=== PATIENT | female | born 1950 | race Caucasian/White ===

== ENCOUNTER 2016-04-02 16:35 | Inpatient (IN) | payer MEDICARE, BC ==
[2016-04-02] VITALS (18 sets, daily range): BP systolic 70–118; BP diastolic 44–81
[~2016-04-02] VITALS: Ht 160 cm; Wt 56.7 kg
[2016-04-02] MEDS ORDERED: ALPRAZOLAM0.5 MG PO (16:36)
[2016-04-02] MEDS ORDERED: FLOVENT2 PUFF1 INH (16:37)
[2016-04-02] MEDS ORDERED: Azithromycin 500 MG in NS 250 ML IV ONE (16:45)
[2016-04-02] MEDS ORDERED: Midazolam for drip 50 MG in D5W 90 ML IV SCH (16:45)
[2016-04-02] MEDS ORDERED: Solu-MEDROL 125mg Inj IVP ONE (16:45)
[2016-04-02] MEDS ORDERED: Ipratropium 0.02% Inh Soln 2.5ml UD HHN ONE (16:45)
[2016-04-02] MEDS ORDERED: Midazolam for drip 50 MG in NS 90 ML IV SCH (16:52)
--- NOTE | 2016-04-02 16:52 | Emergency Room Report ---
History of Present Illness General Chief Complaint: Dyspnea/Respdistress Source: Family Member, EMS Present Illness HPI The patient does have respiratory difficulty for 3 days. Has a history of COPD. She refused to come in with her mom. She does live with her mom. Has been using breathing treatments. Paramedics gave the patient albuterol and in transfer she had decreased responsiveness. Her initial O2 saturation was 79% and this came up to 84%. Treatments in the field with albuterol. The patient is unresponsive at this time and unable to give history. Allergies: Coded Allergies: No Known Allergies (Unverified , 04/02/16) Patient History Limited by: medical condition Past Medical History: see triage record, COPD Social History: Reports: smoking - prior, Denies: alcohol use, drug use Social History Narrative with mother Reviewed Nursing Documentation: PMH: Agreed, PSxH: Agreed Nursing Documentation-PMH Past Medical History Deferred: Patient Unconscious Past Medical History: No History, Except For Hx Hypertension: Yes Hx COPD: Yes History Of Psychiatric Problem: Yes - anxiety Review of Systems All Other Systems: limited Physical Exam Vital Signs Date Time Temp Pulse Resp B/P Pulse Ox O2 Delivery O2 Flow Rate FiO2 04/02/16 16:31 110 14 134/90 77 6.0 Sp02 EP Interpretation: reviewed, abnormal - interpreted as low by me General Appearance: Stupor Eyes: bilateral eye PERRL, bilateral eye normal inspection ENT: moist mucus membranes - plates Neck: supple Respiratory: other - inadequate TV and wheezes, decreased BS bilat Cardiovascular #1: no edema, no murmur, JVD - supine, tachycardia, edema - trace Cardiovascular #2: 2+ radial (R), 2+ femoral (R) Gastrointestinal: abnormal bowel sounds - decreased, scaphoid Genitourinary: normal inspection Musculoskeletal: digits/nails normal, no calf tenderness Neurologic: other - unresponsive to pain Psychiatric: other - stupor Skin: other - sallow Procedures Critical Care Time Critical Care Time Total time: 45 min bedside evaluation and treatment excludes procedures (EKG, intubation and CVP). Reason for critical care: respiratory failure, hypotension, vomiting Possible complications: hypotension, hypertension, AR, shock, arrhythmias, metabolic acidosis, end organ damage, respiratory failure. Interventions: intubation, CVP, eval of ABGs, eval sedation, discussion with family Course: Patient presented comatose after breathing treatments in field. Immediately intubated after discussion with family. Discussion of vent with RT. Transiently hypotensive, better with fluids, then again hypotensive. No JVD when sitting. Breath sounds (tight) bilat and equal (no evidence of pneumothorax). Patient now fully responsive and alert (on versed) while sitting. CVP inserted and levophed begun. Discussion with family and PMD. Patient improved, but critical. Admitted ICU. Consultations: nursing staff, EMS, family, RT, admitting MD Performed by: Dr. Eisenberg Tolerated well condition = critical Central Line Central Line : Consent: Verbal Central Line Lumen: triple Maximal Sterile Barrier Tech: yes cap, yes mask, yes sterile gown, yes sterile gloves, yes large sterile sheet, yes hand hygiene, yes chlorhexidine prep Central Line Postion: femoral (R) Anesthesia: Lidocaine cc's of anesthesia: 3 Complications: none Central Line Post Position: sutured Attempts: One Patient Tolerated: Well Complications: None Progress EBL = 3 ml Intubation Intubation : Consent: Emergent Intubation Method: orotracheal Tube Size (cm): 7.5 Medications: Etomidate Breath Sounds after Intubation: equal Intubation Complications: no complications Post Intubation Xray: Yes Attempts: One Patient Tolerated: Well Complications: None Medical Decision Making Diagnostic Impression: Primary Impression: Respiratory failure Additional Impressions: Hypotension Qualified Codes: I95.9 - Hypotension, unspecified COPD exacerbation ER Course Patient with respiratory failure, unresponsive. Intubated immediately. DDX PNA , COPD, bronchitis amongst others. BC, lactate, EKG and CXR obtained. Discussed with mother and hx obtained. ET OK, COPD = severe. After intubation, more awake and seems to understand. 17:25. Discussed with PMD. Hypotensive despite fluids. CVP and levophed begun. Improved on levophed. Admit ICU Dr. Gomez. Laboratory Tests Test 04/02/16 16:36 04/02/16 16:40 04/02/16 17:30 04/02/16 17:50 Prothrombin Time 11.4 SEC (9.30-11.50) Prothrombin Time INR 1.1 (0.9-1.1) PTT 27 SEC (23-33) White Blood Count 11.5 K/UL (4.8-10.8) H Red Blood Count 4.23 M/UL (4.20-5.40) Hemoglobin 12.5 G/DL (12.0-16.0) Hematocrit 40.0 % (37.0-47.0) Mean Corpuscular Volume 94 FL (80-99) Mean Corpuscular Hemoglobin 29.6 PG (27.0-31.0) Mean Corpuscular Hemoglobin Concent 31.4 G/DL (32.0-36.0) L Red Cell Distribution Width 12.8 % (11.6-14.8) Platelet Count 261 K/UL (150-450) Mean Platelet Volume 8.3 FL (6.5-10.1) Neutrophils (%) (Auto) 72.7 % (45.0-75.0) Lymphocytes (%) (Auto) 14.5 % (20.0-45.0) L Monocytes (%) (Auto) 11.5 % (1.0-10.0) H Eosinophils (%) (Auto) 0.1 % (0.0-3.0) Basophils (%) (Auto) 1.3 % (0.0-2.0) Sodium Level 133 mEQ/L (135-145) L Potassium Level 4.5 mEQ/L (3.4-4.9) Chloride Level 87 mEQ/L (98-107) L Carbon Dioxide Level 29 mEQ/L (20-30) Anion Gap 17 (5-15) H Blood Urea Nitrogen 32 mg/dL (7-23) H Creatinine 1.2 mg/dL (0.5-0.9) H Estimate Glomerular Filtration Rate 44.7 mL/min (>60) Glucose Level 172 mg/dL (74-106) H Lactic Acid Level 2.20 mmol/L (0.66-2.22) Calcium Level 9.1 mg/dL (8.6-10.2) Total Bilirubin 0.6 mg/dL (0.0-1.2) Aspartate Amino Transferase (AST) 68 U/L (5-40) H Alanine Aminotransferase (ALT) 68 U/L (3-33) H Alkaline Phosphatase 58 U/L (35-104) Total Creatine Kinase 411 U/L (26-140) H Troponin I < 0.30 ng/mL (<=0.30) Pro-B-Type Natriuretic Peptide 1824 pg/mL (0-125) H Total Protein 7.5 g/dL (6.6-8.7) Albumin 3.8 g/dL (3.5-5.2) Globulin 3.7 g/dL Albumin/Globulin Ratio 1.0 (1.0-2.7) Urine Color Yellow Urine Appearance Clear Urine pH 5 (4.5-8.0) Urine Specific [place] 1.025 (1.005-1.035) Urine Protein 3+ (NEGATIVE) H Urine Glucose (UA) Negative (NEGATIVE) Urine Ketones Negative (NEGATIVE) Urine Occult Blood 3+ (NEGATIVE) H Urine Nitrite Negative (NEGATIVE) Urine Bilirubin Negative (NEGATIVE) Urine Urobilinogen 4 MG/DL (0.0-1.0) H Urine Leukocyte Esterase Negative (NEGATIVE) Urine RBC 2-4 /HPF (0 - 2) H Urine WBC 0-2 /HPF (0 - 2) Urine Squamous Epithelial Cells Few /LPF (NONE/OCC) Urine Amorphous Sediment Few /LPF (NONE) H Urine Bacteria Few /HPF (NONE) Urine Opiates Screen Negative (NEGATIVE) Urine Barbiturates Screen Negative (NEGATIVE) Phencyclidine (PCP) Screen Negative (NEGATIVE) Urine Amphetamines Screen Negative (NEGATIVE) Urine Benzodiazepines Screen Positive (NEGATIVE) H Urine Cocaine Screen Negative (NEGATIVE) Urine Marijuana (THC) Screen Negative (NEGATIVE) Arterial Blood pH 7.329 (7.350-7.450) Arterial Blood Partial Pressure CO2 43.1 mmHg (35.0-45.0) Arterial Blood Partial Pressure O2 377.4 mmHg (75.0-100.0) H Arterial Blood HCO3 22.2 mmol/L (22.0-26.0) Arterial Blood Oxygen Saturation 99.3 % (92.0-98.0) H Arterial Blood Base Excess -3.7 Damián Test Positive Test 04/02/16 23:10 04/03/16 04:00 Lactic Acid Level 2.90 mmol/L (0.66-2.22) H Pending Troponin I 0.40 ng/mL (<=0.30) *H Pending White Blood Count Pending Red Blood Count Pending Hemoglobin Pending Hematocrit Pending Mean Corpuscular Volume Pending Mean Corpuscular Hemoglobin Pending Mean Corpuscular Hemoglobin Concent Pending Red Cell Distribution Width Pending Platelet Count Pending Mean Platelet Volume Pending Neutrophils (%) (Auto) Pending Lymphocytes (%) (Auto) Pending Monocytes (%) (Auto) Pending Eosinophils (%) (Auto) Pending Basophils (%) (Auto) Pending Sodium Level Pending Potassium Level Pending Chloride Level Pending Carbon Dioxide Level Pending Blood Urea Nitrogen Pending Creatinine Pending Estimate Glomerular Filtration Rate Pending Glucose Level Pending Calcium Level Pending Total Bilirubin Pending Aspartate Amino Transferase (AST) Pending Alanine Aminotransferase (ALT) Pending Alkaline Phosphatase Pending Total Protein Pending Albumin Pending Globulin Pending Microbiology Date/Time Source Procedure Growth Status 04/02/16 17:50 Nasal Nares Influenza Types A,B Antigen (SCOTTY) - Final Complete EKG Diagnostic Results Rate: tachycardiac ST Segments: no acute changes Rhythm Strip Diag. Results EP Interpretation: yes Rhythm: no PVC's, no ectopy, other - Sinus tachycardia Chest X-Ray Diagnostic Results EP Interpretation: Yes Findings: no effusion, no pneumothorax, other - COPD, ET OK, no infiltrate Number of Views: 1 Last 24 Hour Vital Signs Date Time Temp Pulse Resp B/P Pulse Ox O2 Delivery O2 Flow Rate FiO2 04/03/16 05:20 99/52 04/03/16 04:23 98 16 40 04/03/16 02:02 101 16 100 Mechanical Ventilator 40 04/03/16 01:46 89 16 100 Mechanical Ventilator 40 04/03/16 01:45 90 20 94/52 100 Mechanical Ventilator 40 04/03/16 01:44 91 16 40 04/03/16 01:30 90 20 94/52 100 Mechanical Ventilator 40 04/03/16 01:15 88 20 90/55 100 Mechanical Ventilator 40 04/03/16 01:00 89 20 91/55 100 Mechanical Ventilator 40 04/03/16 01:00 89/56 04/03/16 00:45 96 20 89/56 100 Mechanical Ventilator 40 04/03/16 00:30 94 20 92/56 100 Mechanical Ventilator 40 04/03/16 00:15 96 20 92/53 100 Mechanical Ventilator 40 04/03/16 00:00 40 04/03/16 00:00 96 04/03/16 00:00 96 20 93/54 100 Mechanical Ventilator 40 04/03/16 00:00 93/54 04/02/16 23:45 99 20 108/77 100 Mechanical Ventilator 40 04/02/16 23:30 98.4 93 20 108/57 100 Mechanical Ventilator 40 04/02/16 23:15 99 20 98/56 100 Mechanical Ventilator 40 04/02/16 23:00 87/44 04/02/16 23:00 96 20 101/81 100 Mechanical Ventilator 60 04/02/16 22:45 93 18 87/49 100 Mechanical Ventilator 60 04/02/16 22:30 95 18 105/59 100 Mechanical Ventilator 60 04/02/16 22:25 95 16 40 04/02/16 22:15 95 18 94/49 100 Mechanical Ventilator 60 04/02/16 22:01 105/61 04/02/16 22:00 94 17 105/61 100 Mechanical Ventilator 60 04/02/16 21:45 96 16 87/45 100 Mechanical Ventilator 60 04/02/16 21:30 97 16 95/62 100 Mechanical Ventilator 60 04/02/16 21:29 86/49 04/02/16 21:15 98 16 85/44 100 Mechanical Ventilator 60 04/02/16 21:04 98 16 40 04/02/16 21:00 98 16 85/49 100 Mechanical Ventilator 60 04/02/16 20:45 100 16 85/49 100 Mechanical Ventilator 60 04/02/16 20:38 102 04/02/16 20:30 102 16 102/60 100 Mechanical Ventilator 60 04/02/16 20:15 98.0 105 16 105/55 100 Mechanical Ventilator 60 04/02/16 20:09 40 04/02/16 20:04 97.0 108 16 83/58 100 Endotracheal Tube 6.0 60 04/02/16 20:00 60 04/02/16 19:45 97.1 106 16 85/52 95 Endotracheal Tube 6.0 60 04/02/16 19:33 108 16 60 04/02/16 19:16 97.1 103 18 70/50 94 Endotracheal Tube 6.0 04/02/16 19:09 67/48 04/02/16 16:38 60 04/02/16 16:38 110 16 60 04/02/16 16:38 110 14 Mechanical Ventilator 60 04/02/16 16:38 110 14 100 Mechanical Ventilator 60 04/02/16 16:35 118 12 Non-Rebreather 6.0 04/02/16 16:35 97.0 118 12 118/62 92 Non-Rebreather 6.0 04/02/16 16:31 110 14 134/90 77 6.0 Status: improved Disposition: ADMITTED INPATIENT Condition: Critical Adolfo Eisenberg M.D. Apr 02, 2016 16:52
[2016-04-02 16:55] LABS: BASOPHILS % (AUTO) 1.3 % (0.0-2.0); EOSINOPHILS % (AUTO) 0.1 % (0.0-3.0); LYMPHOCYTES % (AUTO) 14.5 % (20.0-45.0); MEAN CORPUSCULAR HEMOGLOBIN 29.6 PG (27.0-31.0); MEAN CORPUSCULAR HGB CONC 31.4 G/DL (32.0-36.0); MEAN CORPUSCULAR VOLUME 94 FL (80-99); MEAN PLATELET VOLUME 8.3 FL (6.5-10.1); MONOCYTES % (AUTO) 11.5 % (1.0-10.0); NEUTROPHILS % (AUTO) 72.7 % (45.0-75.0); PLATELET COUNT 261 K/UL (150-450); RED BLOOD COUNT 4.23 M/UL (4.20-5.40); RED CELL DISTRIBUTION WIDTH 12.8 % (11.6-14.8); WHITE BLOOD COUNT 11.5 K/UL (4.8-10.8)
[2016-04-02] MEDS ORDERED: Etomidate 40mg/20ml Inj IV ONE (17:00)
[2016-04-02] MEDS ORDERED: Midazolam 2mg/2ml Inj IVP ONE (17:00)
[2016-04-02] MEDS ORDERED: Azithromycin Inj IV ONE (17:13)
[2016-04-02] MEDS: Albuterol ud Inhalation HHN SCH ×14 (17:16→20:15)
[2016-04-02 17:19] LABS: INR 1.1 (0.9-1.1); PROTHROMBIN TIME 11.4 SEC (9.30-11.50)
[2016-04-02 17:45] LABS: TROPONIN I < 0.30 ng/mL (<=0.30)
[2016-04-02 17:48] LABS: ALANINE AMINOTRANSFERASE 68 U/L (3-33); CHLORIDE 87 mEQ/L (98-107); POTASSIUM 4.5 mEQ/L (3.4-4.9); SODIUM 133 mEQ/L (135-145)
[2016-04-02 17:55] LABS: REFLEX LACTIC ACID YES OR NO YES
[2016-04-02 18:00] LABS: APPEARANCE,URINE CLEAR; KETONES,URINE NEGATIVE (NEGATIVE); LEUKOCYTE ESTERASE ,URINE NEGATIVE (NEGATIVE); NITRITE,URINE NEGATIVE (NEGATIVE); PH,URINE 5 (4.5-8.0); PROTEIN,URINE 3+ (NEGATIVE); UROBILINOGEN,URINE 4 MG/DL (0.0-1.0)
[2016-04-02] MEDS ORDERED: Vancomycin 1gm inj IVPB ONE (18:01)
[2016-04-02 18:03] LABS: ABG PCO2 43.1 mmHg (35.0-45.0)
[2016-04-02 18:04] LABS: ABG ALLEN TEST POSITIVE; ABG BASE EXCESS -3.7
[2016-04-02 18:14] LABS: AMORPHOUS SEDIMENT,UR FEW /LPF; BACTERIA,URINE FEW /HPF; SQUAMOUS EPITHELIAL CELL,UR FEW /LPF (NONE/OCC); WBC,URINE 0-2 /HPF (0 - 2)
[2016-04-02 18:18] LABS: ANION GAP 17 (5-15); CALCIUM 9.1 mg/dL (8.6-10.2); CARBON DIOXIDE 29 mEQ/L (20-30); CREATININE 1.2 mg/dL (0.5-0.9); GLOMERULAR FILTRATION RATE 44.7 mL/min (>60)
[2016-04-02 18:19] LABS: ASPARTATE AMINO TRANSFERASE 68 U/L (5-40)
[2016-04-02 18:20] LABS: TOTAL PROTEIN 7.5 g/dL (6.6-8.7)
[2016-04-02] MEDS ORDERED: Lidocaine 1% 10mg/ml/Epi 0.005mg/ml 30ml vial INJ ONE (18:30)
[2016-04-02] MEDS ORDERED: Lidocaine 1% MPF 10mg/ml 5ml INJ ONE (18:45)
[2016-04-02] MEDS ORDERED: LORazepam 1mg tab ORAL PRN (19:45)
[2016-04-02] MEDS ORDERED: Miralax 17gm pkt ORAL PRN (19:45)
[2016-04-02] MEDS ORDERED: cefTRIAXone 1 GM in D5W 50 ML IVPB ONE (19:45)
[2016-04-02] MEDS ORDERED: Hydromorphone 0.5mg/0.5ml inj IVP PRN (19:45)
[2016-04-02] MEDS: Heparin 5000 units/ml inj SUBQ SCH (21:33)
[2016-04-02] MEDS: Solu-MEDROL 125mg Inj IVP SCH (23:49)
[2016-04-03] VITALS (93 sets, daily range): BP systolic 67–119; BP diastolic 39–86
[2016-04-03 00:35] LABS: TROPONIN I 0.4 ng/mL (<=0.30)
[2016-04-03 00:36] LABS: REFLEX LACTIC ACID YES OR NO YES
--- NOTE | 2016-04-03 00:47 | History and Physical Report ---
DATE OF ADMISSION: 04/02/2016 CHIEF COMPLAINT: Respiratory failure. HISTORY OF PRESENT ILLNESS: Briefly, this is a 66-year-old white female, who is very well known to me. She has end-stage COPD. She has been evaluated for lung transplant, but thus far has opted not to pursue this avenue. The patient was in her usual state of health and in fact was doing quite well when I saw her in the office a few weeks ago. However, for the past three days, she has had increasing shortness of breath and cough producing green sputum, fevers, chills, and vomiting. The patient finally presented to the emergency room today here at [facility] and while she was being evaluated by the emergency room doctor, she went into respiratory arrest and had to be emergently intubated. The patient became hypotensive and had to be started on a Levophed drip. She has now been transferred to the ICU. She is awake, alert, and nodding to questions. Of note, her initial O2 saturation in the ER was 79%, which improved only to 84%. She did get treatment in the field by the paramedics. PAST MEDICAL HISTORY: 1. Severe emphysema. 2. History of smoking. 3. Hypertension. 4. Anxiety. 5. Osteoporosis. 6. History of appendectomy in 2013. MEDICATIONS: At home include tiotropium/olodaterol two inhalations a day, valsartan hydrochlorothiazide 160/12.5 daily, atorvastatin 20 at bedtime, Pulmicort and Ativan 0.5 mg p.o. q.8 p.r.n. ALLERGIES: Codeine, erythromycin, and tetracycline. SOCIAL HISTORY: The patient is single. She lives with her mother. 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 She did smoke from the age of 11 until 56 up to a pack per day. Alcohol none. Drugs none. FAMILY HISTORY: Notable for her mother who is in reasonably good health in her 90s. REVIEW OF SYSTEMS: Otherwise not able. PHYSICAL EXAMINATION: GENERAL: The patient is a well-developed and well-nourished white female, in no acute distress. She is alert and seems oriented to place. VITAL SIGNS: Vitals are not completed here yet, but last blood pressure in the ER was 67/48 with a heart rate of 110. She is on mechanical ventilation with 50% FiO2. Her O2 sats are 100%. HEENT: Normocephalic and atraumatic. Pupils are equal and round. Sclerae anicteric. Oropharynx revealed some dry blood at the mouth. NECK: Supple without adenopathy. CHEST: Reveals clear breath sounds bilaterally. CARDIOVASCULAR: Regular rate and rhythm. Normal S1 and S2. No murmurs, gallops, or rubs appreciated. ABDOMEN: Positive bowel sounds. Soft and nontender. No hepatosplenomegaly. EXTREMITIES: No clubbing, cyanosis, or edema. LABORATORY DATA: Urine tox screen is positive for benzodiazepines and negative for other. Urinalysis shows 2 to 4 red cells, 0 to 2 white cells, few squamous epithelial cells. ProTime is 11.4. PTT is 27. Sodium is 133, potassium 4.5, chloride 87, and bicarbonate 29. BUN 32 and creatinine 1.2. Glucose 172. AST 68, ALT 68, and alkaline phosphatase 58. CK is 411. Troponin is less than 0.30. ProBNP is 1824. Total protein is 7.5. Albumin 3.8. Blood gas, unknown FiO2, pH 7.33, pCO2 43, pO2 377, O2 sat 99%, and bicarbonate 22. CBC reveals a white count of 11.5, hemoglobin 12.5, hematocrit 40, and platelets 251,000, MCV is 94, and RDW is normal at 12.8. Chest x-ray shows markedly hyperexpanded lung green without infiltrate. IMPRESSION: 1. Acute respiratory failure. 2. Chronic obstructive pulmonary disease exacerbation. 3. Probable bronchitis, rule out pneumonia. 4. History of hypotension and history of hypertension. Hypotension may be due to breaths tacking on the ventilator after intubation. 5. Rule out myocardial infarction. PLAN: 1. Ventilator support. 2. Attempt to weaning in the morning if possible. 3. Azithromycin and cefotaxime. 4. Inline nebulizers. 5. Solu-Medrol 60 mg IV q.6. 6. Sedation with Ativan overnight. 7. Sputum studies. 8. Gentle IV fluid. 9. Check troponins and EKG, which has not yet been located. Estela Gomez M.D. DR: HEENA JOB#: [id number] CC:
[2016-04-03] MEDS: Aspirin Baby 81mg NG SCH ×2 (01:00→08:58)
[2016-04-03] MEDS: DuoNeb 0.5-3(2.5)mg/3ml neb HHN SCH ×6 (01:50→23:01)
[2016-04-03] MEDS: Solu-MEDROL 125mg Inj IVP SCH ×3 (05:20→17:43)
[2016-04-03] MEDS: LORazepam Inj 2mg/ml 1ml IV PRN ×2 (05:28→15:44)
[2016-04-03 05:58] LABS: CALCIUM 6.9 mg/dL (8.6-10.2); CREATININE 1.2 mg/dL (0.5-0.9); GLOMERULAR FILTRATION RATE 44.7 mL/min (>60); POTASSIUM 4.1 mEQ/L (3.4-4.9); TOTAL PROTEIN 5.7 g/dL (6.6-8.7)
[2016-04-03 06:01] LABS: TROPONIN I 0.66 ng/mL (<=0.30)
[2016-04-03 06:03] LABS: MEAN CORPUSCULAR HEMOGLOBIN 30.8 PG (27.0-31.0); MEAN CORPUSCULAR HGB CONC 32.6 G/DL (32.0-36.0); MEAN CORPUSCULAR VOLUME 95 FL (80-99); MEAN PLATELET VOLUME 7.8 FL (6.5-10.1); PLATELET COUNT 248 K/UL (150-450); RED BLOOD COUNT 3.47 M/UL (4.20-5.40); RED CELL DISTRIBUTION WIDTH 12.8 % (11.6-14.8); WHITE BLOOD COUNT 10.4 K/UL (4.8-10.8)
[2016-04-03 08:32] LABS: BAND NEUTROPHILS % (MANUAL) 11 % (0-8); BASOPHILS % (MANUAL) 0 % (0-2); EOSINOPHILS % (MANUAL) 0 % (0-3); LYMPHOCYTES % (MANUAL) 6 % (20-45); NEUTROPHILS % (MANUAL) 75 % (45-75); PLATELET ESTIMATE ADEQUATE; PLATELET MORPHOLOGY NORMAL; TOTAL CELLS COUNTED 100
[2016-04-03 08:35] LABS: POLYCHROMASIA OCCASIONAL
[2016-04-03] MEDS: Azithromycin 250mg tab ORAL SCH (08:58)
[2016-04-03] MEDS: Heparin 5000 units/ml inj SUBQ SCH ×2 (08:59→21:10)
--- NOTE | 2016-04-03 09:57 | Cardiology Report ---
APPROVED REPORT EKG Measurement Heart [id number] Sinus tachycardia with premature supraventricular complexes Possible Left atrial enlargement Rightward axis Low voltage QRS Cannot rule out Anteroseptal infarct, age undetermined Abnormal ECG
[2016-04-03] MEDS ORDERED: Etomidate 40mg/20ml Inj IV ONE (10:14)
--- NOTE | 2016-04-03 11:07 | Diagnostic Imaging Report ---
Indication: Status post intubation Technique: One view of the chest Comparison: none Findings: There is an endotracheal tube in place. Tip projects in good position, approximately 6 cm above the curtis. Lungs are hyperinflated. The left costophrenic angle is cut off exam. The heart size is normal. No definite acute infiltrates, effusions, or congestion Impression: Satisfactory endotracheal intubation COPD No definite acute process otherwise This agrees with the preliminary interpretation provided by the emergency room physician
--- NOTE | 2016-04-03 13:36 | Pulmonolgy Critical Care Note ---
Critical Care - Asmt/Plan Assessment/Plan: acute hypoxemic resp failure bronchitis-viral vs bact sev copd sev hyperinflation-better hypotension sl elev troponin abnl LFTs h/o HTN hyperglycemia-prob due to steroids immune status--flu shot-yes prevnar 13 yes 03/01/15 PLAN rest on vent for now start tube feeds Vital AF retry weaning in am accuchecks await 2 d echo cards eval cont ivf abd brooks f/u sput studies FULL CODE dw RN and pts mother at bedside Critical Care - Objective Last 24 Hour Vital Signs Date Time Temp Pulse Resp B/P Pulse Ox O2 Delivery O2 Flow Rate FiO2 04/03/16 13:15 95 20 94/42 99 Mechanical Ventilator 40 04/03/16 13:00 95 20 90/40 99 Mechanical Ventilator 40 04/03/16 12:47 105 16 40 04/03/16 12:45 98 20 83/39 99 Mechanical Ventilator 40 04/03/16 12:30 40 04/03/16 12:30 98 16 94/68 99 Mechanical Ventilator 40 04/03/16 12:15 105 16 103/86 99 Mechanical Ventilator 40 04/03/16 12:10 40 04/03/16 12:07 40 04/03/16 12:00 97.8 93 19 90/54 99 Mechanical Ventilator 40 04/03/16 12:00 98 04/03/16 11:45 91 16 71/47 99 Mechanical Ventilator 40 04/03/16 11:30 88 16 90/52 99 Mechanical Ventilator 40 04/03/16 11:27 91 16 100 Mechanical Ventilator 40 04/03/16 11:25 96 16 40 04/03/16 11:15 89 16 97/56 99 Mechanical Ventilator 40 04/03/16 11:15 87 16 100 Mechanical Ventilator 40 04/03/16 11:00 88/54 04/03/16 11:00 90 19 88/52 99 Mechanical Ventilator 40 04/03/16 10:45 93 19 90/54 99 Mechanical Ventilator 40 04/03/16 10:30 95 19 81/48 99 Mechanical Ventilator 40 04/03/16 10:30 40 04/03/16 10:15 100 19 77/39 99 Mechanical Ventilator 40 04/03/16 10:10 40 04/03/16 10:06 107 16 40 04/03/16 10:00 104 16 95/72 100 Mechanical Ventilator 40 04/03/16 10:00 95/72 04/03/16 10:00 111 27 04/03/16 09:45 113 23 104/60 100 Mechanical Ventilator 40 04/03/16 09:40 40 04/03/16 09:30 112 23 89/59 100 Mechanical Ventilator 40 04/03/16 09:21 102 21 40 04/03/16 09:17 100 04/03/16 09:15 105 21 111/59 100 Mechanical Ventilator 40 04/03/16 09:15 111/59 04/03/16 09:00 95/55 04/03/16 09:00 90 17 98/54 100 Mechanical Ventilator 40 04/03/16 08:45 88 16 95/55 100 Mechanical Ventilator 40 04/03/16 08:30 87 16 97/57 100 Mechanical Ventilator 40 04/03/16 08:15 89 16 100/58 100 Mechanical Ventilator 40 04/03/16 08:00 40 04/03/16 08:00 97.8 91 16 100/58 100 Mechanical Ventilator 40 04/03/16 08:00 100/58 04/03/16 08:00 90 04/03/16 07:45 87 16 101/58 100 Mechanical Ventilator 40 04/03/16 07:30 88 16 96/57 100 Mechanical Ventilator 40 04/03/16 07:15 89 16 106/59 100 Mechanical Ventilator 40 04/03/16 07:00 105/71 04/03/16 07:00 90 20 106/59 100 Mechanical Ventilator 40 04/03/16 06:58 88 16 100 Mechanical Ventilator 40 04/03/16 06:53 82 16 40 04/03/16 06:45 80 20 94/52 100 Mechanical Ventilator 40 04/03/16 06:45 82 16 100 Mechanical Ventilator 40 04/03/16 06:30 81 20 94/55 100 Mechanical Ventilator 40 04/03/16 06:15 86 20 99/55 100 Mechanical Ventilator 40 04/03/16 06:00 92/53 04/03/16 06:00 88 20 92/53 100 Mechanical Ventilator 40 04/03/16 05:45 92 20 86/56 100 Mechanical Ventilator 40 04/03/16 05:30 98 20 96/48 100 Mechanical Ventilator 40 04/03/16 05:20 99/52 04/03/16 05:15 101 20 93/51 100 Mechanical Ventilator 40 04/03/16 05:00 101 20 99/66 100 Mechanical Ventilator 40 04/03/16 04:45 97 20 83/64 100 Mechanical Ventilator 40 04/03/16 04:30 99 20 111/59 100 Mechanical Ventilator 40 04/03/16 04:23 98 16 40 04/03/16 04:15 98 20 104/56 100 Mechanical Ventilator 40 04/03/16 04:00 98.0 101 20 99/66 100 Mechanical Ventilator 40 04/03/16 04:00 40 04/03/16 04:00 99/62 04/03/16 04:00 99 04/03/16 03:45 92 20 94/52 100 Mechanical Ventilator 40 04/03/16 03:30 88 20 84/50 100 Mechanical Ventilator 40 04/03/16 03:15 87 20 101/54 100 Mechanical Ventilator 40 04/03/16 03:00 88 20 93/55 100 Mechanical Ventilator 40 04/03/16 03:00 93/55 04/03/16 02:45 87 20 93/55 100 Mechanical Ventilator 40 04/03/16 02:30 88 20 94/54 100 Mechanical Ventilator 40 04/03/16 02:15 91 20 94/52 100 Mechanical Ventilator 40 04/03/16 02:02 101 16 100 Mechanical Ventilator 40 04/03/16 02:00 93 20 94/53 100 Mechanical Ventilator 40 04/03/16 02:00 94/53 04/03/16 01:46 89 16 100 Mechanical Ventilator 40 04/03/16 01:45 90 20 94/52 100 Mechanical Ventilator 40 04/03/16 01:44 91 16 40 04/03/16 01:30 90 20 94/52 100 Mechanical Ventilator 40 04/03/16 01:15 88 20 90/55 100 Mechanical Ventilator 40 04/03/16 01:00 89 20 91/55 100 Mechanical Ventilator 40 04/03/16 01:00 89/56 04/03/16 00:45 96 20 89/56 100 Mechanical Ventilator 40 04/03/16 00:30 94 20 92/56 100 Mechanical Ventilator 40 04/03/16 00:15 96 20 92/53 100 Mechanical Ventilator 40 04/03/16 00:00 40 04/03/16 00:00 96 04/03/16 00:00 96 20 93/54 100 Mechanical Ventilator 40 04/03/16 00:00 93/54 04/02/16 23:45 99 20 108/77 100 Mechanical Ventilator 40 04/02/16 23:30 98.4 93 20 108/57 100 Mechanical Ventilator 40 04/02/16 23:15 99 20 98/56 100 Mechanical Ventilator 40 04/02/16 23:00 87/44 04/02/16 23:00 96 20 101/81 100 Mechanical Ventilator 60 04/02/16 22:45 93 18 87/49 100 Mechanical Ventilator 60 04/02/16 22:30 95 18 105/59 100 Mechanical Ventilator 60 04/02/16 22:25 95 16 40 04/02/16 22:15 95 18 94/49 100 Mechanical Ventilator 60 04/02/16 22:01 105/61 04/02/16 22:00 94 17 105/61 100 Mechanical Ventilator 60 04/02/16 21:45 96 16 87/45 100 Mechanical Ventilator 60 04/02/16 21:30 97 16 95/62 100 Mechanical Ventilator 60 04/02/16 21:29 86/49 04/02/16 21:15 98 16 85/44 100 Mechanical Ventilator 60 04/02/16 21:04 98 16 40 04/02/16 21:00 98 16 85/49 100 Mechanical Ventilator 60 04/02/16 20:45 100 16 85/49 100 Mechanical Ventilator 60 04/02/16 20:38 102 04/02/16 20:30 102 16 102/60 100 Mechanical Ventilator 60 04/02/16 20:15 98.0 105 16 105/55 100 Mechanical Ventilator 60 04/02/16 20:09 40 04/02/16 20:04 97.0 108 16 83/58 100 Endotracheal Tube 6.0 60 04/02/16 20:00 60 04/02/16 19:45 97.1 106 16 85/52 95 Endotracheal Tube 6.0 60 04/02/16 19:33 108 16 60 04/02/16 19:16 97.1 103 18 70/50 94 Endotracheal Tube 6.0 04/02/16 19:09 67/48 04/02/16 16:38 60 04/02/16 16:38 110 16 60 04/02/16 16:38 110 14 Mechanical Ventilator 60 04/02/16 16:38 110 14 100 Mechanical Ventilator 60 04/02/16 16:35 118 12 Non-Rebreather 6.0 04/02/16 16:35 97.0 118 12 118/62 92 Non-Rebreather 6.0 04/02/16 16:31 110 14 134/90 77 6.0 Status: awake, somnolent HEENT: atraumatic Lungs: clear Heart: regular Abdomen: soft, non-tender Extremities: no C/C/E Micro: Microbiology Date/Time Source Procedure Growth Status 04/02/16 21:15 Sputum Gram Stain - Final Resulted 04/02/16 21:15 Sputum Sputum Culture Pending Resulted 04/02/16 17:50 Nasal Nares Influenza Types A,B Antigen (SCOTTY) - Final Complete Accucheck: 154 Critical Care - Subjective ROS Limited/Unobtainable: Yes ICU Day: 1 Condition: stable IV Access: peripheral EKG Rhythm: Sinus Rhythm FI02: 40 Vent Support Breath Rate: 16 Vent Support Mode: AC Vent Tidal Volume: 450 Sputum Amount: Moderate PEEP: 0 PIP: 37 I&O: Intake and Output 04/02/16 04/03/16 19:00 07:00 Intake Total 150 ml 3177.5 ml Output Total 420 ml Balance 150 ml 2757.5 ml Intake Oral 0 ml IV Total 150 ml 1177.5 ml Other 2000 ml Output Urine Total 420 ml Subjective: pt comfortable, easily awakened, alert. uneventful night remains on levophed weaning attmepted-did not tolerate SIMV/PS or PS 22 by me no breath stacking mother (96yo) at bedside cxr no if-lungs somewhat decompressed c/w yest cxr ET-Tube: 7.5 ET Position: 22 RIZWAN DUDLEY Apr 03, 2016 13:36
[2016-04-03] MEDS: Montelukast 10mg tablet ORAL SCH (16:51)
[2016-04-03] MEDS: cefTRIAXone 1 GM in D5W 50 ML IVPB SCH (16:52)
[2016-04-03] MEDS: NovoLOG Insulin Flexpen SUBQ SCH ×2 (16:53→20:55)
[2016-04-03 19:27] LABS: HEMOLYSIS 0; IRON 18 ug/dL (37-145); TOTAL IRON BINDING CAPACITY 199 ug/dL (250-400); TROPONIN I < 0.30 ng/mL (<=0.30)
--- NOTE | 2016-04-03 20:37 | Consultation ---
Consult Note Consult Note Cardiology Full note dictated #[id number] Assessment : mild trop elevation in setting of resp failure/ hypoxia - c/w demand ischemia. ECHO w/o focal wall motion abnl but is a technically difficult study. She is hypotensive, poss vol depleted rec: IV NS fluid challenge. Attempt to wean levophed. Continue asa. Statin if lfts improve. No b giuliano due to end stage copd and low BP. Further w/u for possible myocardial ischemia when pt extubated/ stable. CARITO POTTS Apr 03, 2016 20:37
--- NOTE | 2016-04-03 21:57 | Consultation ---
DATE OF CONSULTATION: 04/03/2016 CARDIOLOGY CONSULTATION REASON FOR CONSULT: Elevated troponin and hypotension. HISTORY OF PRESENT ILLNESS: History is obtained primarily from the chart and treating providers as the patient is intubated and unable to give much history. The patient is a 66-year-old, white female with a history of end-stage COPD, who was brought to the emergency room with increasing shortness of breath over about 3 days prior to admission. She had a respiratory arrest in the emergency room and required intubation and is currently on mechanical ventilation. She is being treated for COPD exacerbation and possible pneumonia. She has been on pressors currently on Levophed at 6 mcg/kg/m. Troponin level on admission was less than 0.3, but the repeat levels have been 0.4, 0.66, 0.6, and now less than 0.3. Cardiology evaluation was requested. The patient is awake on the ventilator and denies any chest pain, or previous history of coronary disease, or myocardial infarction. PAST MEDICAL HISTORY: As noted above. MEDICATIONS: Currently ceftriaxone 1 g IV q.24 hours, Singular 10 mg q.p.m., insulin sliding scale, azithromycin 250 mg per NG-tube daily, aspirin 81 mg per NG-tube daily, Solu-Medrol 60 mg IV q.6 hours, subcutaneous heparin 5000 units q.12 hours, Zantac 150 mg IV daily, norepinephrine currently at 6 mcg/kg/m, Dilaudid 0.5 mg q.2 hours IV p.r.n., and lorazepam 1 mg IV q.4 hours p.r.n. ALLERGIES: No known drug allergies. SOCIAL HISTORY: The patient has a history of tobacco use, but quit recently. No history of alcohol or drug use. Social history and review of systems are not obtainable but states that she quit. No history of alcohol or drug use. REVIEW OF SYSTEMS: Not obtainable from the patient or chart. PHYSICAL EXAMINATION: VITAL SIGNS: Blood pressure is 86/56, pulse 92 regular, respirations 20, and oxygen saturation 100% on 40% FiO2. HEENT: Endotracheal tube in place. Pupils are equal, round, and reactive to light. Sclerae anicteric. NECK: Supple. There is no jugular venous distention. Carotid pulses are 2+ with normal upstrokes bilaterally. LUNGS: Decreased breath sounds bilaterally. No rales or wheezes. HEART: Tachycardic. Regular S1 and S2. No murmurs, rubs, S3, or S4. ABDOMEN: Soft, nontender, and nondistended. No palpable masses. No bruits. EXTREMITIES: No cyanosis, clubbing, or edema. A 2+ dorsalis pedis and posterior tibial pulses bilaterally. LABORATORY AND DIAGNOSTIC DATA: Troponin currently is less than 0.3, peak 0.66 on 04/02/2016. Sodium 136, potassium 4.1, BUN 33, and creatinine 1.2. Liver function tests; AST 150, ALT 119, total bilirubin 0.3, hemoglobin 10.7, hematocrit 32, white blood count 10,400, and platelets 248,000. EKG shows sinus rhythm at 99 beats per minute, short NM interval, low voltage QRS, axis 90 degrees, poor progression anteriorly. Echo by report is a technically difficult study but showed normal left ventricular systolic function with ejection fraction in the 60s and pulmonary pressure of 40 mmHg. Chest x-ray shows hyperinflated lungs, no cardiomegaly, no infiltrates, effusions, or edema. ASSESSMENT AND RECOMMENDATIONS: The patient is a 66-year-old woman with end-stage chronic obstructive pulmonary disease admitted with respiratory failure. She was noted to be severely hypoxic and reported to have a respiratory arrest in the emergency room. In this setting, her troponin level was noted to be mildly elevated, but currently decreasing. Her EKG suggests old anterior wall infarct, however, echo does not appear to show any focal wall motion abnormalities though it was a technically difficult study. At this point, she does not appear with any evidence for acute ischemia and does not appear in congestive heart failure. She is hypotensive, which may be partly due to volume depletion. I would favor a fluid challenge with normal saline and attempting to wean off Levophed. We would continue antibiotics and pulmonary treatment as per Dr. Gomez with regard to her cardiac condition once she is more stable then noninvasive evaluation for possible myocardial ischemia can be done. For now, we would give aspirin and statin. She cannot take beta-blockers due to severe chronic obstructive pulmonary disease and low blood pressure. Further treatment recommendations will be made based on her clinical course. Thank you for allowing me to see her in cardiology consultation. Margaret Stephen M.D. DR: NOEL JOB#: [id number] CC: Estela Gomez M.D.; Fax#: [phone]
[2016-04-04] VITALS (96 sets, daily range): BP systolic 79–112; BP diastolic 21–71
[2016-04-04] MEDS: Solu-MEDROL 125mg Inj IVP SCH ×4 (00:27→17:07)
[2016-04-04] MEDS: Aspirin Baby 81mg NG SCH ×2 (00:28→09:00)
[2016-04-04] MEDS: LORazepam Inj 2mg/ml 1ml IV PRN ×2 (01:09→06:07)
[2016-04-04] MEDS: DuoNeb 0.5-3(2.5)mg/3ml neb HHN SCH ×6 (02:52→23:21)
[2016-04-04 04:57] LABS: MEAN CORPUSCULAR HEMOGLOBIN 30.7 PG (27.0-31.0); MEAN CORPUSCULAR HGB CONC 32.4 G/DL (32.0-36.0); MEAN CORPUSCULAR VOLUME 95 FL (80-99); MEAN PLATELET VOLUME 7.5 FL (6.5-10.1); PLATELET COUNT 279 K/UL (150-450); RED BLOOD COUNT 3.41 M/UL (4.20-5.40); RED CELL DISTRIBUTION WIDTH 12.9 % (11.6-14.8); WHITE BLOOD COUNT 18.5 K/UL (4.8-10.8)
[2016-04-04 05:19] LABS: TROPONIN I < 0.30 ng/mL (<=0.30)
[2016-04-04 05:27] LABS: ALBUMIN/GLOBULIN RATIO 1.1 (1.0-2.7); CALCIUM 6.8 mg/dL (8.6-10.2); GLOMERULAR FILTRATION RATE 55.1 mL/min (>60); POTASSIUM 3.6 mEQ/L (3.4-4.9); TOTAL PROTEIN 5.7 g/dL (6.6-8.7)
[2016-04-04] MEDS: NovoLOG Insulin Flexpen SUBQ SCH ×3 (06:08→17:20)
[2016-04-04 07:43] LABS: BAND NEUTROPHILS % (MANUAL) 3 % (0-8); LYMPHOCYTES % (MANUAL) 2 % (20-45); NEUTROPHILS % (MANUAL) 87 % (45-75); TOTAL CELLS COUNTED 100
[2016-04-04 07:46] LABS: BASOPHILS % (MANUAL) 0 % (0-2); EOSINOPHILS % (MANUAL) 0 % (0-3); PLATELET ESTIMATE ADEQUATE; PLATELET MORPHOLOGY NORMAL
[2016-04-04] MEDS: Azithromycin 250mg tab ORAL SCH (09:00)
[2016-04-04] MEDS: Heparin 5000 units/ml inj SUBQ SCH ×2 (09:04→21:07)
--- NOTE | 2016-04-04 09:35 | Diagnostic Imaging Report ---
Indications: Elevated hepatic and renal function tests Technique: Transabdominal real-time grayscale and duplex Doppler imaging of the upper abdomen and retroperitoneum was performed. Findings: Comparison: None. Liver nonenlarged. Demonstrates diffusely coarsened, mildly increased parenchymal echogenicity and suggestion of mild surface contour nodularity. Contains innumerable circumscribed anechoic foci up to 3.3 cm, some septated. No solid focal lesion identified.. Gallbladder contains small nodular echogenic non-shadowing mural based foci.. No intraluminal stones or sludge. No mural thickening or adjacent fluid collections. Sonographic Renee sign reported as negative.. Bile ducts normal caliber. Common bile duct 4.5 mm. Pancreas visualized portions unremarkable. Spleen 6.7 cm, no focal lesion identified.. Right kidney contains a 14 mm circumscribed hypoechoic focus with apparent internal septation in upper pole, 11 mm circumscribed anechoic focus emanating exophytically from lower pole; otherwise unremarkable. Left kidney unremarkable. Proximal and mid abdominal aorta, intrahepatic portion of inferior vena cava patent, normal caliber. Distal bowel aorta obscured. Duplex Doppler imaging demonstrates antegrade flow in splenic, portal, hepatic veins. Trace ascites. IMPRESSION: Hepatic parenchymal findings compatible with chronic hepatocellular disease, possible cirrhosis Multiple hepatic parenchymal cysts, some septated Gallbladder polyps Right renal cortical masses as described, lower pole region compatible simple cyst. Upper pole lesion most likely represents a septated, proteinaceous cyst. Solid mass not entirely excludable. CT scan or MRI of the kidneys with contrast, renal mass protocol, suggestive for further evaluation. Otherwise sonographically unremarkable kidneys Trace ascites, nonspecific Distal bowel aorta obscured.
--- NOTE | 2016-04-04 11:36 | Cardiology Progress Note ---
Assessment/Plan Status: not improved, unchanged Status Narrative Mrs. Gallardo remains intubated and on pressors (Levophed) following adm w/ resp failure, copd exacerbation. BNP elevated, though pt does not appear in overt chf remains on iv steroids, abx Troponin levels have decreased, and ekgs show no ischemic changes. Assessment/Plan Attempt to wean pressors as tolerated. Maintain iv hydration. Followup cxr - ? chf continue asa. hold statin due to elevated lfts, and hold b blockers due to copd and hypotension. Consider ischemia eval when more stable, extubated. Subjective ROS Limited/Unobtainable: Yes Subjective Intubated /sedated Objective Last 24 Hour Vital Signs Date Time Temp Pulse Resp B/P Pulse Ox O2 Delivery O2 Flow Rate FiO2 04/04/16 11:06 94 12 100 Mechanical Ventilator 40 04/04/16 11:04 96 16 40 04/04/16 10:55 97 12 100 Mechanical Ventilator 40 04/04/16 10:00 99 19 104/56 99 Mechanical Ventilator 40 04/04/16 10:00 100/51 04/04/16 09:50 98 04/04/16 09:45 104 18 97/51 99 Mechanical Ventilator 40 04/04/16 09:30 101 21 86/68 99 Mechanical Ventilator 40 04/04/16 09:28 104 17 40 04/04/16 09:15 101 18 107/60 99 Mechanical Ventilator 40 04/04/16 09:00 99 19 104/56 99 Mechanical Ventilator 40 04/04/16 09:00 104/56 04/04/16 08:45 98 19 110/57 99 Mechanical Ventilator 40 04/04/16 08:30 96 19 109/60 99 Mechanical Ventilator 40 04/04/16 08:15 95 20 98/54 99 Mechanical Ventilator 40 04/04/16 08:07 97/54 04/04/16 08:00 87 04/04/16 08:00 40 04/04/16 08:00 98.3 90 18 101/55 100 Mechanical Ventilator 40 04/04/16 07:58 79 12 100 Mechanical Ventilator 40 04/04/16 07:56 80 12 40 04/04/16 07:45 81 12 100 Mechanical Ventilator 40 04/04/16 07:45 85 12 97/54 99 Mechanical Ventilator 40 04/04/16 07:30 92 23 102/56 99 Mechanical Ventilator 40 04/04/16 07:15 87 23 88/51 100 Mechanical Ventilator 40 04/04/16 07:00 88 13 91/46 100 Mechanical Ventilator 40 04/04/16 07:00 91/46 04/04/16 06:45 89 13 92/49 100 Mechanical Ventilator 40 04/04/16 06:30 93 13 92/61 100 Mechanical Ventilator 40 04/04/16 06:15 96 13 98/53 100 Mechanical Ventilator 40 04/04/16 06:00 96 13 98/58 100 Mechanical Ventilator 40 04/04/16 06:00 98/53 04/04/16 05:45 100 13 100/56 100 Mechanical Ventilator 40 04/04/16 05:30 100 13 104/58 100 Mechanical Ventilator 40 04/04/16 05:19 95 12 40 04/04/16 05:15 95 13 100/54 100 Mechanical Ventilator 40 04/04/16 05:00 98/52 04/04/16 05:00 95 13 98/52 100 Mechanical Ventilator 40 04/04/16 04:45 100 13 105/50 100 Mechanical Ventilator 40 04/04/16 04:30 95 13 104/58 100 Mechanical Ventilator 40 04/04/16 04:15 97 13 105/60 100 Mechanical Ventilator 40 04/04/16 04:00 96 04/04/16 04:00 105/56 04/04/16 04:00 97.6 95 13 105/56 100 Mechanical Ventilator 40 04/04/16 04:00 40 04/04/16 03:45 96 13 112/56 100 Mechanical Ventilator 40 04/04/16 03:30 96 13 103/53 100 Mechanical Ventilator 40 04/04/16 03:15 95 13 104/58 100 Mechanical Ventilator 40 04/04/16 03:02 90 12 100 Mechanical Ventilator 40 04/04/16 03:00 106/58 04/04/16 03:00 91 13 106/58 100 Mechanical Ventilator 40 04/04/16 02:53 88 12 99 Mechanical Ventilator 40 04/04/16 02:50 87 12 40 04/04/16 02:45 87 13 103/60 100 Mechanical Ventilator 40 04/04/16 02:30 87 13 96/52 100 Mechanical Ventilator 40 04/04/16 02:15 88 13 97/52 100 Mechanical Ventilator 40 04/04/16 02:00 91 13 102/58 100 Mechanical Ventilator 40 04/04/16 02:00 102/58 04/04/16 01:45 92 13 106/56 100 Mechanical Ventilator 40 04/04/16 01:30 93 13 102/55 100 Mechanical Ventilator 40 04/04/16 01:15 93 13 106/55 100 Mechanical Ventilator 40 04/04/16 01:06 94 12 40 04/04/16 01:00 92 13 104/52 100 Mechanical Ventilator 40 04/04/16 01:00 104/52 04/04/16 00:45 88 13 96/54 100 Mechanical Ventilator 40 04/04/16 00:30 91 13 93/51 100 Mechanical Ventilator 40 04/04/16 00:29 85/47 04/04/16 00:15 88 13 99/58 100 Mechanical Ventilator 40 04/04/16 00:00 89 04/04/16 00:00 40 04/04/16 00:00 86/45 04/04/16 00:00 98.3 88 13 86/45 100 Mechanical Ventilator 40 04/03/16 23:45 89 13 86/46 100 Mechanical Ventilator 40 04/03/16 23:30 90 13 87/46 100 Mechanical Ventilator 40 04/03/16 23:18 92 12 100 Mechanical Ventilator 40 04/03/16 23:15 87 13 88/48 100 Mechanical Ventilator 40 04/03/16 23:00 96/58 04/03/16 23:00 91 13 95/54 100 Mechanical Ventilator 40 04/03/16 23:00 104 13 40 04/03/16 23:00 104 13 99 Mechanical Ventilator 40 04/03/16 22:45 100 19 105/57 99 Mechanical Ventilator 40 04/03/16 22:30 105 20 105/57 99 Mechanical Ventilator 40 04/03/16 22:15 107 18 99/54 98 Mechanical Ventilator 40 04/03/16 22:00 105 20 82/52 99 Mechanical Ventilator 40 04/03/16 22:00 99/54 04/03/16 21:45 104 20 75/53 99 Mechanical Ventilator 40 04/03/16 21:30 104 21 67/53 99 Mechanical Ventilator 40 04/03/16 21:27 104 14 40 04/03/16 21:15 105 22 96/54 98 Mechanical Ventilator 40 04/03/16 21:01 103/55 04/03/16 21:00 103 22 96/54 99 Mechanical Ventilator 40 04/03/16 20:45 104 23 88/56 98 Mechanical Ventilator 40 04/03/16 20:30 101 22 111/60 99 Mechanical Ventilator 40 04/03/16 20:15 104 21 92/46 98 Mechanical Ventilator 40 04/03/16 20:00 102 04/03/16 20:00 97.8 96 23 75/46 99 Mechanical Ventilator 40 04/03/16 20:00 75/46 04/03/16 20:00 40 04/03/16 19:15 97 13 100 Mechanical Ventilator 40 04/03/16 19:00 94/50 04/03/16 19:00 97 25 93/42 99 Mechanical Ventilator 40 04/03/16 18:59 98 13 99 Mechanical Ventilator 40 04/03/16 18:56 98 13 40 04/03/16 18:45 96 21 89/76 99 Mechanical Ventilator 40 04/03/16 18:30 95 21 89/45 99 Mechanical Ventilator 40 04/03/16 18:15 83 23 89/46 99 Mechanical Ventilator 40 04/03/16 18:00 91/48 04/03/16 18:00 82 24 91/48 99 Mechanical Ventilator 40 04/03/16 17:45 82 24 87/49 99 Mechanical Ventilator 40 04/03/16 17:39 82/42 04/03/16 17:30 81 14 75/39 99 Mechanical Ventilator 40 04/03/16 17:20 81 12 40 04/03/16 17:15 83 18 84/43 99 Mechanical Ventilator 40 04/03/16 17:00 87 22 78/43 99 Mechanical Ventilator 40 04/03/16 17:00 81/54 04/03/16 16:45 89 20 78/45 99 Mechanical Ventilator 40 04/03/16 16:30 92 20 79/41 99 Mechanical Ventilator 40 04/03/16 16:15 94 13 75/43 98 Mechanical Ventilator 40 04/03/16 16:00 101 04/03/16 16:00 83/40 04/03/16 16:00 97.4 100 22 83/40 98 Mechanical Ventilator 40 04/03/16 15:45 103 17 74/51 98 Mechanical Ventilator 40 04/03/16 15:30 111 22 119/45 97 Mechanical Ventilator 40 04/03/16 15:15 104 20 97/50 98 Mechanical Ventilator 40 04/03/16 15:00 98 16 92/50 99 Mechanical Ventilator 40 04/03/16 15:00 92/52 04/03/16 14:51 86 12 100 Mechanical Ventilator 40 04/03/16 14:48 87 12 40 04/03/16 14:45 85 16 87/47 99 Mechanical Ventilator 40 04/03/16 14:40 87 12 100 Mechanical Ventilator 40 04/03/16 14:30 84 15 97/48 99 Mechanical Ventilator 40 04/03/16 14:15 87 23 98/49 99 Mechanical Ventilator 40 04/03/16 14:00 79/44 04/03/16 14:00 88 23 80/46 99 Mechanical Ventilator 40 04/03/16 13:45 90 23 79/44 98 Mechanical Ventilator 40 04/03/16 13:30 92 23 83/43 99 Mechanical Ventilator 40 04/03/16 13:15 95 20 94/42 99 Mechanical Ventilator 40 04/03/16 13:00 95 20 90/40 99 Mechanical Ventilator 40 04/03/16 13:00 94/42 04/03/16 12:47 105 16 40 04/03/16 12:45 98 20 83/39 99 Mechanical Ventilator 40 04/03/16 12:30 40 04/03/16 12:30 98 16 94/68 99 Mechanical Ventilator 40 04/03/16 12:15 105 16 103/86 99 Mechanical Ventilator 40 04/03/16 12:10 40 04/03/16 12:07 40 04/03/16 12:00 94/68 04/03/16 12:00 97.8 93 19 90/54 99 Mechanical Ventilator 40 04/03/16 12:00 98 04/03/16 11:45 91 16 71/47 99 Mechanical Ventilator 40 General Appearance: WD/WN, on vent EENT: other - et and og tubes in place Rhythm: NSR Cardiovascular: regular rhythm, no gallop/murmur, tachycardia Respiratory/Chest: other - few expir wheezes Abdomen: non tender, soft Extremities: no swelling Intake and Output 04/03/16 04/04/16 19:00 07:00 Intake Total 1246.25 ml 1365.0 ml Output Total 1345 ml 740 ml Balance -98.75 ml 625.0 ml IV Total 1246.25 ml 1125.0 ml Tube Feeding 240 ml Output Urine Total 1345 ml 740 ml Laboratory Tests Test 04/03/16 18:30 04/04/16 04:00 Iron Level 18 ug/dL (37-145) L Total Iron Binding Capacity 199 ug/dL (250-400) L Percent Iron Saturation 9 % (15-50) L Unsaturated Iron Binding 181 ug/dL (112-346) Troponin I < 0.30 ng/mL (<=0.30) < 0.30 ng/mL (<=0.30) White Blood Count 18.5 K/UL (4.8-10.8) #H Red Blood Count 3.41 M/UL (4.20-5.40) L Hemoglobin 10.5 G/DL (12.0-16.0) L Hematocrit 32.3 % (37.0-47.0) L Mean Corpuscular Volume 95 FL (80-99) Mean Corpuscular Hemoglobin 30.7 PG (27.0-31.0) Mean Corpuscular Hemoglobin Concent 32.4 G/DL (32.0-36.0) Red Cell Distribution Width 12.9 % (11.6-14.8) Platelet Count 279 K/UL (150-450) Mean Platelet Volume 7.5 FL (6.5-10.1) Neutrophils (%) (Auto) % (45.0-75.0) Lymphocytes (%) (Auto) % (20.0-45.0) Monocytes (%) (Auto) % (1.0-10.0) Eosinophils (%) (Auto) % (0.0-3.0) Basophils (%) (Auto) % (0.0-2.0) Differential Total Cells Counted 100 Neutrophils % (Manual) 87 % (45-75) H Lymphocytes % (Manual) 2 % (20-45) L Monocytes % (Manual) 8 % (1-10) Eosinophils % (Manual) 0 % (0-3) Basophils % (Manual) 0 % (0-2) Band Neutrophils 3 % (0-8) Platelet Estimate Adequate Platelet Morphology Normal Red Blood Cell Morphology Normal Sodium Level 138 mEQ/L (135-145) Potassium Level 3.6 mEQ/L (3.4-4.9) Chloride Level 98 mEQ/L (98-107) Carbon Dioxide Level 26 mEQ/L (20-30) Anion Gap 14 (5-15) Blood Urea Nitrogen 25 mg/dL (7-23) H Creatinine 1.0 mg/dL (0.5-0.9) H Estimat Glomerular Filtration Rate 55.1 mL/min (>60) Glucose Level 236 mg/dL (74-106) H Lactic Acid Level 0.90 mmol/L (0.66-2.22) Calcium Level 6.8 mg/dL (8.6-10.2) L Total Bilirubin 0.3 mg/dL (0.0-1.2) Aspartate Amino Transf (AST/SGOT) 107 U/L (5-40) H Alanine Aminotransferase (ALT/SGPT) 118 U/L (3-33) H Alkaline Phosphatase 67 U/L (35-104) Pro-B-Type Natriuretic Peptide 6237 pg/mL (0-125) H Total Protein 5.7 g/dL (6.6-8.7) L Albumin 3.0 g/dL (3.5-5.2) L Globulin 2.7 g/dL Albumin/Globulin Ratio 1.1 (1.0-2.7) Hepatitis A IgM Antibody Pending Hepatitis B Surface Antigen Pending Hepatitis B Core Total Antibody Pending Hepatitis B Core IgM Antibody Pending Hepatitis C Antibody Pending Microbiology Date/Time Source Procedure Growth Status 04/02/16 17:30 Blood Blood Culture - Preliminary NO GROWTH AFTER 24 HOURS Resulted 04/02/16 17:21 Blood Blood Culture - Preliminary NO GROWTH AFTER 24 HOURS Resulted 04/02/16 21:15 Sputum Gram Stain - Final Resulted 04/02/16 21:15 Sputum Sputum Culture Pending Resulted 04/02/16 18:50 Nasal Nares MRSA Culture - Final NO METHICILLIN RESISTANT STAPH AUREUS... Complete 04/02/16 17:50 Nasal Nares Influenza Types A,B Antigen (SCOTTY) - Final Complete 04/02/16 18:50 Rectum VRE Culture - Final NO VANCOMYCIN RESISTANT ENTEROCOCCUS ... Complete CARITO POTTS Apr 04, 2016 11:36
[2016-04-04] MEDS: Montelukast 10mg tablet ORAL SCH (17:07)
[2016-04-04] MEDS: cefTRIAXone 1 GM in D5W 50 ML IVPB SCH (17:07)
[2016-04-04] MEDS ORDERED: NS 550ML IV ONE (17:41)
[2016-04-04] MEDS ORDERED: Tubing IV Secondary IV ONE (17:41)
--- NOTE | 2016-04-04 20:26 | Pulmonolgy Critical Care Note ---
Critical Care - Asmt/Plan Assessment/Plan: acute hypoxemic resp failure-sl better bronchitis-viral vs bact sev copd sev hyperinflation-better hypotension sl elev troponin-better abnl LFTs--abd brooks c/w cirrhosis h/o HTN hyperglycemia-prob due to steroids immune status--flu shot-yes prevnar 13 yes 03/01/15 PLAN rest on vent for now retry weaning in m picc for [id number] cont tube feeds Vital AF retry weaning in am accuchecks cards eval appreciated cont ivf at 75cc/hr f/u hep studies consider gi eval f/u sput studies FULL CODE dw RN and pts mother by phone Critical Care - Objective Last 24 Hour Vital Signs Date Time Temp Pulse Resp B/P Pulse Ox O2 Delivery O2 Flow Rate FiO2 04/04/16 19:40 105 16 98 Mechanical Ventilator 40 04/04/16 19:39 105 16 40 04/04/16 19:27 102 16 100 Mechanical Ventilator 40 04/04/16 19:27 104 16 40 04/04/16 19:00 100 28 101/52 99 Mechanical Ventilator 40 04/04/16 19:00 101/52 04/04/16 18:45 99 28 99/50 99 Mechanical Ventilator 40 04/04/16 18:30 96 28 89/48 99 Mechanical Ventilator 40 04/04/16 18:21 92/49 04/04/16 18:15 94 28 98/48 99 Mechanical Ventilator 40 04/04/16 18:00 94 28 96/45 99 Mechanical Ventilator 40 04/04/16 18:00 92/49 04/04/16 17:45 94 28 96/48 99 Mechanical Ventilator 40 04/04/16 17:30 103 28 94/50 99 Mechanical Ventilator 40 04/04/16 17:15 97 28 98/47 99 Mechanical Ventilator 40 04/04/16 17:00 92/47 04/04/16 17:00 98 28 92/47 99 Mechanical Ventilator 40 04/04/16 16:57 95 12 40 04/04/16 16:45 97 28 98/47 99 Mechanical Ventilator 40 04/04/16 16:30 96 28 91/45 99 Mechanical Ventilator 40 04/04/16 16:15 101 28 98/48 99 Mechanical Ventilator 40 04/04/16 16:00 104 04/04/16 16:00 98.4 104 25 97/50 99 Mechanical Ventilator 40 04/04/16 16:00 97/50 04/04/16 15:45 104 20 92/60 99 Mechanical Ventilator 40 04/04/16 15:30 105 24 109/71 99 Mechanical Ventilator 40 04/04/16 15:15 99 28 108/46 99 Mechanical Ventilator 40 04/04/16 15:00 99 28 91/44 99 Mechanical Ventilator 40 04/04/16 15:00 91/44 04/04/16 14:48 97 16 100 Mechanical Ventilator 40 04/04/16 14:46 100 10 40 04/04/16 14:45 96 13 89/43 99 Mechanical Ventilator 40 04/04/16 14:40 102 10 100 Mechanical Ventilator 40 04/04/16 14:30 107 20 89/46 99 Mechanical Ventilator 40 04/04/16 14:15 106 21 98/49 99 Mechanical Ventilator 40 04/04/16 14:00 102 22 89/62 99 Mechanical Ventilator 40 04/04/16 14:00 89/62 04/04/16 13:45 105 21 106/58 99 Mechanical Ventilator 40 04/04/16 13:30 107 20 108/62 98 Mechanical Ventilator 40 04/04/16 13:15 105 20 99/65 98 Mechanical Ventilator 40 04/04/16 13:00 99/52 04/04/16 13:00 110 22 112/61 98 Mechanical Ventilator 40 04/04/16 12:51 40 04/04/16 12:48 107 21 40 04/04/16 12:45 108 22 86/21 98 Mechanical Ventilator 40 04/04/16 12:30 108 21 99/47 98 Mechanical Ventilator 40 04/04/16 12:15 102 18 100/48 99 Mechanical Ventilator 40 04/04/16 12:00 40 04/04/16 12:00 98.1 104 20 102/50 99 Mechanical Ventilator 40 04/04/16 12:00 103 04/04/16 12:00 102/50 04/04/16 11:45 103 20 102/51 99 Mechanical Ventilator 40 04/04/16 11:30 101 19 102/51 99 Mechanical Ventilator 40 04/04/16 11:15 101 17 99/49 99 Mechanical Ventilator 40 04/04/16 11:06 94 12 100 Mechanical Ventilator 40 04/04/16 11:04 96 16 40 04/04/16 11:00 94 12 90/52 100 Mechanical Ventilator 40 04/04/16 11:00 90/52 04/04/16 10:55 97 12 100 Mechanical Ventilator 40 04/04/16 10:45 108 21 101/53 98 Mechanical Ventilator 40 04/04/16 10:30 105 19 106/58 99 Mechanical Ventilator 40 04/04/16 10:15 102 19 100/51 99 Mechanical Ventilator 40 04/04/16 10:00 99 19 104/56 99 Mechanical Ventilator 40 04/04/16 10:00 100/51 04/04/16 09:50 98 04/04/16 09:45 104 18 97/51 99 Mechanical Ventilator 40 04/04/16 09:30 101 21 86/68 99 Mechanical Ventilator 40 04/04/16 09:28 104 17 40 04/04/16 09:15 101 18 107/60 99 Mechanical Ventilator 40 04/04/16 09:00 99 19 104/56 99 Mechanical Ventilator 40 04/04/16 09:00 104/56 04/04/16 08:45 98 19 110/57 99 Mechanical Ventilator 40 04/04/16 08:30 96 19 109/60 99 Mechanical Ventilator 40 04/04/16 08:15 95 20 98/54 99 Mechanical Ventilator 40 04/04/16 08:07 97/54 04/04/16 08:00 87 04/04/16 08:00 40 04/04/16 08:00 98.3 90 18 101/55 100 Mechanical Ventilator 40 04/04/16 07:58 79 12 100 Mechanical Ventilator 40 04/04/16 07:56 80 12 40 04/04/16 07:45 81 12 100 Mechanical Ventilator 40 04/04/16 07:45 85 12 97/54 99 Mechanical Ventilator 40 04/04/16 07:30 92 23 102/56 99 Mechanical Ventilator 40 04/04/16 07:15 87 23 88/51 100 Mechanical Ventilator 40 04/04/16 07:00 88 13 91/46 100 Mechanical Ventilator 40 04/04/16 07:00 91/46 04/04/16 06:45 89 13 92/49 100 Mechanical Ventilator 40 04/04/16 06:30 93 13 92/61 100 Mechanical Ventilator 40 04/04/16 06:15 96 13 98/53 100 Mechanical Ventilator 40 04/04/16 06:00 96 13 98/58 100 Mechanical Ventilator 40 04/04/16 06:00 98/53 12/28/16 05:45 100 13 100/56 100 Mechanical Ventilator 40 04/04/16 05:30 100 13 104/58 100 Mechanical Ventilator 40 04/04/16 05:19 95 12 40 04/04/16 05:15 95 13 100/54 100 Mechanical Ventilator 40 04/04/16 05:00 98/52 04/04/16 05:00 95 13 98/52 100 Mechanical Ventilator 40 04/04/16 04:45 100 13 105/50 100 Mechanical Ventilator 40 04/04/16 04:30 95 13 104/58 100 Mechanical Ventilator 40 04/04/16 04:15 97 13 105/60 100 Mechanical Ventilator 40 04/04/16 04:00 96 04/04/16 04:00 105/56 04/04/16 04:00 97.6 95 13 105/56 100 Mechanical Ventilator 40 04/04/16 04:00 40 04/04/16 03:45 96 13 112/56 100 Mechanical Ventilator 40 04/04/16 03:30 96 13 103/53 100 Mechanical Ventilator 40 04/04/16 03:15 95 13 104/58 100 Mechanical Ventilator 40 04/04/16 03:02 90 12 100 Mechanical Ventilator 40 04/04/16 03:00 106/58 04/04/16 03:00 91 13 106/58 100 Mechanical Ventilator 40 04/04/16 02:53 88 12 99 Mechanical Ventilator 40 04/04/16 02:50 87 12 40 04/04/16 02:45 87 13 103/60 100 Mechanical Ventilator 40 04/04/16 02:30 87 13 96/52 100 Mechanical Ventilator 40 04/04/16 02:15 88 13 97/52 100 Mechanical Ventilator 40 04/04/16 02:00 91 13 102/58 100 Mechanical Ventilator 40 04/04/16 02:00 102/58 04/04/16 01:45 92 13 106/56 100 Mechanical Ventilator 40 04/04/16 01:30 93 13 102/55 100 Mechanical Ventilator 40 04/04/16 01:15 93 13 106/55 100 Mechanical Ventilator 40 04/04/16 01:06 94 12 40 04/04/16 01:00 92 13 104/52 100 Mechanical Ventilator 40 04/04/16 01:00 104/52 04/04/16 00:45 88 13 96/54 100 Mechanical Ventilator 40 04/04/16 00:30 91 13 93/51 100 Mechanical Ventilator 40 04/04/16 00:29 85/47 04/04/16 00:15 88 13 99/58 100 Mechanical Ventilator 40 04/04/16 00:00 89 04/04/16 00:00 40 04/04/16 00:00 86/45 04/04/16 00:00 98.3 88 13 86/45 100 Mechanical Ventilator 40 04/03/16 23:45 89 13 86/46 100 Mechanical Ventilator 40 04/03/16 23:30 90 13 87/46 100 Mechanical Ventilator 40 04/03/16 23:18 92 12 100 Mechanical Ventilator 40 04/03/16 23:15 87 13 88/48 100 Mechanical Ventilator 40 04/03/16 23:00 96/58 04/03/16 23:00 91 13 95/54 100 Mechanical Ventilator 40 04/03/16 23:00 104 13 40 04/03/16 23:00 104 13 99 Mechanical Ventilator 40 04/03/16 22:45 100 19 105/57 99 Mechanical Ventilator 40 04/03/16 22:30 105 20 105/57 99 Mechanical Ventilator 40 04/03/16 22:15 107 18 99/54 98 Mechanical Ventilator 40 04/03/16 22:00 105 20 82/52 99 Mechanical Ventilator 40 04/03/16 22:00 99/54 04/03/16 21:45 104 20 75/53 99 Mechanical Ventilator 40 04/03/16 21:30 104 21 67/53 99 Mechanical Ventilator 40 04/03/16 21:27 104 14 40 04/03/16 21:15 105 22 96/54 98 Mechanical Ventilator 40 04/03/16 21:01 103/55 04/03/16 21:00 103 22 96/54 99 Mechanical Ventilator 40 04/03/16 20:45 104 23 88/56 98 Mechanical Ventilator 40 04/03/16 20:30 101 22 111/60 99 Mechanical Ventilator 40 Status: sedated Condition: improving Lungs: clear Abdomen: soft Micro: Microbiology Date/Time Source Procedure Growth Status 04/02/16 17:30 Blood Blood Culture - Preliminary NO GROWTH AFTER 24 HOURS Resulted 04/02/16 17:21 Blood Blood Culture - Preliminary NO GROWTH AFTER 24 HOURS Resulted 04/02/16 21:15 Sputum Gram Stain - Final Resulted 04/02/16 21:15 Sputum Sputum Culture Pending Resulted 04/02/16 18:50 Nasal Nares MRSA Culture - Final NO METHICILLIN RESISTANT STAPH AUREUS... Complete 04/02/16 17:50 Nasal Nares Influenza Types A,B Antigen (SCOTTY) - Final Complete 04/02/16 18:50 Rectum VRE Culture - Final NO VANCOMYCIN RESISTANT ENTEROCOCCUS ... Complete Accucheck: 194 Critical Care - Subjective ROS Limited/Unobtainable: Yes FI02: 40 Vent Support Breath Rate: 12 Vent Support Mode: AC Vent Tidal Volume: 450 Sputum Amount: Small PEEP: 0.0 PIP: 32 Tube Feeding Amount: 50 I&O: Intake and Output 04/03/16 04/04/16 19:00 07:00 Intake Total 1246.25 ml 1365.0 ml Output Total 1345 ml 740 ml Balance -98.75 ml 625.0 ml IV Total 1246.25 ml 1125.0 ml Tube Feeding 240 ml Output Urine Total 1345 ml 740 ml Subjective: pt comfortable, easily awakened, alert. uneventful night remains on levophed weaning attmepted-did not tolerate SIMV/PS or PS 22 by me no breath stacking mother (89yo) at bedside cxr no if-lungs somewhat decompressed c/w yest cxr ET-Tube: 7.5 ET Position: 22 Labs: still hypotensive, on ivf remains on vent failed weaning trials RIZWAN DUDLEY Apr 04, 2016 20:26
[2016-04-05] VITALS (82 sets, daily range): BP systolic 74–141; BP diastolic 35–95
[2016-04-05] MEDS: Solu-MEDROL 125mg Inj IVP SCH ×5 (00:09→23:57)
[2016-04-05] MEDS: NovoLOG Insulin Flexpen SUBQ SCH ×5 (00:14→23:59)
[2016-04-05] MEDS: Aspirin Baby 81mg NG SCH ×2 (01:35→09:01)
[2016-04-05] MEDS: DuoNeb 0.5-3(2.5)mg/3ml neb HHN SCH ×6 (03:00→23:09)
[2016-04-05 05:28] LABS: MEAN CORPUSCULAR HEMOGLOBIN 29.6 PG (27.0-31.0); MEAN CORPUSCULAR HGB CONC 31.3 G/DL (32.0-36.0); MEAN CORPUSCULAR VOLUME 95 FL (80-99); MEAN PLATELET VOLUME 6.4 FL (6.5-10.1); PLATELET COUNT 286 K/UL (150-450); RED BLOOD COUNT 3.71 M/UL (4.20-5.40); RED CELL DISTRIBUTION WIDTH 13.1 % (11.6-14.8); WHITE BLOOD COUNT 20.1 K/UL (4.8-10.8)
[2016-04-05 06:02] LABS: GLOMERULAR FILTRATION RATE 55.1 mL/min (>60); POTASSIUM 3.9 mEQ/L (3.4-4.9)
[2016-04-05 08:13] LABS: ABG ALLEN TEST POSITIVE; ABG BASE EXCESS 1.7; ABG PCO2 74.8 mmHg (35.0-45.0)
[2016-04-05] MEDS: Heparin 5000 units/ml inj SUBQ SCH ×2 (09:00→22:16)
[2016-04-05] MEDS: Azithromycin 250mg tab ORAL SCH (09:01)
[2016-04-05 09:09] LABS: BAND NEUTROPHILS % (MANUAL) 12 % (0-8); LYMPHOCYTES % (MANUAL) 3 % (20-45); NEUTROPHILS % (MANUAL) 77 % (45-75); TOTAL CELLS COUNTED 100
[2016-04-05 09:10] LABS: BASOPHILS % (MANUAL) 0 % (0-2); EOSINOPHILS % (MANUAL) 0 % (0-3); PLATELET ESTIMATE ADEQUATE; PLATELET MORPHOLOGY NORMAL
[2016-04-05 09:17] LABS: HEP B CORE AB TOTAL Positive (Negative)
--- NOTE | 2016-04-05 10:16 | Diagnostic Imaging Report ---
Indication: DYSPNEA Technique: One view of the chest Comparison: 04/04/2016 Findings: Lungs are mildly hyperinflated. Lungs and pleural spaces are clear. Endotracheal tube and nasogastric tube remain in stable positions. There is again demonstrated, most of the left pulmonary hilar region. The heart size is normal. Findings are unchanged Impression: Unchanged, over one day, findings as above.
--- NOTE | 2016-04-05 11:27 | Pulmonolgy Critical Care Note ---
Critical Care - Asmt/Plan Assessment/Plan: acute hypoxemic resp failure-now w resp acidosis on AC 12,TV450 bronchitis-viral vs bact--sput cx, b cx neg to date. flu swab neg sev copd sev hyperinflation-better hypotension-etiol unclear, CTA pend to r/o PE .echo not cw R strain/lge pe sl elev [id number] ischemia-will need non invasive study when better abnl LFTs--abd brooks c/w cirrhosis--hep B core IgM positive!! hep B s Ag pend stool ob positive h/o HTN hyperglycemia-prob due to steroids immune status--flu shot-yes prevnar 13 yes 03/01/15 PLAN incr RR to 16, incr TV to 500 repeat abg after 1/2 hr retry weaning in am if stable picc for [id number]--hm be done now cont tube feeds Vital AF watch h/h check iron panel GI eval cont ivf at 75cc/hr f/u hep studies f/u cxs FULL CODE dw RN and pts mother at bedside Dr Roberts to cover sat-Sat inclusive Critical Care - Objective Last 24 Hour Vital Signs Date Time Temp Pulse Resp B/P Pulse Ox O2 Delivery O2 Flow Rate FiO2 04/05/16 10:57 40 04/05/16 10:45 108 19 117/63 97 Mechanical Ventilator 40 04/05/16 10:30 110 19 113/63 97 Mechanical Ventilator 40 04/05/16 10:17 116/59 04/05/16 10:15 109 19 114/74 97 Mechanical Ventilator 40 04/05/16 10:00 116/59 04/05/16 10:00 106 19 116/59 97 Mechanical Ventilator 40 04/05/16 09:45 107 19 114/57 97 Mechanical Ventilator 40 04/05/16 09:30 103 19 126/92 97 Mechanical Ventilator 40 04/05/16 09:15 99 19 94/47 97 Mechanical Ventilator 40 04/05/16 09:14 89 12 40 04/05/16 09:00 95 19 92/35 97 Mechanical Ventilator 40 04/05/16 09:00 94/47 04/05/16 08:45 93 19 80/35 97 Mechanical Ventilator 40 04/05/16 08:30 92 19 79/40 97 Mechanical Ventilator 40 04/05/16 08:15 92 19 78/41 97 Mechanical Ventilator 40 04/05/16 08:00 40 04/05/16 08:00 88 04/05/16 08:00 98.0 94 19 81/41 97 Mechanical Ventilator 40 04/05/16 08:00 78/41 04/05/16 07:45 97 19 96/46 97 Mechanical Ventilator 40 04/05/16 07:30 95 19 78/47 97 Mechanical Ventilator 40 04/05/16 07:21 101 13 100 Mechanical Ventilator 40 04/05/16 07:15 98 19 74/40 97 Mechanical Ventilator 40 04/05/16 07:11 102 12 98 Mechanical Ventilator 40 04/05/16 07:00 103 19 94/46 97 Mechanical Ventilator 40 04/05/16 06:59 101/56 04/05/16 06:45 108 19 101/65 97 Mechanical Ventilator 40 04/05/16 06:30 107 19 101/51 97 Mechanical Ventilator 40 04/05/16 06:30 105 13 40 04/05/16 06:15 108 19 98/50 97 Mechanical Ventilator 40 04/05/16 06:00 115/56 04/05/16 06:00 110 19 115/56 97 Mechanical Ventilator 40 04/05/16 05:45 113 19 108/52 97 Mechanical Ventilator 40 04/05/16 05:30 112 19 110/70 97 Mechanical Ventilator 40 04/05/16 05:30 102 1 40 04/05/16 05:15 108 19 111/65 97 Mechanical Ventilator 40 04/05/16 05:00 108 19 104/56 97 Mechanical Ventilator 40 04/05/16 04:52 104/56 04/05/16 04:45 106 19 125/54 97 Mechanical Ventilator 40 04/05/16 04:30 108 19 125/59 97 Mechanical Ventilator 40 04/05/16 04:15 106 19 113/64 97 Mechanical Ventilator 40 04/05/16 04:00 98.0 109 19 101/64 97 Mechanical Ventilator 40 04/05/16 04:00 108 04/05/16 04:00 101/64 04/05/16 04:00 40 04/05/16 03:45 109 19 110/59 97 Mechanical Ventilator 40 04/05/16 03:30 109 19 122/54 97 Mechanical Ventilator 40 04/05/16 03:15 106 19 110/59 97 Mechanical Ventilator 40 04/05/16 03:10 102 16 100 Mechanical Ventilator 40 04/05/16 03:00 108 14 99 Mechanical Ventilator 40 04/05/16 03:00 108 16 40 04/05/16 03:00 113/60 04/05/16 03:00 108 19 113/60 97 Mechanical Ventilator 40 04/05/16 02:45 106 19 113/61 97 Mechanical Ventilator 40 04/05/16 02:30 104 19 109/53 97 Mechanical Ventilator 40 04/05/16 02:15 108 19 116/95 97 Mechanical Ventilator 40 04/05/16 02:00 104 19 116/95 97 Mechanical Ventilator 40 04/05/16 02:00 116/95 04/05/16 01:45 104 19 102/55 97 Mechanical Ventilator 40 04/05/16 01:30 100 19 102/58 97 Mechanical Ventilator 40 04/05/16 01:25 99 13 40 04/05/16 01:15 105 19 111/57 97 Mechanical Ventilator 40 04/05/16 01:00 101 19 102/53 97 Mechanical Ventilator 40 04/05/16 00:51 106/53 04/05/16 00:45 102 19 106/51 97 Mechanical Ventilator 40 04/05/16 00:30 105 19 106/60 97 Mechanical Ventilator 40 04/05/16 00:15 104 19 103/51 97 Mechanical Ventilator 40 04/05/16 00:00 103/53 04/05/16 00:00 104 04/05/16 00:00 99.1 101 19 103/53 97 Mechanical Ventilator 40 04/05/16 00:00 40 04/04/16 23:45 94 19 85/42 97 Mechanical Ventilator 40 04/04/16 23:30 93 19 88/44 97 Mechanical Ventilator 40 04/04/16 23:28 107 12 40 04/04/16 23:28 98 12 100 Mechanical Ventilator 40 04/04/16 23:21 104 14 98 Mechanical Ventilator 40 04/04/16 23:15 99 19 79/55 97 Mechanical Ventilator 40 04/04/16 23:04 104 19 101/51 97 Mechanical Ventilator 40 04/04/16 22:45 102 19 111/62 97 Mechanical Ventilator 40 04/04/16 22:30 109 20 104/54 97 Mechanical Ventilator 40 04/04/16 22:15 100 26 85/61 97 Mechanical Ventilator 40 04/04/16 22:15 101 19 85/61 97 Mechanical Ventilator 40 04/04/16 22:00 102 18 106/55 97 Mechanical Ventilator 40 04/04/16 22:00 85/61 04/04/16 21:45 101 17 102/55 97 Mechanical Ventilator 40 04/04/16 21:30 103 16 102/55 97 Mechanical Ventilator 40 04/04/16 21:25 106 17 40 04/04/16 21:15 105 17 105/52 97 Mechanical Ventilator 40 04/04/16 21:00 107 18 103/45 97 Mechanical Ventilator 40 04/04/16 20:45 105 17 107/57 97 Mechanical Ventilator 40 04/04/16 20:30 106 17 109/57 97 Mechanical Ventilator 40 04/04/16 20:15 102 18 99/51 99 Mechanical Ventilator 40 04/04/16 20:00 40 04/04/16 20:00 98.4 103 19 98/48 99 Mechanical Ventilator 40 04/04/16 20:00 106 04/04/16 19:45 89 18 98/48 99 Mechanical Ventilator 40 04/04/16 19:40 105 16 98 Mechanical Ventilator 40 04/04/16 19:39 105 16 40 04/04/16 19:30 89 18 80/40 99 Mechanical Ventilator 40 04/04/16 19:27 102 16 100 Mechanical Ventilator 40 04/04/16 19:27 104 16 40 04/04/16 19:15 99 18 100/50 99 Mechanical Ventilator 40 04/04/16 19:00 100 28 101/52 99 Mechanical Ventilator 40 04/04/16 19:00 101/52 04/04/16 18:45 99 28 99/50 99 Mechanical Ventilator 40 04/04/16 18:30 96 28 89/48 99 Mechanical Ventilator 40 04/04/16 18:21 92/49 04/04/16 18:15 94 28 98/48 99 Mechanical Ventilator 40 04/04/16 18:00 94 28 96/45 99 Mechanical Ventilator 40 04/04/16 18:00 92/49 04/04/16 17:45 94 28 96/48 99 Mechanical Ventilator 40 04/04/16 17:30 103 28 94/50 99 Mechanical Ventilator 40 04/04/16 17:15 97 28 98/47 99 Mechanical Ventilator 40 04/04/16 17:00 92/47 04/04/16 17:00 98 28 92/47 99 Mechanical Ventilator 40 04/04/16 16:57 95 12 40 04/04/16 16:45 97 28 98/47 99 Mechanical Ventilator 40 04/04/16 16:30 96 28 91/45 99 Mechanical Ventilator 40 04/04/16 16:15 101 28 98/48 99 Mechanical Ventilator 40 04/04/16 16:00 104 04/04/16 16:00 98.4 104 25 97/50 99 Mechanical Ventilator 40 04/04/16 16:00 97/50 04/04/16 15:45 104 20 92/60 99 Mechanical Ventilator 40 04/04/16 15:30 105 24 109/71 99 Mechanical Ventilator 40 04/04/16 15:15 99 28 108/46 99 Mechanical Ventilator 40 04/04/16 15:00 99 28 91/44 99 Mechanical Ventilator 40 04/04/16 15:00 91/44 04/04/16 14:48 97 16 100 Mechanical Ventilator 40 04/04/16 14:46 100 10 40 04/04/16 14:45 96 13 89/43 99 Mechanical Ventilator 40 04/04/16 14:40 102 10 100 Mechanical Ventilator 40 04/04/16 14:30 107 20 89/46 99 Mechanical Ventilator 40 04/04/16 14:15 106 21 98/49 99 Mechanical Ventilator 40 04/04/16 14:00 102 22 89/62 99 Mechanical Ventilator 40 04/04/16 14:00 89/62 04/04/16 13:45 105 21 106/58 99 Mechanical Ventilator 40 04/04/16 13:30 107 20 108/62 98 Mechanical Ventilator 40 04/04/16 13:15 105 20 99/65 98 Mechanical Ventilator 40 04/04/16 13:00 99/52 04/04/16 13:00 110 22 112/61 98 Mechanical Ventilator 40 04/04/16 12:51 40 04/04/16 12:48 107 21 40 04/04/16 12:45 108 22 86/21 98 Mechanical Ventilator 40 04/04/16 12:30 108 21 99/47 98 Mechanical Ventilator 40 04/04/16 12:15 102 18 100/48 99 Mechanical Ventilator 40 04/04/16 12:00 40 04/04/16 12:00 98.1 104 20 102/50 99 Mechanical Ventilator 40 04/04/16 12:00 103 04/04/16 12:00 102/50 04/04/16 11:45 103 20 102/51 99 Mechanical Ventilator 40 04/04/16 11:30 101 19 102/51 99 Mechanical Ventilator 40 04/04/16 11:15 101 17 99/49 99 Mechanical Ventilator 40 Status: somnolent Lungs: clear Heart: regular Abdomen: soft, non-tender Extremities: no C/C/E Micro: Microbiology Date/Time Source Procedure Growth Status 04/02/16 17:30 Blood Blood Culture - Preliminary NO GROWTH AFTER 48 HOURS Resulted 04/02/16 17:21 Blood Blood Culture - Preliminary NO GROWTH AFTER 48 HOURS Resulted 04/02/16 21:15 Sputum Gram Stain - Final Complete 04/02/16 21:15 Sputum Sputum Culture - Final NORMAL UPPER RESPIRATORY ТАТЬЯНА PRESENT Complete 04/02/16 18:50 Nasal Nares MRSA Culture - Final NO METHICILLIN RESISTANT STAPH AUREUS... Complete 04/02/16 17:50 Nasal Nares Influenza Types A,B Antigen (SCOTTY) - Final Complete 04/02/16 18:50 Rectum VRE Culture - Final NO VANCOMYCIN RESISTANT ENTEROCOCCUS ... Complete Accucheck: 172 Critical Care - Subjective ROS Limited/Unobtainable: Yes - pt somnolent but upens eyes to name briefly ABG w resp acidosis. no fever. remains on levophed. LE duplex just done-neg FI02: 40 Vent Support Breath Rate: 16 Vent Support Mode: AC Vent Tidal Volume: 450 Sputum Amount: Small PEEP: 0.0 PIP: 28 Tube Feeding Amount: 55 I&O: Intake and Output 04/04/16 04/05/16 19:00 07:00 Intake Total 1826.25 ml 1837.50 ml Output Total 535 ml 560 ml Balance 1291.25 ml 1277.50 ml Free Water 130 ml 100 ml IV Total 1156.25 ml 1102.50 ml Tube Feeding 490 ml 635 ml Other 50 ml Output Urine Total 535 ml 560 ml Subjective: pt comfortable, easily awakened, alert. uneventful night remains on levophed weaning attmepted-did not tolerate SIMV/PS or PS 22 by me no breath stacking mother (96yo) at bedside cxr no if-lungs somewhat decompressed c/w yest cxr ET-Tube: 7.5 ET Position: 23 RIZWAN DUDLEY Apr 05, 2016 11:27
[2016-04-05 11:56] LABS: ABG ALLEN TEST POSITIVE; ABG BASE EXCESS 0.9; ABG PCO2 62.2 mmHg (35.0-45.0)
--- NOTE | 2016-04-05 12:46 | Diagnostic Imaging Report ---
Indications: Needs long-term IV access Technique: Procedure performed at bedside. Ultrasound confirms patent compressible right basilic vein. Total sterile technique, including sterile probe cover and sterile gel, sterile gloves, hand hygiene, hat, mask,, sterile gown, large sterile drape, and preparation with 2% chlorhexidine utilized. Local anesthesia with 1% lidocaine. Under real-time ultrasound guidance, puncture basilic vein using 21-gauge needle, passage 0.018 guidewire, exchange for 5 [place] peel-away sheath. 5 [place] Bard dual-lumen power PICC cut to 36 cm. It was inserted through the peel-away sheath. Peel-away sheath and guidewire removed. Catheter fixed to the skin. Both catheter ports aspirated and flushed. Patient tolerated procedure well, without immediate complication. Followup chest x-ray obtained, documents catheter tip position at the mid superior vena cava. Impression: Successful bedside placement of right arm PICC under sonographic guidance, as described above.
[2016-04-05] MEDS ORDERED: Lidocaine 1% Plain 30 ml INJ ONE (14:00)
[2016-04-05] MEDS ORDERED: Heparin 2000 units/Ns 1000ml INJ ONE (14:00)
[2016-04-05] MEDS ORDERED: Sodium Bicarbonate 8.4% 50ml Inj IV ONE (14:00)
--- NOTE | 2016-04-05 16:05 | Diagnostic Imaging Report ---
ndication: COPD, acute respiratory failure Technique: IV administration nonionic contrast. Spiral acquisitions obtained from the lung bases to the lung apices. Multiplanar and 3-D reconstructions were generated. Total dose length product 675 mGycm. CTDIvol(s) 12, 12, 17 mGy Comparison: None Findings: There is adequate opacification of the pulmonary arteries bilaterally. No intraluminal filling defects or other findings to suggest acute pulmonary embolus are demonstrated. There is some image degradation due to motion artifact, however, which may limit assessment for peripheral pulmonary emboli. No evidence of thoracic aortic aneurysm or dissection. The main pulmonary artery is ectatic and slightly larger in caliber than the ascending thoracic aorta, suggestive of pulmonary hypertension. There is no evidence of left ventricular dilatation. The lungs are diffusely hyperinflated, consistent with COPD. There is a 6 mm diameter parenchymal opacity within the right middle lobe anteriorly and medially, image 53 of series 8. Interstitial septal thickening is seen at both lung bases. There is some atelectasis involving the posterior inferior right lower lobe. There are small bilateral pleural effusions. The heart size is normal. There is no evidence of pericardial effusion. No mediastinal or hilar mass or adenopathy. There is an endotracheal tube in place, tip terminating in good position just above the curtis. There is a nasogastric tube in place, tip projecting beyond the imaging volume. There is a PICC, tip just below the innominate venous confluence There is generalized mild edema of the subcutaneous fat and to lesser extent the mediastinal fat. The bones are grossly unremarkable. The upper abdominal anatomy is remarkable for the presence of ascites fluid over the dome of the liver and over the spleen. Multiple cysts are seen scattered throughout the liver. There are also subcentimeter low-attenuation lesions within the liver which are too small to characterize, most likely benign simple cysts or bile hamartomas. The stomach is fluid-filled Impression: Negative for evidence of acute pulmonary embolus or other acute thoracic vascular pathology Hyperinflation, consistent with COPD. There is also bilateral basilar interstitial disease. This is nonspecific, but suspect related to COPD changes Ectasia of the main pulmonary artery, suspicious for pulmonary artery hypertension, likely related to the above 6 mm nodule within the right middle lobe. Recommend short interval followup CT at 6-12 months Right posterior basilar atelectasis Evidence of anasarca, with bilateral pleural effusions, ascites fluid, and generalized mild edema of the subcutaneous fat Endotracheal tube, nasogastric tube, and PICC, all acceptable position Hepatic cysts. Other subcentimeter low attenuation lesions within the liver, most likely benign simple cysts or bile hamartomas. No further followup necessary. The CT scanner at [facility] is accredited by the [employer] and the scans are performed using protocols designed to limit radiation exposure to as low as reasonably achievable to attain images of sufficient resolution adequate for diagnostic evaluation.
[2016-04-05] MEDS: Montelukast 10mg tablet ORAL SCH (16:59)
[2016-04-05] MEDS: cefTRIAXone 1 GM in D5W 50 ML IVPB SCH (16:59)
[2016-04-05] MEDS: LORazepam Inj 2mg/ml 1ml IV PRN (18:12)
--- NOTE | 2016-04-05 19:27 | Cardiology Progress Note ---
Assessment/Plan Status: not improved, unchanged, R/O PE, R/O DVT Status Narrative Mrs. Gallardo remains intubated. Pressors have been weaned - she is now on low dose levophed, which may be able to be stopped over next 24 hrs. CTA results noted - no PE or aortic pathology. 6 mm pulm nodule requiring followup. Cause of prolonged hypotension uncertain - ? intravasc vol depl ? sepsis Assessment/Plan Continue to wean levophed Wean from vent per Dr Jason rosales for ischemia when more stable. Subjective ROS Limited/Unobtainable: Yes Subjective Intubated /sedated Objective Last 24 Hour Vital Signs Date Time Temp Pulse Resp B/P Pulse Ox O2 Delivery O2 Flow Rate FiO2 04/05/16 18:50 111 16 98 Mechanical Ventilator 35 04/05/16 18:50 35 04/05/16 18:42 107 16 35 04/05/16 18:30 112 18 118/71 97 Mechanical Ventilator 40 04/05/16 18:15 117 18 95/76 97 Mechanical Ventilator 40 04/05/16 18:00 117 18 95/76 97 Mechanical Ventilator 40 04/05/16 17:45 114 18 120/60 97 Mechanical Ventilator 40 04/05/16 17:30 110 18 123/66 97 Mechanical Ventilator 40 04/05/16 17:15 98 18 103/56 97 Mechanical Ventilator 40 04/05/16 17:00 102 17 103/56 97 Mechanical Ventilator 40 04/05/16 16:45 97 18 99/58 97 Mechanical Ventilator 40 04/05/16 16:40 104 16 40 04/05/16 16:30 95 17 98/56 97 Mechanical Ventilator 40 04/05/16 16:15 96 16 96/56 97 Mechanical Ventilator 40 04/05/16 16:07 40 04/05/16 16:00 98.0 104 16 94/58 97 Mechanical Ventilator 40 04/05/16 16:00 99 04/05/16 15:48 103 16 100 Mechanical Ventilator 40 04/05/16 15:45 104 17 91/58 97 Mechanical Ventilator 40 04/05/16 15:38 104 16 98 Mechanical Ventilator 40 04/05/16 15:30 114 17 85/53 97 Mechanical Ventilator 40 04/05/16 15:29 121 16 40 04/05/16 15:15 112 16 85/65 97 Mechanical Ventilator 40 04/05/16 15:00 116 16 79/45 97 Mechanical Ventilator 40 04/05/16 14:45 116 18 107/54 97 Mechanical Ventilator 40 04/05/16 14:30 116 16 109/49 97 Mechanical Ventilator 40 04/05/16 14:00 102 16 91/52 97 Mechanical Ventilator 40 04/05/16 13:45 89 16 79/45 97 Mechanical Ventilator 40 04/05/16 13:30 89 16 79/45 97 Mechanical Ventilator 40 04/05/16 13:15 90 16 79/49 97 Mechanical Ventilator 40 04/05/16 13:00 87 16 87/56 97 Mechanical Ventilator 40 04/05/16 12:45 87 16 87/56 97 Mechanical Ventilator 40 04/05/16 12:36 104 16 100 Mechanical Ventilator 40 04/05/16 12:36 40 04/05/16 12:30 89 19 86/54 97 Mechanical Ventilator 40 04/05/16 12:30 87 16 40 04/05/16 12:26 86 16 99 Mechanical Ventilator 40 04/05/16 12:15 95 16 89/53 97 Mechanical Ventilator 40 04/05/16 12:00 87 04/05/16 12:00 98.9 89 16 79/47 97 Mechanical Ventilator 40 04/05/16 11:45 85 16 40 04/05/16 11:45 93 16 87/51 97 Mechanical Ventilator 40 04/05/16 11:30 97 19 84/49 97 Mechanical Ventilator 40 04/05/16 11:15 100 16 82/50 97 Mechanical Ventilator 40 04/05/16 11:00 99 19 82/50 97 Mechanical Ventilator 40 04/05/16 11:00 82/50 04/05/16 10:57 40 04/05/16 10:45 108 19 117/63 97 Mechanical Ventilator 40 04/05/16 10:30 110 19 113/63 97 Mechanical Ventilator 40 04/05/16 10:17 116/59 04/05/16 10:15 109 19 114/74 97 Mechanical Ventilator 40 04/05/16 10:00 116/59 04/05/16 10:00 106 19 116/59 97 Mechanical Ventilator 40 04/05/16 09:45 107 19 114/57 97 Mechanical Ventilator 40 04/05/16 09:30 103 19 126/92 97 Mechanical Ventilator 40 04/05/16 09:15 99 19 94/47 97 Mechanical Ventilator 40 04/05/16 09:14 89 12 40 04/05/16 09:00 95 19 92/35 97 Mechanical Ventilator 40 04/05/16 09:00 94/47 04/05/16 08:45 93 19 80/35 97 Mechanical Ventilator 40 04/05/16 08:30 92 19 79/40 97 Mechanical Ventilator 40 04/05/16 08:15 92 19 78/41 97 Mechanical Ventilator 40 04/05/16 08:00 40 04/05/16 08:00 88 04/05/16 08:00 98.0 94 19 81/41 97 Mechanical Ventilator 40 04/05/16 08:00 78/41 04/05/16 07:45 97 19 96/46 97 Mechanical Ventilator 40 04/05/16 07:30 95 19 78/47 97 Mechanical Ventilator 40 04/05/16 07:21 101 13 100 Mechanical Ventilator 40 04/05/16 07:15 98 19 74/40 97 Mechanical Ventilator 40 04/05/16 07:11 102 12 98 Mechanical Ventilator 40 04/05/16 07:00 103 19 94/46 97 Mechanical Ventilator 40 04/05/16 06:59 101/56 04/05/16 06:45 108 19 101/65 97 Mechanical Ventilator 40 04/05/16 06:30 107 19 101/51 97 Mechanical Ventilator 40 04/05/16 06:30 105 13 40 04/05/16 06:15 108 19 98/50 97 Mechanical Ventilator 40 04/05/16 06:00 115/56 04/05/16 06:00 110 19 115/56 97 Mechanical Ventilator 40 04/05/16 05:45 113 19 108/52 97 Mechanical Ventilator 40 04/05/16 05:30 112 19 110/70 97 Mechanical Ventilator 40 04/05/16 05:30 102 1 40 04/05/16 05:15 108 19 111/65 97 Mechanical Ventilator 40 04/05/16 05:00 108 19 104/56 97 Mechanical Ventilator 40 04/05/16 04:52 104/56 04/05/16 04:45 106 19 125/54 97 Mechanical Ventilator 40 04/05/16 04:30 108 19 125/59 97 Mechanical Ventilator 40 04/05/16 04:15 106 19 113/64 97 Mechanical Ventilator 40 04/05/16 04:00 98.0 109 19 101/64 97 Mechanical Ventilator 40 04/05/16 04:00 108 04/05/16 04:00 101/64 04/05/16 04:00 40 04/05/16 03:45 109 19 110/59 97 Mechanical Ventilator 40 04/05/16 03:30 109 19 122/54 97 Mechanical Ventilator 40 04/05/16 03:15 106 19 110/59 97 Mechanical Ventilator 40 04/05/16 03:10 102 16 100 Mechanical Ventilator 40 04/05/16 03:00 108 14 99 Mechanical Ventilator 40 04/05/16 03:00 108 16 40 04/05/16 03:00 113/60 04/05/16 03:00 108 19 113/60 97 Mechanical Ventilator 40 04/05/16 02:45 106 19 113/61 97 Mechanical Ventilator 40 04/05/16 02:30 104 19 109/53 97 Mechanical Ventilator 40 04/05/16 02:15 108 19 116/95 97 Mechanical Ventilator 40 04/05/16 02:00 104 19 116/95 97 Mechanical Ventilator 40 04/05/16 02:00 116/95 04/05/16 01:45 104 19 102/55 97 Mechanical Ventilator 40 04/05/16 01:30 100 19 102/58 97 Mechanical Ventilator 40 04/05/16 01:25 99 13 40 04/05/16 01:15 105 19 111/57 97 Mechanical Ventilator 40 04/05/16 01:00 101 19 102/53 97 Mechanical Ventilator 40 04/05/16 00:51 106/53 04/05/16 00:45 102 19 106/51 97 Mechanical Ventilator 40 04/05/16 00:30 105 19 106/60 97 Mechanical Ventilator 40 04/05/16 00:15 104 19 103/51 97 Mechanical Ventilator 40 04/05/16 00:00 103/53 04/05/16 00:00 104 04/05/16 00:00 99.1 101 19 103/53 97 Mechanical Ventilator 40 04/05/16 00:00 40 04/04/16 23:45 94 19 85/42 97 Mechanical Ventilator 40 04/04/16 23:30 93 19 88/44 97 Mechanical Ventilator 40 04/04/16 23:28 107 12 40 04/04/16 23:28 98 12 100 Mechanical Ventilator 40 04/04/16 23:21 104 14 98 Mechanical Ventilator 40 04/04/16 23:15 99 19 79/55 97 Mechanical Ventilator 40 04/04/16 23:04 104 19 101/51 97 Mechanical Ventilator 40 04/04/16 22:45 102 19 111/62 97 Mechanical Ventilator 40 04/04/16 22:30 109 20 104/54 97 Mechanical Ventilator 40 04/04/16 22:15 100 26 85/61 97 Mechanical Ventilator 40 04/04/16 22:15 101 19 85/61 97 Mechanical Ventilator 40 04/04/16 22:00 102 18 106/55 97 Mechanical Ventilator 40 04/04/16 22:00 85/61 04/04/16 21:45 101 17 102/55 97 Mechanical Ventilator 40 04/04/16 21:30 103 16 102/55 97 Mechanical Ventilator 40 04/04/16 21:25 106 17 40 04/04/16 21:15 105 17 105/52 97 Mechanical Ventilator 40 04/04/16 21:00 107 18 103/45 97 Mechanical Ventilator 40 04/04/16 20:45 105 17 107/57 97 Mechanical Ventilator 40 04/04/16 20:30 106 17 109/57 97 Mechanical Ventilator 40 04/04/16 20:15 102 18 99/51 99 Mechanical Ventilator 40 04/04/16 20:00 40 04/04/16 20:00 98.4 103 19 98/48 99 Mechanical Ventilator 40 04/04/16 20:00 106 04/04/16 19:45 89 18 98/48 99 Mechanical Ventilator 40 04/04/16 19:40 105 16 98 Mechanical Ventilator 40 04/04/16 19:39 105 16 40 04/04/16 19:30 89 18 80/40 99 Mechanical Ventilator 40 04/04/16 19:27 102 16 100 Mechanical Ventilator 40 04/04/16 19:27 104 16 40 General Appearance: on vent, other - sedated Neck: supple, no JVD Rhythm: ST Cardiovascular: no gallop/murmur, tachycardia, other - distant heart sounds Respiratory/Chest: other - dec BS. transmitted upper airway sounds Abdomen: non tender, soft, decreased bowel sounds Extremities: no swelling Intake and Output 04/04/16 04/05/16 19:00 07:00 Intake Total 1826.25 ml 1837.50 ml Output Total 535 ml 560 ml Balance 1291.25 ml 1277.50 ml Free Water 130 ml 100 ml IV Total 1156.25 ml 1102.50 ml Tube Feeding 490 ml 635 ml Other 50 ml Output Urine Total 535 ml 560 ml Laboratory Tests Test 04/05/16 04:00 04/05/16 04:20 04/05/16 06:00 04/05/16 08:00 White Blood Count 20.1 K/UL (4.8-10.8) H Red Blood Count 3.71 M/UL (4.20-5.40) L Hemoglobin 11.0 G/DL (12.0-16.0) L Hematocrit 35.1 % (37.0-47.0) L Mean Corpuscular Volume 95 FL (80-99) Mean Corpuscular Hemoglobin 29.6 PG (27.0-31.0) Mean Corpuscular Hemoglobin Concent 31.3 G/DL (32.0-36.0) L Red Cell Distribution Width 13.1 % (11.6-14.8) Platelet Count 286 K/UL (150-450) Mean Platelet Volume 6.4 FL (6.5-10.1) L Neutrophils (%) (Auto) % (45.0-75.0) Lymphocytes (%) (Auto) % (20.0-45.0) Monocytes (%) (Auto) % (1.0-10.0) Eosinophils (%) (Auto) % (0.0-3.0) Basophils (%) (Auto) % (0.0-2.0) Differential Total Cells Counted 100 Neutrophils % (Manual) 77 % (45-75) H Lymphocytes % (Manual) 3 % (20-45) L Monocytes % (Manual) 8 % (1-10) Eosinophils % (Manual) 0 % (0-3) Basophils % (Manual) 0 % (0-2) Band Neutrophils 12 % (0-8) H Platelet Estimate Adequate Platelet Morphology Normal Red Blood Cell Morphology Normal Sodium Level 145 mEQ/L (135-145) Potassium Level 3.9 mEQ/L (3.4-4.9) Chloride Level 103 mEQ/L (98-107) Carbon Dioxide Level 30 mEQ/L (20-30) Anion Gap 12 (5-15) Blood Urea Nitrogen 26 mg/dL (7-23) H Creatinine 1.0 mg/dL (0.5-0.9) H Estimat Glomerular Filtration Rate 55.1 mL/min (>60) Glucose Level 171 mg/dL (74-106) H Calcium Level 7.0 mg/dL (8.6-10.2) L Hepatitis B Surface Antibody, Quant Pending Stool Occult Blood Positive (NEGATIVE) Arterial Blood pH 7.230 (7.350-7.450) Arterial Blood Partial Pressure CO2 74.8 mmHg (35.0-45.0) *H Arterial Blood Partial Pressure O2 103.2 mmHg (75.0-100.0) H Arterial Blood HCO3 30.7 mmol/L (22.0-26.0) H Arterial Blood Oxygen Saturation 97.4 % (92.0-98.0) Arterial Blood Base Excess 1.7 Damián Test Positive Test 04/05/16 11:49 Arterial Blood pH 7.280 (7.350-7.450) Arterial Blood Partial Pressure CO2 62.2 mmHg (35.0-45.0) *H Arterial Blood Partial Pressure O2 129.5 mmHg (75.0-100.0) H Arterial Blood HCO3 28.6 mmol/L (22.0-26.0) H Arterial Blood Oxygen Saturation 98.2 % (92.0-98.0) H Arterial Blood Base Excess 0.9 Damián Test Positive Microbiology Date/Time Source Procedure Growth Status 04/02/16 21:15 Sputum Gram Stain - Final Complete 04/02/16 21:15 Sputum Sputum Culture - Final NORMAL UPPER RESPIRATORY ТАТЬЯНА PRESENT Complete CARITO POTTS Apr 05, 2016 19:27
[2016-04-06] VITALS (60 sets, daily range): BP systolic 20–142; BP diastolic 3–91
[2016-04-06] MEDS: DuoNeb 0.5-3(2.5)mg/3ml neb HHN SCH ×5 (03:10→23:40)
[2016-04-06] MEDS: LORazepam Inj 2mg/ml 1ml IV PRN ×3 (03:18→22:41)
--- NOTE | 2016-04-06 03:18 | Consultation ---
DATE OF CONSULTATION: 04/05/2016 GASTROENTEROLOGY CONSULTATION CHIEF COMPLAINT: Possible hepatitis B and abnormal liver function tests. HISTORY OF PRESENT ILLNESS: Most of the history is per chart. The patient is currently intubated in the intensive care unit. The patient is a 66-year-old with history of chronic tobacco usage and history of COPD, intubated for that, who was found to have a positive hepatitis B serology and GI consultation was requested for further evaluation. PAST MEDICAL HISTORY: 1. Severe emphysema. 2. History of hypertension. 3. Anxiety. 4. Osteoporosis. 5. History of tobacco abuse. PAST SURGICAL HISTORY: Appendectomy. MEDICATIONS: Please see medication reconciliation list. ALLERGY: Codeine, erythromycin, and tetracycline. SOCIAL HISTORY: She has a history of tobacco usage. There is no history of alcohol or IV drug abuse. FAMILY HISTORY: Noncontributory. REVIEW OF SYSTEMS: Unable to obtain. PHYSICAL EXAMINATION: VITAL SIGNS: The patient's temperature is afebrile. Pulse is 109, respirations 19, and blood pressure is 114/74. HEENT: Normocephalic and atraumatic. Sclerae anicteric. NECK: Supple. No evidence of lymphadenopathy. CARDIOVASCULAR: Tachycardic. Regular rate. Plus S1 and S2. No obvious murmur. LUNGS: Decreased breath sounds bilaterally and diffusely. ABDOMEN: Soft and nontender. No rebound. No guarding. No peritoneal signs. EXTREMITIES: No cyanosis. No clubbing. No edema. LABORATORY DATA: White count is 20, hemoglobin 11, hematocrit 30, and platelets are 286,000. BUN is 26 and creatinine is 1.0. Liver function tests, AST of 107, ALT of 118, total bilirubin 0.3, and alkaline phosphatase 67. Stool OB came back positive for blood. ASSESSMENT: This is a 66-year-old female with positive hepatitis B, core IgM and IgG with negative hepatitis B surface antigen and mild abnormal liver function tests. Ultrasound is suggestive of possible cirrhosis. Also, the patient has evidence of anemia with stool OB positive. PLAN: In terms of the liver, we are going to order hepatitis B surface antibody to see if the patient is immune. If the antibody comes back positive, then we will suggest that this was an old infection. Although the IgM is positive, I am not sure if I can explain that. However we are going to order an surface antibody and if it tests positive, the patient most probably is already immune to hepatitis B. Meanwhile, we are going to monitor liver function tests. We are also order given her history of chronic obstructive pulmonary disease and Alpha-1 antitrypsin deficiency as cause of both. In terms of anemia, the patient at this time, is in the intensive care unit and intubated. Hemoglobin and hematocrit are stable relatively even though stool OB positive we are going to start the patient on Protonix for gastrointestinal prophylaxis. I want to thank, Dr. Gomez, for this kind referral. Izaiah Roy M.D. DR: FRANCIA JOB#: [id number] CC: Estela Gomez M.D.; Fax#: [phone]
[2016-04-06 05:45] LABS: MEAN CORPUSCULAR HEMOGLOBIN 30.2 PG (27.0-31.0); MEAN CORPUSCULAR HGB CONC 31.7 G/DL (32.0-36.0); MEAN CORPUSCULAR VOLUME 95 FL (80-99); PLATELET COUNT 258 K/UL (150-450); RED BLOOD COUNT 3.31 M/UL (4.20-5.40); RED CELL DISTRIBUTION WIDTH 13.3 % (11.6-14.8); WHITE BLOOD COUNT 17.1 K/UL (4.8-10.8)
[2016-04-06 06:01] LABS: ALBUMIN/GLOBULIN RATIO 1.1 (1.0-2.7); CALCIUM 6.9 mg/dL (8.6-10.2); CREATININE 1.1 mg/dL (0.5-0.9); GLOMERULAR FILTRATION RATE 49.4 mL/min (>60); POTASSIUM 3.6 mEQ/L (3.4-4.9)
[2016-04-06] MEDS: Solu-MEDROL 125mg Inj IVP SCH ×3 (06:01→18:11)
[2016-04-06] MEDS: NovoLOG Insulin Flexpen SUBQ SCH ×3 (06:03→18:12)
[2016-04-06 07:33] LABS: BAND NEUTROPHILS % (MANUAL) 1 % (0-8); BASOPHILS % (MANUAL) 0 % (0-2); EOSINOPHILS % (MANUAL) 0 % (0-3); HYPOCHROMASIA 1+; LYMPHOCYTES % (MANUAL) 2 % (20-45); NEUTROPHILS % (MANUAL) 92 % (45-75); PLATELET ESTIMATE ADEQUATE; PLATELET MORPHOLOGY NORMAL; TOTAL CELLS COUNTED 100
[2016-04-06] MEDS: Azithromycin 250mg tab ORAL SCH (08:25)
[2016-04-06] MEDS: Aspirin Baby 81mg NG SCH (08:25)
[2016-04-06] MEDS: Heparin 5000 units/ml inj SUBQ SCH ×2 (08:26→20:32)
[2016-04-06] MEDS ORDERED: Pantoprazole Inj IV SCH (09:00)
[2016-04-06 09:52] LABS: ABG ALLEN TEST POSITIVE; ABG BASE EXCESS 3.5; ABG PCO2 67.2 mmHg (35.0-45.0)
--- NOTE | 2016-04-06 12:56 | GI Progress Note ---
Assessment/Plan Problems: (1) Occult blood in stools ICD Codes: R19.5 - Other fecal abnormalities SNOMED: 52922022, 612117266 (2) Anemia ICD Codes: D64.9 - Anemia, unspecified SNOMED: 538826239 (3) Hepatitis B ICD Codes: B19.10 - Unspecified viral hepatitis B without hepatic coma SNOMED: 49041015 (4) LFTs abnormal ICD Codes: R79.89 - Other specified abnormal findings of blood chemistry SNOMED: 094440905 (5) Hypoalbuminemia ICD Codes: E88.09 - Other disorders of plasma-protein metabolism, not elsewhere classified SNOMED: 638093211 (6) COPD exacerbation ICD Codes: J44.1 - Chronic obstructive pulmonary disease with (acute) exacerbation SNOMED: 704575060, 865718519 (7) Hypotension ICD Codes: I95.9 - Hypotension, unspecified SNOMED: 04618732, 676201532 Qualifiers: Qualified Codes: I95.9 - Hypotension, unspecified (8) Acute type 1 respiratory failure ICD Codes: J96.01 - Acute respiratory failure with hypoxia SNOMED: 58357591, 181179697 (9) Dyspnea ICD Codes: R06.00 - Dyspnea, unspecified SNOMED: 192183351 Status: unchanged Status Narrative Discussed with Dr. Roy. Assessment/Plan fu Hep B surface Ab fu Alpha-1 antitrypsin monitor LFTs monitor H&H, stable given OB + ppi benzo + fu labs The patient was seen and examined at bedside and all new and available data was reviewed in the patients chart. I agree with the above findings, impression and plan. (Patient seen earlier today. Signature stamp does not reflect patient encounter time.). -Izaiah Roy MD Subjective Subjective limited Objective Last 24 Hour Vital Signs Date Time Temp Pulse Resp B/P Pulse Ox O2 Delivery O2 Flow Rate FiO2 04/06/16 12:00 28 04/06/16 12:00 120 27 130/65 98 Mechanical Ventilator 04/06/16 11:51 110 16 100 Mechanical Ventilator 04/06/16 11:47 28 04/06/16 11:45 111 27 104/50 98 Mechanical Ventilator 04/06/16 11:40 109 16 97 Mechanical Ventilator 04/06/16 11:30 112 25 123/57 100 Mechanical Ventilator 16 11:15 110 27 131/58 98 Mechanical Ventilator 35 04/06/16 11:00 110/52 04/06/16 11:00 112 27 110/52 98 Mechanical Ventilator 35 04/06/16 10:45 113 26 121/56 99 Mechanical Ventilator 35 04/06/16 10:43 112 16 35 04/06/16 10:30 109 31 82/41 100 Mechanical Ventilator 40 04/06/16 10:15 108 31 88/41 100 Mechanical Ventilator 40 04/06/16 10:00 114 30 113/56 99 Mechanical Ventilator 40 04/06/16 10:00 113/56 04/06/16 09:45 117 29 120/58 99 Mechanical Ventilator 40 04/06/16 09:30 118 27 106/54 95 Mechanical Ventilator 40 04/06/16 09:15 115 27 101/53 99 Mechanical Ventilator 40 04/06/16 09:13 112 16 35 04/06/16 09:00 118 28 95/54 98 Mechanical Ventilator 40 04/06/16 09:00 101/53 04/06/16 08:45 118 23 99/52 98 Mechanical Ventilator 40 04/06/16 08:30 119 16 110/60 96 Mechanical Ventilator 40 04/06/16 08:15 124 27 123/58 96 Mechanical Ventilator 40 04/06/16 08:00 128 04/06/16 08:00 40 04/06/16 08:00 115/63 04/06/16 08:00 97.7 126 25 115/63 95 Mechanical Ventilator 40 04/06/16 07:45 126 21 125/61 96 Mechanical Ventilator 40 04/06/16 07:30 125 22 135/69 97 Mechanical Ventilator 40 04/06/16 07:15 119 19 142/75 97 Mechanical Ventilator 40 04/06/16 07:03 103 16 99 Mechanical Ventilator 35 04/06/16 07:00 109 18 84/45 97 Mechanical Ventilator 40 04/06/16 07:00 84/45 04/06/16 06:55 108 16 98 Mechanical Ventilator 35 04/06/16 06:52 108 16 35 04/06/16 06:45 105 18 116/56 97 Mechanical Ventilator 40 04/06/16 06:30 102 18 121/60 97 Mechanical Ventilator 40 04/06/16 06:19 115/66 04/06/16 06:15 101 18 115/52 97 Mechanical Ventilator 40 04/06/16 06:00 121/60 04/06/16 06:00 90 18 115/56 97 Mechanical Ventilator 40 04/06/16 05:45 79 18 111/57 97 Mechanical Ventilator 40 04/06/16 05:30 80 18 106/53 97 Mechanical Ventilator 40 04/06/16 05:15 80 18 104/52 97 Mechanical Ventilator 40 04/06/16 05:07 81 16 35 04/06/16 05:00 81 18 109/55 97 Mechanical Ventilator 40 04/06/16 04:45 84 18 97/54 97 Mechanical Ventilator 40 04/06/16 04:30 93 18 108/54 97 Mechanical Ventilator 40 04/06/16 04:15 83 18 96/63 97 Mechanical Ventilator 40 04/06/16 04:00 40 04/06/16 04:00 97.8 88 18 78/88 97 Mechanical Ventilator 40 04/06/16 04:00 100 04/06/16 03:45 98 18 73/37 97 Mechanical Ventilator 40 04/06/16 03:30 106 18 79/38 97 Mechanical Ventilator 40 04/06/16 03:15 111 18 81/41 97 Mechanical Ventilator 40 04/06/16 03:15 131 16 99 Mechanical Ventilator 35 04/06/16 03:14 131 16 98 Mechanical Ventilator 35 04/06/16 03:10 131 16 35 04/06/16 03:00 140/72 04/06/16 03:00 120 18 140/72 97 Mechanical Ventilator 40 04/06/16 02:45 116 18 104/53 97 Mechanical Ventilator 40 04/06/16 02:30 113 18 103/3 97 Mechanical Ventilator 40 04/06/16 02:15 123 18 20/64 97 Mechanical Ventilator 40 04/06/16 02:00 114 18 110/56 97 Mechanical Ventilator 40 04/06/16 02:00 120/64 04/06/16 01:45 121 18 130/91 97 Mechanical Ventilator 40 04/06/16 01:30 124 18 130/91 97 Mechanical Ventilator 40 04/06/16 01:24 133 16 35 04/06/16 01:15 127 18 127/63 97 Mechanical Ventilator 40 04/06/16 01:00 126 18 129/72 97 Mechanical Ventilator 40 04/06/16 01:00 127/63 04/06/16 00:45 122 18 111/79 97 Mechanical Ventilator 40 04/06/16 00:30 117 18 120/47 97 Mechanical Ventilator 40 04/06/16 00:15 114 18 127/63 97 Mechanical Ventilator 40 04/06/16 00:00 97.8 100 16 95/56 97 Mechanical Ventilator 35 04/06/16 00:00 114 04/06/16 00:00 40 04/06/16 00:00 127/63 04/05/16 23:20 99 16 99 Mechanical Ventilator 35 04/05/16 23:10 35 04/05/16 23:10 101 16 98 Mechanical Ventilator 35 04/05/16 23:09 102 16 35 04/05/16 23:00 102 18 79/47 97 Mechanical Ventilator 40 04/05/16 22:00 116 16 141/70 97 Mechanical Ventilator 40 04/05/16 21:30 106 16 35 04/05/16 21:00 111 16 105/83 97 Mechanical Ventilator 40 04/05/16 20:00 115 04/05/16 20:00 116 22 115/72 97 Mechanical Ventilator 40 04/05/16 20:00 40 04/05/16 19:30 118 17 103/60 97 Mechanical Ventilator 40 04/05/16 19:15 116 20 101/70 97 Mechanical Ventilator 40 04/05/16 19:00 101 16 100 Mechanical Ventilator 35 04/05/16 19:00 115 20 107/58 97 Mechanical Ventilator 40 04/05/16 18:50 111 16 98 Mechanical Ventilator 35 04/05/16 18:50 35 04/05/16 18:45 116 18 98/53 97 Mechanical Ventilator 40 04/05/16 18:42 107 16 35 04/05/16 18:30 112 18 118/71 97 Mechanical Ventilator 40 04/05/16 18:15 117 18 95/76 97 Mechanical Ventilator 40 04/05/16 18:00 117 18 95/76 97 Mechanical Ventilator 40 04/05/16 17:45 114 18 120/60 97 Mechanical Ventilator 40 04/05/16 17:30 110 18 123/66 97 Mechanical Ventilator 40 04/05/16 17:15 98 18 103/56 97 Mechanical Ventilator 40 04/05/16 17:00 102 17 103/56 97 Mechanical Ventilator 40 04/05/16 16:45 97 18 99/58 97 Mechanical Ventilator 40 04/05/16 16:40 104 16 40 04/05/16 16:30 95 17 98/56 97 Mechanical Ventilator 40 04/05/16 16:15 96 16 96/56 97 Mechanical Ventilator 40 04/05/16 16:07 40 04/05/16 16:00 98.0 104 16 94/58 97 Mechanical Ventilator 40 04/05/16 16:00 99 04/05/16 15:48 103 16 100 Mechanical Ventilator 40 04/05/16 15:45 104 17 91/58 97 Mechanical Ventilator 40 04/05/16 15:38 104 16 98 Mechanical Ventilator 40 04/05/16 15:30 114 17 85/53 97 Mechanical Ventilator 40 04/05/16 15:29 121 16 40 04/05/16 15:15 112 16 85/65 97 Mechanical Ventilator 40 04/05/16 15:00 116 16 79/45 97 Mechanical Ventilator 40 04/05/16 14:45 116 18 107/54 97 Mechanical Ventilator 40 04/05/16 14:30 116 16 109/49 97 Mechanical Ventilator 40 04/05/16 14:00 102 16 91/52 97 Mechanical Ventilator 40 04/05/16 13:45 89 16 79/45 97 Mechanical Ventilator 40 04/05/16 13:30 89 16 79/45 97 Mechanical Ventilator 40 04/05/16 13:15 90 16 79/49 97 Mechanical Ventilator 40 04/05/16 13:00 87 16 87/56 97 Mechanical Ventilator 40 Intake and Output 04/05/16 04/06/16 19:00 07:00 Intake Total 1952.50 ml 1723.75 ml Output Total 500 ml 545 ml Balance 1452.50 ml 1178.75 ml Free Water 200 ml 100 ml IV Total 1092.50 ml 963.75 ml Tube Feeding 660 ml 660 ml Output Urine Total 500 ml 545 ml # Bowel Movements 6 3 Laboratory Tests Test 04/06/16 04:00 04/06/16 09:40 White Blood Count 17.1 K/UL (4.8-10.8) H Red Blood Count 3.31 M/UL (4.20-5.40) L Hemoglobin 10.0 G/DL (12.0-16.0) L Hematocrit 31.6 % (37.0-47.0) L Mean Corpuscular Volume 95 FL (80-99) Mean Corpuscular Hemoglobin 30.2 PG (27.0-31.0) Mean Corpuscular Hemoglobin Concent 31.7 G/DL (32.0-36.0) L Red Cell Distribution Width 13.3 % (11.6-14.8) Platelet Count 258 K/UL (150-450) Mean Platelet Volume 7.0 FL (6.5-10.1) Neutrophils (%) (Auto) % (45.0-75.0) Lymphocytes (%) (Auto) % (20.0-45.0) Monocytes (%) (Auto) % (1.0-10.0) Eosinophils (%) (Auto) % (0.0-3.0) Basophils (%) (Auto) % (0.0-2.0) Differential Total Cells Counted 100 Neutrophils % (Manual) 92 % (45-75) H Lymphocytes % (Manual) 2 % (20-45) L Monocytes % (Manual) 5 % (1-10) Eosinophils % (Manual) 0 % (0-3) Basophils % (Manual) 0 % (0-2) Band Neutrophils 1 % (0-8) Platelet Estimate Adequate Platelet Morphology Normal Hypochromasia 1+ Sodium Level 144 mEQ/L (135-145) Potassium Level 3.6 mEQ/L (3.4-4.9) Chloride Level 106 mEQ/L (98-107) Carbon Dioxide Level 30 mEQ/L (20-30) Anion Gap 8 (5-15) Blood Urea Nitrogen 40 mg/dL (7-23) H Creatinine 1.1 mg/dL (0.5-0.9) H Estimat Glomerular Filtration Rate 49.4 mL/min (>60) Glucose Level 247 mg/dL (74-106) H Calcium Level 6.9 mg/dL (8.6-10.2) L Iron Level 61 ug/dL (37-145) Total Iron Binding Capacity 179 ug/dL (250-400) L Percent Iron Saturation 34 % (15-50) Unsaturated Iron Binding 118 ug/dL (112-346) Total Bilirubin 0.2 mg/dL (0.0-1.2) Aspartate Amino Transf (AST/SGOT) 69 U/L (5-40) H Alanine Aminotransferase (ALT/SGPT) 107 U/L (3-33) H Alkaline Phosphatase 90 U/L (35-104) Total Protein 5.0 g/dL (6.6-8.7) L Albumin 2.7 g/dL (3.5-5.2) L Globulin 2.3 g/dL Albumin/Globulin Ratio 1.1 (1.0-2.7) [id number] Pending Arterial Blood pH 7.290 (7.350-7.450) Arterial Blood Partial Pressure CO2 67.2 mmHg (35.0-45.0) *H Arterial Blood Partial Pressure O2 103.3 mmHg (75.0-100.0) H Arterial Blood HCO3 31.6 mmol/L (22.0-26.0) H Arterial Blood Oxygen Saturation 96.7 % (92.0-98.0) Arterial Blood Base Excess 3.5 Damián Test Positive Height (Feet): 5 Height (Inches): 5.00 Weight (Pounds): 125 General Appearance: no apparent distress Cardiovascular: tachycardia Respiratory/Chest: other - [facility] vent Abdominal Exam: soft, GT site - c/d/i Maeve Graves N.Bin Apr 06, 2016 12:56 IZAIAH ROY Apr 11, 2016 12:15
--- NOTE | 2016-04-06 14:12 | Cardiology Report ---
APPROVED REPORT EKG Measurement Heart [id number] Sinus rhythm with short MI Rightward axis Pulmonary disease pattern Septal infarct, age undetermined T wave abnormality, consider anterior ischemia Abnormal ECG
[2016-04-06] MEDS: Montelukast 10mg tablet ORAL SCH (16:39)
[2016-04-06] MEDS: cefTRIAXone 1 GM in D5W 50 ML IVPB SCH (16:40)
--- NOTE | 2016-04-06 17:51 | Cardiology Progress Note ---
Assessment/Plan Status Narrative Mrs. Gallardo remains intubated, not responsive. Levophed has been weaned off. She remains on iv antibiotics Assessment/Plan Remain off pressors. Wean from vent if tolerated, as per Dr. Gomez. continue to monitor fluid status No new cardiac recs. Subjective ROS Limited/Unobtainable: No Subjective Intubated /sedated Events noted Objective Last 24 Hour Vital Signs Date Time Temp Pulse Resp B/P Pulse Ox O2 Delivery O2 Flow Rate FiO2 04/06/16 17:00 98.9 115 25 124/58 97 Mechanical Ventilator 35 04/06/16 16:00 100.2 116 28 132/63 96 Mechanical Ventilator 28 04/06/16 16:00 28 04/06/16 16:00 109 04/06/16 15:20 28 04/06/16 15:20 128 16 28 04/06/16 15:20 28 04/06/16 15:00 127 32 133/66 92 Mechanical Ventilator 28 04/06/16 14:00 126 31 140/70 92 Mechanical Ventilator 28 04/06/16 13:25 127 16 28 04/06/16 13:00 98.7 125 30 138/63 93 Mechanical Ventilator 28 04/06/16 12:00 115 04/06/16 12:00 28 04/06/16 12:00 120 27 130/65 98 Mechanical Ventilator 35 04/06/16 11:51 110 16 100 Mechanical Ventilator 28 04/06/16 11:47 28 04/06/16 11:45 111 27 104/50 98 Mechanical Ventilator 35 04/06/16 11:40 109 16 97 Mechanical Ventilator 28 04/06/16 11:30 112 25 123/57 100 Mechanical Ventilator 35 04/06/16 11:15 110 27 131/58 98 Mechanical Ventilator 35 04/06/16 11:00 110/52 04/06/16 11:00 112 27 110/52 98 Mechanical Ventilator 35 04/06/16 10:45 113 26 121/56 99 Mechanical Ventilator 35 04/06/16 10:43 112 16 35 04/06/16 10:30 109 31 82/41 100 Mechanical Ventilator 40 04/06/16 10:15 108 31 88/41 100 Mechanical Ventilator 40 04/06/16 10:00 114 30 113/56 99 Mechanical Ventilator 40 04/06/16 10:00 113/56 04/06/16 09:45 117 29 120/58 99 Mechanical Ventilator 40 04/06/16 09:30 118 27 106/54 95 Mechanical Ventilator 40 04/06/16 09:15 115 27 101/53 99 Mechanical Ventilator 40 04/06/16 09:13 112 16 35 04/06/16 09:00 118 28 95/54 98 Mechanical Ventilator 40 04/06/16 09:00 101/53 04/06/16 08:45 118 23 99/52 98 Mechanical Ventilator 40 04/06/16 08:30 119 16 110/60 96 Mechanical Ventilator 40 04/06/16 08:15 124 27 123/58 96 Mechanical Ventilator 40 04/06/16 08:00 128 04/06/16 08:00 40 04/06/16 08:00 115/63 04/06/16 08:00 97.7 126 25 115/63 95 Mechanical Ventilator 40 04/06/16 07:45 126 21 125/61 96 Mechanical Ventilator 40 04/06/16 07:30 125 22 135/69 97 Mechanical Ventilator 40 04/06/16 07:15 119 19 142/75 97 Mechanical Ventilator 40 04/06/16 07:03 103 16 99 Mechanical Ventilator 35 04/06/16 07:00 109 18 84/45 97 Mechanical Ventilator 40 04/06/16 07:00 84/45 04/06/16 06:55 108 16 98 Mechanical Ventilator 35 04/06/16 06:52 108 16 35 04/06/16 06:45 105 18 116/56 97 Mechanical Ventilator 40 04/06/16 06:30 102 18 121/60 97 Mechanical Ventilator 40 04/06/16 06:19 115/66 04/06/16 06:15 101 18 115/52 97 Mechanical Ventilator 40 04/06/16 06:00 121/60 04/06/16 06:00 90 18 115/56 97 Mechanical Ventilator 40 04/06/16 05:45 79 18 111/57 97 Mechanical Ventilator 40 04/06/16 05:30 80 18 106/53 97 Mechanical Ventilator 40 04/06/16 05:15 80 18 104/52 97 Mechanical Ventilator 40 04/06/16 05:07 81 16 35 04/06/16 05:00 81 18 109/55 97 Mechanical Ventilator 40 04/06/16 04:45 84 18 97/54 97 Mechanical Ventilator 40 04/06/16 04:30 93 18 108/54 97 Mechanical Ventilator 40 04/06/16 04:15 83 18 96/63 97 Mechanical Ventilator 40 04/06/16 04:00 40 04/06/16 04:00 97.8 88 18 78/88 97 Mechanical Ventilator 40 04/06/16 04:00 100 04/06/16 03:45 98 18 73/37 97 Mechanical Ventilator 40 04/06/16 03:30 106 18 79/38 97 Mechanical Ventilator 40 04/06/16 03:15 111 18 81/41 97 Mechanical Ventilator 40 04/06/16 03:15 131 16 99 Mechanical Ventilator 35 04/06/16 03:14 131 16 98 Mechanical Ventilator 35 04/06/16 03:10 131 16 35 04/06/16 03:00 140/72 04/06/16 03:00 120 18 140/72 97 Mechanical Ventilator 40 04/06/16 02:45 116 18 104/53 97 Mechanical Ventilator 40 04/06/16 02:30 113 18 103/3 97 Mechanical Ventilator 40 04/06/16 02:15 123 18 20/64 97 Mechanical Ventilator 40 04/06/16 02:00 114 18 110/56 97 Mechanical Ventilator 40 04/06/16 02:00 120/64 04/06/16 01:45 121 18 130/91 97 Mechanical Ventilator 40 04/06/16 01:30 124 18 130/91 97 Mechanical Ventilator 40 04/06/16 01:24 133 16 35 04/06/16 01:15 127 18 127/63 97 Mechanical Ventilator 40 04/06/16 01:00 126 18 129/72 97 Mechanical Ventilator 40 04/06/16 01:00 127/63 04/06/16 00:45 122 18 111/79 97 Mechanical Ventilator 40 04/06/16 00:30 117 18 120/47 97 Mechanical Ventilator 40 04/06/16 00:15 114 18 127/63 97 Mechanical Ventilator 40 04/06/16 00:00 97.8 100 16 95/56 97 Mechanical Ventilator 35 04/06/16 00:00 114 04/06/16 00:00 40 04/06/16 00:00 127/63 04/05/16 23:20 99 16 99 Mechanical Ventilator 35 04/05/16 23:10 35 04/05/16 23:10 101 16 98 Mechanical Ventilator 35 04/05/16 23:09 102 16 35 04/05/16 23:00 102 18 79/47 97 Mechanical Ventilator 40 04/05/16 22:00 116 16 141/70 97 Mechanical Ventilator 40 04/05/16 21:30 106 16 35 04/05/16 21:00 111 16 105/83 97 Mechanical Ventilator 40 04/05/16 20:00 115 04/05/16 20:00 116 22 115/72 97 Mechanical Ventilator 40 04/05/16 20:00 40 04/05/16 19:30 118 17 103/60 97 Mechanical Ventilator 40 04/05/16 19:15 116 20 101/70 97 Mechanical Ventilator 40 04/05/16 19:00 101 16 100 Mechanical Ventilator 35 04/05/16 19:00 115 20 107/58 97 Mechanical Ventilator 40 04/05/16 18:50 111 16 98 Mechanical Ventilator 35 04/05/16 18:50 35 04/05/16 18:45 116 18 98/53 97 Mechanical Ventilator 40 04/05/16 18:42 107 16 35 04/05/16 18:30 112 18 118/71 97 Mechanical Ventilator 40 04/05/16 18:15 117 18 95/76 97 Mechanical Ventilator 40 04/05/16 18:00 117 18 95/76 97 Mechanical Ventilator 40 04/05/16 17:45 114 18 120/60 97 Mechanical Ventilator 40 General Appearance: WD/WN, alert Neck: supple, normal inspection, no JVD Rhythm: NSR Cardiovascular: normal rate, regular rhythm, tachycardia Respiratory/Chest: other - scattered rhonchi bilaterally Abdomen: non tender, soft Extremities: no swelling Intake and Output 04/05/16 04/06/16 19:00 07:00 Intake Total 1952.50 ml 1723.75 ml Output Total 500 ml 545 ml Balance 1452.50 ml 1178.75 ml Free Water 200 ml 100 ml IV Total 1092.50 ml 963.75 ml Tube Feeding 660 ml 660 ml Output Urine Total 500 ml 545 ml # Bowel Movements 6 3 Laboratory Tests Test 04/06/16 04:00 04/06/16 09:40 White Blood Count 17.1 K/UL (4.8-10.8) H Red Blood Count 3.31 M/UL (4.20-5.40) L Hemoglobin 10.0 G/DL (12.0-16.0) L Hematocrit 31.6 % (37.0-47.0) L Mean Corpuscular Volume 95 FL (80-99) Mean Corpuscular Hemoglobin 30.2 PG (27.0-31.0) Mean Corpuscular Hemoglobin Concent 31.7 G/DL (32.0-36.0) L Red Cell Distribution Width 13.3 % (11.6-14.8) Platelet Count 258 K/UL (150-450) Mean Platelet Volume 7.0 FL (6.5-10.1) Neutrophils (%) (Auto) % (45.0-75.0) Lymphocytes (%) (Auto) % (20.0-45.0) Monocytes (%) (Auto) % (1.0-10.0) Eosinophils (%) (Auto) % (0.0-3.0) Basophils (%) (Auto) % (0.0-2.0) Differential Total Cells Counted 100 Neutrophils % (Manual) 92 % (45-75) H Lymphocytes % (Manual) 2 % (20-45) L Monocytes % (Manual) 5 % (1-10) Eosinophils % (Manual) 0 % (0-3) Basophils % (Manual) 0 % (0-2) Band Neutrophils 1 % (0-8) Platelet Estimate Adequate Platelet Morphology Normal Hypochromasia 1+ Sodium Level 144 mEQ/L (135-145) Potassium Level 3.6 mEQ/L (3.4-4.9) Chloride Level 106 mEQ/L (98-107) Carbon Dioxide Level 30 mEQ/L (20-30) Anion Gap 8 (5-15) Blood Urea Nitrogen 40 mg/dL (7-23) H Creatinine 1.1 mg/dL (0.5-0.9) H Estimat Glomerular Filtration Rate 49.4 mL/min (>60) Glucose Level 247 mg/dL (74-106) H Calcium Level 6.9 mg/dL (8.6-10.2) L Iron Level 61 ug/dL (37-145) Total Iron Binding Capacity 179 ug/dL (250-400) L Percent Iron Saturation 34 % (15-50) Unsaturated Iron Binding 118 ug/dL (112-346) Total Bilirubin 0.2 mg/dL (0.0-1.2) Aspartate Amino Transf (AST/SGOT) 69 U/L (5-40) H Alanine Aminotransferase (ALT/SGPT) 107 U/L (3-33) H Alkaline Phosphatase 90 U/L (35-104) Total Protein 5.0 g/dL (6.6-8.7) L Albumin 2.7 g/dL (3.5-5.2) L Globulin 2.3 g/dL Albumin/Globulin Ratio 1.1 (1.0-2.7) [id number] Pending Arterial Blood pH 7.290 (7.350-7.450) Arterial Blood Partial Pressure CO2 67.2 mmHg (35.0-45.0) *H Arterial Blood Partial Pressure O2 103.3 mmHg (75.0-100.0) H Arterial Blood HCO3 31.6 mmol/L (22.0-26.0) H Arterial Blood Oxygen Saturation 96.7 % (92.0-98.0) Arterial Blood Base Excess 3.5 Damián Test Positive CARITO POTTS Apr 06, 2016 17:51
--- NOTE | 2016-04-06 22:57 | Pulmonology Progress Note ---
Assessment/Plan Assessment/Plan Acute respiratory failure, currently with respiratory acidosis Acute COPD exacerbation SIRS (tachycardia, hypoxemia, alteration in mental status) CTA with no pulmonary embolism Hep B/C serologies abnormal, w/u underway by Dr. Roy History of HTN Plan Appreciate GI evaluation Not weanable given respiratory acidosis Increase rate to 22 DC IVF Increase TF to 60 Anxiolytic prn Check TFT/TSH, Mg, K, Phos Follow up on Troponin Metoprolol for tachycardia Once more stable, wean off vent Reduce solumedrol to dc eventually Bronchodilators On Azithro/Rocephin On PPI and [id number], will stop one If AMS persists, head CT scan ABG CXR 45 minutes to coordinate care, discuss with RN, plan for next two days Dr. Maxwell will cover the weekend. Subjective Allergies: Coded Allergies: CODEINE (Verified Allergy, Unknown, 04/05/16) ERYTHROMYCIN BASE (Verified Allergy, Unknown, 04/05/16) TETRACYCLINE (Verified Allergy, Unknown, 04/05/16) Uncoded Allergies: Codeine, Erythromycin, Tetracycline (Allergy, Unknown, 04/05/16) Subjective Remains intubated. On TF. Off pressors. Seen by GI. Remains tachycardic. Objective Last 24 Hour Vital Signs Date Time Temp Pulse Resp B/P Pulse Ox O2 Delivery O2 Flow Rate FiO2 04/06/16 22:00 116 25 122/56 96 Mechanical Ventilator 35 04/06/16 21:20 115 16 35 04/06/16 21:00 116 26 109/60 96 Mechanical Ventilator 35 04/06/16 20:00 119 04/06/16 20:00 35 04/06/16 20:00 97.5 119 19 137/64 97 Mechanical Ventilator 35 04/06/16 19:25 110 16 100 Mechanical Ventilator 35 04/06/16 19:20 112 16 35 04/06/16 19:20 112 16 98 Mechanical Ventilator 35 04/06/16 19:00 120 26 137/66 97 Mechanical Ventilator 35 04/06/16 18:00 111 21 125/60 97 Mechanical Ventilator 35 04/06/16 17:25 113 16 35 04/06/16 17:00 98.9 115 25 124/58 97 Mechanical Ventilator 35 04/06/16 16:51 98.9 04/06/16 16:00 100.2 116 28 132/63 96 Mechanical Ventilator 28 04/06/16 16:00 28 04/06/16 16:00 109 04/06/16 15:20 28 04/06/16 15:20 128 16 28 04/06/16 15:20 28 04/06/16 15:00 127 32 133/66 92 Mechanical Ventilator 28 04/06/16 14:00 126 31 140/70 92 Mechanical Ventilator 28 04/06/16 13:25 127 16 28 04/06/16 13:00 98.7 125 30 138/63 93 Mechanical Ventilator 28 04/06/16 12:00 115 04/06/16 12:00 28 04/06/16 12:00 120 27 130/65 98 Mechanical Ventilator 35 04/06/16 11:51 110 16 100 Mechanical Ventilator 28 04/06/16 11:47 28 04/06/16 11:45 111 27 104/50 98 Mechanical Ventilator 35 04/06/16 11:40 109 16 97 Mechanical Ventilator 28 04/06/16 11:30 112 25 123/57 100 Mechanical Ventilator 35 04/06/16 11:15 110 27 131/58 98 Mechanical Ventilator 35 04/06/16 11:00 110/52 04/06/16 11:00 112 27 110/52 98 Mechanical Ventilator 35 04/06/16 10:45 113 26 121/56 99 Mechanical Ventilator 35 04/06/16 10:43 112 16 35 04/06/16 10:30 109 31 82/41 100 Mechanical Ventilator 40 04/06/16 10:15 108 31 88/41 100 Mechanical Ventilator 40 04/06/16 10:00 114 30 113/56 99 Mechanical Ventilator 40 04/06/16 10:00 113/56 04/06/16 09:45 117 29 120/58 99 Mechanical Ventilator 40 04/06/16 09:30 118 27 106/54 95 Mechanical Ventilator 40 04/06/16 09:15 115 27 101/53 99 Mechanical Ventilator 40 04/06/16 09:13 112 16 35 04/06/16 09:00 118 28 95/54 98 Mechanical Ventilator 40 04/06/16 09:00 101/53 04/06/16 08:45 118 23 99/52 98 Mechanical Ventilator 40 04/06/16 08:30 119 16 110/60 96 Mechanical Ventilator 40 04/06/16 08:15 124 27 123/58 96 Mechanical Ventilator 40 04/06/16 08:00 128 04/06/16 08:00 40 04/06/16 08:00 115/63 04/06/16 08:00 97.7 126 25 115/63 95 Mechanical Ventilator 40 04/06/16 07:45 126 21 125/61 96 Mechanical Ventilator 40 04/06/16 07:30 125 22 135/69 97 Mechanical Ventilator 40 04/06/16 07:15 119 19 142/75 97 Mechanical Ventilator 40 04/06/16 07:03 103 16 99 Mechanical Ventilator 35 04/06/16 07:00 109 18 84/45 97 Mechanical Ventilator 40 04/06/16 07:00 84/45 04/06/16 06:55 108 16 98 Mechanical Ventilator 35 04/06/16 06:52 108 16 35 04/06/16 06:45 105 18 116/56 97 Mechanical Ventilator 40 04/06/16 06:30 102 18 121/60 97 Mechanical Ventilator 40 04/06/16 06:19 115/66 04/06/16 06:15 101 18 115/52 97 Mechanical Ventilator 40 04/06/16 06:00 121/60 04/06/16 06:00 90 18 115/56 97 Mechanical Ventilator 40 04/06/16 05:45 79 18 111/57 97 Mechanical Ventilator 40 04/06/16 05:30 80 18 106/53 97 Mechanical Ventilator 40 04/06/16 05:15 80 18 104/52 97 Mechanical Ventilator 40 04/06/16 05:07 81 16 35 04/06/16 05:00 81 18 109/55 97 Mechanical Ventilator 40 04/06/16 04:45 84 18 97/54 97 Mechanical Ventilator 40 04/06/16 04:30 93 18 108/54 97 Mechanical Ventilator 40 04/06/16 04:15 83 18 96/63 97 Mechanical Ventilator 40 04/06/16 04:00 40 04/06/16 04:00 97.8 88 18 78/88 97 Mechanical Ventilator 40 04/06/16 04:00 100 04/06/16 03:45 98 18 73/37 97 Mechanical Ventilator 40 04/06/16 03:30 106 18 79/38 97 Mechanical Ventilator 40 04/06/16 03:15 111 18 81/41 97 Mechanical Ventilator 40 04/06/16 03:15 131 16 99 Mechanical Ventilator 35 04/06/16 03:14 131 16 98 Mechanical Ventilator 35 04/06/16 03:10 131 16 35 04/06/16 03:00 140/72 04/06/16 03:00 120 18 140/72 97 Mechanical Ventilator 40 04/06/16 02:45 116 18 104/53 97 Mechanical Ventilator 40 04/06/16 02:30 113 18 103/3 97 Mechanical Ventilator 40 04/06/16 02:15 123 18 20/64 97 Mechanical Ventilator 40 04/06/16 02:00 114 18 110/56 97 Mechanical Ventilator 40 04/06/16 02:00 120/64 04/06/16 01:45 121 18 130/91 97 Mechanical Ventilator 40 04/06/16 01:30 124 18 130/91 97 Mechanical Ventilator 40 04/06/16 01:24 133 16 35 04/06/16 01:15 127 18 127/63 97 Mechanical Ventilator 40 04/06/16 01:00 126 18 129/72 97 Mechanical Ventilator 40 04/06/16 01:00 127/63 04/06/16 00:45 122 18 111/79 97 Mechanical Ventilator 40 04/06/16 00:30 117 18 120/47 97 Mechanical Ventilator 40 04/06/16 00:15 114 18 127/63 97 Mechanical Ventilator 40 04/06/16 00:00 97.8 100 16 95/56 97 Mechanical Ventilator 35 04/06/16 00:00 114 04/06/16 00:00 40 04/06/16 00:00 127/63 04/05/16 23:20 99 16 99 Mechanical Ventilator 35 04/05/16 23:10 35 04/05/16 23:10 101 16 98 Mechanical Ventilator 35 04/05/16 23:09 102 16 35 04/05/16 23:00 102 18 79/47 97 Mechanical Ventilator 40 Intake and Output 04/05/16 04/06/16 19:00 07:00 Intake Total 1952.50 ml 1723.75 ml Output Total 500 ml 545 ml Balance 1452.50 ml 1178.75 ml Free Water 200 ml 100 ml IV Total 1092.50 ml 963.75 ml Tube Feeding 660 ml 660 ml Output Urine Total 500 ml 545 ml # Bowel Movements 6 3 Objective Ill appearing On vent. AC 16/500/35% PIPS 29 DC 110-120 ETT/OGT TF at 75 cc/hr ENT with no d/c Neck with no JVD Chest little if any wheeze, good air entry Tachycardic Soft abdomen/NT Trace edema, SCD's Eyes closed Laboratory Tests 04/06/16 04:00: White Blood Count 17.1H, Red Blood Count 3.31L, Hemoglobin 10.0L, Hematocrit 31.6L, Mean Corpuscular Volume 95, Mean Corpuscular Hemoglobin 30.2, Mean Corpuscular Hemoglobin Concent 31.7L, Red Cell Distribution Width 13.3, Platelet Count 258, Mean Platelet Volume 7.0, Neutrophils (%) (Auto) , Lymphocytes (%) (Auto) , Monocytes (%) (Auto) , Eosinophils (%) (Auto) , Basophils (%) (Auto) , Differential Total Cells Counted 100, Neutrophils % ( Manual) 92H, Lymphocytes % (Manual) 2L, Monocytes % (Manual) 5, Eosinophils % ( Manual) 0, Basophils % (Manual) 0, Band Neutrophils 1, Platelet Estimate Adequate, Platelet Morphology Normal, Hypochromasia 1+, Sodium Level 144, Potassium Level 3.6, Chloride Level 106, Carbon Dioxide Level 30, Anion Gap 8, Blood Urea Nitrogen 40H, Creatinine 1.1H, Estimat Glomerular Filtration Rate 49.4, Glucose Level 247H, Calcium Level 6.9L, Iron Level 61, Total Iron Binding Capacity 179L, Percent Iron Saturation 34, Unsaturated Iron Binding 118, Total Bilirubin 0.2, Aspartate Amino Transf (AST/SGOT) 69H, Alanine Aminotransferase ( ALT/SGPT) 107H, Alkaline Phosphatase 90, Total Protein 5.0L, Albumin 2.7L, Globulin 2.3, Albumin/Globulin Ratio 1.1, [id number]-[id number] [Pending] 04/06/16 09:40: Arterial Blood pH 7.290L, Arterial Blood Partial Pressure CO2 67.2*H, Arterial Blood Partial Pressure O2 103.3H, Arterial Blood HCO3 31.6H, Arterial Blood Oxygen Saturation 96.7, Arterial Blood Base Excess 3.5, Damián Test Positive Current Medications Medications (Trade) Dose Ordered Sig/Deyanira Route PRN Reason Start Time Stop Time Status Last Admin Dose Admin Acetaminophen (Tylenol) 650 mg Q4H PRN ORAL Mild Pain (Pain Scale 1-3) 04/02/16 19:45 05/02/16 19:44 04/06/16 15:52 Albuterol/ Ipratropium (DuoNeb 0.5-3(2.5)mg/3ml) 3 ml Q4HRT HHN 04/02/16 23:00 04/07/16 22:59 04/06/16 19:20 Aspirin (ASA) 81 mg DAILY NG 04/03/16 09:00 05/03/16 08:59 04/06/16 08:25 Azithromycin 250 mg 250 mg DAILY ORAL 04/03/16 09:00 04/10/16 08:59 04/06/16 08:25 Ceftriaxone Sodium/Dextrose (Rocephin/D5W 50ml) 50 ml @ 100 mls/hr Q24H IVPB 04/03/16 17:00 04/10/16 16:59 04/06/16 16:40 Dextrose (Dextrose 50%) STAT PRN IV Hypoglycemia 04/03/16 13:45 05/03/16 13:44 Dextrose STAT PRN IV Hypoglycemia 04/02/16 19:45 05/02/16 19:44 Heparin Sodium (Porcine) (Heparin 5000 units/ml) 5,000 units EVERY 12 HOURS SUBQ 04/02/16 21:00 05/02/16 20:59 04/06/16 20:32 Hydromorphone HCl (Dilaudid) 0.5 mg Q2H PRN IVP Severe Pain (Pain Scale 7-10) 04/02/16 19:45 04/09/16 19:44 Insulin Aspart (NovoLOG) EVERY 6 HOURS SUBQ 04/04/16 18:00 05/04/16 17:59 04/06/16 18:12 Lorazepam (Ativan) 1 mg Q4H PRN ORAL For Anxiety 04/02/16 19:45 04/09/16 19:44 Lorazepam 2 mg 2 mg Q2H PRN IV For Anxiety 04/02/16 19:45 04/09/16 19:44 04/06/16 08:28 Methylprednisolone Sodium Succinate (Solu-MEDROL) 60 mg EVERY 6 HOURS IVP 04/03/16 00:00 05/03/16 00:00 04/06/16 18:11 Montelukast Sodium (Singulair) 10 mg QPM ORAL 04/03/16 16:30 05/03/16 16:29 04/06/16 16:39 Norepinephrine Bitartrate/ Dextrose (Levophed/D5W 250ml) 250 ml @ 0 mls/hr Q24H IV 04/02/16 20:30 05/02/16 20:29 04/06/16 06:19 Ondansetron HCl (Zofran ODT) 4 mg Q6H PRN ORAL Nausea & Vomiting 04/02/16 19:45 05/02/16 19:44 Pantoprazole (Protonix) 40 mg DAILY IV 04/06/16 09:00 05/06/16 08:59 04/06/16 08:25 Polyethylene Glycol (Miralax) 17 gm DAILYPRN PRN ORAL Constipation 04/02/16 19:45 05/02/16 19:44 Ranitidine HCl (Zantac) 150 mg DAILY ORAL 04/02/16 21:00 05/02/16 20:59 04/06/16 08:25 Sodium Chloride (Sodium Chloride 1000ml bag) 1,000 ml @ 75 mls/hr [id number] IV 04/02/16 20:30 05/02/16 20:29 04/06/16 15:09 Elkin Roberts MD Apr 06, 2016 22:57
[2016-04-06 23:37] LABS: ABG ALLEN TEST POSITIVE; ABG PCO2 57.3 mmHg (35.0-45.0)
[2016-04-07] VITALS (24 sets, daily range): BP systolic 84–136; BP diastolic 46–88
[2016-04-07] MEDS: NovoLOG Insulin Flexpen SUBQ SCH ×4 (00:14→17:37)
[2016-04-07] MEDS: DuoNeb 0.5-3(2.5)mg/3ml neb HHN SCH ×6 (03:00→20:17)
[2016-04-07 05:37] LABS: MEAN CORPUSCULAR HEMOGLOBIN 30.7 PG (27.0-31.0); MEAN CORPUSCULAR HGB CONC 32.1 G/DL (32.0-36.0); MEAN CORPUSCULAR VOLUME 96 FL (80-99); MEAN PLATELET VOLUME 6.8 FL (6.5-10.1); PLATELET COUNT 226 K/UL (150-450); RED BLOOD COUNT 3.36 M/UL (4.20-5.40); RED CELL DISTRIBUTION WIDTH 13.7 % (11.6-14.8); WHITE BLOOD COUNT 17.2 K/UL (4.8-10.8)
[2016-04-07 06:22] LABS: ALANINE AMINOTRANSFERASE 85 U/L (3-33); ALBUMIN/GLOBULIN RATIO 1.2 (1.0-2.7); ANION GAP 9 (5-15); ASPARTATE AMINO TRANSFERASE 48 U/L (5-40); CALCIUM 6.9 mg/dL (8.6-10.2); CARBON DIOXIDE 33 mEQ/L (20-30); CHLORIDE 111 mEQ/L (98-107); GLOMERULAR FILTRATION RATE 55.1 mL/min (>60); HEMOLYSIS 5; POTASSIUM 3.8 mEQ/L (3.4-4.9); SODIUM 153 mEQ/L (135-145)
[2016-04-07 06:47] LABS: TROPONIN I < 0.30 ng/mL (<=0.30)
--- NOTE | 2016-04-07 08:19 | Pulmonolgy Critical Care Note ---
Critical Care - Asmt/Plan Assessment/Plan: Assessment: Acute respiratory failure, currently with respiratory acidosis Acute COPD exacerbation SIRS (tachycardia, hypoxemia, alteration in mental status) CTA with no pulmonary embolism Hep B/C serologies abnormal, w/u underway by Dr. Roy History of HTN Plan FU with Gi recommendations Not weanable given respiratory acidosis. add 5 peep Increase rate to 22 DC IVF Increase TF to 60 Anxiolytic prn Check TFT/TSH, Mg, K, Phos Follow up on Troponin Metoprolol for tachycardia steroids at 60, will reassess in am Bronchodilators On Azithro/Rocephin, FU cultures Gi prophylaxis CT of head ordered ABG CXR 45 minutes to coordinate care, discuss with RN, plan for next two days Disposition: keep in ICU Time Spent (Minutes): 50 Critical Care - Objective Last 24 Hour Vital Signs Date Time Temp Pulse Resp B/P Pulse Ox O2 Delivery O2 Flow Rate FiO2 04/07/16 07:00 110 21 116/59 97 Mechanical Ventilator 40 04/07/16 06:40 118 18 40 04/07/16 06:40 119 17 96 Mechanical Ventilator 40 04/07/16 06:25 119 19 95 Mechanical Ventilator 40 04/07/16 06:00 115 21 107/88 97 Mechanical Ventilator 40 04/07/16 05:00 118 22 126/62 97 Mechanical Ventilator 40 04/07/16 04:55 117 16 40 04/07/16 04:00 35 04/07/16 04:00 118 04/07/16 04:00 98.0 118 23 130/63 97 Mechanical Ventilator 40 04/07/16 03:24 115 16 100 Mechanical Ventilator 40 04/07/16 03:18 120 17 40 04/07/16 03:18 118 16 96 Mechanical Ventilator 40 04/07/16 03:00 118 23 126/63 97 Mechanical Ventilator 40 04/07/16 02:00 115 20 133/61 97 Mechanical Ventilator 40 04/07/16 01:00 118 22 136/62 97 Mechanical Ventilator 40 04/07/16 01:00 119 16 40 04/07/16 00:00 114 04/07/16 00:00 98.0 112 20 118/63 97 Mechanical Ventilator 40 04/07/16 00:00 35 04/06/16 23:53 111 16 100 Mechanical Ventilator 40 04/06/16 23:40 108 16 97 Mechanical Ventilator 40 04/06/16 23:40 108 16 40 04/06/16 23:00 109 19 106/61 97 Mechanical Ventilator 40 04/06/16 22:00 116 25 122/56 96 Mechanical Ventilator 35 04/06/16 21:20 115 16 35 04/06/16 21:00 116 26 109/60 96 Mechanical Ventilator 35 04/06/16 20:00 119 04/06/16 20:00 35 04/06/16 20:00 97.5 119 19 137/64 97 Mechanical Ventilator 35 04/06/16 19:25 110 16 100 Mechanical Ventilator 35 04/06/16 19:20 112 16 35 04/06/16 19:20 112 16 98 Mechanical Ventilator 35 04/06/16 19:00 120 26 137/66 97 Mechanical Ventilator 35 04/06/16 18:00 111 21 125/60 97 Mechanical Ventilator 35 04/06/16 17:25 113 16 35 04/06/16 17:00 98.9 115 25 124/58 97 Mechanical Ventilator 35 04/06/16 16:51 98.9 04/06/16 16:00 100.2 116 28 132/63 96 Mechanical Ventilator 28 04/06/16 16:00 28 04/06/16 16:00 109 04/06/16 15:20 28 04/06/16 15:20 128 16 28 04/06/16 15:20 28 04/06/16 15:00 127 32 133/66 92 Mechanical Ventilator 28 04/06/16 14:00 126 31 140/70 92 Mechanical Ventilator 28 04/06/16 13:25 127 16 28 04/06/16 13:00 98.7 125 30 138/63 93 Mechanical Ventilator 28 04/06/16 12:00 115 04/06/16 12:00 28 04/06/16 12:00 120 27 130/65 98 Mechanical Ventilator 35 04/06/16 11:51 110 16 100 Mechanical Ventilator 28 04/06/16 11:47 28 04/06/16 11:45 111 27 104/50 98 Mechanical Ventilator 35 04/06/16 11:40 109 16 97 Mechanical Ventilator 28 04/06/16 11:30 112 25 123/57 100 Mechanical Ventilator 35 04/06/16 11:15 110 27 131/58 98 Mechanical Ventilator 35 04/06/16 11:00 110/52 04/06/16 11:00 112 27 110/52 98 Mechanical Ventilator 35 04/06/16 10:45 113 26 121/56 99 Mechanical Ventilator 35 04/06/16 10:43 112 16 35 04/06/16 10:30 109 31 82/41 100 Mechanical Ventilator 40 04/06/16 10:15 108 31 88/41 100 Mechanical Ventilator 40 04/06/16 10:00 114 30 113/56 99 Mechanical Ventilator 40 04/06/16 10:00 113/56 04/06/16 09:45 117 29 120/58 99 Mechanical Ventilator 40 04/06/16 09:30 118 27 106/54 95 Mechanical Ventilator 40 04/06/16 09:15 115 27 101/53 99 Mechanical Ventilator 40 04/06/16 09:13 112 16 35 04/06/16 09:00 118 28 95/54 98 Mechanical Ventilator 40 04/06/16 09:00 101/53 04/06/16 08:45 118 23 99/52 98 Mechanical Ventilator 40 04/06/16 08:30 119 16 110/60 96 Mechanical Ventilator 40 Status: somnolent Condition: critical Lungs: rhonchi Heart: HR/BP stable Abdomen: soft, non-tender Extremities: edema Decubiti: stage Accucheck: 215 Blood Sugars: BS not controlled Critical Care - Subjective ROS Limited/Unobtainable: No Condition: critical EKG Rhythm: Sinus Rhythm FI02: 40 Vent Support Breath Rate: 16 Vent Support Mode: AC Vent Tidal Volume: 500 Sputum Amount: Moderate PEEP: 0.0 PIP: 29 Tube Feeding Amount: 55 I&O: Intake and Output 04/06/16 04/07/16 19:00 07:00 Intake Total 1651.25 ml 1810 ml Output Total 700 ml 1380 ml Balance 951.25 ml 430 ml Free Water 100 ml 250 ml IV Total 841.25 ml 900 ml Tube Feeding 660 ml 660 ml Other 50 ml Output Urine Total 700 ml 1380 ml # Bowel Movements 1 1 Subjective: seen and examined lethargic on vent no bleeding tolerating tf of pressors positive uop no fever noted CXR: no new cxr 04/05 reviewed ET-Tube: 7.5 ET Position: 22 Labs: Laboratory Tests Test 04/06/16 09:40 04/06/16 23:30 04/07/16 04:00 Arterial Blood pH 7.290 (7.350-7.450) 7.359 (7.350-7.450) Arterial Blood Partial Pressure CO2 67.2 mmHg (35.0-45.0) *H 57.3 mmHg (35.0-45.0) *H Arterial Blood Partial Pressure O2 103.3 mmHg (75.0-100.0) H 124.1 mmHg (75.0-100.0) H Arterial Blood HCO3 31.6 mmol/L (22.0-26.0) H 31.6 mmol/L (22.0-26.0) H Arterial Blood Oxygen Saturation 96.7 % (92.0-98.0) 97.9 % (92.0-98.0) Arterial Blood Base Excess 3.5 5.0 Damián Test Positive Positive White Blood Count 17.2 K/UL (4.8-10.8) H Red Blood Count 3.36 M/UL (4.20-5.40) L Hemoglobin 10.3 G/DL (12.0-16.0) L Hematocrit 32.1 % (37.0-47.0) L Mean Corpuscular Volume 96 FL (80-99) Mean Corpuscular Hemoglobin 30.7 PG (27.0-31.0) Mean Corpuscular Hemoglobin Concent 32.1 G/DL (32.0-36.0) Red Cell Distribution Width 13.7 % (11.6-14.8) Platelet Count 226 K/UL (150-450) Mean Platelet Volume 6.8 FL (6.5-10.1) Neutrophils (%) (Auto) % (45.0-75.0) Lymphocytes (%) (Auto) % (20.0-45.0) Monocytes (%) (Auto) % (1.0-10.0) Eosinophils (%) (Auto) % (0.0-3.0) Basophils (%) (Auto) % (0.0-2.0) Neutrophils % (Manual) Pending Lymphocytes % (Manual) Pending Platelet Estimate Pending Platelet Morphology Pending Sodium Level 153 mEQ/L (135-145) H Potassium Level 3.8 mEQ/L (3.4-4.9) Chloride Level 111 mEQ/L (98-107) H Carbon Dioxide Level 33 mEQ/L (20-30) H Anion Gap 9 (5-15) Blood Urea Nitrogen 43 mg/dL (7-23) H Creatinine 1.0 mg/dL (0.5-0.9) H Estimat Glomerular Filtration Rate 55.1 mL/min (>60) Glucose Level 232 mg/dL (74-106) H Calcium Level 6.9 mg/dL (8.6-10.2) L Total Bilirubin < 0.2 mg/dL (0.0-1.2) Aspartate Amino Transf (AST/SGOT) 48 U/L (5-40) H Alanine Aminotransferase (ALT/SGPT) 85 U/L (3-33) H Alkaline Phosphatase 59 U/L (35-104) Troponin I < 0.30 ng/mL (<=0.30) Total Protein 5.0 g/dL (6.6-8.7) L Albumin 2.8 g/dL (3.5-5.2) L Globulin 2.2 g/dL Albumin/Globulin Ratio 1.2 (1.0-2.7) Thyroid Stimulating Hormone (TSH) 0.042 uIU/mL (0.300-4.500) RACHANA BROOKS DO Apr 07, 2016 08:19
[2016-04-07] MEDS: Azithromycin 250mg tab ORAL SCH (08:51)
[2016-04-07] MEDS: Aspirin Baby 81mg NG SCH (08:54)
[2016-04-07] MEDS: Solu-MEDROL 125mg Inj IVP SCH (08:54)
[2016-04-07] MEDS: Heparin 5000 units/ml inj SUBQ SCH ×2 (08:57→20:40)
[2016-04-07] MEDS ORDERED: Metoprolol Tartrate 12.5mg TAB NG SCH (09:00)
[2016-04-07 09:32] LABS: ANISOCYTOSIS 1+; BAND NEUTROPHILS % (MANUAL) 0 % (0-8); BASOPHILS % (MANUAL) 0 % (0-2); EOSINOPHILS % (MANUAL) 0 % (0-3); HYPOCHROMASIA 1+; LYMPHOCYTES % (MANUAL) 3 % (20-45); NEUTROPHILS % (MANUAL) 92 % (45-75); PLATELET ESTIMATE ADEQUATE; PLATELET MORPHOLOGY NORMAL; TOTAL CELLS COUNTED 100
[2016-04-07] MEDS: LORazepam Inj 2mg/ml 1ml IV PRN ×3 (09:50→16:25)
--- NOTE | 2016-04-07 10:16 | Cardiology Progress Note ---
Assessment/Plan Status: stable, unchanged Status Narrative Mrs. Gallardo remains intubated, unable to be weaned from vent. Pulm evaluation noted BP more stable - off pressors over past few days. She remains on iv antibiotics, w/ negative cultures so far Sinus tachycardia - appears appropriate to condition. Mild trop elevation on adm - likely demand ischemia. W/u for CAD deferred pending improvement in pulm status Assessment/Plan Remain off pressors. Continue iv antibiotics and followup culture results Vent management per Dr. Maxwell continue low dose b blockers, asa for elev troponin/ probable underlying CAD w/ demand ischemia. Subjective ROS Limited/Unobtainable: Yes Subjective Intubated /minimally responsive. Events noted Objective Last 24 Hour Vital Signs Date Time Temp Pulse Resp B/P Pulse Ox O2 Delivery O2 Flow Rate FiO2 04/07/16 10:00 93 18 100/53 97 Mechanical Ventilator 40 04/07/16 09:07 102 18 40 04/07/16 09:00 101 18 119/58 97 Mechanical Ventilator 40 04/07/16 08:53 106 109/56 04/07/16 08:00 111 04/07/16 08:00 35 04/07/16 08:00 98.5 110 21 109/56 97 Mechanical Ventilator 40 04/07/16 07:00 110 21 116/59 97 Mechanical Ventilator 40 04/07/16 06:40 118 18 40 04/07/16 06:40 119 17 96 Mechanical Ventilator 40 04/07/16 06:25 119 19 95 Mechanical Ventilator 40 04/07/16 06:00 115 21 107/88 97 Mechanical Ventilator 40 04/07/16 05:00 118 22 126/62 97 Mechanical Ventilator 40 04/07/16 04:55 117 16 40 04/07/16 04:00 35 04/07/16 04:00 118 04/07/16 04:00 98.0 118 23 130/63 97 Mechanical Ventilator 40 04/07/16 03:24 115 16 100 Mechanical Ventilator 40 04/07/16 03:18 120 17 40 04/07/16 03:18 118 16 96 Mechanical Ventilator 40 04/07/16 03:00 118 23 126/63 97 Mechanical Ventilator 40 04/07/16 02:00 115 20 133/61 97 Mechanical Ventilator 40 04/07/16 01:00 118 22 136/62 97 Mechanical Ventilator 40 04/07/16 01:00 119 16 40 04/07/16 00:00 114 04/07/16 00:00 98.0 112 20 118/63 97 Mechanical Ventilator 40 04/07/16 00:00 35 04/06/16 23:53 111 16 100 Mechanical Ventilator 40 04/06/16 23:40 108 16 97 Mechanical Ventilator 40 04/06/16 23:40 108 16 40 04/06/16 23:00 109 19 106/61 97 Mechanical Ventilator 40 04/06/16 22:00 116 25 122/56 96 Mechanical Ventilator 35 04/06/16 21:20 115 16 35 04/06/16 21:00 116 26 109/60 96 Mechanical Ventilator 35 04/06/16 20:00 119 04/06/16 20:00 35 04/06/16 20:00 97.5 119 19 137/64 97 Mechanical Ventilator 35 04/06/16 19:25 110 16 100 Mechanical Ventilator 35 04/06/16 19:20 112 16 35 04/06/16 19:20 112 16 98 Mechanical Ventilator 35 04/06/16 19:00 120 26 137/66 97 Mechanical Ventilator 35 04/06/16 18:00 111 21 125/60 97 Mechanical Ventilator 35 04/06/16 17:25 113 16 35 04/06/16 17:00 98.9 115 25 124/58 97 Mechanical Ventilator 35 04/06/16 16:51 98.9 04/06/16 16:00 100.2 116 28 132/63 96 Mechanical Ventilator 28 04/06/16 16:00 28 04/06/16 16:00 109 04/06/16 15:20 28 04/06/16 15:20 128 16 28 04/06/16 15:20 28 04/06/16 15:00 127 32 133/66 92 Mechanical Ventilator 28 04/06/16 14:00 126 31 140/70 92 Mechanical Ventilator 28 04/06/16 13:25 127 16 28 04/06/16 13:00 98.7 125 30 138/63 93 Mechanical Ventilator 28 04/06/16 12:00 115 04/06/16 12:00 28 04/06/16 12:00 120 27 130/65 98 Mechanical Ventilator 35 04/06/16 11:51 110 16 100 Mechanical Ventilator 28 04/06/16 11:47 28 04/06/16 11:45 111 27 104/50 98 Mechanical Ventilator 35 04/06/16 11:40 109 16 97 Mechanical Ventilator 28 04/06/16 11:30 112 25 123/57 100 Mechanical Ventilator 35 04/06/16 11:15 110 27 131/58 98 Mechanical Ventilator 35 04/06/16 11:00 110/52 04/06/16 11:00 112 27 110/52 98 Mechanical Ventilator 35 04/06/16 10:45 113 26 121/56 99 Mechanical Ventilator 35 04/06/16 10:43 112 16 35 04/06/16 10:30 109 31 82/41 100 Mechanical Ventilator 40 04/06/16 10:15 108 31 88/41 100 Mechanical Ventilator 40 General Appearance: WD/WN, lethargic, on vent EENT: PERRL/EOMI, other - et tube, og tube in place Neck: supple, no JVD Rhythm: ST Cardiovascular: regular rhythm, no gallop/murmur, tachycardia Respiratory/Chest: other - dec bs bilat Abdomen: normal bowel sounds, non tender, soft Extremities: no swelling Intake and Output 04/06/16 04/07/16 19:00 07:00 Intake Total 1651.25 ml 1810 ml Output Total 700 ml 1380 ml Balance 951.25 ml 430 ml Free Water 100 ml 250 ml IV Total 841.25 ml 900 ml Tube Feeding 660 ml 660 ml Other 50 ml Output Urine Total 700 ml 1380 ml # Bowel Movements 1 1 Laboratory Tests Test 04/06/16 23:30 04/07/16 04:00 Arterial Blood pH 7.359 (7.350-7.450) Arterial Blood Partial Pressure CO2 57.3 mmHg (35.0-45.0) *H Arterial Blood Partial Pressure O2 124.1 mmHg (75.0-100.0) H Arterial Blood HCO3 31.6 mmol/L (22.0-26.0) H Arterial Blood Oxygen Saturation 97.9 % (92.0-98.0) Arterial Blood Base Excess 5.0 Damián Test Positive White Blood Count 17.2 K/UL (4.8-10.8) H Red Blood Count 3.36 M/UL (4.20-5.40) L Hemoglobin 10.3 G/DL (12.0-16.0) L Hematocrit 32.1 % (37.0-47.0) L Mean Corpuscular Volume 96 FL (80-99) Mean Corpuscular Hemoglobin 30.7 PG (27.0-31.0) Mean Corpuscular Hemoglobin Concent 32.1 G/DL (32.0-36.0) Red Cell Distribution Width 13.7 % (11.6-14.8) Platelet Count 226 K/UL (150-450) Mean Platelet Volume 6.8 FL (6.5-10.1) Neutrophils (%) (Auto) % (45.0-75.0) Lymphocytes (%) (Auto) % (20.0-45.0) Monocytes (%) (Auto) % (1.0-10.0) Eosinophils (%) (Auto) % (0.0-3.0) Basophils (%) (Auto) % (0.0-2.0) Differential Total Cells Counted 100 Neutrophils % (Manual) 92 % (45-75) H Lymphocytes % (Manual) 3 % (20-45) L Monocytes % (Manual) 5 % (1-10) Eosinophils % (Manual) 0 % (0-3) Basophils % (Manual) 0 % (0-2) Band Neutrophils 0 % (0-8) Platelet Estimate Adequate Platelet Morphology Normal Hypochromasia 1+ Anisocytosis 1+ Sodium Level 153 mEQ/L (135-145) H Potassium Level 3.8 mEQ/L (3.4-4.9) Chloride Level 111 mEQ/L (98-107) H Carbon Dioxide Level 33 mEQ/L (20-30) H Anion Gap 9 (5-15) Blood Urea Nitrogen 43 mg/dL (7-23) H Creatinine 1.0 mg/dL (0.5-0.9) H Estimat Glomerular Filtration Rate 55.1 mL/min (>60) Glucose Level 232 mg/dL (74-106) H Calcium Level 6.9 mg/dL (8.6-10.2) L Total Bilirubin < 0.2 mg/dL (0.0-1.2) Aspartate Amino Transf (AST/SGOT) 48 U/L (5-40) H Alanine Aminotransferase (ALT/SGPT) 85 U/L (3-33) H Alkaline Phosphatase 59 U/L (35-104) Troponin I < 0.30 ng/mL (<=0.30) Total Protein 5.0 g/dL (6.6-8.7) L Albumin 2.8 g/dL (3.5-5.2) L Globulin 2.2 g/dL Albumin/Globulin Ratio 1.2 (1.0-2.7) Thyroid Stimulating Hormone (TSH) 0.042 uIU/mL (0.300-4.500) CARITO POTTS Apr 07, 2016 10:16
--- NOTE | 2016-04-07 10:48 | Diagnostic Imaging Report ---
Indication: SOB Technique: One view of the chest Comparison: 04/05/2016 Findings: Stable satisfactory position of endotracheal tube and right arm PICC. Lungs remain hyperinflated. No acute infiltrates. No effusions. Normal heart size Impression: Unchanged, over 2 days, findings as above.
--- NOTE | 2016-04-07 14:34 | Diagnostic Imaging Report ---
Indication: ASTHMA Technique: One view of the chest Comparison: 04/02/2016 Findings: Lungs remain hyperinflated, as in COPD. Lungs and pleural spaces remain clear. Heart size is normal area left costophrenic angle blunting likely relates to COPD changes. Stable satisfactory position of endotracheal interim placement of the nasogastric tube, tip of which projects beyond the edge of the image. Impression: Interim nasogastric intubation, tip position indeterminate but suspect satisfactory Other stable findings, as described
--- NOTE | 2016-04-07 14:36 | Diagnostic Imaging Report ---
Indications: Shortness of breath, COPD Technique: Portable AP chest Findings: Comparison: 04/03 16 Cardiac silhouette remains normal in size. Pulmonary vasculature remains within normal limits. Lungs are symmetrically hyperinflated. Lungs and pleura remain clear. Mild calcification of the aortic arch, presence of endotracheal tube again noted. IMPRESSION: No evidence of acute disease, unchanged Stable chronic changes as described
--- NOTE | 2016-04-07 14:37 | Diagnostic Imaging Report ---
Indication: Evaluation of endotracheal tube placement Technique: One view of the chest Comparison: 11 hours earlier Findings: Satisfactory position of endotracheal tube, tip projecting approximately 3 cm above the curtis. Nasogastric tube is obscured, position not well-demonstrated. Arm PICC tip projects just below the innominate venous confluence. The lower lungs and lower pleural spaces are current exam. There is diffuse hyperinflation Impression: Satisfactory position of endotracheal tube Indeterminate position of nasogastric, satisfactory on recent CT scan COPD changes. Limited assessment of the lungs, no gross acute process This agrees with the preliminary interpretation provided overnight by Dr. Wolfe
--- NOTE | 2016-04-07 14:38 | Cardiology Report ---
APPROVED REPORT EXAM: Two-dimensional and M-mode echocardiogram with Doppler and color Doppler. INDICATION OTHER M-Mode DIMENSIONS IVSd0.7 (0.7-1.1cm)Left Atrium (MM)2.9 (1.6-4.0cm) LVDd3.6 (3.5-5.6cm)Aortic Root2.7 (2.0-3.7cm) PWd0.6 (0.7-1.1cm)Aortic Cusp Exc.1.6 (1.5-2.0cm) LVDs2.2 (2.5-4.0cm) PWs0.7 cm Technically difficult study due to poor acoustic windows. Apical images taken from [facility]. Normal left ventricular chamber size, systolic function and wall motion. Left ventricular ejection fraction estimated to be 60-65%. No evidence of left ventricular hypertrophy. Anterior Echo-free space, may be due to pericardial fat or effusion. Mild right atrial and right ventricular enlargement by 2D. Left cardiac chamber sizes are within normal limits. Focal aortic valve sclerosis with adequate cusp excursion Thickened mitral valve leaflets with normal excursion. Moderate mitral annulus and aortic root calcification. Pulmonic valve not well visualized. Normal tricuspid valve structure. IVC is normal in size with minimal physiologic collapse. RA pressure of 10mmHg. A color flow and spectral Doppler study was performed and revealed: Trace aortic regurgitation. Trace mitral regurgitation. Left ventricular diastolic dysfunction grade 1. Mild tricuspid regurgitation (2 jets). Tricuspid systolic velocities suggests peak right ventricular systolic pressure of 40mmHg Consistent with mild pulmonary hypertension.
[2016-04-07] MEDS: cefTRIAXone 1 GM in D5W 50 ML IVPB SCH (16:25)
[2016-04-07] MEDS: Montelukast 10mg tablet ORAL SCH (16:28)
[2016-04-07] MEDS ORDERED: Tubing Blood Filter IV ONE (17:18)
[2016-04-07] MEDS ORDERED: NS 275ml ONE (17:18)
[2016-04-07] MEDS ORDERED: Tubing IV Secondary IV ONE ×2 (17:18→18:22)
[2016-04-07] MEDS: Metoprolol Tartrate 12.5mg TAB NG SCH (20:34)
--- NOTE | 2016-04-07 22:21 | General Progress Note ---
Assessment/Plan Assessment/Plan Assessment Dysphagia Acute respiratory failure, currently with respiratory acidosis Acute COPD exacerbation SIRS (tachycardia, hypoxemia, alteration in mental status) CTA with no pulmonary embolism Hep B/C serologies abnormal History of HTN (+) OB Anemia Recommendations continue TF follow labs elevate HOB possible GI w/u at later date Subjective Allergies: Coded Allergies: CODEINE (Verified Allergy, Unknown, 04/05/16) ERYTHROMYCIN BASE (Verified Allergy, Unknown, 04/05/16) TETRACYCLINE (Verified Allergy, Unknown, 04/05/16) Uncoded Allergies: Codeine, Erythromycin, Tetracycline (Allergy, Unknown, 04/05/16) Subjective intubated non communicative tolerating TF Objective Last 24 Hour Vital Signs Date Time Temp Pulse Resp B/P Pulse Ox O2 Delivery O2 Flow Rate FiO2 04/07/16 21:30 109 16 40 04/07/16 20:34 94 89/52 04/07/16 20:30 89/52 04/07/16 20:00 95 04/07/16 20:00 40 04/07/16 19:40 94 16 100 Mechanical Ventilator 04/07/16 19:30 94 16 40 04/07/16 19:30 93 16 98 Mechanical Ventilator 40 04/07/16 19:00 84 20 93/55 100 Mechanical Ventilator 40 04/07/16 18:00 98.7 04/07/16 18:00 98 16 89/52 100 Mechanical Ventilator 40 04/07/16 17:00 109 16 108/52 100 Mechanical Ventilator 40 04/07/16 16:54 97 16 40 04/07/16 16:00 40 04/07/16 16:00 101 04/07/16 16:00 98.7 100 22 90/58 100 Mechanical Ventilator 40 04/07/16 15:11 118 16 40 04/07/16 15:11 112 16 98 Mechanical Ventilator 40 04/07/16 15:00 102 16 111/55 100 Mechanical Ventilator 40 04/07/16 14:55 110 16 98 Mechanical Ventilator 40 04/07/16 14:00 98.6 109 20 89/65 98 Mechanical Ventilator 40 04/07/16 13:15 113 17 40 04/07/16 13:00 116 23 125/65 99 Mechanical Ventilator 40 04/07/16 12:00 40 04/07/16 12:00 97 04/07/16 12:00 99 18 110/47 100 Mechanical Ventilator 40 04/07/16 11:00 91 16 84/50 100 Mechanical Ventilator 40 04/07/16 10:43 90 16 40 04/07/16 10:42 93 16 98 Mechanical Ventilator 40 04/07/16 10:30 90 16 97 Mechanical Ventilator 40 04/07/16 10:00 93 18 100/53 97 Mechanical Ventilator 40 04/07/16 09:07 102 18 40 04/07/16 09:00 101 18 119/58 97 Mechanical Ventilator 40 04/07/16 08:53 106 109/56 04/07/16 08:00 111 04/07/16 08:00 35 04/07/16 08:00 98.5 110 21 109/56 97 Mechanical Ventilator 40 04/07/16 07:00 110 21 116/59 97 Mechanical Ventilator 40 04/07/16 06:40 118 18 40 04/07/16 06:40 119 17 96 Mechanical Ventilator 40 04/07/16 06:25 119 19 95 Mechanical Ventilator 40 04/07/16 06:00 115 21 107/88 97 Mechanical Ventilator 40 04/07/16 05:00 118 22 126/62 97 Mechanical Ventilator 40 04/07/16 04:55 117 16 40 04/07/16 04:00 35 04/07/16 04:00 118 04/07/16 04:00 98.0 118 23 130/63 97 Mechanical Ventilator 40 04/07/16 03:24 115 16 100 Mechanical Ventilator 40 04/07/16 03:18 120 17 40 04/07/16 03:18 118 16 96 Mechanical Ventilator 40 04/07/16 03:00 118 23 126/63 97 Mechanical Ventilator 40 04/07/16 02:00 115 20 133/61 97 Mechanical Ventilator 40 04/07/16 01:00 118 22 136/62 97 Mechanical Ventilator 40 04/07/16 01:00 119 16 40 04/07/16 00:00 114 04/07/16 00:00 98.0 112 20 118/63 97 Mechanical Ventilator 40 04/07/16 00:00 35 04/06/16 23:53 111 16 100 Mechanical Ventilator 40 04/06/16 23:40 108 16 97 Mechanical Ventilator 40 04/06/16 23:40 108 16 40 04/06/16 23:00 109 19 106/61 97 Mechanical Ventilator 40 Intake and Output 04/06/16 04/07/16 19:00 07:00 Intake Total 1651.25 ml 1810 ml Output Total 700 ml 1380 ml Balance 951.25 ml 430 ml Free Water 100 ml 250 ml IV Total 841.25 ml 900 ml Tube Feeding 660 ml 660 ml Other 50 ml Output Urine Total 700 ml 1380 ml # Bowel Movements 1 1 Laboratory Tests 04/06/16 23:30: Arterial Blood pH 7.359, Arterial Blood Partial Pressure CO2 57.3*H, Arterial Blood Partial Pressure O2 124.1H, Arterial Blood HCO3 31.6H, Arterial Blood Oxygen Saturation 97.9, Arterial Blood Base Excess 5.0, Damián Test Positive 04/07/16 04:00: White Blood Count 17.2H, Red Blood Count 3.36L, Hemoglobin 10.3L, Hematocrit 32.1L, Mean Corpuscular Volume 96, Mean Corpuscular Hemoglobin 30.7, Mean Corpuscular Hemoglobin Concent 32.1, Red Cell Distribution Width 13.7, Platelet Count 226, Mean Platelet Volume 6.8, Neutrophils (%) (Auto) , Lymphocytes (%) ( Auto) , Monocytes (%) (Auto) , Eosinophils (%) (Auto) , Basophils (%) (Auto) , Differential Total Cells Counted 100, Neutrophils % (Manual) 92H, Lymphocytes % (Manual) 3L, Monocytes % (Manual) 5, Eosinophils % (Manual) 0, Basophils % ( Manual) 0, Band Neutrophils 0, Platelet Estimate Adequate, Platelet Morphology Normal, Hypochromasia 1+, Anisocytosis 1+, Sodium Level 153H, Potassium Level 3.8, Chloride Level 111H, Carbon Dioxide Level 33H, Anion Gap 9, Blood Urea Nitrogen 43H, Creatinine 1.0H, Estimat Glomerular Filtration Rate 55.1, Glucose Level 232H, Calcium Level 6.9L, Total Bilirubin < 0.2, Aspartate Amino Transf ( AST/SGOT) 48H, Alanine Aminotransferase (ALT/SGPT) 85H, Alkaline Phosphatase 59 , Troponin I < 0.30, Total Protein 5.0L, Albumin 2.8L, Globulin 2.2, Albumin/ Globulin Ratio 1.2, Thyroid Stimulating Hormone (TSH) 0.042L Height (Feet): 5 Height (Inches): 5.00 Weight (Pounds): 125 Objective WDWN WW NCAT supple (+) ETT and OGT CTA RRR Soft ND NT no edema Obtunded OLIVER CONNELLY Apr 07, 2016 22:21
[2016-04-08] VITALS (23 sets, daily range): BP systolic 99–134; BP diastolic 53–75
[2016-04-08] MEDS: NovoLOG Insulin Flexpen SUBQ SCH ×4 (01:04→17:36)
[2016-04-08 05:31] LABS: MEAN CORPUSCULAR HEMOGLOBIN 30.7 PG (27.0-31.0); MEAN CORPUSCULAR HGB CONC 32.1 G/DL (32.0-36.0); MEAN CORPUSCULAR VOLUME 96 FL (80-99); MEAN PLATELET VOLUME 6.7 FL (6.5-10.1); PLATELET COUNT 201 K/UL (150-450); WHITE BLOOD COUNT 20.6 K/UL (4.8-10.8)
[2016-04-08 05:34] LABS: GLOMERULAR FILTRATION RATE 55.1 mL/min (>60)
[2016-04-08 05:56] LABS: CHOLESTEROL/HDL RATIO 2.4 (3.3-4.4)
[2016-04-08 08:13] LABS: BAND NEUTROPHILS % (MANUAL) 0 % (0-8); BASOPHILS % (MANUAL) 0 % (0-2); EOSINOPHILS % (MANUAL) 0 % (0-3); HYPOCHROMASIA 1+; LYMPHOCYTES % (MANUAL) 3 % (20-45); NEUTROPHILS % (MANUAL) 89 % (45-75); PLATELET ESTIMATE ADEQUATE; PLATELET MORPHOLOGY NORMAL; TOTAL CELLS COUNTED 100
[2016-04-08] MEDS: Aspirin Baby 81mg NG SCH (08:23)
[2016-04-08] MEDS: Metoprolol Tartrate 12.5mg TAB NG SCH ×2 (08:23→21:00)
[2016-04-08] MEDS: Solu-MEDROL 125mg Inj IVP SCH (08:23)
[2016-04-08] MEDS: Azithromycin 250mg tab ORAL SCH (08:23)
[2016-04-08 08:24] LABS: ABG PCO2 65.8 mmHg (35.0-45.0)
[2016-04-08] MEDS: Heparin 5000 units/ml inj SUBQ SCH ×2 (08:24→21:11)
[2016-04-08 08:25] LABS: ABG ALLEN TEST POSITIVE; ABG BASE EXCESS 9.2
--- NOTE | 2016-04-08 15:32 | Cardiology Progress Note ---
Assessment/Plan Problem List: (1) COPD exacerbation (2) Hypotension (3) Anemia (4) Hepatitis B (5) LFTs abnormal (6) Acute type 1 respiratory failure Status: not improved, unchanged Status Narrative Mrs. Gallardo remains intubated, unable to be weaned from vent. Pulm evaluation noted she is hemodynamically stable - normotensive off pressors. Sinus tachycardia is due to metabolic factors - resp failure, anemia, ?infection , and does not require antiarrhythmic rx. Mild trop elevation on adm - likely demand ischemia. W/u for CAD deferred pending improvement in pulm status Assessment/Plan Remain off pressors. Continue iv antibiotics and followup culture results Weaning from vent if able continue low dose b blockers, asa for elev troponin/ probable underlying CAD w/ demand ischemia. Hold statin - LDL 58 and LFTs elevated Subjective ROS Limited/Unobtainable: Yes Subjective Intubated /not responsive Objective Last 24 Hour Vital Signs Date Time Temp Pulse Resp B/P Pulse Ox O2 Delivery O2 Flow Rate FiO2 04/08/16 14:44 115 16 40 04/08/16 14:00 113 19 134/72 99 Mechanical Ventilator 40 04/08/16 13:05 111 16 40 04/08/16 13:00 111 19 115/59 99 Mechanical Ventilator 40 04/08/16 12:00 99.1 108 19 115/72 99 Mechanical Ventilator 40 04/08/16 12:00 40 04/08/16 12:00 107 04/08/16 11:05 99 19 114/70 99 Mechanical Ventilator 40 04/08/16 10:45 101 16 40 04/08/16 10:00 88 19 114/55 99 Mechanical Ventilator 40 04/08/16 09:00 93 16 40 04/08/16 09:00 98 19 119/66 99 Mechanical Ventilator 40 04/08/16 08:23 113 123/62 04/08/16 08:00 98.9 115 22 123/62 99 Mechanical Ventilator 40 04/08/16 08:00 40 04/08/16 08:00 125 04/08/16 07:00 112 17 121/65 100 Mechanical Ventilator 40 04/08/16 06:55 112 16 40 04/08/16 06:55 115 16 Mechanical Ventilator 40 04/08/16 06:00 112 17 128/53 100 Mechanical Ventilator 40 04/08/16 05:12 112 16 40 04/08/16 05:00 112 17 103/53 100 Mechanical Ventilator 40 04/08/16 04:00 40 04/08/16 04:00 98.7 114 17 123/60 100 Mechanical Ventilator 40 04/08/16 04:00 114 04/08/16 03:21 113 16 40 04/08/16 03:00 115 17 112/70 100 Mechanical Ventilator 40 04/08/16 02:00 117 17 112/75 100 Mechanical Ventilator 40 04/08/16 01:21 109 17 40 04/08/16 01:00 100 17 120/54 100 Mechanical Ventilator 40 04/08/16 00:00 88 04/08/16 00:00 40 04/08/16 00:00 97.8 88 17 100/62 100 Mechanical Ventilator 40 04/07/16 23:30 88 16 40 04/07/16 23:09 Mechanical Ventilator 04/07/16 23:07 Mechanical Ventilator 04/07/16 23:00 88 17 99/62 100 Mechanical Ventilator 40 04/07/16 22:00 98.9 94 20 98/65 100 Mechanical Ventilator 40 04/07/16 21:40 98.9 04/07/16 21:30 109 16 40 04/07/16 21:00 100.5 95 20 111/46 100 Mechanical Ventilator 40 04/07/16 20:34 94 89/52 04/07/16 20:30 89/52 04/07/16 20:00 95 04/07/16 20:00 98 17 95/77 100 Mechanical Ventilator 40 04/07/16 20:00 40 04/07/16 19:40 94 16 100 Mechanical Ventilator 04/07/16 19:30 94 16 40 04/07/16 19:30 93 16 98 Mechanical Ventilator 40 04/07/16 19:00 84 20 93/55 100 Mechanical Ventilator 40 04/07/16 18:00 98.7 04/07/16 18:00 98 16 89/52 100 Mechanical Ventilator 40 04/07/16 17:00 109 16 108/52 100 Mechanical Ventilator 40 04/07/16 16:54 97 16 40 04/07/16 16:00 40 04/07/16 16:00 101 04/07/16 16:00 98.7 100 22 90/58 100 Mechanical Ventilator 40 General Appearance: WD/WN, lethargic, on vent EENT: PERRL/EOMI, other - et, og tubes in place Neck: supple, no JVD Rhythm: SB Cardiovascular: regular rhythm, tachycardia Respiratory/Chest: other - dec bs bilat. no wheezes or rales Abdomen: non tender, soft Extremities: no swelling Intake and Output 04/07/16 04/08/16 19:00 07:00 Intake Total 1635 ml 1635 ml Output Total 1070 ml 960 ml Balance 565 ml 675 ml Free Water 100 ml 150 ml IV Total 875 ml 825 ml Tube Feeding 660 ml 660 ml Output Urine Total 1070 ml 960 ml # Bowel Movements 3 Laboratory Tests Test 04/08/16 04:00 04/08/16 08:13 White Blood Count 20.6 K/UL (4.8-10.8) H Red Blood Count 3.30 M/UL (4.20-5.40) L Hemoglobin 10.1 G/DL (12.0-16.0) L Hematocrit 31.6 % (37.0-47.0) L Mean Corpuscular Volume 96 FL (80-99) Mean Corpuscular Hemoglobin 30.7 PG (27.0-31.0) Mean Corpuscular Hemoglobin Concent 32.1 G/DL (32.0-36.0) Red Cell Distribution Width 14.0 % (11.6-14.8) Platelet Count 201 K/UL (150-450) Mean Platelet Volume 6.7 FL (6.5-10.1) Neutrophils (%) (Auto) % (45.0-75.0) Lymphocytes (%) (Auto) % (20.0-45.0) Monocytes (%) (Auto) % (1.0-10.0) Eosinophils (%) (Auto) % (0.0-3.0) Basophils (%) (Auto) % (0.0-2.0) Differential Total Cells Counted 100 Neutrophils % (Manual) 89 % (45-75) H Lymphocytes % (Manual) 3 % (20-45) L Monocytes % (Manual) 8 % (1-10) Eosinophils % (Manual) 0 % (0-3) Basophils % (Manual) 0 % (0-2) Band Neutrophils 0 % (0-8) Platelet Estimate Adequate Platelet Morphology Normal Hypochromasia 1+ Sodium Level 156 mEQ/L (135-145) H Potassium Level 4.0 mEQ/L (3.4-4.9) Chloride Level 113 mEQ/L (98-107) H Carbon Dioxide Level 36 mEQ/L (20-30) H Anion Gap 7 (5-15) Blood Urea Nitrogen 50 mg/dL (7-23) H Creatinine 1.0 mg/dL (0.5-0.9) H Estimat Glomerular Filtration Rate 55.1 mL/min (>60) Glucose Level 168 mg/dL (74-106) H Calcium Level 7.0 mg/dL (8.6-10.2) L Triglycerides Level 126 mg/dL (< 150) Cholesterol Level 144 mg/dL (< 200) LDL Cholesterol 58 mg/dL (60-99) L HDL Cholesterol 61 mg/dL (> 60) H Cholesterol/HDL Ratio 2.4 (3.3-4.4) L Arterial Blood pH 7.362 (7.350-7.450) Arterial Blood Partial Pressure CO2 65.8 mmHg (35.0-45.0) *H Arterial Blood Partial Pressure O2 121.3 mmHg (75.0-100.0) H Arterial Blood HCO3 36.5 mmol/L (22.0-26.0) H Arterial Blood Oxygen Saturation 97.7 % (92.0-98.0) Arterial Blood Base Excess 9.2 Damián Test Positive CARITO POTTS Apr 08, 2016 15:32
[2016-04-08] MEDS: Montelukast 10mg tablet ORAL SCH (16:38)
[2016-04-08] MEDS: cefTRIAXone 1 GM in D5W 50 ML IVPB SCH (16:39)
--- NOTE | 2016-04-08 19:53 | Pulmonolgy Critical Care Note ---
Critical Care - Asmt/Plan Assessment/Plan: Assessment: Acute respiratory failure, currently with respiratory acidosis Acute COPD exacerbation SIRS (tachycardia, hypoxemia, alteration in mental status) CTA with no pulmonary embolism Hep B/C serologies abnormal, w/u underway by Dr. Roy History of HTN Plan FU with Gi recommendations hold weaning DC IVF TF Anxiolytic prn Check Labs Follow up on Troponin Metoprolol for tachycardia steroids at 60, try to decrease to 40 mg in am Cxr 1-2 days Bronchodilators On Azithro/Rocephin, FU cultures Gi prophylaxis ABG CXR 45 minutes to coordinate care, discuss with RN, Respiratory: CXR, ABG Cardiac: continue pressors Infectious Disease: check cultures, continue antibiotics Gastrointestinal: continue feedings/current rate Endocrine: check TSH Neurologic: PRN Ativan Prophylaxis: Protonix, Heparin Disposition: keep in ICU Time Spent (Minutes): 40 Critical Care - Objective Last 24 Hour Vital Signs Date Time Temp Pulse Resp B/P Pulse Ox O2 Delivery O2 Flow Rate FiO2 04/08/16 19:00 112 16 105/56 100 Mechanical Ventilator 40 04/08/16 18:56 113 16 40 04/08/16 18:00 115 20 121/56 98 Mechanical Ventilator 40 04/08/16 17:00 117 22 125/66 98 Mechanical Ventilator 40 04/08/16 16:32 112 16 40 04/08/16 16:00 99.1 113 19 114/65 99 Mechanical Ventilator 40 04/08/16 16:00 40 04/08/16 16:00 113 04/08/16 14:44 115 16 40 04/08/16 14:00 113 19 134/72 99 Mechanical Ventilator 40 04/08/16 13:05 111 16 40 04/08/16 13:00 111 19 115/59 99 Mechanical Ventilator 40 04/08/16 12:00 99.1 108 19 115/72 99 Mechanical Ventilator 40 04/08/16 12:00 40 04/08/16 12:00 107 04/08/16 11:05 99 19 114/70 99 Mechanical Ventilator 40 04/08/16 10:45 101 16 40 04/08/16 10:00 88 19 114/55 99 Mechanical Ventilator 40 04/08/16 09:00 93 16 40 04/08/16 09:00 98 19 119/66 99 Mechanical Ventilator 40 04/08/16 08:23 113 123/62 04/08/16 08:00 98.9 115 22 123/62 99 Mechanical Ventilator 40 04/08/16 08:00 40 04/08/16 08:00 125 04/08/16 07:00 112 17 121/65 100 Mechanical Ventilator 40 04/08/16 06:55 112 16 40 04/08/16 06:55 115 16 Mechanical Ventilator 40 04/08/16 06:00 112 17 128/53 100 Mechanical Ventilator 40 04/08/16 05:12 112 16 40 04/08/16 05:00 112 17 103/53 100 Mechanical Ventilator 40 04/08/16 04:00 40 04/08/16 04:00 98.7 114 17 123/60 100 Mechanical Ventilator 40 04/08/16 04:00 114 04/08/16 03:21 113 16 40 04/08/16 03:00 115 17 112/70 100 Mechanical Ventilator 40 04/08/16 02:00 117 17 112/75 100 Mechanical Ventilator 40 04/08/16 01:21 109 17 40 04/08/16 01:00 100 17 120/54 100 Mechanical Ventilator 40 04/08/16 00:00 88 04/08/16 00:00 40 04/08/16 00:00 97.8 88 17 100/62 100 Mechanical Ventilator 40 04/07/16 23:30 88 16 40 04/07/16 23:09 Mechanical Ventilator 04/07/16 23:07 Mechanical Ventilator 04/07/16 23:00 88 17 99/62 100 Mechanical Ventilator 40 04/07/16 22:00 98.9 94 20 98/65 100 Mechanical Ventilator 40 04/07/16 21:40 98.9 04/07/16 21:30 109 16 40 04/07/16 21:00 100.5 95 20 111/46 100 Mechanical Ventilator 40 04/07/16 20:34 94 89/52 04/07/16 20:30 89/52 04/07/16 20:00 95 04/07/16 20:00 98 17 95/77 100 Mechanical Ventilator 40 04/07/16 20:00 40 Status: obtunded Condition: critical Lungs: rhonchi Heart: HR/BP unstable Abdomen: non-tender, active bowel sounds Extremities: edema Decubiti: location Micro: Current Medications Medications (Trade) Dose Ordered Sig/Deyanira Route PRN Reason Start Time Stop Time Status Last Admin Dose Admin Acetaminophen (Tylenol) 650 mg Q4H PRN ORAL Mild Pain (Pain Scale 1-3) 04/02/16 19:45 05/02/16 19:44 04/09/16 21:24 Aspirin (ASA) 81 mg DAILY NG 04/03/16 09:00 05/03/16 08:59 04/09/16 08:59 Azithromycin 250 mg 250 mg DAILY ORAL 04/03/16 09:00 04/10/16 08:59 04/09/16 08:59 Ceftriaxone Sodium/Dextrose (Rocephin/D5W 50ml) 50 ml @ 100 mls/hr Q24H IVPB 04/03/16 17:00 04/10/16 16:59 04/09/16 16:56 Dextrose (D5W 1000ml) 1,000 ml @ 50 mls/hr Q20H IV 04/08/16 09:30 05/08/16 09:29 04/09/16 05:01 Dextrose (Dextrose 50%) STAT PRN IV Hypoglycemia 04/03/16 13:45 05/03/16 13:44 Heparin Sodium (Porcine) (Heparin 5000 units/ml) 5,000 units EVERY 12 HOURS SUBQ 04/02/16 21:00 05/02/16 20:59 04/09/16 21:02 Insulin Aspart (NovoLOG) EVERY 6 HOURS SUBQ 04/04/16 18:00 05/04/16 17:59 04/09/16 17:35 Methylprednisolone Sodium Succinate (Solu-MEDROL) 60 mg DAILY IVP 04/07/16 09:00 05/07/16 08:59 04/09/16 08:59 Metoprolol Tartrate 12.5 mg 12.5 mg Q12HR NG 04/07/16 21:00 05/07/16 20:59 04/09/16 08:58 Montelukast Sodium (Singulair) 10 mg QPM ORAL 04/03/16 16:30 05/03/16 16:29 04/09/16 16:56 Norepinephrine Bitartrate/ Dextrose (Levophed/D5W 250ml) 250 ml @ 0 mls/hr Q24H IV 04/02/16 20:30 05/02/16 20:29 04/09/16 12:40 Ondansetron HCl (Zofran ODT) 4 mg Q6H PRN ORAL Nausea & Vomiting 04/02/16 19:45 05/02/16 19:44 Polyethylene Glycol 17 gm 17 gm DAILYPRN PRN ORAL Constipation 04/02/16 19:45 05/02/16 19:44 Ranitidine HCl (Zantac) 150 mg DAILY ORAL 04/02/16 21:00 05/02/16 20:59 04/09/16 08:59 Accucheck: 212 Blood Sugars: BS not controlled Critical Care - Subjective ROS Limited/Unobtainable: Yes Condition: critical FI02: 40 Vent Support Breath Rate: 16 Vent Support Mode: AC Vent Tidal Volume: 550 Sputum Amount: Scant PEEP: 5.0 PIP: 30 Tube Feeding Amount: 55 I&O: Intake and Output 04/07/16 04/08/16 19:00 07:00 Intake Total 1635 ml 1635 ml Output Total 1070 ml 960 ml Balance 565 ml 675 ml Free Water 100 ml 150 ml IV Total 875 ml 825 ml Tube Feeding 660 ml 660 ml Output Urine Total 1070 ml 960 ml # Bowel Movements 3 Subjective: seen and examined awake and agitated on jerzy vent no bleeding tolerating tf off pressors, but hypotensive at times positive uop no fever noted no new cultures available CXR: no new cxr today ET-Tube: 7.5 ET Position: 22 Labs: Laboratory Tests Test 04/09/16 08:20 04/09/16 12:30 Arterial Blood pH 7.400 (7.350-7.450) Arterial Blood Partial Pressure CO2 64.6 mmHg (35.0-45.0) *H Arterial Blood Partial Pressure O2 118.3 mmHg (75.0-100.0) H Arterial Blood HCO3 39.5 mmol/L (22.0-26.0) H Arterial Blood Oxygen Saturation 97.6 % (92.0-98.0) Arterial Blood Base Excess 12.6 Damián Test Positive White Blood Count 25.8 K/UL (4.8-10.8) *H Red Blood Count 3.20 M/UL (4.20-5.40) L Hemoglobin 9.5 G/DL (12.0-16.0) L Hematocrit 31.3 % (37.0-47.0) L Mean Corpuscular Volume 98 FL (80-99) Mean Corpuscular Hemoglobin 29.6 PG (27.0-31.0) Mean Corpuscular Hemoglobin Concent 30.3 G/DL (32.0-36.0) L Red Cell Distribution Width 13.8 % (11.6-14.8) Platelet Count 165 K/UL (150-450) Mean Platelet Volume 7.4 FL (6.5-10.1) Neutrophils (%) (Auto) % (45.0-75.0) Lymphocytes (%) (Auto) % (20.0-45.0) Monocytes (%) (Auto) % (1.0-10.0) Eosinophils (%) (Auto) % (0.0-3.0) Basophils (%) (Auto) % (0.0-2.0) Differential Total Cells Counted 100 Neutrophils % (Manual) 95 % (45-75) H Lymphocytes % (Manual) 5 % (20-45) L Monocytes % (Manual) 0 % (1-10) L Eosinophils % (Manual) 0 % (0-3) Basophils % (Manual) 0 % (0-2) Band Neutrophils 0 % (0-8) Platelet Estimate Adequate Platelet Morphology Normal Hypochromasia 1+ Anisocytosis 1+ Sodium Level 153 mEQ/L (135-145) H Potassium Level 3.8 mEQ/L (3.4-4.9) Chloride Level 109 mEQ/L (98-107) H Carbon Dioxide Level 40 mEQ/L (20-30) H Anion Gap 4 (5-15) L Blood Urea Nitrogen 52 mg/dL (7-23) H Creatinine 0.9 mg/dL (0.5-0.9) Estimat Glomerular Filtration Rate > 60 mL/min (>60) Glucose Level 267 mg/dL (74-106) #H Calcium Level 7.0 mg/dL (8.6-10.2) RACHANA JUNIOR DO Apr 08, 2016 19:53
[2016-04-09] VITALS (60 sets, daily range): BP systolic 63–118; BP diastolic 37–90
[2016-04-09] MEDS: NovoLOG Insulin Flexpen SUBQ SCH ×5 (00:12→23:35)
[2016-04-09 08:30] LABS: ABG ALLEN TEST POSITIVE; ABG BASE EXCESS 12.6; ABG PCO2 64.6 mmHg (35.0-45.0)
[2016-04-09] MEDS: Metoprolol Tartrate 12.5mg TAB NG SCH ×2 (08:58→21:00)
[2016-04-09] MEDS: LORazepam Inj 2mg/ml 1ml IV PRN (08:58)
[2016-04-09] MEDS: Solu-MEDROL 125mg Inj IVP SCH (08:59)
[2016-04-09] MEDS: Azithromycin 250mg tab ORAL SCH (08:59)
[2016-04-09] MEDS: Aspirin Baby 81mg NG SCH (08:59)
[2016-04-09] MEDS: Heparin 5000 units/ml inj SUBQ SCH ×2 (09:00→21:02)
[2016-04-09] MEDS ORDERED: NS 250 ML IVPB ONE (11:45)
--- NOTE | 2016-04-09 11:45 | Cardiology Progress Note ---
Assessment/Plan Problem List: (1) COPD exacerbation (2) Hypotension (3) Anemia (4) Hepatitis B (5) LFTs abnormal (6) Acute type 1 respiratory failure Status: not improved, unchanged Status Narrative Mrs. Gallardo remains intubated, unable to be weaned from vent. Respiratory acidosis persists Pulm evaluation noted Remains on Rocephin for poss pneumonia. WBC had increased yesterday - repeat labs pending from today. She became hypotensive this am, sbp to 60s-70s, after ativan 2mg iv - ? hypotension due to med effect, ? sepsis ? vol depletion Assessment/Plan Pt will be given 250 cc NS bolus for hypotension , and levophed restarted if BP does not improve. Hold further ativan. Continue vent management per Dr. Maxwell, iv antibiotics for pneumonia/sepsis d/w RN Subjective ROS Limited/Unobtainable: Yes Subjective Intubated /opens eyes to voice Objective Last 24 Hour Vital Signs Date Time Temp Pulse Resp B/P Pulse Ox O2 Delivery O2 Flow Rate FiO2 04/09/16 11:00 86 16 79/45 100 Mechanical Ventilator 40 04/09/16 10:00 89 16 63/40 100 Mechanical Ventilator 40 04/09/16 09:52 94 16 40 04/09/16 09:00 113 21 100/65 100 Mechanical Ventilator 40 04/09/16 08:58 113 117/58 04/09/16 08:00 112 04/09/16 08:00 40 04/09/16 08:00 99.8 111 21 104/61 100 Mechanical Ventilator 40 04/09/16 07:18 113 16 40 04/09/16 07:00 112 24 77/57 100 Mechanical Ventilator 40 04/09/16 06:00 111 20 118/68 100 Mechanical Ventilator 40 04/09/16 05:00 110 18 115/60 100 Mechanical Ventilator 40 04/09/16 05:00 115 16 40 04/09/16 04:00 98.5 109 18 115/57 99 Mechanical Ventilator 40 04/09/16 04:00 40 04/09/16 03:45 113 04/09/16 03:08 109 16 40 04/09/16 03:00 106 16 110/86 99 Mechanical Ventilator 40 04/09/16 02:00 118 18 112/60 100 Mechanical Ventilator 40 04/09/16 01:06 112 16 40 04/09/16 01:00 113 20 105/61 100 Mechanical Ventilator 40 04/09/16 00:00 40 04/09/16 00:00 99.2 109 16 102/57 99 Mechanical Ventilator 40 04/08/16 23:59 111 04/08/16 23:00 115 17 110/63 100 Mechanical Ventilator 40 04/08/16 22:57 111 16 40 04/08/16 22:00 112 17 122/68 100 Mechanical Ventilator 40 04/08/16 21:00 110 16 99/62 97 Mechanical Ventilator 40 04/08/16 21:00 110 99/52 04/08/16 20:56 117 16 40 04/08/16 20:30 105/56 04/08/16 20:00 40 04/08/16 20:00 114 04/08/16 20:00 99.1 116 19 120/56 99 Mechanical Ventilator 40 04/08/16 19:00 112 16 105/56 100 Mechanical Ventilator 40 04/08/16 18:56 113 16 40 04/08/16 18:00 115 20 121/56 98 Mechanical Ventilator 40 04/08/16 17:00 117 22 125/66 98 Mechanical Ventilator 40 04/08/16 16:32 112 16 40 04/08/16 16:00 99.1 113 19 114/65 99 Mechanical Ventilator 40 04/08/16 16:00 40 04/08/16 16:00 113 04/08/16 14:44 115 16 40 04/08/16 14:00 113 19 134/72 99 Mechanical Ventilator 40 04/08/16 13:05 111 16 40 04/08/16 13:00 111 19 115/59 99 Mechanical Ventilator 40 04/08/16 12:00 99.1 108 19 115/72 99 Mechanical Ventilator 40 04/08/16 12:00 40 04/08/16 12:00 107 General Appearance: on vent EENT: PERRL/EOMI Neck: supple, no JVD Rhythm: NSR Cardiovascular: normal rate, regular rhythm, no gallop/murmur Respiratory/Chest: other - dec BS bilat Abdomen: normal bowel sounds, non tender Extremities: no swelling, other - bilat scds Intake and Output 04/08/16 04/09/16 19:00 07:00 Intake Total 1305 ml 1510 ml Output Total 1260 ml 1040 ml Balance 45 ml 470 ml Free Water 200 ml 200 ml IV Total 450 ml 650 ml Tube Feeding 605 ml 660 ml Other 50 ml Output Urine Total 1260 ml 1040 ml # Bowel Movements 1 Laboratory Tests Test 04/09/16 08:20 Arterial Blood pH 7.400 (7.350-7.450) Arterial Blood Partial Pressure CO2 64.6 mmHg (35.0-45.0) *H Arterial Blood Partial Pressure O2 118.3 mmHg (75.0-100.0) H Arterial Blood HCO3 39.5 mmol/L (22.0-26.0) H Arterial Blood Oxygen Saturation 97.6 % (92.0-98.0) Arterial Blood Base Excess 12.6 Damián Test Positive CARITO POTTS Apr 09, 2016 11:45
[2016-04-09] MEDS ORDERED: Levophed 4mg/4mL Inj IV ONE (12:06)
[2016-04-09 13:17] LABS: MEAN CORPUSCULAR HEMOGLOBIN 29.6 PG (27.0-31.0); MEAN CORPUSCULAR HGB CONC 30.3 G/DL (32.0-36.0); MEAN CORPUSCULAR VOLUME 98 FL (80-99); MEAN PLATELET VOLUME 7.4 FL (6.5-10.1); PLATELET COUNT 165 K/UL (150-450); RED CELL DISTRIBUTION WIDTH 13.8 % (11.6-14.8)
[2016-04-09 13:19] LABS: WHITE BLOOD COUNT 25.8 K/UL (4.8-10.8)
[2016-04-09 13:36] LABS: ANION GAP 4 (5-15); CARBON DIOXIDE 40 mEQ/L (20-30); CHLORIDE 109 mEQ/L (98-107); CREATININE 0.9 mg/dL (0.5-0.9); GLOMERULAR FILTRATION RATE > 60 mL/min (>60); HEMOLYSIS 3; POTASSIUM 3.8 mEQ/L (3.4-4.9); SODIUM 153 mEQ/L (135-145)
[2016-04-09 14:16] LABS: BAND NEUTROPHILS % (MANUAL) 0 % (0-8); BASOPHILS % (MANUAL) 0 % (0-2); EOSINOPHILS % (MANUAL) 0 % (0-3); HYPOCHROMASIA 1+; LYMPHOCYTES % (MANUAL) 5 % (20-45); NEUTROPHILS % (MANUAL) 95 % (45-75); PLATELET ESTIMATE ADEQUATE; PLATELET MORPHOLOGY NORMAL; TOTAL CELLS COUNTED 100
[2016-04-09 14:17] LABS: ANISOCYTOSIS 1+
[2016-04-09] MEDS: cefTRIAXone 1 GM in D5W 50 ML IVPB SCH (16:56)
[2016-04-09] MEDS: Montelukast 10mg tablet ORAL SCH (16:56)
--- NOTE | 2016-04-09 17:06 | General Progress Note ---
Assessment/Plan Assessment/Plan Assessment Dysphagia Acute respiratory failure, currently with respiratory acidosis Acute COPD exacerbation SIRS (tachycardia, hypoxemia, alteration in mental status) CTA with no pulmonary embolism Hep B/C serologies abnormal History of HTN (+) OB Anemia Recommendations continue TF follow labs elevate HOB possible GI w/u at later date Subjective Allergies: Coded Allergies: CODEINE (Verified Allergy, Unknown, 04/05/16) ERYTHROMYCIN BASE (Verified Allergy, Unknown, 04/05/16) TETRACYCLINE (Verified Allergy, Unknown, 04/05/16) Subjective intubated non communicative tolerating TF d/w RN Objective Last 24 Hour Vital Signs Date Time Temp Pulse Resp B/P Pulse Ox O2 Delivery O2 Flow Rate FiO2 04/09/16 16:30 98 17 99/62 99 Mechanical Ventilator 40 04/09/16 16:15 98 16 94/54 100 Mechanical Ventilator 40 04/09/16 16:00 97.0 100 16 99/60 99 Mechanical Ventilator 40 04/09/16 16:00 99/60 04/09/16 16:00 40 04/09/16 15:45 102 17 88/54 99 Mechanical Ventilator 40 04/09/16 15:30 106 16 91/45 98 Mechanical Ventilator 40 04/09/16 15:15 107 20 109/68 98 Mechanical Ventilator 40 04/09/16 15:00 104 16 118/49 98 Mechanical Ventilator 40 04/09/16 15:00 114/52 04/09/16 14:49 99 16 40 04/09/16 14:45 97 17 98/56 98 Mechanical Ventilator 40 04/09/16 14:30 99 12 83/47 98 Mechanical Ventilator 40 04/09/16 14:30 83/47 04/09/16 14:15 105 20 108/65 98 Mechanical Ventilator 40 04/09/16 14:15 109/65 04/09/16 14:00 108/54 04/09/16 14:00 104 22 108/54 98 Mechanical Ventilator 40 04/09/16 13:45 103 21 114/58 98 Mechanical Ventilator 40 04/09/16 13:30 96 19 118/63 100 Mechanical Ventilator 40 04/09/16 13:30 118/63 04/09/16 13:27 97 16 40 04/09/16 13:15 94 18 106/59 100 Mechanical Ventilator 40 04/09/16 13:00 103/59 04/09/16 13:00 89 17 103/59 100 Mechanical Ventilator 40 04/09/16 12:45 86 16 96/59 100 Mechanical Ventilator 40 04/09/16 12:40 68/38 04/09/16 12:30 85 16 109/59 100 Mechanical Ventilator 40 04/09/16 12:15 90 16 85/55 100 Mechanical Ventilator 40 04/09/16 12:00 98.7 88 16 68/38 100 Mechanical Ventilator 40 04/09/16 12:00 40 04/09/16 12:00 86 04/09/16 11:58 88 16 40 04/09/16 11:00 86 16 79/45 100 Mechanical Ventilator 40 04/09/16 10:00 89 16 63/40 100 Mechanical Ventilator 40 04/09/16 09:52 94 16 40 04/09/16 09:00 113 21 100/65 100 Mechanical Ventilator 40 04/09/16 08:58 113 117/58 04/09/16 08:00 112 04/09/16 08:00 40 04/09/16 08:00 99.8 111 21 104/61 100 Mechanical Ventilator 40 04/09/16 07:18 113 16 40 04/09/16 07:00 112 24 77/57 100 Mechanical Ventilator 40 04/09/16 06:00 111 20 118/68 100 Mechanical Ventilator 40 04/09/16 05:00 110 18 115/60 100 Mechanical Ventilator 40 04/09/16 05:00 115 16 40 04/09/16 04:00 98.5 109 18 115/57 99 Mechanical Ventilator 40 04/09/16 04:00 40 04/09/16 03:45 113 04/09/16 03:08 109 16 40 04/09/16 03:00 106 16 110/86 99 Mechanical Ventilator 40 04/09/16 02:00 118 18 112/60 100 Mechanical Ventilator 40 04/09/16 01:06 112 16 40 04/09/16 01:00 113 20 105/61 100 Mechanical Ventilator 40 04/09/16 00:00 40 04/09/16 00:00 99.2 109 16 102/57 99 Mechanical Ventilator 40 04/08/16 23:59 111 04/08/16 23:00 115 17 110/63 100 Mechanical Ventilator 40 04/08/16 22:57 111 16 40 04/08/16 22:00 112 17 122/68 100 Mechanical Ventilator 40 04/08/16 21:00 110 16 99/62 97 Mechanical Ventilator 40 04/08/16 21:00 110 99/52 04/08/16 20:56 117 16 40 04/08/16 20:30 105/56 04/08/16 20:00 40 04/08/16 20:00 114 04/08/16 20:00 99.1 116 19 120/56 99 Mechanical Ventilator 40 04/08/16 19:00 112 16 105/56 100 Mechanical Ventilator 40 04/08/16 18:56 113 16 40 04/08/16 18:00 115 20 121/56 98 Mechanical Ventilator 40 Intake and Output 04/08/16 04/09/16 19:00 07:00 Intake Total 1305 ml 1510 ml Output Total 1260 ml 1040 ml Balance 45 ml 470 ml Free Water 200 ml 200 ml IV Total 450 ml 650 ml Tube Feeding 605 ml 660 ml Other 50 ml Output Urine Total 1260 ml 1040 ml # Bowel Movements 1 Laboratory Tests 04/09/16 08:20: Arterial Blood pH 7.400, Arterial Blood Partial Pressure CO2 64.6*H, Arterial Blood Partial Pressure O2 118.3H, Arterial Blood HCO3 39.5H, Arterial Blood Oxygen Saturation 97.6, Arterial Blood Base Excess 12.6, Damián Test Positive 04/09/16 12:30: White Blood Count 25.8*H, Red Blood Count 3.20L, Hemoglobin 9.5L, Hematocrit 31.3L, Mean Corpuscular Volume 98, Mean Corpuscular Hemoglobin 29.6, Mean Corpuscular Hemoglobin Concent 30.3L, Red Cell Distribution Width 13.8, Platelet Count 165, Mean Platelet Volume 7.4, Neutrophils (%) (Auto) , Lymphocytes (%) (Auto) , Monocytes (%) (Auto) , Eosinophils (%) (Auto) , Basophils (%) (Auto) , Differential Total Cells Counted 100, Neutrophils % ( Manual) 95H, Lymphocytes % (Manual) 5L, Monocytes % (Manual) 0L, Eosinophils % ( Manual) 0, Basophils % (Manual) 0, Band Neutrophils 0, Platelet Estimate Adequate, Platelet Morphology Normal, Hypochromasia 1+, Anisocytosis 1+, Sodium Level 153H, Potassium Level 3.8, Chloride Level 109H, Carbon Dioxide Level 40H, Anion Gap 4L, Blood Urea Nitrogen 52H, Creatinine 0.9, Estimat Glomerular Filtration Rate > 60, Glucose Level 267#H, Calcium Level 7.0L Height (Feet): 5 Height (Inches): 5.00 Weight (Pounds): 125 Objective WDWN WW NCAT supple (+) ETT and OGT CTA RRR Soft ND NT no edema Obtunded OLIVER CONNELLY Apr 09, 2016 17:06
--- NOTE | 2016-04-09 22:25 | Pulmonolgy Critical Care Note ---
Critical Care - Asmt/Plan Assessment/Plan: Assessment: Acute respiratory failure, currently with respiratory acidosis Acute COPD exacerbation SIRS (tachycardia, hypoxemia, alteration in mental status) CTA with no pulmonary embolism Hep B/C serologies abnormal, History of HTN Plan GI [place] at some point hold weaning IVF d5 w due to hypernatremia TF pressors to maintain MAP greater than 65 Anxiolytic prn Check Labs Follow up on Troponin Metoprolol for tachycardia steroids at 60, try to decrease to 40 mg in am nebs resume ativan cxr in am On Azithro/Rocephin, FU cultures Gi prophylaxis 45 minutes to coordinate care, discuss with RN, Respiratory: CXR Cardiac: continue pressors Infectious Disease: check cultures, continue antibiotics Gastrointestinal: continue feedings/current rate Endocrine: check TSH Neurologic: PRN Ativan, PRN Morphine Disposition: keep in ICU Time Spent (Minutes): 40 Notes Reviewed: cardio Critical Care - Objective Last 24 Hour Vital Signs Date Time Temp Pulse Resp B/P Pulse Ox O2 Delivery O2 Flow Rate FiO2 04/09/16 21:00 93 98/49 04/09/16 21:00 118/54 04/09/16 20:00 30 04/09/16 20:00 98/49 04/09/16 20:00 98.9 93 16 96/49 99 Mechanical Ventilator 30 04/09/16 19:45 95 16 81/46 99 Mechanical Ventilator 30 04/09/16 19:30 96 16 83/46 99 Mechanical Ventilator 30 04/09/16 19:15 96 16 82/46 99 Mechanical Ventilator 30 04/09/16 19:03 96 16 30 04/09/16 19:00 96 16 81/45 99 Mechanical Ventilator 30 04/09/16 19:00 99/48 04/09/16 18:45 98 16 87/43 99 Mechanical Ventilator 30 04/09/16 18:30 109 17 95/46 98 Mechanical Ventilator 30 04/09/16 18:15 108 17 108/55 97 Mechanical Ventilator 30 04/09/16 18:00 103/68 04/09/16 18:00 109 17 108/55 97 Mechanical Ventilator 30 04/09/16 17:45 105 17 108/90 100 Mechanical Ventilator 30 04/09/16 17:30 100 17 94/63 97 Mechanical Ventilator 30 04/09/16 17:20 96 16 40 04/09/16 17:15 97 16 86/44 100 Mechanical Ventilator 30 04/09/16 17:00 93 16 100/54 98 Mechanical Ventilator 30 04/09/16 17:00 100/54 04/09/16 16:45 97 17 99/62 99 Mechanical Ventilator 30 04/09/16 16:30 98 17 99/62 99 Mechanical Ventilator 30 04/09/16 16:15 98 16 94/54 100 Mechanical Ventilator 30 04/09/16 16:00 97.0 100 16 99/60 99 Mechanical Ventilator 30 04/09/16 16:00 99/60 04/09/16 16:00 99 04/09/16 16:00 30 04/09/16 15:45 102 17 88/54 99 Mechanical Ventilator 30 04/09/16 15:30 106 16 91/45 98 Mechanical Ventilator 30 04/09/16 15:15 107 20 109/68 98 Mechanical Ventilator 30 04/09/16 15:00 104 16 118/49 98 Mechanical Ventilator 30 04/09/16 15:00 114/52 04/09/16 14:49 99 16 40 04/09/16 14:45 97 17 98/56 98 Mechanical Ventilator 40 04/09/16 14:30 99 12 83/47 98 Mechanical Ventilator 40 04/09/16 14:30 83/47 04/09/16 14:15 105 20 108/65 98 Mechanical Ventilator 40 04/09/16 14:15 109/65 04/09/16 14:00 108/54 04/09/16 14:00 104 22 108/54 98 Mechanical Ventilator 40 04/09/16 13:45 103 21 114/58 98 Mechanical Ventilator 40 04/09/16 13:30 96 19 118/63 100 Mechanical Ventilator 40 04/09/16 13:30 118/63 04/09/16 13:27 97 16 40 04/09/16 13:15 94 18 106/59 100 Mechanical Ventilator 40 04/09/16 13:00 103/59 04/09/16 13:00 89 17 103/59 100 Mechanical Ventilator 40 04/09/16 12:45 86 16 96/59 100 Mechanical Ventilator 40 04/09/16 12:40 68/38 04/09/16 12:30 85 16 109/59 100 Mechanical Ventilator 40 04/09/16 12:15 90 16 85/55 100 Mechanical Ventilator 40 04/09/16 12:00 98.7 88 16 68/38 100 Mechanical Ventilator 40 04/09/16 12:00 40 04/09/16 12:00 86 04/09/16 11:58 88 16 40 04/09/16 11:00 86 16 79/45 100 Mechanical Ventilator 40 04/09/16 10:00 89 16 63/40 100 Mechanical Ventilator 40 04/09/16 09:52 94 16 40 04/09/16 09:00 113 21 100/65 100 Mechanical Ventilator 40 04/09/16 08:58 113 117/58 04/09/16 08:00 112 04/09/16 08:00 40 04/09/16 08:00 99.8 111 21 104/61 100 Mechanical Ventilator 40 04/09/16 07:18 113 16 40 04/09/16 07:00 112 24 77/57 100 Mechanical Ventilator 40 04/09/16 06:00 111 20 118/68 100 Mechanical Ventilator 40 04/09/16 05:00 110 18 115/60 100 Mechanical Ventilator 40 04/09/16 05:00 115 16 40 04/09/16 04:00 98.5 109 18 115/57 99 Mechanical Ventilator 40 04/09/16 04:00 40 04/09/16 03:45 113 04/09/16 03:08 109 16 40 04/09/16 03:00 106 16 110/86 99 Mechanical Ventilator 40 04/09/16 02:00 118 18 112/60 100 Mechanical Ventilator 40 04/09/16 01:06 112 16 40 04/09/16 01:00 113 20 105/61 100 Mechanical Ventilator 40 04/09/16 00:00 40 04/09/16 00:00 99.2 109 16 102/57 99 Mechanical Ventilator 40 04/08/16 23:59 111 04/08/16 23:00 115 17 110/63 100 Mechanical Ventilator 40 04/08/16 22:57 111 16 40 Status: awake Condition: critical Lungs: rhonchi Heart: HR/BP unstable Abdomen: non-tender, active bowel sounds Extremities: edema Decubiti: stage Accucheck: 192 Blood Sugars: BS not controlled Critical Care - Subjective ROS Limited/Unobtainable: Yes Condition: critical EKG Rhythm: Sinus Rhythm FI02: 30 Vent Support Breath Rate: 16 Vent Support Mode: AC Vent Tidal Volume: 550 Sputum Amount: Scant PEEP: 5.0 PIP: 30 Tube Feeding Amount: 55 I&O: Intake and Output 04/08/16 04/09/16 19:00 07:00 Intake Total 1305 ml 1510 ml Output Total 1260 ml 1040 ml Balance 45 ml 470 ml Free Water 200 ml 200 ml IV Total 450 ml 650 ml Tube Feeding 605 ml 660 ml Other 50 ml Output Urine Total 1260 ml 1040 ml # Bowel Movements 1 Subjective: seen and examined awake and agitated on jerzy vent no bleeding pressors resumed due to hypotension on D5W due to hyponatremia ativan dc due to hypotension, but pt is very agitated positive uop no fever noted no new cultures available, WBC elevated no fever CXR: no new cxr today ET-Tube: 7.5 ET Position: 22 Labs: Laboratory Tests Test 04/09/16 08:20 04/09/16 12:30 Arterial Blood pH 7.400 (7.350-7.450) Arterial Blood Partial Pressure CO2 64.6 mmHg (35.0-45.0) *H Arterial Blood Partial Pressure O2 118.3 mmHg (75.0-100.0) H Arterial Blood HCO3 39.5 mmol/L (22.0-26.0) H Arterial Blood Oxygen Saturation 97.6 % (92.0-98.0) Arterial Blood Base Excess 12.6 Damián Test Positive White Blood Count 25.8 K/UL (4.8-10.8) *H Red Blood Count 3.20 M/UL (4.20-5.40) L Hemoglobin 9.5 G/DL (12.0-16.0) L Hematocrit 31.3 % (37.0-47.0) L Mean Corpuscular Volume 98 FL (80-99) Mean Corpuscular Hemoglobin 29.6 PG (27.0-31.0) Mean Corpuscular Hemoglobin Concent 30.3 G/DL (32.0-36.0) L Red Cell Distribution Width 13.8 % (11.6-14.8) Platelet Count 165 K/UL (150-450) Mean Platelet Volume 7.4 FL (6.5-10.1) Neutrophils (%) (Auto) % (45.0-75.0) Lymphocytes (%) (Auto) % (20.0-45.0) Monocytes (%) (Auto) % (1.0-10.0) Eosinophils (%) (Auto) % (0.0-3.0) Basophils (%) (Auto) % (0.0-2.0) Differential Total Cells Counted 100 Neutrophils % (Manual) 95 % (45-75) H Lymphocytes % (Manual) 5 % (20-45) L Monocytes % (Manual) 0 % (1-10) L Eosinophils % (Manual) 0 % (0-3) Basophils % (Manual) 0 % (0-2) Band Neutrophils 0 % (0-8) Platelet Estimate Adequate Platelet Morphology Normal Hypochromasia 1+ Anisocytosis 1+ Sodium Level 153 mEQ/L (135-145) H Potassium Level 3.8 mEQ/L (3.4-4.9) Chloride Level 109 mEQ/L (98-107) H Carbon Dioxide Level 40 mEQ/L (20-30) H Anion Gap 4 (5-15) L Blood Urea Nitrogen 52 mg/dL (7-23) H Creatinine 0.9 mg/dL (0.5-0.9) Estimat Glomerular Filtration Rate > 60 mL/min (>60) Glucose Level 267 mg/dL (74-106) #H Calcium Level 7.0 mg/dL (8.6-10.2) L Current Medications Medications (Trade) Dose Ordered Sig/Deyanira Route PRN Reason Start Time Stop Time Status Last Admin Dose Admin Acetaminophen (Tylenol) 650 mg Q4H PRN ORAL Mild Pain (Pain Scale 1-3) 04/02/16 19:45 05/02/16 19:44 04/09/16 21:24 Aspirin (ASA) 81 mg DAILY NG 04/03/16 09:00 05/03/16 08:59 04/09/16 08:59 Azithromycin 250 mg 250 mg DAILY ORAL 04/03/16 09:00 04/10/16 08:59 04/09/16 08:59 Ceftriaxone Sodium/Dextrose (Rocephin/D5W 50ml) 50 ml @ 100 mls/hr Q24H IVPB 04/03/16 17:00 04/10/16 16:59 04/09/16 16:56 Dextrose (D5W 1000ml) 1,000 ml @ 50 mls/hr Q20H IV 04/08/16 09:30 05/08/16 09:29 04/09/16 05:01 Dextrose (Dextrose 50%) STAT PRN IV Hypoglycemia 04/03/16 13:45 05/03/16 13:44 Heparin Sodium (Porcine) (Heparin 5000 units/ml) 5,000 units EVERY 12 HOURS SUBQ 04/02/16 21:00 05/02/16 20:59 04/09/16 21:02 Insulin Aspart (NovoLOG) EVERY 6 HOURS SUBQ 04/04/16 18:00 05/04/16 17:59 04/09/16 17:35 Methylprednisolone Sodium Succinate (Solu-MEDROL) 60 mg DAILY IVP 04/07/16 09:00 05/07/16 08:59 04/09/16 08:59 Metoprolol Tartrate 12.5 mg 12.5 mg Q12HR NG 04/07/16 21:00 05/07/16 20:59 04/09/16 08:58 Montelukast Sodium (Singulair) 10 mg QPM ORAL 04/03/16 16:30 05/03/16 16:29 04/09/16 16:56 Norepinephrine Bitartrate/ Dextrose (Levophed/D5W 250ml) 250 ml @ 0 mls/hr Q24H IV 04/02/16 20:30 05/02/16 20:29 04/09/16 12:40 Ondansetron HCl (Zofran ODT) 4 mg Q6H PRN ORAL Nausea & Vomiting 04/02/16 19:45 05/02/16 19:44 Polyethylene Glycol 17 gm 17 gm DAILYPRN PRN ORAL Constipation 04/02/16 19:45 05/02/16 19:44 Ranitidine HCl (Zantac) 150 mg DAILY ORAL 04/02/16 21:00 05/02/16 20:59 04/09/16 08:59 RACHANA BROOKS DO Apr 09, 2016 22:25
[2016-04-09] MEDS ORDERED: LORazepam Inj 2mg/ml 1ml IV PRN (22:30)
[2016-04-10] VITALS (69 sets, daily range): BP systolic 73–135; BP diastolic 40–110
[2016-04-10 06:00] LABS: MEAN CORPUSCULAR HEMOGLOBIN 30.4 PG (27.0-31.0); MEAN CORPUSCULAR HGB CONC 31.5 G/DL (32.0-36.0); MEAN CORPUSCULAR VOLUME 97 FL (80-99); MEAN PLATELET VOLUME 7.7 FL (6.5-10.1); PLATELET COUNT 155 K/UL (150-450); RED BLOOD COUNT 3.09 M/UL (4.20-5.40); RED CELL DISTRIBUTION WIDTH 13.5 % (11.6-14.8)
[2016-04-10 06:19] LABS: ANION GAP 6 (5-15); CALCIUM 7.2 mg/dL (8.6-10.2); CARBON DIOXIDE 37 mEQ/L (20-30); CHLORIDE 107 mEQ/L (98-107); CREATININE 0.9 mg/dL (0.5-0.9); GLOMERULAR FILTRATION RATE > 60 mL/min (>60); HEMOLYSIS 37; MAGNESIUM 1.7 mg/dL (1.7-2.5); POTASSIUM 4.2 mEQ/L (3.4-4.9); SODIUM 150 mEQ/L (135-145)
[2016-04-10] MEDS: NovoLOG Insulin Flexpen SUBQ SCH ×4 (06:22→23:57)
[2016-04-10 06:51] LABS: WHITE BLOOD COUNT 26.2 K/UL (4.8-10.8)
[2016-04-10] MEDS: Aspirin Baby 81mg NG SCH (08:46)
[2016-04-10] MEDS: Heparin 5000 units/ml inj SUBQ SCH ×2 (08:58→21:10)
[2016-04-10] MEDS: Metoprolol Tartrate 12.5mg TAB NG SCH (09:00)
[2016-04-10] MEDS ORDERED: Solu-MEDROL 40mg Inj IVP SCH (09:00)
[2016-04-10 09:01] LABS: BAND NEUTROPHILS % (MANUAL) 1 % (0-8); BASOPHILS % (MANUAL) 0 % (0-2); EOSINOPHILS % (MANUAL) 0 % (0-3); HYPOCHROMASIA 1+; LYMPHOCYTES % (MANUAL) 6 % (20-45); NEUTROPHILS % (MANUAL) 87 % (45-75); PLATELET ESTIMATE ADEQUATE; PLATELET MORPHOLOGY NORMAL; TOTAL CELLS COUNTED 100
--- NOTE | 2016-04-10 11:55 | Cardiology Progress Note ---
Assessment/Plan Problem List: (1) COPD exacerbation (2) Hypotension (3) Anemia (4) Hepatitis B (5) LFTs abnormal (6) Acute type 1 respiratory failure Status: not improved, unchanged Status Narrative Mrs. Gallardo remains intubated, unable to be weaned from vent. Respiratory acidosis noted on ABG She became hypotensive this am, and levophed was restarted. Was hypotensive yerterday following ativan 2mg iv. However, she has not received further sedation. WBC is further increased today - ? new infection Assessment/Plan Pt has been restarted on levophed, and sbp now at 110-115 - on 8 mcg/kg/min ? repeat cultures. ? broaden antibiotic coverage Will also check ekgs, and troponin , but doubt ACS causing current hypotension. Will do limited ECHO to r/o pericardial effusion. d/w Dr. Roy d/w RN Subjective ROS Limited/Unobtainable: Yes Subjective Intubated , more responsive - follows simple commands Objective Last 24 Hour Vital Signs Date Time Temp Pulse Resp B/P Pulse Ox O2 Delivery O2 Flow Rate FiO2 04/10/16 10:50 93 16 30 04/10/16 10:00 93 16 87/54 99 Mechanical Ventilator 30 04/10/16 09:45 96 16 95/55 99 Mechanical Ventilator 30 04/10/16 09:30 106 16 73/43 98 Mechanical Ventilator 30 04/10/16 09:15 105 16 76/42 97 Mechanical Ventilator 30 04/10/16 09:00 107 21 95/52 97 Mechanical Ventilator 30 04/10/16 08:47 120 16 30 04/10/16 08:45 117 19 135/110 95 Mechanical Ventilator 30 04/10/16 08:30 112 20 118/69 99 Mechanical Ventilator 30 04/10/16 08:15 105 16 126/75 100 Mechanical Ventilator 30 04/10/16 08:10 102 04/10/16 08:07 100 04/10/16 08:00 98.6 103 16 114/74 100 Mechanical Ventilator 100 04/10/16 07:45 101 16 106/62 100 Mechanical Ventilator 100 04/10/16 07:30 102 16 91/62 100 Mechanical Ventilator 100 04/10/16 07:15 109 16 93/55 100 Mechanical Ventilator 100 04/10/16 07:00 117 16 77/40 97 Mechanical Ventilator 30 04/10/16 07:00 77/40 04/10/16 06:55 112 16 100 04/10/16 06:00 117 16 107/62 97 Mechanical Ventilator 30 04/10/16 05:45 115 16 114/67 97 Mechanical Ventilator 30 04/10/16 05:30 118 16 122/65 97 Mechanical Ventilator 30 04/10/16 05:15 110 16 122/60 97 Mechanical Ventilator 30 04/10/16 05:00 107 16 103/44 97 Mechanical Ventilator 30 04/10/16 05:00 103/44 04/10/16 04:55 104 16 30 04/10/16 04:45 105 16 113/61 97 Mechanical Ventilator 30 04/10/16 04:30 105 16 88/52 97 Mechanical Ventilator 30 04/10/16 04:15 106 16 93/55 97 Mechanical Ventilator 30 04/10/16 04:00 30 04/10/16 04:00 75/40 04/10/16 04:00 118 04/10/16 04:00 98.9 113 16 75/40 97 Mechanical Ventilator 30 04/10/16 03:23 112 16 30 04/10/16 03:00 118 16 112/64 97 Mechanical Ventilator 30 04/10/16 02:00 113 16 77/44 97 Mechanical Ventilator 30 04/10/16 01:23 120 15 30 04/10/16 01:00 115 16 103/55 97 Mechanical Ventilator 30 04/10/16 00:15 114 16 119/65 97 Mechanical Ventilator 30 04/10/16 00:00 112 04/10/16 00:00 98.7 109 16 103/60 97 Mechanical Ventilator 30 04/10/16 00:00 30 04/10/16 00:00 103/60 04/09/16 23:45 106 16 84/50 97 Mechanical Ventilator 30 04/09/16 23:37 86/43 04/09/16 23:30 106 16 86/53 97 Mechanical Ventilator 30 04/09/16 23:28 107 16 30 04/09/16 23:15 107 16 86/43 97 Mechanical Ventilator 30 04/09/16 23:00 109 16 81/37 97 Mechanical Ventilator 30 04/09/16 22:45 108 16 84/45 97 Mechanical Ventilator 30 04/09/16 22:30 108/63 04/09/16 22:30 118 21 108/63 97 Mechanical Ventilator 30 04/09/16 22:23 98.9 04/09/16 22:15 118 21 107/63 97 Mechanical Ventilator 30 04/09/16 22:00 118 21 104/60 97 Mechanical Ventilator 30 04/09/16 22:00 108/53 04/09/16 21:45 115 21 108/53 97 Mechanical Ventilator 30 04/09/16 21:30 118 16 30 04/09/16 21:30 116 23 109/45 97 Mechanical Ventilator 30 04/09/16 21:15 119 21 108/51 96 Mechanical Ventilator 30 04/09/16 21:00 116 20 113/61 96 Mechanical Ventilator 30 04/09/16 21:00 93 98/49 04/09/16 21:00 118/54 04/09/16 20:45 111 18 118/54 96 Mechanical Ventilator 30 04/09/16 20:30 108 16 114/58 98 Mechanical Ventilator 30 04/09/16 20:15 101 17 118/57 98 Mechanical Ventilator 30 04/09/16 20:00 30 04/09/16 20:00 98/49 04/09/16 20:00 98.9 93 16 96/49 99 Mechanical Ventilator 30 04/09/16 20:00 94 04/09/16 19:45 95 16 81/46 99 Mechanical Ventilator 30 04/09/16 19:30 96 16 83/46 99 Mechanical Ventilator 30 04/09/16 19:15 96 16 82/46 99 Mechanical Ventilator 30 04/09/16 19:03 96 16 30 04/09/16 19:00 96 16 81/45 99 Mechanical Ventilator 30 04/09/16 19:00 99/48 04/09/16 18:45 98 16 87/43 99 Mechanical Ventilator 30 04/09/16 18:30 109 17 95/46 98 Mechanical Ventilator 30 04/09/16 18:15 108 17 108/55 97 Mechanical Ventilator 30 04/09/16 18:00 103/68 04/09/16 18:00 109 17 108/55 97 Mechanical Ventilator 30 04/09/16 17:45 105 17 108/90 100 Mechanical Ventilator 30 04/09/16 17:30 100 17 94/63 97 Mechanical Ventilator 30 04/09/16 17:20 96 16 40 04/09/16 17:15 97 16 86/44 100 Mechanical Ventilator 30 04/09/16 17:00 93 16 100/54 98 Mechanical Ventilator 30 04/09/16 17:00 100/54 04/09/16 16:45 97 17 99/62 99 Mechanical Ventilator 30 04/09/16 16:30 98 17 99/62 99 Mechanical Ventilator 30 04/09/16 16:15 98 16 94/54 100 Mechanical Ventilator 30 04/09/16 16:00 97.0 100 16 99/60 99 Mechanical Ventilator 30 04/09/16 16:00 99/60 04/09/16 16:00 99 04/09/16 16:00 30 04/09/16 15:45 102 17 88/54 99 Mechanical Ventilator 30 04/09/16 15:30 106 16 91/45 98 Mechanical Ventilator 30 04/09/16 15:15 107 20 109/68 98 Mechanical Ventilator 30 04/09/16 15:00 104 16 118/49 98 Mechanical Ventilator 30 04/09/16 15:00 114/52 04/09/16 14:49 99 16 40 04/09/16 14:45 97 17 98/56 98 Mechanical Ventilator 40 04/09/16 14:30 99 12 83/47 98 Mechanical Ventilator 40 04/09/16 14:30 83/47 04/09/16 14:15 105 20 108/65 98 Mechanical Ventilator 40 04/09/16 14:15 109/65 04/09/16 14:00 108/54 04/09/16 14:00 104 22 108/54 98 Mechanical Ventilator 40 04/09/16 13:45 103 21 114/58 98 Mechanical Ventilator 40 04/09/16 13:30 96 19 118/63 100 Mechanical Ventilator 40 04/09/16 13:30 118/63 04/09/16 13:27 97 16 40 04/09/16 13:15 94 18 106/59 100 Mechanical Ventilator 40 04/09/16 13:00 103/59 04/09/16 13:00 89 17 103/59 100 Mechanical Ventilator 40 04/09/16 12:45 86 16 96/59 100 Mechanical Ventilator 40 04/09/16 12:40 68/38 04/09/16 12:30 85 16 109/59 100 Mechanical Ventilator 40 04/09/16 12:15 90 16 85/55 100 Mechanical Ventilator 40 04/09/16 12:00 98.7 88 16 68/38 100 Mechanical Ventilator 40 04/09/16 12:00 40 04/09/16 12:00 86 04/09/16 11:58 88 16 40 General Appearance: WD/WN, alert, on vent EENT: PERRL/EOMI Neck: supple, no JVD Rhythm: ST Cardiovascular: no gallop/murmur, tachycardia Respiratory/Chest: lungs clear, other - clear anteriorly Abdomen: non tender, soft Extremities: no swelling, other - scds Intake and Output 04/09/16 04/10/16 18:59 06:59 Intake Total 1954.85 ml 1011.25 ml Output Total 735 ml 825 ml Balance 1219.85 ml 186.25 ml Free Water 150 ml IV Total 1024.85 ml 736.25 ml Tube Feeding 660 ml 275 ml Other 120 ml Output Urine Total 735 ml 825 ml # Bowel Movements 1 Laboratory Tests Test 04/09/16 12:30 04/10/16 05:00 White Blood Count 25.8 K/UL (4.8-10.8) *H 26.2 K/UL (4.8-10.8) *H Red Blood Count 3.20 M/UL (4.20-5.40) L 3.09 M/UL (4.20-5.40) L Hemoglobin 9.5 G/DL (12.0-16.0) L 9.4 G/DL (12.0-16.0) L Hematocrit 31.3 % (37.0-47.0) L 29.9 % (37.0-47.0) L Mean Corpuscular Volume 98 FL (80-99) 97 FL (80-99) Mean Corpuscular Hemoglobin 29.6 PG (27.0-31.0) 30.4 PG (27.0-31.0) Mean Corpuscular Hemoglobin Concent 30.3 G/DL (32.0-36.0) L 31.5 G/DL (32.0-36.0) L Red Cell Distribution Width 13.8 % (11.6-14.8) 13.5 % (11.6-14.8) Platelet Count 165 K/UL (150-450) 155 K/UL (150-450) Mean Platelet Volume 7.4 FL (6.5-10.1) 7.7 FL (6.5-10.1) Neutrophils (%) (Auto) % (45.0-75.0) % (45.0-75.0) Lymphocytes (%) (Auto) % (20.0-45.0) % (20.0-45.0) Monocytes (%) (Auto) % (1.0-10.0) % (1.0-10.0) Eosinophils (%) (Auto) % (0.0-3.0) % (0.0-3.0) Basophils (%) (Auto) % (0.0-2.0) % (0.0-2.0) Differential Total Cells Counted 100 100 Neutrophils % (Manual) 95 % (45-75) H 87 % (45-75) H Lymphocytes % (Manual) 5 % (20-45) L 6 % (20-45) L Monocytes % (Manual) 0 % (1-10) L 6 % (1-10) Eosinophils % (Manual) 0 % (0-3) 0 % (0-3) Basophils % (Manual) 0 % (0-2) 0 % (0-2) Band Neutrophils 0 % (0-8) 1 % (0-8) Platelet Estimate Adequate Adequate Platelet Morphology Normal Normal Hypochromasia 1+ 1+ Anisocytosis 1+ Sodium Level 153 mEQ/L (135-145) H 150 mEQ/L (135-145) H Potassium Level 3.8 mEQ/L (3.4-4.9) 4.2 mEQ/L (3.4-4.9) Chloride Level 109 mEQ/L (98-107) H 107 mEQ/L (98-107) Carbon Dioxide Level 40 mEQ/L (20-30) H 37 mEQ/L (20-30) H Anion Gap 4 (5-15) L 6 (5-15) Blood Urea Nitrogen 52 mg/dL (7-23) H 53 mg/dL (7-23) H Creatinine 0.9 mg/dL (0.5-0.9) 0.9 mg/dL (0.5-0.9) Estimat Glomerular Filtration Rate > 60 mL/min (>60) > 60 mL/min (>60) Glucose Level 267 mg/dL (74-106) #H 160 mg/dL (74-106) #H Calcium Level 7.0 mg/dL (8.6-10.2) L 7.2 mg/dL (8.6-10.2) L Magnesium Level 1.7 mg/dL (1.7-2.5) Pro-B-Type Natriuretic Peptide 2990 pg/mL (0-125) H CARITO POTTS Apr 10, 2016 11:55
--- NOTE | 2016-04-10 12:23 | GI Progress Note ---
Assessment/Plan Problems: (1) Occult blood in stools ICD Codes: R19.5 - Other fecal abnormalities SNOMED: 68018044, 357651212 (2) Anemia ICD Codes: D64.9 - Anemia, unspecified SNOMED: 658197699 (3) Hepatitis B ICD Codes: B19.10 - Unspecified viral hepatitis B without hepatic coma SNOMED: 73788714 (4) LFTs abnormal ICD Codes: R79.89 - Other specified abnormal findings of blood chemistry SNOMED: 761430622 (5) Hypoalbuminemia ICD Codes: E88.09 - Other disorders of plasma-protein metabolism, not elsewhere classified SNOMED: 693336806 (6) COPD exacerbation ICD Codes: J44.1 - Chronic obstructive pulmonary disease with (acute) exacerbation SNOMED: 903444637, 963957797 (7) Hypotension ICD Codes: I95.9 - Hypotension, unspecified SNOMED: 55323177, 454321543 Qualifiers: Qualified Codes: I95.9 - Hypotension, unspecified (8) Acute type 1 respiratory failure ICD Codes: J96.01 - Acute respiratory failure with hypoxia SNOMED: 41403816, 013713674 (9) Dyspnea ICD Codes: R06.00 - Dyspnea, unspecified SNOMED: 896792516 Status: unchanged Status Narrative Discussed with Dr. Roy. Assessment/Plan Assessment Dysphagia Acute respiratory failure, currently with respiratory acidosis Acute COPD exacerbation SIRS (tachycardia, hypoxemia, alteration in mental status) CTA with no pulmonary embolism Hep B/C serologies abnormal History of HTN (+) OB Anemia Recommendations continue OGTFs follow labs elevate HOB possible GI w/u at later date Hep B core total, Igm >> positive - fu Hep B surface, if positive indicates Acute Hep B - ordered Hep B DNA fu Alpha-1 antitrypsin >> 203 H monitor LFTs monitor H&H, stable given OB + ppi benzo + fu labs Subjective Subjective limited Objective Last 24 Hour Vital Signs Date Time Temp Pulse Resp B/P Pulse Ox O2 Delivery O2 Flow Rate FiO2 04/10/16 12:11 30 04/10/16 10:50 93 16 30 04/10/16 10:00 93 16 87/54 99 Mechanical Ventilator 30 04/10/16 09:45 96 16 95/55 99 Mechanical Ventilator 30 04/10/16 09:30 106 16 73/43 98 Mechanical Ventilator 30 04/10/16 09:15 105 16 76/42 97 Mechanical Ventilator 30 04/10/16 09:00 107 21 95/52 97 Mechanical Ventilator 30 04/10/16 08:47 120 16 30 04/10/16 08:45 117 19 135/110 95 Mechanical Ventilator 30 04/10/16 08:30 112 20 118/69 99 Mechanical Ventilator 30 04/10/16 08:15 105 16 126/75 100 Mechanical Ventilator 30 04/10/16 08:10 102 04/10/16 08:07 100 04/10/16 08:00 98.6 103 16 114/74 100 Mechanical Ventilator 100 04/10/16 07:45 101 16 106/62 100 Mechanical Ventilator 100 04/10/16 07:30 102 16 91/62 100 Mechanical Ventilator 100 04/10/16 07:15 109 16 93/55 100 Mechanical Ventilator 100 04/10/16 07:00 117 16 77/40 97 Mechanical Ventilator 30 04/10/16 07:00 77/40 04/10/16 06:55 112 16 100 04/10/16 06:00 117 16 107/62 97 Mechanical Ventilator 30 04/10/16 05:45 115 16 114/67 97 Mechanical Ventilator 30 04/10/16 05:30 118 16 122/65 97 Mechanical Ventilator 30 04/10/16 05:15 110 16 122/60 97 Mechanical Ventilator 30 04/10/16 05:00 107 16 103/44 97 Mechanical Ventilator 30 04/10/16 05:00 103/44 04/10/16 04:55 104 16 30 04/10/16 04:45 105 16 113/61 97 Mechanical Ventilator 30 04/10/16 04:30 105 16 88/52 97 Mechanical Ventilator 30 04/10/16 04:15 106 16 93/55 97 Mechanical Ventilator 30 04/10/16 04:00 30 04/10/16 04:00 75/40 04/10/16 04:00 118 04/10/16 04:00 98.9 113 16 75/40 97 Mechanical Ventilator 30 04/10/16 03:23 112 16 30 04/10/16 03:00 118 16 112/64 97 Mechanical Ventilator 30 04/10/16 02:00 113 16 77/44 97 Mechanical Ventilator 30 04/10/16 01:23 120 15 30 04/10/16 01:00 115 16 103/55 97 Mechanical Ventilator 30 04/10/16 00:15 114 16 119/65 97 Mechanical Ventilator 30 04/10/16 00:00 112 04/10/16 00:00 98.7 109 16 103/60 97 Mechanical Ventilator 30 04/10/16 00:00 30 04/10/16 00:00 103/60 04/09/16 23:45 106 16 84/50 97 Mechanical Ventilator 30 04/09/16 23:37 86/43 04/09/16 23:30 106 16 86/53 97 Mechanical Ventilator 30 04/09/16 23:28 107 16 30 04/09/16 23:15 107 16 86/43 97 Mechanical Ventilator 30 04/09/16 23:00 109 16 81/37 97 Mechanical Ventilator 30 04/09/16 22:45 108 16 84/45 97 Mechanical Ventilator 30 04/09/16 22:30 108/63 04/09/16 22:30 118 21 108/63 97 Mechanical Ventilator 30 04/09/16 22:23 98.9 04/09/16 22:15 118 21 107/63 97 Mechanical Ventilator 30 04/09/16 22:00 118 21 104/60 97 Mechanical Ventilator 30 04/09/16 22:00 108/53 04/09/16 21:45 115 21 108/53 97 Mechanical Ventilator 30 04/09/16 21:30 118 16 30 04/09/16 21:30 116 23 109/45 97 Mechanical Ventilator 30 04/09/16 21:15 119 21 108/51 96 Mechanical Ventilator 30 04/09/16 21:00 116 20 113/61 96 Mechanical Ventilator 30 04/09/16 21:00 93 98/49 04/09/16 21:00 118/54 04/09/16 20:45 111 18 118/54 96 Mechanical Ventilator 30 04/09/16 20:30 108 16 114/58 98 Mechanical Ventilator 30 04/09/16 20:15 101 17 118/57 98 Mechanical Ventilator 30 04/09/16 20:00 30 04/09/16 20:00 98/49 04/09/16 20:00 98.9 93 16 96/49 99 Mechanical Ventilator 30 04/09/16 20:00 94 04/09/16 19:45 95 16 81/46 99 Mechanical Ventilator 30 04/09/16 19:30 96 16 83/46 99 Mechanical Ventilator 30 04/09/16 19:15 96 16 82/46 99 Mechanical Ventilator 30 04/09/16 19:03 96 16 30 04/09/16 19:00 96 16 81/45 99 Mechanical Ventilator 30 04/09/16 19:00 99/48 04/09/16 18:45 98 16 87/43 99 Mechanical Ventilator 30 04/09/16 18:30 109 17 95/46 98 Mechanical Ventilator 30 04/09/16 18:15 108 17 108/55 97 Mechanical Ventilator 30 04/09/16 18:00 103/68 04/09/16 18:00 109 17 108/55 97 Mechanical Ventilator 30 04/09/16 17:45 105 17 108/90 100 Mechanical Ventilator 30 04/09/16 17:30 100 17 94/63 97 Mechanical Ventilator 30 04/09/16 17:20 96 16 40 04/09/16 17:15 97 16 86/44 100 Mechanical Ventilator 30 04/09/16 17:00 93 16 100/54 98 Mechanical Ventilator 30 04/09/16 17:00 100/54 04/09/16 16:45 97 17 99/62 99 Mechanical Ventilator 30 04/09/16 16:30 98 17 99/62 99 Mechanical Ventilator 30 04/09/16 16:15 98 16 94/54 100 Mechanical Ventilator 30 04/09/16 16:00 97.0 100 16 99/60 99 Mechanical Ventilator 30 04/09/16 16:00 99/60 04/09/16 16:00 99 04/09/16 16:00 30 04/09/16 15:45 102 17 88/54 99 Mechanical Ventilator 30 04/09/16 15:30 106 16 91/45 98 Mechanical Ventilator 30 04/09/16 15:15 107 20 109/68 98 Mechanical Ventilator 30 04/09/16 15:00 104 16 118/49 98 Mechanical Ventilator 30 04/09/16 15:00 114/52 04/09/16 14:49 99 16 40 04/09/16 14:45 97 17 98/56 98 Mechanical Ventilator 40 04/09/16 14:30 99 12 83/47 98 Mechanical Ventilator 40 04/09/16 14:30 83/47 04/09/16 14:15 105 20 108/65 98 Mechanical Ventilator 40 04/09/16 14:15 109/65 04/09/16 14:00 108/54 04/09/16 14:00 104 22 108/54 98 Mechanical Ventilator 40 04/09/16 13:45 103 21 114/58 98 Mechanical Ventilator 40 04/09/16 13:30 96 19 118/63 100 Mechanical Ventilator 40 04/09/16 13:30 118/63 04/09/16 13:27 97 16 40 04/09/16 13:15 94 18 106/59 100 Mechanical Ventilator 40 04/09/16 13:00 103/59 04/09/16 13:00 89 17 103/59 100 Mechanical Ventilator 40 04/09/16 12:45 86 16 96/59 100 Mechanical Ventilator 40 04/09/16 12:40 68/38 04/09/16 12:30 85 16 109/59 100 Mechanical Ventilator 40 Intake and Output 04/09/16 04/10/16 18:59 06:59 Intake Total 1954.85 ml 1011.25 ml Output Total 735 ml 825 ml Balance 1219.85 ml 186.25 ml Free Water 150 ml IV Total 1024.85 ml 736.25 ml Tube Feeding 660 ml 275 ml Other 120 ml Output Urine Total 735 ml 825 ml # Bowel Movements 1 Laboratory Tests Test 04/09/16 12:30 04/10/16 05:00 White Blood Count 25.8 K/UL (4.8-10.8) *H 26.2 K/UL (4.8-10.8) *H Red Blood Count 3.20 M/UL (4.20-5.40) L 3.09 M/UL (4.20-5.40) L Hemoglobin 9.5 G/DL (12.0-16.0) L 9.4 G/DL (12.0-16.0) L Hematocrit 31.3 % (37.0-47.0) L 29.9 % (37.0-47.0) L Mean Corpuscular Volume 98 FL (80-99) 97 FL (80-99) Mean Corpuscular Hemoglobin 29.6 PG (27.0-31.0) 30.4 PG (27.0-31.0) Mean Corpuscular Hemoglobin Concent 30.3 G/DL (32.0-36.0) L 31.5 G/DL (32.0-36.0) L Red Cell Distribution Width 13.8 % (11.6-14.8) 13.5 % (11.6-14.8) Platelet Count 165 K/UL (150-450) 155 K/UL (150-450) Mean Platelet Volume 7.4 FL (6.5-10.1) 7.7 FL (6.5-10.1) Neutrophils (%) (Auto) % (45.0-75.0) % (45.0-75.0) Lymphocytes (%) (Auto) % (20.0-45.0) % (20.0-45.0) Monocytes (%) (Auto) % (1.0-10.0) % (1.0-10.0) Eosinophils (%) (Auto) % (0.0-3.0) % (0.0-3.0) Basophils (%) (Auto) % (0.0-2.0) % (0.0-2.0) Differential Total Cells Counted 100 100 Neutrophils % (Manual) 95 % (45-75) H 87 % (45-75) H Lymphocytes % (Manual) 5 % (20-45) L 6 % (20-45) L Monocytes % (Manual) 0 % (1-10) L 6 % (1-10) Eosinophils % (Manual) 0 % (0-3) 0 % (0-3) Basophils % (Manual) 0 % (0-2) 0 % (0-2) Band Neutrophils 0 % (0-8) 1 % (0-8) Platelet Estimate Adequate Adequate Platelet Morphology Normal Normal Hypochromasia 1+ 1+ Anisocytosis 1+ Sodium Level 153 mEQ/L (135-145) H 150 mEQ/L (135-145) H Potassium Level 3.8 mEQ/L (3.4-4.9) 4.2 mEQ/L (3.4-4.9) Chloride Level 109 mEQ/L (98-107) H 107 mEQ/L (98-107) Carbon Dioxide Level 40 mEQ/L (20-30) H 37 mEQ/L (20-30) H Anion Gap 4 (5-15) L 6 (5-15) Blood Urea Nitrogen 52 mg/dL (7-23) H 53 mg/dL (7-23) H Creatinine 0.9 mg/dL (0.5-0.9) 0.9 mg/dL (0.5-0.9) Estimat Glomerular Filtration Rate > 60 mL/min (>60) > 60 mL/min (>60) Glucose Level 267 mg/dL (74-106) #H 160 mg/dL (74-106) #H Calcium Level 7.0 mg/dL (8.6-10.2) L 7.2 mg/dL (8.6-10.2) L Magnesium Level 1.7 mg/dL (1.7-2.5) Pro-B-Type Natriuretic Peptide 2990 pg/mL (0-125) H Height (Feet): 5 Height (Inches): 5.00 Weight (Pounds): 125 General Appearance: alert Cardiovascular: tachycardia Respiratory/Chest: other - mech vent Abdominal Exam: other - Maeve Adam N.P. Apr 10, 2016 12:23
--- NOTE | 2016-04-10 13:24 | Diagnostic Imaging Report ---
Indication: COPD Comparison: 04/08/16 A single view chest radiograph was obtained. Findings: Hyperinflated, hyperlucent lungs noted. Heart size is stable. Right jugular line in good position. Impression: No change.
--- NOTE | 2016-04-10 13:35 | Diagnostic Imaging Report ---
APPROVED REPORT CPT Code: 24428 Present Symptoms Shortness of breath Comments: Hx of right side common femoral vein catheter BILATERAL: Imaging reveals a patent deep venous system bilaterally. There is no evidence of thrombus within the femoral, popliteal or tibial segments. The greater saphenous veins are also within normal limits. Doppler indicates normal spontaneous flow within these segments.
[2016-04-10 13:43] LABS: TROPONIN I < 0.30 ng/mL (<=0.30)
--- NOTE | 2016-04-10 15:27 | Pulmonology Progress Note ---
Assessment/Plan Assessment/Plan Imp vent dep resp failure very sev COPD r/o developing LLL IF on cxr hypotension posss SIRS-no evid infxn so far cirrhosis-unknown etiol pos hep B-?lab error hypernatremia sev hyperinflation Plan try to wean as tolerated 2D echo-r/o peric effusion diamox to dump bicarb-hopefully will allow pco2 to decrease am abg may need trach--dw pts mother today [facility] referral per mothers request [facility] center called-no beds gentle morhphine/ativan for comfort will need PEG if trached Subjective Allergies: Coded Allergies: CODEINE (Verified Allergy, Unknown, 04/05/16) ERYTHROMYCIN BASE (Verified Allergy, Unknown, 04/05/16) TETRACYCLINE (Verified Allergy, Unknown, 04/05/16) Subjective pt awake and alert. fishmouth breathing. on ac . fio2 30% bp low, back on levophed 'no fevers.wbc further elevated though. Objective chest clr cor rr tachy s1s2 abd soft nt ext upper body/face sl swollen no le edema Last 24 Hour Vital Signs Date Time Temp Pulse Resp B/P Pulse Ox O2 Delivery O2 Flow Rate FiO2 04/10/16 12:44 111 16 30 04/10/16 12:30 109 19 102/75 98 Mechanical Ventilator 30 04/10/16 12:15 112 23 117/63 97 Mechanical Ventilator 30 04/10/16 12:11 30 04/10/16 12:00 114 04/10/16 12:00 99.0 110 21 111/59 97 Mechanical Ventilator 30 04/10/16 11:45 105 20 105/56 97 Mechanical Ventilator 30 04/10/16 11:30 106 18 114/60 98 Mechanical Ventilator 30 04/10/16 11:15 101 24 119/57 98 Mechanical Ventilator 30 04/10/16 11:00 97 19 109/61 98 Mechanical Ventilator 30 04/10/16 10:50 93 16 30 04/10/16 10:45 93 16 107/58 99 Mechanical Ventilator 30 04/10/16 10:30 91 16 105/59 99 Mechanical Ventilator 30 04/10/16 10:15 92 16 96/53 99 Mechanical Ventilator 30 04/10/16 10:00 93 16 87/54 99 Mechanical Ventilator 30 04/10/16 09:45 96 16 95/55 99 Mechanical Ventilator 30 04/10/16 09:30 106 16 73/43 98 Mechanical Ventilator 30 04/10/16 09:15 105 16 76/42 97 Mechanical Ventilator 30 04/10/16 09:00 107 21 95/52 97 Mechanical Ventilator 30 04/10/16 08:47 120 16 30 04/10/16 08:45 117 19 135/110 95 Mechanical Ventilator 30 04/10/16 08:30 112 20 118/69 99 Mechanical Ventilator 30 04/10/16 08:15 105 16 126/75 100 Mechanical Ventilator 30 04/10/16 08:10 102 04/10/16 08:07 100 04/10/16 08:00 98.6 103 16 114/74 100 Mechanical Ventilator 100 04/10/16 07:45 101 16 106/62 100 Mechanical Ventilator 100 04/10/16 07:30 102 16 91/62 100 Mechanical Ventilator 100 04/10/16 07:15 109 16 93/55 100 Mechanical Ventilator 100 04/10/16 07:00 117 16 77/40 97 Mechanical Ventilator 30 04/10/16 07:00 77/40 04/10/16 06:55 112 16 100 04/10/16 06:00 117 16 107/62 97 Mechanical Ventilator 30 04/10/16 05:45 115 16 114/67 97 Mechanical Ventilator 30 04/10/16 05:30 118 16 122/65 97 Mechanical Ventilator 30 04/10/16 05:15 110 16 122/60 97 Mechanical Ventilator 30 04/10/16 05:00 107 16 103/44 97 Mechanical Ventilator 30 04/10/16 05:00 103/44 04/10/16 04:55 104 16 30 04/10/16 04:45 105 16 113/61 97 Mechanical Ventilator 30 04/10/16 04:30 105 16 88/52 97 Mechanical Ventilator 30 04/10/16 04:15 106 16 93/55 97 Mechanical Ventilator 30 04/10/16 04:00 30 04/10/16 04:00 75/40 04/10/16 04:00 118 04/10/16 04:00 98.9 113 16 75/40 97 Mechanical Ventilator 30 04/10/16 03:23 112 16 30 04/10/16 03:00 118 16 112/64 97 Mechanical Ventilator 30 04/10/16 02:00 113 16 77/44 97 Mechanical Ventilator 30 1/3/17 01:23 120 15 30 04/10/16 01:00 115 16 103/55 97 Mechanical Ventilator 30 04/10/16 00:15 114 16 119/65 97 Mechanical Ventilator 30 04/10/16 00:00 112 04/10/16 00:00 98.7 109 16 103/60 97 Mechanical Ventilator 30 04/10/16 00:00 30 04/10/16 00:00 103/60 04/09/16 23:45 106 16 84/50 97 Mechanical Ventilator 30 04/09/16 23:37 86/43 04/09/16 23:30 106 16 86/53 97 Mechanical Ventilator 30 04/09/16 23:28 107 16 30 04/09/16 23:15 107 16 86/43 97 Mechanical Ventilator 30 04/09/16 23:00 109 16 81/37 97 Mechanical Ventilator 30 04/09/16 22:45 108 16 84/45 97 Mechanical Ventilator 30 04/09/16 22:30 108/63 04/09/16 22:30 118 21 108/63 97 Mechanical Ventilator 30 04/09/16 22:23 98.9 04/09/16 22:15 118 21 107/63 97 Mechanical Ventilator 30 04/09/16 22:00 118 21 104/60 97 Mechanical Ventilator 30 04/09/16 22:00 108/53 04/09/16 21:45 115 21 108/53 97 Mechanical Ventilator 30 04/09/16 21:30 118 16 30 04/09/16 21:30 116 23 109/45 97 Mechanical Ventilator 30 04/09/16 21:15 119 21 108/51 96 Mechanical Ventilator 30 04/09/16 21:00 116 20 113/61 96 Mechanical Ventilator 30 04/09/16 21:00 93 98/49 04/09/16 21:00 118/54 04/09/16 20:45 111 18 118/54 96 Mechanical Ventilator 30 04/09/16 20:30 108 16 114/58 98 Mechanical Ventilator 30 04/09/16 20:15 101 17 118/57 98 Mechanical Ventilator 30 04/09/16 20:00 30 04/09/16 20:00 98/49 04/09/16 20:00 98.9 93 16 96/49 99 Mechanical Ventilator 30 04/09/16 20:00 94 04/09/16 19:45 95 16 81/46 99 Mechanical Ventilator 30 04/09/16 19:30 96 16 83/46 99 Mechanical Ventilator 30 04/09/16 19:15 96 16 82/46 99 Mechanical Ventilator 30 04/09/16 19:03 96 16 30 04/09/16 19:00 96 16 81/45 99 Mechanical Ventilator 30 04/09/16 19:00 99/48 04/09/16 18:45 98 16 87/43 99 Mechanical Ventilator 30 04/09/16 18:30 109 17 95/46 98 Mechanical Ventilator 30 04/09/16 18:15 108 17 108/55 97 Mechanical Ventilator 30 04/09/16 18:00 103/68 04/09/16 18:00 109 17 108/55 97 Mechanical Ventilator 30 04/09/16 17:45 105 17 108/90 100 Mechanical Ventilator 30 04/09/16 17:30 100 17 94/63 97 Mechanical Ventilator 30 04/09/16 17:20 96 16 40 04/09/16 17:15 97 16 86/44 100 Mechanical Ventilator 30 04/09/16 17:00 93 16 100/54 98 Mechanical Ventilator 30 04/09/16 17:00 100/54 04/09/16 16:45 97 17 99/62 99 Mechanical Ventilator 30 04/09/16 16:30 98 17 99/62 99 Mechanical Ventilator 30 04/09/16 16:15 98 16 94/54 100 Mechanical Ventilator 30 04/09/16 16:00 97.0 100 16 99/60 99 Mechanical Ventilator 30 04/09/16 16:00 99/60 04/09/16 16:00 99 04/09/16 16:00 30 04/09/16 15:45 102 17 88/54 99 Mechanical Ventilator 30 04/09/16 15:30 106 16 91/45 98 Mechanical Ventilator 30 Intake and Output 04/09/16 04/10/16 18:59 06:59 Intake Total 1954.85 ml 1011.25 ml Output Total 735 ml 825 ml Balance 1219.85 ml 186.25 ml Free Water 150 ml IV Total 1024.85 ml 736.25 ml Tube Feeding 660 ml 275 ml Other 120 ml Output Urine Total 735 ml 825 ml # Bowel Movements 1 Laboratory Tests 04/10/16 05:00: White Blood Count 26.2*H, Red Blood Count 3.09L, Hemoglobin 9.4L, Hematocrit 29.9L, Mean Corpuscular Volume 97, Mean Corpuscular Hemoglobin 30.4, Mean Corpuscular Hemoglobin Concent 31.5L, Red Cell Distribution Width 13.5, Platelet Count 155, Mean Platelet Volume 7.7, Neutrophils (%) (Auto) , Lymphocytes (%) (Auto) , Monocytes (%) (Auto) , Eosinophils (%) (Auto) , Basophils (%) (Auto) , Differential Total Cells Counted 100, Neutrophils % ( Manual) 87H, Lymphocytes % (Manual) 6L, Monocytes % (Manual) 6, Eosinophils % ( Manual) 0, Basophils % (Manual) 0, Band Neutrophils 1, Platelet Estimate Adequate, Platelet Morphology Normal, Hypochromasia 1+, Anisocytosis , Sodium Level 150H, Potassium Level 4.2, Chloride Level 107, Carbon Dioxide Level 37H, Anion Gap 6, Blood Urea Nitrogen 53H, Creatinine 0.9, Estimat Glomerular Filtration Rate > 60, Glucose Level 160#H, Calcium Level 7.2L, Magnesium Level 1.7, Pro-B-Type Natriuretic Peptide 2990H 04/10/16 12:30: Troponin I < 0.30 Current Medications Medications (Trade) Dose Ordered Sig/Deyanira Route PRN Reason Start Time Stop Time Status Last Admin Dose Admin Acetaminophen (Tylenol) 650 mg Q4H PRN ORAL Mild Pain (Pain Scale 1-3) 04/02/16 19:45 05/02/16 19:44 04/09/16 21:24 Acetazolamide (Diamox) 250 mg TWICE A DAY NG 04/10/16 18:00 04/15/16 17:59 Aspirin (ASA) 81 mg DAILY NG 04/03/16 09:00 05/03/16 08:59 04/10/16 08:46 Ceftriaxone Sodium/Dextrose (Rocephin/D5W 50ml) 50 ml @ 100 mls/hr Q24H IVPB 04/03/16 17:00 04/10/16 16:59 04/09/16 16:56 Dextrose (D5W 1000ml) 1,000 ml @ 50 mls/hr Q20H IV 04/08/16 09:30 05/08/16 09:29 04/09/16 23:37 Dextrose (Dextrose 50%) STAT PRN IV Hypoglycemia 04/03/16 13:45 05/03/16 13:44 Heparin Sodium (Porcine) (Heparin 5000 units/ml) 5,000 units EVERY 12 HOURS SUBQ 04/02/16 21:00 05/02/16 20:59 04/10/16 08:58 Insulin Aspart (NovoLOG) EVERY 6 HOURS SUBQ 04/04/16 18:00 05/04/16 17:59 04/10/16 12:13 Lorazepam (Ativan 2mg/ml 1ml) 1 mg Q4H PRN IV For Anxiety 04/09/16 22:30 04/16/16 22:29 Methylprednisolone Sodium Succinate (Solu-MEDROL) 40 mg DAILY IVP 04/10/16 09:00 05/10/16 08:59 04/10/16 08:46 Metoprolol Tartrate 12.5 mg 12.5 mg Q12HR NG 04/07/16 21:00 05/07/16 20:59 04/09/16 08:58 Montelukast Sodium (Singulair) 10 mg QPM ORAL 04/03/16 16:30 05/03/16 16:29 04/09/16 16:56 Norepinephrine Bitartrate 4 mg/ Dextrose 250 ml @ 0 mls/hr Q24H IV 04/02/16 20:30 05/02/16 20:29 04/09/16 23:37 Ondansetron HCl (Zofran ODT) 4 mg Q6H PRN ORAL Nausea & Vomiting 04/02/16 19:45 05/02/16 19:44 Polyethylene Glycol 17 gm 17 gm DAILYPRN PRN ORAL Constipation 04/02/16 19:45 05/02/16 19:44 Ranitidine HCl (Zantac) 150 mg DAILY ORAL 04/02/16 21:00 05/02/16 20:59 04/10/16 08:46 RIZWAN DUDLEY Apr 10, 2016 15:27
[2016-04-10] MEDS ORDERED: LORazepam Inj 2mg/ml 1ml IV PRN (16:00)
[2016-04-10] MEDS: Montelukast 10mg tablet ORAL SCH (16:22)
[2016-04-10] MEDS ORDERED: NS 275ml ONE (17:33)
[2016-04-10] MEDS: Solu-MEDROL 40mg Inj IVP SCH ×2 (17:33→23:44)
[2016-04-11] VITALS (24 sets, daily range): BP systolic 87–109; BP diastolic 40–76
[2016-04-11 05:28] LABS: MEAN CORPUSCULAR HEMOGLOBIN 30.8 PG (27.0-31.0); MEAN CORPUSCULAR HGB CONC 31.2 G/DL (32.0-36.0); MEAN CORPUSCULAR VOLUME 99 FL (80-99); MEAN PLATELET VOLUME 8.2 FL (6.5-10.1); PLATELET COUNT 166 K/UL (150-450); RED BLOOD COUNT 2.96 M/UL (4.20-5.40); RED CELL DISTRIBUTION WIDTH 13.5 % (11.6-14.8)
[2016-04-11] MEDS: Solu-MEDROL 40mg Inj IVP SCH ×4 (05:37→23:54)
[2016-04-11] MEDS: NovoLOG Insulin Flexpen SUBQ SCH ×4 (05:46→23:56)
[2016-04-11 05:57] LABS: ALANINE AMINOTRANSFERASE 88 U/L (3-33); ALBUMIN/GLOBULIN RATIO 1.2 (1.0-2.7); ANION GAP 7 (5-15); ASPARTATE AMINO TRANSFERASE 70 U/L (5-40); CALCIUM 7.1 mg/dL (8.6-10.2); CARBON DIOXIDE 36 mEQ/L (20-30); CHLORIDE 106 mEQ/L (98-107); CREATININE 0.9 mg/dL (0.5-0.9); GLOMERULAR FILTRATION RATE > 60 mL/min (>60); HEMOLYSIS 7; POTASSIUM 3.5 mEQ/L (3.4-4.9); SODIUM 149 mEQ/L (135-145); TOTAL PROTEIN 4.4 g/dL (6.6-8.7)
[2016-04-11 06:22] LABS: TROPONIN I < 0.30 ng/mL (<=0.30)
[2016-04-11 06:51] LABS: WHITE BLOOD COUNT 28.4 K/UL (4.8-10.8)
[2016-04-11] MEDS: Aspirin Baby 81mg NG SCH (08:31)
[2016-04-11] MEDS: Heparin 5000 units/ml inj SUBQ SCH ×2 (08:35→21:01)
--- NOTE | 2016-04-11 09:44 | Cardiology Progress Note ---
Assessment/Plan Problem List: (1) COPD exacerbation (2) Hypotension (3) Anemia (4) Hepatitis B (5) LFTs abnormal (6) Acute type 1 respiratory failure Status: stable, unchanged Status Narrative Mrs. Gallardo remains intubated, unable to be weaned from vent. Respiratory acidosis noted on ABG WBC continues to increase. Cultures negative so far. She was hypotensive yesterday, but was able to come off levophed, and is normotensive - SBP 90-100 today. ECHO shows no pericardial effusion/ no tamponade. Troponins are negative and EKG shows no ischemic changes. Low BP likely due to combination of sepsis and hypovolemia. No primary cardiac cause identified. Assessment/Plan Check repeat cultures and continue broad spectrum IV antibiotics Vent adjustment per Dr. Gomez. Unable to be weaned currently Will stop cardizem, as sinus tachycardia is appropriate to condition. No b blockers due to risk for bronchospasm d/w RN Subjective ROS Limited/Unobtainable: Yes Subjective Intubated ,awake Objective Last 24 Hour Vital Signs Date Time Temp Pulse Resp B/P Pulse Ox O2 Delivery O2 Flow Rate FiO2 04/11/16 08:08 100.6 117 20 95/56 97 Mechanical Ventilator 30 04/11/16 08:06 30 04/11/16 07:00 111 23 87/55 97 Mechanical Ventilator 30 04/11/16 06:50 110 18 30 04/11/16 06:00 108 21 95/76 97 Mechanical Ventilator 30 04/11/16 05:37 102 102/56 04/11/16 05:00 108 16 30 04/11/16 05:00 108 18 102/56 97 Mechanical Ventilator 30 04/11/16 04:00 98.9 107 17 87/59 97 Mechanical Ventilator 30 04/11/16 04:00 107 04/11/16 04:00 30 04/11/16 03:18 111 16 30 04/11/16 03:00 111 21 99/57 96 Mechanical Ventilator 30 04/11/16 02:00 110 17 103/54 97 Mechanical Ventilator 30 04/11/16 01:15 114 17 30 04/11/16 01:00 107 18 96/55 98 Mechanical Ventilator 30 04/11/16 00:00 30 04/11/16 00:00 99.3 105 18 99/60 96 Mechanical Ventilator 30 04/11/16 00:00 105 04/10/16 23:22 99 18 30 04/10/16 23:00 114 19 109/62 95 Mechanical Ventilator 30 04/10/16 22:00 110 20 106/59 95 Mechanical Ventilator 30 04/10/16 21:45 103 117/61 04/10/16 21:30 107 19 94/54 96 Mechanical Ventilator 30 04/10/16 21:25 104 18 30 04/10/16 21:00 105 19 117/61 96 Mechanical Ventilator 30 04/10/16 20:30 105 19 106/55 96 Mechanical Ventilator 30 04/10/16 20:00 30 04/10/16 20:00 99.1 107 19 108/66 96 Mechanical Ventilator 30 04/10/16 20:00 104 04/10/16 19:45 107 19 98/55 96 Mechanical Ventilator 30 04/10/16 19:30 105 18 98/55 95 Mechanical Ventilator 30 04/10/16 19:26 105 04/10/16 19:15 102 18 104/54 96 Mechanical Ventilator 30 04/10/16 19:00 106 18 92/59 95 Mechanical Ventilator 30 04/10/16 18:53 105 16 30 04/10/16 18:45 109 19 110/53 95 Mechanical Ventilator 30 04/10/16 18:30 104 19 100/59 96 Mechanical Ventilator 30 04/10/16 18:15 100/59 04/10/16 18:15 115 23 123/76 94 Mechanical Ventilator 30 04/10/16 18:00 123/76 04/10/16 17:32 104/52 04/10/16 17:15 103 17 104/52 97 Mechanical Ventilator 30 04/10/16 17:00 101 18 98/55 99 Mechanical Ventilator 30 04/10/16 17:00 98/55 04/10/16 16:45 105 17 115/62 94 Mechanical Ventilator 30 04/10/16 16:34 100 16 30 04/10/16 16:30 101 17 96/55 98 Mechanical Ventilator 30 04/10/16 16:22 103 110/52 04/10/16 16:15 102 18 96/55 97 Mechanical Ventilator 30 04/10/16 16:00 104 04/10/16 16:00 110/52 04/10/16 16:00 99.3 104 17 110/52 96 Mechanical Ventilator 30 04/10/16 16:00 30 04/10/16 15:45 110 20 112/49 95 Mechanical Ventilator 30 04/10/16 15:30 106 20 123/59 96 Mechanical Ventilator 30 04/10/16 15:15 104 18 95/45 99 Mechanical Ventilator 30 04/10/16 15:00 112 20 114/60 96 Mechanical Ventilator 30 04/10/16 14:53 106 16 30 04/10/16 14:45 107 18 128/66 97 Mechanical Ventilator 30 04/10/16 14:30 105 18 131/72 98 Mechanical Ventilator 30 04/10/16 14:15 105 16 104/58 98 Mechanical Ventilator 30 04/10/16 14:00 101 16 100/60 99 Mechanical Ventilator 30 04/10/16 13:45 103 16 92/55 98 Mechanical Ventilator 30 04/10/16 13:30 109 16 82/47 98 Mechanical Ventilator 30 04/10/16 13:15 120 21 112/62 97 Mechanical Ventilator 30 04/10/16 13:00 113 17 107/62 97 Mechanical Ventilator 30 04/10/16 12:45 110 15 98/57 98 Mechanical Ventilator 30 04/10/16 12:44 111 16 30 04/10/16 12:30 109 19 102/75 98 Mechanical Ventilator 30 04/10/16 12:15 112 23 117/63 97 Mechanical Ventilator 30 04/10/16 12:11 30 04/10/16 12:00 114 04/10/16 12:00 99.0 110 21 111/59 97 Mechanical Ventilator 30 04/10/16 11:45 105 20 105/56 97 Mechanical Ventilator 30 04/10/16 11:30 106 18 114/60 98 Mechanical Ventilator 30 04/10/16 11:15 101 24 119/57 98 Mechanical Ventilator 30 04/10/16 11:00 97 19 109/61 98 Mechanical Ventilator 30 04/10/16 10:50 93 16 30 04/10/16 10:45 93 16 107/58 99 Mechanical Ventilator 30 04/10/16 10:30 91 16 105/59 99 Mechanical Ventilator 30 04/10/16 10:15 92 16 96/53 99 Mechanical Ventilator 30 04/10/16 10:00 93 16 87/54 99 Mechanical Ventilator 30 04/10/16 09:45 96 16 95/55 99 Mechanical Ventilator 30 General Appearance: alert, on vent EENT: PERRL/EOMI Neck: supple, no JVD Rhythm: ST Cardiovascular: no gallop/murmur, tachycardia Respiratory/Chest: other - bilat scattered rhonchi Abdomen: non tender, soft Extremities: non-tender, no swelling Intake and Output 04/10/16 04/11/16 19:00 07:00 Intake Total 1895.87 ml 1130 ml Output Total 705 ml 835 ml Balance 1190.87 ml 295 ml Free Water 150 ml 100 ml IV Total 1305.87 ml 500 ml Tube Feeding 290 ml 480 ml Other 150 ml 50 ml Output Urine Total 705 ml 835 ml Laboratory Tests Test 04/10/16 12:30 04/11/16 05:00 Troponin I < 0.30 ng/mL (<=0.30) < 0.30 ng/mL (<=0.30) White Blood Count 28.4 K/UL (4.8-10.8) *H Red Blood Count 2.96 M/UL (4.20-5.40) L Hemoglobin 9.1 G/DL (12.0-16.0) L Hematocrit 29.2 % (37.0-47.0) L Mean Corpuscular Volume 99 FL (80-99) Mean Corpuscular Hemoglobin 30.8 PG (27.0-31.0) Mean Corpuscular Hemoglobin Concent 31.2 G/DL (32.0-36.0) L Red Cell Distribution Width 13.5 % (11.6-14.8) Platelet Count 166 K/UL (150-450) Mean Platelet Volume 8.2 FL (6.5-10.1) Neutrophils (%) (Auto) % (45.0-75.0) Lymphocytes (%) (Auto) % (20.0-45.0) Monocytes (%) (Auto) % (1.0-10.0) Eosinophils (%) (Auto) % (0.0-3.0) Basophils (%) (Auto) % (0.0-2.0) Neutrophils % (Manual) Pending Lymphocytes % (Manual) Pending Platelet Estimate Pending Platelet Morphology Pending Sodium Level 149 mEQ/L (135-145) H Potassium Level 3.5 mEQ/L (3.4-4.9) Chloride Level 106 mEQ/L (98-107) Carbon Dioxide Level 36 mEQ/L (20-30) H Anion Gap 7 (5-15) Blood Urea Nitrogen 49 mg/dL (7-23) H Creatinine 0.9 mg/dL (0.5-0.9) Estimat Glomerular Filtration Rate > 60 mL/min (>60) Glucose Level 153 mg/dL (74-106) H Calcium Level 7.1 mg/dL (8.6-10.2) L Total Bilirubin 0.2 mg/dL (0.0-1.2) Aspartate Amino Transf (AST/SGOT) 70 U/L (5-40) H Alanine Aminotransferase (ALT/SGPT) 88 U/L (3-33) H Alkaline Phosphatase 36 U/L (35-104) Total Protein 4.4 g/dL (6.6-8.7) L Albumin 2.4 g/dL (3.5-5.2) L Globulin 2.0 g/dL Albumin/Globulin Ratio 1.2 (1.0-2.7) Hepatitis B DNA (IU/mL) Pending Microbiology Date/Time Source Procedure Growth Status 04/10/16 16:00 Indwelling Cath Urine Culture - Preliminary NO GROWTH Resulted CARITO OPTTS Apr 11, 2016 09:44
[2016-04-11 10:07] LABS: ABG BASE EXCESS 9.9; ABG PCO2 61.4 mmHg (35.0-45.0)
[2016-04-11 10:08] LABS: ABG ALLEN TEST POSITIVE
--- NOTE | 2016-04-11 10:13 | Diagnostic Imaging Report ---
Indication: SOB Technique: One view of the chest Comparison: 04/10/2016 Findings: Endotracheal tube, nasogastric tube, right arm PICC again demonstrated. The lungs are hyperinflated. Lungs and pleural spaces are clear. The heart size is normal. Aorta is calcified. There is no significant interim change Impression: Unchanged, over one day, findings as above.
[2016-04-11 11:03] LABS: BAND NEUTROPHILS % (MANUAL) 3 % (0-8); BASOPHILS % (MANUAL) 0 % (0-2); EOSINOPHILS % (MANUAL) 0 % (0-3); LYMPHOCYTES % (MANUAL) 2 % (20-45); NEUTROPHILS % (MANUAL) 92 % (45-75); PLATELET ESTIMATE ADEQUATE; PLATELET MORPHOLOGY NORMAL; TOTAL CELLS COUNTED 100
[2016-04-11 11:04] LABS: HYPOCHROMASIA 1+
--- NOTE | 2016-04-11 13:42 | GI Progress Note ---
Assessment/Plan Problems: (1) Occult blood in stools ICD Codes: R19.5 - Other fecal abnormalities SNOMED: 24601056, 831805716 (2) Anemia ICD Codes: D64.9 - Anemia, unspecified SNOMED: 224123401 (3) Hepatitis B ICD Codes: B19.10 - Unspecified viral hepatitis B without hepatic coma SNOMED: 04351801 (4) LFTs abnormal ICD Codes: R79.89 - Other specified abnormal findings of blood chemistry SNOMED: 142740611 (5) Hypoalbuminemia ICD Codes: E88.09 - Other disorders of plasma-protein metabolism, not elsewhere classified SNOMED: 816117436 (6) COPD exacerbation ICD Codes: J44.1 - Chronic obstructive pulmonary disease with (acute) exacerbation SNOMED: 965570162, 131439692 (7) Hypotension ICD Codes: I95.9 - Hypotension, unspecified SNOMED: 01078995, 457039354 Qualifiers: Qualified Codes: I95.9 - Hypotension, unspecified (8) Acute type 1 respiratory failure ICD Codes: J96.01 - Acute respiratory failure with hypoxia SNOMED: 95931858, 101583256 (9) Dyspnea ICD Codes: R06.00 - Dyspnea, unspecified SNOMED: 851410624 Status: unchanged Status Narrative Discussed with Dr. Roy. Assessment/Plan Assessment Dysphagia Acute respiratory failure, currently with respiratory acidosis Acute COPD exacerbation SIRS (tachycardia, hypoxemia, alteration in mental status) CTA with no pulmonary embolism Hep B/C serologies abnormal History of HTN (+) OB Anemia Recommendations continue OGTFs follow labs elevate HOB possible GI w/u at later date Hep B core total, Igm >> positive - fu Hep B surface, if positive indicates Acute Hep B - ordered Hep B DNA fu Alpha-1 antitrypsin >> 203 H monitor LFTs monitor H&H, stable given OB + ppi benzo + fu labs Subjective Subjective limited Objective Last 24 Hour Vital Signs Date Time Temp Pulse Resp B/P Pulse Ox O2 Delivery O2 Flow Rate FiO2 04/11/16 13:04 105 20 109/59 96 Mechanical Ventilator 30 04/11/16 12:35 107 15 30 04/11/16 12:19 104 04/11/16 12:10 30 04/11/16 12:00 97.5 106 19 93/52 96 Mechanical Ventilator 30 04/11/16 11:25 110 18 30 04/11/16 11:00 107 18 94/49 96 Mechanical Ventilator 30 04/11/16 10:00 107 18 95/53 98 Mechanical Ventilator 30 04/11/16 09:14 108 18 30 04/11/16 09:00 112 16 96/60 97 Mechanical Ventilator 30 04/11/16 08:08 100.6 117 20 95/56 97 Mechanical Ventilator 30 04/11/16 08:06 30 04/11/16 08:00 112 04/11/16 07:00 111 23 87/55 97 Mechanical Ventilator 30 04/11/16 06:50 110 18 30 04/11/16 06:00 108 21 95/76 97 Mechanical Ventilator 30 04/11/16 05:37 102 102/56 04/11/16 05:00 108 16 30 04/11/16 05:00 108 18 102/56 97 Mechanical Ventilator 30 04/11/16 04:00 98.9 107 17 87/59 97 Mechanical Ventilator 30 04/11/16 04:00 107 04/11/16 04:00 30 04/11/16 03:18 111 16 30 04/11/16 03:00 111 21 99/57 96 Mechanical Ventilator 30 04/11/16 02:00 110 17 103/54 97 Mechanical Ventilator 30 04/11/16 01:15 114 17 30 04/11/16 01:00 107 18 96/55 98 Mechanical Ventilator 30 04/11/16 00:00 30 04/11/16 00:00 99.3 105 18 99/60 96 Mechanical Ventilator 30 04/11/16 00:00 105 04/10/16 23:22 99 18 30 04/10/16 23:00 114 19 109/62 95 Mechanical Ventilator 30 04/10/16 22:00 110 20 106/59 95 Mechanical Ventilator 30 04/10/16 21:45 103 117/61 04/10/16 21:30 107 19 94/54 96 Mechanical Ventilator 30 04/10/16 21:25 104 18 30 04/10/16 21:00 105 19 117/61 96 Mechanical Ventilator 30 04/10/16 20:30 105 19 106/55 96 Mechanical Ventilator 30 04/10/16 20:00 30 04/10/16 20:00 99.1 107 19 108/66 96 Mechanical Ventilator 30 04/10/16 20:00 104 04/10/16 19:45 107 19 98/55 96 Mechanical Ventilator 30 04/10/16 19:30 105 18 98/55 95 Mechanical Ventilator 30 04/10/16 19:26 105 04/10/16 19:15 102 18 104/54 96 Mechanical Ventilator 30 04/10/16 19:00 106 18 92/59 95 Mechanical Ventilator 30 04/10/16 18:53 105 16 30 04/10/16 18:45 109 19 110/53 95 Mechanical Ventilator 30 04/10/16 18:30 104 19 100/59 96 Mechanical Ventilator 30 04/10/16 18:15 100/59 04/10/16 18:15 115 23 123/76 94 Mechanical Ventilator 30 04/10/16 18:00 123/76 04/10/16 17:32 104/52 04/10/16 17:15 103 17 104/52 97 Mechanical Ventilator 30 04/10/16 17:00 101 18 98/55 99 Mechanical Ventilator 30 04/10/16 17:00 98/55 04/10/16 16:45 105 17 115/62 94 Mechanical Ventilator 30 04/10/16 16:34 100 16 30 04/10/16 16:30 101 17 96/55 98 Mechanical Ventilator 30 04/10/16 16:22 103 110/52 04/10/16 16:15 102 18 96/55 97 Mechanical Ventilator 30 04/10/16 16:00 104 04/10/16 16:00 110/52 04/10/16 16:00 99.3 104 17 110/52 96 Mechanical Ventilator 30 04/10/16 16:00 30 04/10/16 15:45 110 20 112/49 95 Mechanical Ventilator 30 04/10/16 15:30 106 20 123/59 96 Mechanical Ventilator 30 04/10/16 15:15 104 18 95/45 99 Mechanical Ventilator 30 04/10/16 15:00 112 20 114/60 96 Mechanical Ventilator 30 04/10/16 14:53 106 16 30 04/10/16 14:45 107 18 128/66 97 Mechanical Ventilator 30 04/10/16 14:30 105 18 131/72 98 Mechanical Ventilator 30 04/10/16 14:15 105 16 104/58 98 Mechanical Ventilator 30 04/10/16 14:00 101 16 100/60 99 Mechanical Ventilator 30 04/10/16 13:45 103 16 92/55 98 Mechanical Ventilator 30 Intake and Output 04/10/16 04/11/16 19:00 07:00 Intake Total 1895.87 ml 1130 ml Output Total 705 ml 835 ml Balance 1190.87 ml 295 ml Free Water 150 ml 100 ml IV Total 1305.87 ml 500 ml Tube Feeding 290 ml 480 ml Other 150 ml 50 ml Output Urine Total 705 ml 835 ml Laboratory Tests Test 04/11/16 04:00 04/11/16 05:00 Arterial Blood pH 7.392 (7.350-7.450) Arterial Blood Partial Pressure CO2 61.4 mmHg (35.0-45.0) *H Arterial Blood Partial Pressure O2 286.8 mmHg (75.0-100.0) H Arterial Blood HCO3 36.5 mmol/L (22.0-26.0) H Arterial Blood Oxygen Saturation 98.6 % (92.0-98.0) H Arterial Blood Base Excess 9.9 Damián Test Positive White Blood Count 28.4 K/UL (4.8-10.8) *H Red Blood Count 2.96 M/UL (4.20-5.40) L Hemoglobin 9.1 G/DL (12.0-16.0) L Hematocrit 29.2 % (37.0-47.0) L Mean Corpuscular Volume 99 FL (80-99) Mean Corpuscular Hemoglobin 30.8 PG (27.0-31.0) Mean Corpuscular Hemoglobin Concent 31.2 G/DL (32.0-36.0) L Red Cell Distribution Width 13.5 % (11.6-14.8) Platelet Count 166 K/UL (150-450) Mean Platelet Volume 8.2 FL (6.5-10.1) Neutrophils (%) (Auto) % (45.0-75.0) Lymphocytes (%) (Auto) % (20.0-45.0) Monocytes (%) (Auto) % (1.0-10.0) Eosinophils (%) (Auto) % (0.0-3.0) Basophils (%) (Auto) % (0.0-2.0) Differential Total Cells Counted 100 Neutrophils % (Manual) 92 % (45-75) H Lymphocytes % (Manual) 2 % (20-45) L Monocytes % (Manual) 3 % (1-10) Eosinophils % (Manual) 0 % (0-3) Basophils % (Manual) 0 % (0-2) Band Neutrophils 3 % (0-8) Platelet Estimate Adequate Platelet Morphology Normal Hypochromasia 1+ Macrocytosis Sodium Level 149 mEQ/L (135-145) H Potassium Level 3.5 mEQ/L (3.4-4.9) Chloride Level 106 mEQ/L (98-107) Carbon Dioxide Level 36 mEQ/L (20-30) H Anion Gap 7 (5-15) Blood Urea Nitrogen 49 mg/dL (7-23) H Creatinine 0.9 mg/dL (0.5-0.9) Estimat Glomerular Filtration Rate > 60 mL/min (>60) Glucose Level 153 mg/dL (74-106) H Calcium Level 7.1 mg/dL (8.6-10.2) L Total Bilirubin 0.2 mg/dL (0.0-1.2) Aspartate Amino Transf (AST/SGOT) 70 U/L (5-40) H Alanine Aminotransferase (ALT/SGPT) 88 U/L (3-33) H Alkaline Phosphatase 36 U/L (35-104) Troponin I < 0.30 ng/mL (<=0.30) Total Protein 4.4 g/dL (6.6-8.7) L Albumin 2.4 g/dL (3.5-5.2) L Globulin 2.0 g/dL Albumin/Globulin Ratio 1.2 (1.0-2.7) Hepatitis B DNA (IU/mL) Pending Microbiology Date/Time Source Procedure Growth Status 04/10/16 16:30 Sputum Gram Stain - Final Resulted 04/10/16 16:30 Sputum Sputum Culture Pending Resulted 04/10/16 16:00 Indwelling Cath Urine Culture - Preliminary NO GROWTH Resulted Height (Feet): 5 Height (Inches): 5.00 Weight (Pounds): 125 General Appearance: alert Cardiovascular: tachycardia Respiratory/Chest: other - mech vnet Abdominal Exam: other - Maeve Adam N.PChelsy Apr 11, 2016 13:42
--- NOTE | 2016-04-11 15:07 | Cardiology Report ---
APPROVED REPORT EKG Measurement Heart [id number] Sinus tachycardia with premature supraventricular complexes and premature ventricular complexes Low voltage QRS Septal infarct, age undetermined Abnormal ECG
--- NOTE | 2016-04-11 15:42 | Cardiology Report ---
APPROVED REPORT EXAM: Two-dimensional and M-mode echocardiogram with Doppler and color Doppler. INDICATION Other This is a limited Echo study to rule out for Cardiac Tamponade. No evidence of ANY SIGNIFICANT pericardial effusion. NO FINDINGS CONSISTENT WITH TAMPONADE PHYSIOLOGY. THE REMAINDER OF THE STUDY WAS TOO LIMITED. IVC dilateed at 2.0cm with slight physiological collapse suggestive of RAP 10mmHg.
[2016-04-11] MEDS: Montelukast 10mg tablet ORAL SCH (16:17)
[2016-04-11] MEDS ORDERED: NS 550ML IV ONE (17:28)
[2016-04-11] MEDS: Vancomycin 750mg/D5W 250ml IVPB SCH ×2 (18:19)
[2016-04-12] VITALS (59 sets, daily range): BP systolic 67–123; BP diastolic 36–62
[2016-04-12] MEDS: Hydromorphone 0.5mg/0.5ml inj IVP PRN ×2 (00:35→10:50)
--- NOTE | 2016-04-12 00:43 | Pulmonolgy Critical Care Note ---
Critical Care - Asmt/Plan Assessment/Plan: ASSESSMENT: acute hypoxemic resp failure-now w w compensated resp acidosis. bronchitis-viral vs bact--sput cx, b cx neg to date. flu swab neg sev copd sev hyperinflation--cxr today no IF< hyperinflation persists hypotension-etiol unclear, CTA pend to r/o PE .echo cw overload (Incr Rap) NO pos cxs--wbc elev tho and lg fever.?poss sinusitis sl elev ethokesa-vlekxi-pftrhn ischemia-will need non invasive study when better abnl LFTs--abd brooks c/w cirrhosis--hep B core IgM positive!! ?false pos?? stool ob positive h/o HTN hyperglycemia-due to steroids immune status--flu shot-yes prevnar 13 yes 03/01/15 PLAN dilaudid for sedation/titrate to comfortable breathing pattern am abg incr steroids cont diamox retry weaning in am if stable cont tube feeds Vital AF watch h/h consider gentle diuresis tomorrow if bp can tolerate f/u cxs FULL CODE agustina RN at bedside [facility] by phone to update them on her status-they still do not have a bed for her explore poss t x to [place] per mothers request Critical Care - Objective chest-shallow bs cor rrr abd soft nt ext ue edema-1-2+ Last 24 Hour Vital Signs Date Time Temp Pulse Resp B/P Pulse Ox O2 Delivery O2 Flow Rate FiO2 04/12/16 00:23 30 04/11/16 23:22 104 13 30 04/11/16 23:00 104 25 88/40 95 Mechanical Ventilator 30 04/11/16 22:00 102 25 90/40 95 Mechanical Ventilator 30 04/11/16 21:53 105 108/43 04/11/16 21:19 103 15 30 04/11/16 21:00 105 26 100/43 95 Mechanical Ventilator 30 04/11/16 20:00 30 04/11/16 20:00 102 04/11/16 20:00 97.9 102 23 102/51 95 Mechanical Ventilator 30 04/11/16 19:26 104 17 30 04/11/16 19:00 104 21 100/52 95 Mechanical Ventilator 30 04/11/16 18:00 101 23 104/52 95 Mechanical Ventilator 30 04/11/16 17:05 102 17 96/55 95 Mechanical Ventilator 30 04/11/16 16:35 102 15 30 04/11/16 16:00 30 04/11/16 16:00 98.1 104 18 95/66 95 Mechanical Ventilator 30 04/11/16 16:00 105 04/11/16 15:10 103 18 92/51 95 Mechanical Ventilator 30 04/11/16 14:34 104 103/51 04/11/16 14:30 101 15 30 04/11/16 14:00 107 20 103/51 96 Mechanical Ventilator 30 04/11/16 13:04 105 20 109/59 96 Mechanical Ventilator 30 04/11/16 12:35 107 15 30 04/11/16 12:19 104 04/11/16 12:10 30 04/11/16 12:00 97.5 106 19 93/52 96 Mechanical Ventilator 30 04/11/16 11:25 110 18 30 04/11/16 11:00 107 18 94/49 96 Mechanical Ventilator 30 04/11/16 10:00 107 18 95/53 98 Mechanical Ventilator 30 04/11/16 09:14 108 18 30 04/11/16 09:00 112 16 96/60 97 Mechanical Ventilator 30 04/11/16 08:08 100.6 117 20 95/56 97 Mechanical Ventilator 30 04/11/16 08:06 30 04/11/16 08:00 112 04/11/16 07:00 111 23 87/55 97 Mechanical Ventilator 30 04/11/16 06:50 110 18 30 04/11/16 06:00 108 21 95/76 97 Mechanical Ventilator 30 04/11/16 05:37 102 102/56 04/11/16 05:00 108 16 30 04/11/16 05:00 108 18 102/56 97 Mechanical Ventilator 30 04/11/16 04:00 98.9 107 17 87/59 97 Mechanical Ventilator 30 04/11/16 04:00 107 04/11/16 04:00 30 04/11/16 03:18 111 16 30 04/11/16 03:00 111 21 99/57 96 Mechanical Ventilator 30 04/11/16 02:00 110 17 103/54 97 Mechanical Ventilator 30 04/11/16 01:15 114 17 30 04/11/16 01:00 107 18 96/55 98 Mechanical Ventilator 30 Micro: Microbiology Date/Time Source Procedure Growth Status 04/10/16 16:30 Sputum Gram Stain - Final Resulted 04/10/16 16:30 Sputum Sputum Culture Pending Resulted 04/10/16 16:00 Indwelling Cath Urine Culture - Preliminary NO GROWTH Resulted Accucheck: 220 Critical Care - Subjective ROS Limited/Unobtainable: Yes Condition: grave IV Access: PICC FI02: 30 Vent Support Breath Rate: 13 Vent Support Mode: AC Vent Tidal Volume: 500 Sputum Amount: Small PEEP: 5.0 PIP: 25 Tube Feeding Amount: 55 I&O: Intake and Output 04/11/16 04/12/16 18:59 06:59 Intake Total 1510 ml 1039 ml Output Total 720 ml 180 ml Balance 790 ml 859 ml Free Water 100 ml 100 ml IV Total 600 ml 634 ml Tube Feeding 660 ml 275 ml Other 150 ml 30 ml Output Urine Total 720 ml 180 ml # Bowel Movements 2 1 Subjective: pt comfortable, easily awakened, alert. uneventful night remains on levophed weaning attmepted-did not tolerate SIMV/PS or PS 22 by me no breath stacking mother (89yo) at bedside cxr no if-lungs somewhat decompressed c/w yest cxr ET-Tube: 7.5 ET Position: 22 Labs: opens eyes to name. still gasping. no sedation all day per rn unable to wean. RIZWAN DUDLEY Apr 12, 2016 00:43
[2016-04-12 05:39] LABS: MEAN CORPUSCULAR HEMOGLOBIN 31.4 PG (27.0-31.0); MEAN CORPUSCULAR HGB CONC 31.3 G/DL (32.0-36.0); MEAN CORPUSCULAR VOLUME 100 FL (80-99); PLATELET COUNT 186 K/UL (150-450); RED BLOOD COUNT 2.59 M/UL (4.20-5.40); RED CELL DISTRIBUTION WIDTH 13.7 % (11.6-14.8)
[2016-04-12 05:43] LABS: WHITE BLOOD COUNT 25.3 K/UL (4.8-10.8)
[2016-04-12 05:49] LABS: ALBUMIN/GLOBULIN RATIO 1.1 (1.0-2.7); CALCIUM 6.9 mg/dL (8.6-10.2); CREATININE 1.2 mg/dL (0.5-0.9); GLOMERULAR FILTRATION RATE 44.7 mL/min (>60); POTASSIUM 3.3 mEQ/L (3.4-4.9)
[2016-04-12] MEDS: NovoLOG Insulin Flexpen SUBQ SCH ×3 (06:08→18:04)
[2016-04-12] MEDS: Vancomycin 750mg/D5W 250ml IVPB SCH ×4 (06:09→17:01)
[2016-04-12] MEDS: Solu-MEDROL 40mg Inj IVP SCH ×3 (06:10→18:02)
[2016-04-12] MEDS: Heparin 5000 units/ml inj SUBQ SCH ×2 (09:00→21:10)
[2016-04-12] MEDS: Aspirin Baby 81mg NG SCH (09:13)
[2016-04-12 10:00] LABS: BAND NEUTROPHILS % (MANUAL) 6 % (0-8); BASOPHILS % (MANUAL) 0 % (0-2); EOSINOPHILS % (MANUAL) 0 % (0-3); HYPOCHROMASIA 1+; LYMPHOCYTES % (MANUAL) 2 % (20-45); MACROCYTES 1+; NEUTROPHILS % (MANUAL) 89 % (45-75); PLATELET ESTIMATE ADEQUATE; PLATELET MORPHOLOGY NORMAL; TOTAL CELLS COUNTED 100
[2016-04-12] MEDS ORDERED: Fluconazole 100mg tab ORAL SCH (10:30)
--- NOTE | 2016-04-12 11:06 | GI Progress Note ---
Assessment/Plan Problems: (1) Occult blood in stools ICD Codes: R19.5 - Other fecal abnormalities SNOMED: 68985662, 275069579 (2) Anemia ICD Codes: D64.9 - Anemia, unspecified SNOMED: 324658669 (3) Hepatitis B ICD Codes: B19.10 - Unspecified viral hepatitis B without hepatic coma SNOMED: 66073413 (4) LFTs abnormal ICD Codes: R79.89 - Other specified abnormal findings of blood chemistry SNOMED: 627601071 (5) Hypoalbuminemia ICD Codes: E88.09 - Other disorders of plasma-protein metabolism, not elsewhere classified SNOMED: 884428030 (6) COPD exacerbation ICD Codes: J44.1 - Chronic obstructive pulmonary disease with (acute) exacerbation SNOMED: 463485967, 939377221 (7) Hypotension ICD Codes: I95.9 - Hypotension, unspecified SNOMED: 81080521, 706350580 Qualifiers: Qualified Codes: I95.9 - Hypotension, unspecified (8) Acute type 1 respiratory failure ICD Codes: J96.01 - Acute respiratory failure with hypoxia SNOMED: 74829552, 412168341 (9) Dyspnea ICD Codes: R06.00 - Dyspnea, unspecified SNOMED: 330658942 Status: unchanged Status Narrative Discussed with Dr. Roy. Assessment/Plan Assessment Dysphagia Acute respiratory failure, currently with respiratory acidosis Acute COPD exacerbation SIRS (tachycardia, hypoxemia, alteration in mental status) CTA with no pulmonary embolism Hep B/C serologies abnormal History of HTN (+) OB Anemia Recommendations continue OGTFs follow labs elevate HOB possible GI w/u at later date Hep B core total, Igm >> positive - fu Hep B surface, if positive indicates Acute Hep B - fu Hep B DNA fu Alpha-1 antitrypsin >> 203 H monitor LFTs monitor H&H, stable given OB + ppi benzo + fu labs Subjective Subjective limited Objective Last 24 Hour Vital Signs Date Time Temp Pulse Resp B/P Pulse Ox O2 Delivery O2 Flow Rate FiO2 04/12/16 10:00 96 20 123/57 96 Mechanical Ventilator 30 04/12/16 09:00 95 17 123/62 93 Mechanical Ventilator 30 04/12/16 08:30 97 15 30 04/12/16 08:00 30 04/12/16 08:00 99.2 90 20 111/50 95 Mechanical Ventilator 30 04/12/16 08:00 93 04/12/16 07:00 90 17 116/49 93 Mechanical Ventilator 30 04/12/16 06:30 88 13 30 04/12/16 06:11 103 114/55 04/12/16 06:00 100 17 120/47 93 Mechanical Ventilator 30 04/12/16 05:05 101 13 30 04/12/16 05:00 98 17 114/50 96 Mechanical Ventilator 30 04/12/16 04:00 99.2 98 25 98/50 96 Mechanical Ventilator 30 04/12/16 04:00 100 04/12/16 04:00 30 04/12/16 03:11 98 13 30 04/12/16 03:00 98 17 97/48 95 Mechanical Ventilator 30 04/12/16 02:00 100 16 90/44 95 Mechanical Ventilator 30 04/12/16 01:15 102 16 81/47 95 Mechanical Ventilator 30 04/12/16 01:12 100 14 30 04/12/16 01:00 101 18 72/38 94 Mechanical Ventilator 30 04/12/16 00:45 98.9 110 29 95/45 92 Mechanical Ventilator 30 04/12/16 00:23 30 04/12/16 00:00 110 04/12/16 00:00 98.9 110 29 97/46 92 Mechanical Ventilator 30 04/11/16 23:22 104 13 30 04/11/16 23:00 104 25 88/40 95 Mechanical Ventilator 30 04/11/16 22:00 102 25 90/40 95 Mechanical Ventilator 30 04/11/16 21:53 105 108/43 04/11/16 21:19 103 15 30 04/11/16 21:00 105 26 100/43 95 Mechanical Ventilator 30 04/11/16 20:00 30 04/11/16 20:00 102 04/11/16 20:00 97.9 102 23 102/51 95 Mechanical Ventilator 30 04/11/16 19:26 104 17 30 04/11/16 19:00 104 21 100/52 95 Mechanical Ventilator 30 04/11/16 18:00 101 23 104/52 95 Mechanical Ventilator 30 04/11/16 17:05 102 17 96/55 95 Mechanical Ventilator 30 04/11/16 16:35 102 15 30 04/11/16 16:00 30 04/11/16 16:00 98.1 104 18 95/66 95 Mechanical Ventilator 30 04/11/16 16:00 105 04/11/16 15:10 103 18 92/51 95 Mechanical Ventilator 30 04/11/16 14:34 104 103/51 04/11/16 14:30 101 15 30 04/11/16 14:00 107 20 103/51 96 Mechanical Ventilator 30 04/11/16 13:04 105 20 109/59 96 Mechanical Ventilator 30 04/11/16 12:35 107 15 30 04/11/16 12:19 104 04/11/16 12:10 30 04/11/16 12:00 97.5 106 19 93/52 96 Mechanical Ventilator 30 04/11/16 11:25 110 18 30 Intake and Output 04/11/16 04/12/16 19:00 07:00 Intake Total 1702 ml 1844 ml Output Total 690 ml 530 ml Balance 1012 ml 1314 ml Free Water 150 ml 50 ml IV Total 742 ml 1109 ml Tube Feeding 660 ml 605 ml Other 150 ml 80 ml Output Urine Total 690 ml 530 ml # Bowel Movements 2 2 Laboratory Tests Test 04/12/16 04:00 White Blood Count 25.3 K/UL (4.8-10.8) *H Red Blood Count 2.59 M/UL (4.20-5.40) L Hemoglobin 8.1 G/DL (12.0-16.0) L Hematocrit 26.0 % (37.0-47.0) L Mean Corpuscular Volume 100 FL (80-99) H Mean Corpuscular Hemoglobin 31.4 PG (27.0-31.0) H Mean Corpuscular Hemoglobin Concent 31.3 G/DL (32.0-36.0) L Red Cell Distribution Width 13.7 % (11.6-14.8) Platelet Count 186 K/UL (150-450) Mean Platelet Volume 8.0 FL (6.5-10.1) Neutrophils (%) (Auto) % (45.0-75.0) Lymphocytes (%) (Auto) % (20.0-45.0) Monocytes (%) (Auto) % (1.0-10.0) Eosinophils (%) (Auto) % (0.0-3.0) Basophils (%) (Auto) % (0.0-2.0) Differential Total Cells Counted 100 Neutrophils % (Manual) 89 % (45-75) H Lymphocytes % (Manual) 2 % (20-45) L Monocytes % (Manual) 3 % (1-10) Eosinophils % (Manual) 0 % (0-3) Basophils % (Manual) 0 % (0-2) Band Neutrophils 6 % (0-8) Platelet Estimate Adequate Platelet Morphology Normal Hypochromasia 1+ Macrocytosis 1+ Sodium Level 144 mEQ/L (135-145) Potassium Level 3.3 mEQ/L (3.4-4.9) L Chloride Level 103 mEQ/L (98-107) Carbon Dioxide Level 35 mEQ/L (20-30) H Anion Gap 6 (5-15) Blood Urea Nitrogen 58 mg/dL (7-23) H Creatinine 1.2 mg/dL (0.5-0.9) H Estimat Glomerular Filtration Rate 44.7 mL/min (>60) Glucose Level 245 mg/dL (74-106) H Calcium Level 6.9 mg/dL (8.6-10.2) L Total Bilirubin 0.2 mg/dL (0.0-1.2) Aspartate Amino Transf (AST/SGOT) 43 U/L (5-40) H Alanine Aminotransferase (ALT/SGPT) 70 U/L (3-33) H Alkaline Phosphatase 22 U/L (35-104) L Total Protein 4.0 g/dL (6.6-8.7) L Albumin 2.1 g/dL (3.5-5.2) L Globulin 1.9 g/dL Albumin/Globulin Ratio 1.1 (1.0-2.7) Hepatitis A IgM Antibody Pending Hepatitis B Surface Antigen Pending Hepatitis B Core IgM Antibody Pending Hepatitis C Antibody Pending Height (Feet): 5 Height (Inches): 5.00 Weight (Pounds): 125 General Appearance: lethargic Cardiovascular: normal rate, tachycardia Respiratory/Chest: other - mech vent Abdominal Exam: soft Maeve Graves N.PChelsy Apr 12, 2016 11:06
--- NOTE | 2016-04-12 11:15 | Pulmonolgy Critical Care Note ---
Critical Care - Asmt/Plan Assessment/Plan: ASSESSMENT: acute hypoxemic resp failure--PS 18 tried until pt given sedation--[place] well x about 10-15 min bronchitis-viral vs bact--sput cx,NOW W YSt< u cx TOO THO NO UA--SEEN BY ID, rickie and diflucan added b cx neg to date. flu swab neg sev copd sev hyperinflation hypotension-etiol unclear, BETTER --off levophed tho may need support w sedation sl elev fhacdrou-prfyby-iawtbb ischemia-will need non invasive study when better abnl LFTs--abd brooks c/w cirrhosis--hep B core IgM positive!! ?false pos??-- studies pend ANEMIA-dropping H/H prev iron ok but TIBC low. stool ob pos--may need tx h/o HTN hyperglycemia-due to steroids PICC immune status--flu shot-yes prevnar 13 yes 03/01/15 PLAN dilaudid for sedation/titrate to comfortable breathing pattern f/u hep studies aggressive weaning case dw lung tx at [facility]-pt would have to be off vent and rehabed before tx can be considered. abg kcl repl check mag cont curr steroids cont diamox cont tube feeds Vital AF watch h/h--poss tx tomorrow consider gentle diuresis soon if bp can tolerate f/u cxs FULL CODE 1 hr spent at bedside adjusting vent, discussing w RN RT ID and coordinating care dw RN at bedside agustina madden explore poss t x to [place] per mothers request Critical Care - Objective Last 24 Hour Vital Signs Date Time Temp Pulse Resp B/P Pulse Ox O2 Delivery O2 Flow Rate FiO2 04/12/16 10:00 96 20 123/57 96 Mechanical Ventilator 30 04/12/16 09:00 95 17 123/62 93 Mechanical Ventilator 30 04/12/16 08:30 97 15 30 04/12/16 08:00 30 04/12/16 08:00 99.2 90 20 111/50 95 Mechanical Ventilator 30 04/12/16 08:00 93 04/12/16 07:00 90 17 116/49 93 Mechanical Ventilator 30 04/12/16 06:30 88 13 30 04/12/16 06:11 103 114/55 04/12/16 06:00 100 17 120/47 93 Mechanical Ventilator 30 1/5/17 05:05 101 13 30 04/12/16 05:00 98 17 114/50 96 Mechanical Ventilator 30 04/12/16 04:00 99.2 98 25 98/50 96 Mechanical Ventilator 30 04/12/16 04:00 100 04/12/16 04:00 30 04/12/16 03:11 98 13 30 04/12/16 03:00 98 17 97/48 95 Mechanical Ventilator 30 04/12/16 02:00 100 16 90/44 95 Mechanical Ventilator 30 04/12/16 01:15 102 16 81/47 95 Mechanical Ventilator 30 04/12/16 01:12 100 14 30 04/12/16 01:00 101 18 72/38 94 Mechanical Ventilator 30 04/12/16 00:45 98.9 110 29 95/45 92 Mechanical Ventilator 30 04/12/16 00:23 30 04/12/16 00:00 110 04/12/16 00:00 98.9 110 29 97/46 92 Mechanical Ventilator 30 04/11/16 23:22 104 13 30 04/11/16 23:00 104 25 88/40 95 Mechanical Ventilator 30 04/11/16 22:00 102 25 90/40 95 Mechanical Ventilator 30 04/11/16 21:53 105 108/43 04/11/16 21:19 103 15 30 04/11/16 21:00 105 26 100/43 95 Mechanical Ventilator 30 04/11/16 20:00 30 04/11/16 20:00 102 04/11/16 20:00 97.9 102 23 102/51 95 Mechanical Ventilator 30 04/11/16 19:26 104 17 30 04/11/16 19:00 104 21 100/52 95 Mechanical Ventilator 30 04/11/16 18:00 101 23 104/52 95 Mechanical Ventilator 30 04/11/16 17:05 102 17 96/55 95 Mechanical Ventilator 30 04/11/16 16:35 102 15 30 04/11/16 16:00 30 04/11/16 16:00 98.1 104 18 95/66 95 Mechanical Ventilator 30 04/11/16 16:00 105 04/11/16 15:10 103 18 92/51 95 Mechanical Ventilator 30 04/11/16 14:34 104 103/51 04/11/16 14:30 101 15 30 04/11/16 14:00 107 20 103/51 96 Mechanical Ventilator 30 04/11/16 13:04 105 20 109/59 96 Mechanical Ventilator 30 04/11/16 12:35 107 15 30 04/11/16 12:19 104 04/11/16 12:10 30 04/11/16 12:00 97.5 106 19 93/52 96 Mechanical Ventilator 30 04/11/16 11:25 110 18 30 Status: awake HEENT: atraumatic Lungs: clear, other - poor bs Heart: regular Abdomen: soft, non-tender Extremities: edema - 1-2+ LEs, UEs Micro: Microbiology Date/Time Source Procedure Growth Status 04/10/16 14:30 Blood Blood Culture - Preliminary NO GROWTH AFTER 24 HOURS Resulted 04/10/16 13:45 Blood Blood Culture - Preliminary NO GROWTH AFTER 24 HOURS Resulted 04/10/16 16:30 Sputum Gram Stain - Final Resulted 04/10/16 16:30 Sputum Culture - Preliminary YEAST Usual Upper Respiratory Nichole Resulted 04/10/16 16:00 Indwelling Cath Urine Culture - Preliminary Yeast Species Resulted Accucheck: 183 Critical Care - Subjective ROS Limited/Unobtainable: Yes - pt w incr work of breathing/gasping again after quieting doewn last pm w sm dose diliaudid. off levophed. h h dropping FI02: 30 Vent Support Breath Rate: 13 Vent Support Mode: AC Vent Tidal Volume: 500 Sputum Amount: Scant PEEP: 5.0 PIP: 24 Tube Feeding Amount: 55 I&O: Intake and Output 04/11/16 04/12/16 19:00 07:00 Intake Total 1702 ml 1844 ml Output Total 690 ml 530 ml Balance 1012 ml 1314 ml Free Water 150 ml 50 ml IV Total 742 ml 1109 ml Tube Feeding 660 ml 605 ml Other 150 ml 80 ml Output Urine Total 690 ml 530 ml # Bowel Movements 2 2 Subjective: pt comfortable, easily awakened, alert. uneventful night remains on levophed weaning attmepted-did not tolerate SIMV/PS or PS 22 by me no breath stacking mother (89yo) at bedside cxr no if-lungs somewhat decompressed c/w yest cxr ET-Tube: 7.5 ET Position: 22 RIZWAN DUDLEY Apr 12, 2016 11:15
--- NOTE | 2016-04-12 11:58 | Consultation ---
DATE OF CONSULTATION: 04/12/2016 INFECTIOUS DISEASE CONSULTATION: REFERRING PHYSICIAN: Estela Gomez M.D. REASON FOR CONSULTATION: Leukocytosis and pneumonia. HISTORY OF PRESENTING ILLNESS: This is a 66-year-old lady with history of chronic obstructive pulmonary disease being evaluated for a lung transplant, who came in with increasing shortness of breath, cough, fever, chills, and vomiting. She presented to [facility] where she was hypotensive. She was started on Levophed. She went into respiratory arrest and was intubated and transferred to the ICU. An Infectious Diseases consultation has been obtained for antibiotics. PAST MEDICAL HISTORY: 1. History of emphysema. 2. Hypertension. 3. Anxiety. 4. Osteoporosis. 5. History of appendectomy. SOCIAL HISTORY: She used to be a smoker. She also has secondhand smoke exposure. No history of alcohol or drug use. FAMILY HISTORY: Noncontributory. REVIEW OF SYSTEMS: Unable to obtain currently. MEDICATIONS: As an inpatient, the patient is on Solu-Medrol, Zosyn, intravenous vancomycin, Diamox, Ativan, diazepam, Dilaudid, insulin, Singulair, aspirin, subcutaneous heparin, ranitidine, Levophed, Zofran, Tylenol, and MiraLAX. ALLERGIES: 1. CODEINE. 2. Erythromycin. 3. Tetracycline. PHYSICAL EXAMINATION: VITAL SIGNS: Temperature of 99.2, T-max of 99.2, pulse of 90, respiratory 20, blood pressure 111/50, and O2 saturation of 95%. HEENT EXAMINATION: Pupils equally reactive to light and accommodation. Mouth appears clean without thrush. She is intubated. NECK: Supple. No adenopathy. No JVD. CARDIOVASCULAR: Regular rate and rhythm. No murmurs. LUNGS: Clear to auscultation bilaterally. No crackles. No wheezes. ABDOMEN: Soft, nontender. No organomegaly. EXTREMITIES: No cyanosis. No clubbing. No edema. LABORATORY DATA: White count of 28.4 on 04/11/2014, white count of 25.3, hemoglobin 8.1, hematocrit 26, MCV 100, platelet count of 186,000, neutrophils of 89%. Sodium 144, potassium 3.3, chloride 103, bicarb 35, BUN 58, creatinine 1.2, glucose 245, calcium 6.9. Total bilirubin 0.2. AST 43, ALT 70, alkaline phosphatase 22. Total protein 4. Albumin 2.1. UA is showing 0 to 2 white cells. Hepatitis A IgM antibody is negative. Hepatitis B surface antigen is pending. Hepatitis B core antibody is positive. Hepatitis B core IgM antibody is positive. Hepatitis C is pending. Sputum culture is growing , normal jaylon. Urine culture on 04/10/2016 growing yeast. On 04/10/2016, blood cultures are negative. On 04/02/2016, sputum culture grew normal jaylon. On 04/02/2016, rectal swab was negative for VRE. On 04/02/2016, nasal swab was negative for MRSA. Nasal swab was negative for influenza on 04/02/2016. On 04/02/2016, blood cultures are negative. Chest x-ray on 04/11/2016 showing lungs are clear. Echocardiogram, 2D no cardiac tamponade noted. On 04/03/2016, 2D echo showing trace aortic regurgitation, trace mitral regurgitation, mild tricuspid regurgitation, and mild pulmonary hypertension noted. ASSESSMENT: 1. This is a 66-year-old lady with history of end-stage chronic obstructive pulmonary disease who comes in with respiratory failure, would be concerned of widening community-acquired pneumonia versus atypical pneumonia. 2. Hypertension. 3. Respiratory failure. 4. Fungal urinary tract infection. PLAN: 1. We will order serum Legionella antibody. 2. We will order for mycoplasma serology. 3. We will start the patient on doxycycline and fluconazole. 4. We will follow up cultures and adjust antibiotics accordingly. I would like to thank, Dr. Estela Navas for this consultation. Swapnil Shepard JOB#: [id number] CC: Estela Gomez M.D.; Fax#: [phone]
[2016-04-12 11:59] LABS: ABG ALLEN TEST POSITIVE; ABG BASE EXCESS 7.7; ABG PCO2 70.6 mmHg (35.0-45.0)
[2016-04-12] MEDS: Montelukast 10mg tablet ORAL SCH (16:30)
--- NOTE | 2016-04-12 17:59 | Cardiology Progress Note ---
Assessment/Plan Problem List: (1) COPD exacerbation (2) Hypotension (3) Anemia (4) Hepatitis B (5) LFTs abnormal (6) Acute type 1 respiratory failure Status: stable, unchanged Status Narrative Mrs. Gallardo remains intubated, unable to be weaned from vent. Respiratory acidosis slightly worsened on abg today WBC remains elevated Weaned from pressors ECHO shows no pericardial effusion/ no tamponade. Troponins are negative and EKG shows no ischemic changes. L Assessment/Plan Continue supportive care. ? trach as pt unable to wean from vent. No further cardiac w/u for ischemia at this time Supplement K May need diuretics if i/os remain positive Subjective ROS Limited/Unobtainable: Yes Subjective Intubated ,awake Objective Last 24 Hour Vital Signs Date Time Temp Pulse Resp B/P Pulse Ox O2 Delivery O2 Flow Rate FiO2 04/12/16 17:30 86 14 84/54 97 Mechanical Ventilator 30 04/12/16 17:24 86 14 30 04/12/16 17:15 87 14 89/47 97 Mechanical Ventilator 30 04/12/16 17:00 86 16 100/46 97 Mechanical Ventilator 30 04/12/16 16:45 87 16 93/46 97 Mechanical Ventilator 30 04/12/16 16:30 92 14 101/48 95 Mechanical Ventilator 30 04/12/16 16:15 91 15 93/43 96 Mechanical Ventilator 30 04/12/16 16:00 83 04/12/16 16:00 94/43 04/12/16 16:00 30 04/12/16 16:00 98.6 89 20 94/43 96 Mechanical Ventilator 30 04/12/16 15:45 84 12 87/39 96 Mechanical Ventilator 30 04/12/16 15:30 86 14 99/46 98 Mechanical Ventilator 30 04/12/16 15:15 83 16 93/45 96 Mechanical Ventilator 30 04/12/16 15:00 80 14 93/44 96 Mechanical Ventilator 30 04/12/16 15:00 97/45 04/12/16 14:45 84 14 97/42 96 Mechanical Ventilator 30 04/12/16 14:40 88 19 30 04/12/16 14:30 84 15 83/40 98 Mechanical Ventilator 30 04/12/16 14:15 82 15 83/36 98 Mechanical Ventilator 30 04/12/16 14:15 83/36 04/12/16 14:00 86 18 79/39 97 Mechanical Ventilator 30 04/12/16 14:00 82 83/36 04/12/16 13:45 84 15 79/40 97 Mechanical Ventilator 30 04/12/16 13:45 79/40 04/12/16 13:30 71/41 04/12/16 13:30 84 18 71/41 97 Mechanical Ventilator 30 04/12/16 13:16 66/38 04/12/16 13:15 87 18 68/38 97 Mechanical Ventilator 30 04/12/16 13:00 88 18 67/36 97 Mechanical Ventilator 30 04/12/16 12:57 86 13 30 04/12/16 12:00 98.5 89 20 88/47 98 Mechanical Ventilator 30 04/12/16 12:00 30 04/12/16 12:00 94 04/12/16 11:00 30 04/12/16 11:00 93 20 103/54 97 Mechanical Ventilator 30 04/12/16 10:40 30 04/12/16 10:32 96 26 30 04/12/16 10:00 96 20 123/57 96 Mechanical Ventilator 30 04/12/16 09:00 95 17 123/62 93 Mechanical Ventilator 30 04/12/16 08:30 97 15 30 04/12/16 08:00 30 04/12/16 08:00 99.2 90 20 111/50 95 Mechanical Ventilator 30 04/12/16 08:00 93 04/12/16 07:00 90 17 116/49 93 Mechanical Ventilator 30 04/12/16 06:30 88 13 30 04/12/16 06:11 103 114/55 04/12/16 06:00 100 17 120/47 93 Mechanical Ventilator 30 04/12/16 05:05 101 13 30 04/12/16 05:00 98 17 114/50 96 Mechanical Ventilator 30 04/12/16 04:00 99.2 98 25 98/50 96 Mechanical Ventilator 30 04/12/16 04:00 100 04/12/16 04:00 30 04/12/16 03:11 98 13 30 04/12/16 03:00 98 17 97/48 95 Mechanical Ventilator 30 04/12/16 02:00 100 16 90/44 95 Mechanical Ventilator 30 04/12/16 01:15 102 16 81/47 95 Mechanical Ventilator 30 04/12/16 01:12 100 14 30 04/12/16 01:00 101 18 72/38 94 Mechanical Ventilator 30 04/12/16 00:45 98.9 110 29 95/45 92 Mechanical Ventilator 30 04/12/16 00:23 30 04/12/16 00:00 110 04/12/16 00:00 98.9 110 29 97/46 92 Mechanical Ventilator 30 04/11/16 23:22 104 13 30 04/11/16 23:00 104 25 88/40 95 Mechanical Ventilator 30 04/11/16 22:00 102 25 90/40 95 Mechanical Ventilator 30 04/11/16 21:53 105 108/43 04/11/16 21:19 103 15 30 04/11/16 21:00 105 26 100/43 95 Mechanical Ventilator 30 04/11/16 20:00 30 04/11/16 20:00 102 04/11/16 20:00 97.9 102 23 102/51 95 Mechanical Ventilator 30 04/11/16 19:26 104 17 30 04/11/16 19:00 104 21 100/52 95 Mechanical Ventilator 30 04/11/16 18:00 101 23 104/52 95 Mechanical Ventilator 30 General Appearance: no apparent distress, alert, on vent EENT: PERRL/EOMI, other - et tube, og tube Rhythm: NSR Cardiovascular: regular rhythm, no gallop/murmur Respiratory/Chest: other - scattered rhonchi anteriorly Abdomen: non tender, soft Extremities: moderate edema - 2+ pitting edema feet/ankles bilat Intake and Output 04/11/16 04/12/16 19:00 07:00 Intake Total 1702 ml 1844 ml Output Total 690 ml 530 ml Balance 1012 ml 1314 ml Free Water 150 ml 50 ml IV Total 742 ml 1109 ml Tube Feeding 660 ml 605 ml Other 150 ml 80 ml Output Urine Total 690 ml 530 ml # Bowel Movements 2 2 Laboratory Tests Test 04/12/16 04:00 04/12/16 11:15 04/12/16 11:50 White Blood Count 25.3 K/UL (4.8-10.8) *H Red Blood Count 2.59 M/UL (4.20-5.40) L Hemoglobin 8.1 G/DL (12.0-16.0) L Hematocrit 26.0 % (37.0-47.0) L Mean Corpuscular Volume 100 FL (80-99) H Mean Corpuscular Hemoglobin 31.4 PG (27.0-31.0) H Mean Corpuscular Hemoglobin Concent 31.3 G/DL (32.0-36.0) L Red Cell Distribution Width 13.7 % (11.6-14.8) Platelet Count 186 K/UL (150-450) Mean Platelet Volume 8.0 FL (6.5-10.1) Neutrophils (%) (Auto) % (45.0-75.0) Lymphocytes (%) (Auto) % (20.0-45.0) Monocytes (%) (Auto) % (1.0-10.0) Eosinophils (%) (Auto) % (0.0-3.0) Basophils (%) (Auto) % (0.0-2.0) Differential Total Cells Counted 100 Neutrophils % (Manual) 89 % (45-75) H Lymphocytes % (Manual) 2 % (20-45) L Monocytes % (Manual) 3 % (1-10) Eosinophils % (Manual) 0 % (0-3) Basophils % (Manual) 0 % (0-2) Band Neutrophils 6 % (0-8) Platelet Estimate Adequate Platelet Morphology Normal Hypochromasia 1+ Macrocytosis 1+ Sodium Level 144 mEQ/L (135-145) Potassium Level 3.3 mEQ/L (3.4-4.9) L Chloride Level 103 mEQ/L (98-107) Carbon Dioxide Level 35 mEQ/L (20-30) H Anion Gap 6 (5-15) Blood Urea Nitrogen 58 mg/dL (7-23) H Creatinine 1.2 mg/dL (0.5-0.9) H Estimat Glomerular Filtration Rate 44.7 mL/min (>60) Glucose Level 245 mg/dL (74-106) H Calcium Level 6.9 mg/dL (8.6-10.2) L Total Bilirubin 0.2 mg/dL (0.0-1.2) Aspartate Amino Transf (AST/SGOT) 43 U/L (5-40) H Alanine Aminotransferase (ALT/SGPT) 70 U/L (3-33) H Alkaline Phosphatase 22 U/L (35-104) L Total Protein 4.0 g/dL (6.6-8.7) L Albumin 2.1 g/dL (3.5-5.2) L Globulin 1.9 g/dL Albumin/Globulin Ratio 1.1 (1.0-2.7) Hepatitis A IgM Antibody Pending Hepatitis B Surface Antigen Pending Hepatitis B Core IgM Antibody Pending Hepatitis C Antibody Pending Coccidioides Antibody (Comp Fix) Pending Cryptococcus Antigen Pending Legionella pneumophila Group 1 Ab Pending Legionella pneumophilia IgM Group 1 Pending Mycoplasma pneumoniae IgG Antibody Pending Mycoplasma pneumoniae IgM Ab Titer Pending Arterial Blood pH 7.316 (7.350-7.450) Arterial Blood Partial Pressure CO2 70.6 mmHg (35.0-45.0) *H Arterial Blood Partial Pressure O2 81.7 mmHg (75.0-100.0) Arterial Blood HCO3 35.2 mmol/L (22.0-26.0) H Arterial Blood Oxygen Saturation 95.1 % (92.0-98.0) Arterial Blood Base Excess 7.7 Damián Test Positive Microbiology Date/Time Source Procedure Growth Status 04/10/16 14:30 Blood Blood Culture - Preliminary NO GROWTH AFTER 24 HOURS Resulted 04/10/16 13:45 Blood Blood Culture - Preliminary NO GROWTH AFTER 24 HOURS Resulted 04/10/16 16:30 Sputum Gram Stain - Final Resulted 04/10/16 16:30 Sputum Culture - Preliminary YEAST Usual Upper Respiratory Nichole Resulted 04/10/16 16:00 Indwelling Cath Urine Culture - Preliminary Yeast Species Resulted CARITO POTTS Apr 12, 2016 17:59
[2016-04-13] VITALS (96 sets, daily range): BP systolic 72–124; BP diastolic 29–86
[2016-04-13] MEDS: Solu-MEDROL 40mg Inj IVP SCH ×5 (00:24→23:32)
[2016-04-13] MEDS: NovoLOG Insulin Flexpen SUBQ SCH ×5 (00:26→23:38)
[2016-04-13 06:02] LABS: MEAN CORPUSCULAR HEMOGLOBIN 30.2 PG (27.0-31.0); MEAN CORPUSCULAR HGB CONC 30.3 G/DL (32.0-36.0); MEAN CORPUSCULAR VOLUME 100 FL (80-99); MEAN PLATELET VOLUME 8.1 FL (6.5-10.1); PLATELET COUNT 278 K/UL (150-450); RED BLOOD COUNT 2.72 M/UL (4.20-5.40); RED CELL DISTRIBUTION WIDTH 13.7 % (11.6-14.8)
[2016-04-13] MEDS ORDERED: Levophed 4mg/4mL Inj IV ONE (06:11)
[2016-04-13] MEDS: Vancomycin 750mg/D5W 250ml IVPB SCH ×4 (06:16→17:52)
[2016-04-13 06:20] LABS: ALBUMIN/GLOBULIN RATIO 1.2 (1.0-2.7); CALCIUM 7.1 mg/dL (8.6-10.2); CREATININE 1.3 mg/dL (0.5-0.9); GLOMERULAR FILTRATION RATE 40.7 mL/min (>60); POTASSIUM 3.5 mEQ/L (3.4-4.9); TOTAL PROTEIN 4.5 g/dL (6.6-8.7)
[2016-04-13 06:27] LABS: WHITE BLOOD COUNT 30.6 K/UL (4.8-10.8)
[2016-04-13] MEDS: Aspirin Baby 81mg NG SCH (09:25)
[2016-04-13] MEDS: Fluconazole 100mg tab ORAL SCH (09:26)
[2016-04-13] MEDS: Heparin 5000 units/ml inj SUBQ SCH ×2 (09:29→21:21)
[2016-04-13 10:12] LABS: BAND NEUTROPHILS % (MANUAL) 1 % (0-8); LYMPHOCYTES % (MANUAL) 1 % (20-45); NEUTROPHILS % (MANUAL) 94 % (45-75); TOTAL CELLS COUNTED 100
[2016-04-13 10:14] LABS: BASOPHILS % (MANUAL) 0 % (0-2); EOSINOPHILS % (MANUAL) 0 % (0-3); PLATELET ESTIMATE ADEQUATE; PLATELET MORPHOLOGY NORMAL
[2016-04-13 10:15] LABS: HYPOCHROMASIA 1+; MACROCYTES 1+
--- NOTE | 2016-04-13 10:42 | Infectious Diseases Prog Note ---
Assessment/Plan Assessment/Plan antibiotics : vancomycin iv, zosyn, doxycycline, fluconazole A 1. pneumonia 2. leucocytosis increased likely secondary to steroids 3. respiratory failure 4. COPD 5. fungal UTI 6. shock P 1. continue vancomycin iv, zosyn, doxycycline, fluconazole 2. will follow up cultures 3. stool for c.diff Subjective ROS Limited/Unobtainable: Yes Allergies: Coded Allergies: CODEINE (Verified Allergy, Unknown, 04/05/16) ERYTHROMYCIN BASE (Verified Allergy, Unknown, 04/05/16) TETRACYCLINE (Verified Allergy, Unknown, 04/05/16) Objective Vital Signs Last 24 Hour Vital Signs Date Time Temp Pulse Resp B/P Pulse Ox O2 Delivery O2 Flow Rate FiO2 04/13/16 10:20 113/49 04/13/16 09:45 100 20 94/36 98 Mechanical Ventilator 30 04/13/16 09:30 111 19 99/45 99 Mechanical Ventilator 30 04/13/16 09:18 107 27 30 04/13/16 09:16 95 04/13/16 09:15 109 31 100/48 95 Mechanical Ventilator 30 04/13/16 09:00 109 28 99/50 94 Mechanical Ventilator 30 04/13/16 08:45 109 28 122/45 95 Mechanical Ventilator 30 04/13/16 08:30 108 22 115/49 96 Mechanical Ventilator 30 04/13/16 08:15 108 24 121/49 95 Mechanical Ventilator 30 04/13/16 08:00 97.4 101 22 112/52 95 Mechanical Ventilator 30 04/13/16 08:00 30 04/13/16 08:00 94 04/13/16 07:45 99 14 117/66 97 Mechanical Ventilator 30 04/13/16 07:30 94 14 111/50 98 Mechanical Ventilator 30 04/13/16 07:30 98 30 30 04/13/16 07:30 99 25 Mechanical Ventilator 30 04/13/16 07:15 94 17 93/41 100 Mechanical Ventilator 30 04/13/16 07:00 96 18 97/47 100 Mechanical Ventilator 30 04/13/16 07:00 97/47 04/13/16 06:45 117 18 103/71 100 Mechanical Ventilator 30 04/13/16 06:30 111 18 110/69 100 Mechanical Ventilator 30 04/13/16 06:19 105/53 04/13/16 06:16 119/65 04/13/16 06:15 107 18 105/53 100 Mechanical Ventilator 30 04/13/16 06:00 98.3 112 18 119/65 100 Mechanical Ventilator 30 04/13/16 05:45 113 18 105/61 100 Mechanical Ventilator 30 04/13/16 05:30 111 18 99/67 100 Mechanical Ventilator 30 04/13/16 05:25 110 18 30 04/13/16 05:15 108 18 106/81 100 Mechanical Ventilator 30 04/13/16 05:00 79/64 04/13/16 05:00 119 18 86/60 100 Mechanical Ventilator 30 04/13/16 04:45 117 21 72/50 100 Mechanical Ventilator 30 04/13/16 04:30 119 17 76/49 99 Mechanical Ventilator 30 04/13/16 04:15 116 19 82/48 100 Mechanical Ventilator 30 04/13/16 04:00 30 04/13/16 04:00 115 04/13/16 04:00 85/59 04/13/16 04:00 97.3 119 20 85/59 97 Mechanical Ventilator 30 04/13/16 03:45 118 21 110/46 96 Mechanical Ventilator 30 04/13/16 03:30 111 20 115/54 98 Mechanical Ventilator 30 04/13/16 03:19 111 16 30 04/13/16 03:15 113 20 103/53 96 Mechanical Ventilator 30 04/13/16 03:02 125/46 04/13/16 03:00 110 20 114/53 97 Mechanical Ventilator 30 04/13/16 02:45 115 18 124/46 97 Mechanical Ventilator 30 04/13/16 02:30 113 21 114/56 96 Mechanical Ventilator 30 04/13/16 02:15 117 21 114/52 97 Mechanical Ventilator 30 04/13/16 02:00 113 21 116/57 97 Mechanical Ventilator 30 04/13/16 02:00 124/46 04/13/16 01:45 112 21 109/63 97 Mechanical Ventilator 30 04/13/16 01:30 112 21 81/58 97 Mechanical Ventilator 30 04/13/16 01:15 109 21 97/50 97 Mechanical Ventilator 30 04/13/16 01:13 111 18 30 04/13/16 01:00 108 21 108/55 97 Mechanical Ventilator 30 04/13/16 01:00 115/50 04/13/16 00:45 108 21 105/86 97 Mechanical Ventilator 30 04/13/16 00:30 108 21 115/50 97 Mechanical Ventilator 30 04/13/16 00:15 104 21 109/57 97 Mechanical Ventilator 30 04/13/16 00:14 92/65 04/13/16 00:00 112 04/13/16 00:00 30 04/13/16 00:00 96/65 04/13/16 00:00 112 21 96/65 97 Mechanical Ventilator 30 04/12/16 23:45 97.3 107 21 111/57 97 Mechanical Ventilator 30 04/12/16 23:30 96 21 101/43 97 Mechanical Ventilator 30 04/12/16 23:15 88 21 104/54 97 Mechanical Ventilator 30 04/12/16 23:00 109/52 04/12/16 23:00 86 21 109/52 97 Mechanical Ventilator 30 04/12/16 22:55 94 16 30 04/12/16 22:45 87 21 103/45 97 Mechanical Ventilator 30 04/12/16 22:30 87 22 107/46 98 Mechanical Ventilator 30 04/12/16 22:15 84 26 93/58 98 Mechanical Ventilator 30 04/12/16 22:00 94/40 04/12/16 22:00 79 20 94/40 98 Mechanical Ventilator 30 04/12/16 21:45 80 17 87/48 97 Mechanical Ventilator 30 04/12/16 21:30 90 18 87/48 95 Mechanical Ventilator 30 04/12/16 21:30 86 16 30 04/12/16 21:15 83 18 91/49 95 Mechanical Ventilator 30 04/12/16 21:00 93 16 89/39 99 Mechanical Ventilator 30 04/12/16 21:00 89/39 04/12/16 20:45 89 14 84/46 98 Mechanical Ventilator 30 04/12/16 20:30 95 17 88/42 100 Mechanical Ventilator 30 04/12/16 20:15 90 18 92/44 99 Mechanical Ventilator 30 04/12/16 20:00 99 04/12/16 20:00 99.0 99 21 112/47 95 Mechanical Ventilator 30 04/12/16 20:00 112/47 04/12/16 20:00 30 04/12/16 19:45 96 20 109/45 94 Mechanical Ventilator 30 04/12/16 19:32 98/47 04/12/16 19:30 87 18 93/40 99 Mechanical Ventilator 30 04/12/16 19:17 81 16 30 04/12/16 19:15 82 18 98/47 99 Mechanical Ventilator 30 04/12/16 19:00 89 17 103/49 97 Mechanical Ventilator 30 04/12/16 18:54 103/49 04/12/16 18:45 85 15 83/44 97 Mechanical Ventilator 30 04/12/16 18:30 84 16 91/44 97 Mechanical Ventilator 30 04/12/16 18:15 86 15 91/46 96 Mechanical Ventilator 30 04/12/16 18:00 86 16 98/48 96 Mechanical Ventilator 30 04/12/16 18:00 98/48 04/12/16 17:45 86 15 100/50 96 Mechanical Ventilator 30 04/12/16 17:30 86 14 84/54 97 Mechanical Ventilator 30 04/12/16 17:24 86 14 30 04/12/16 17:15 87 14 89/47 97 Mechanical Ventilator 30 04/12/16 17:01 100/46 04/12/16 17:00 86 16 100/46 97 Mechanical Ventilator 30 04/12/16 16:45 87 16 93/46 97 Mechanical Ventilator 30 04/12/16 16:30 92 14 101/48 95 Mechanical Ventilator 30 04/12/16 16:15 91 15 93/43 96 Mechanical Ventilator 30 04/12/16 16:00 83 04/12/16 16:00 94/43 04/12/16 16:00 30 04/12/16 16:00 98.6 89 20 94/43 96 Mechanical Ventilator 30 04/12/16 15:45 84 12 87/39 96 Mechanical Ventilator 30 04/12/16 15:30 86 14 99/46 98 Mechanical Ventilator 30 04/12/16 15:15 83 16 93/45 96 Mechanical Ventilator 30 04/12/16 15:00 80 14 93/44 96 Mechanical Ventilator 30 04/12/16 15:00 97/45 04/12/16 14:45 84 14 97/42 96 Mechanical Ventilator 30 04/12/16 14:40 88 19 30 04/12/16 14:30 84 15 83/40 98 Mechanical Ventilator 30 04/12/16 14:15 82 15 83/36 98 Mechanical Ventilator 30 04/12/16 14:15 83/36 04/12/16 14:00 86 18 79/39 97 Mechanical Ventilator 30 04/12/16 14:00 82 83/36 04/12/16 13:45 84 15 79/40 97 Mechanical Ventilator 30 04/12/16 13:45 79/40 04/12/16 13:30 71/41 04/12/16 13:30 84 18 71/41 97 Mechanical Ventilator 30 04/12/16 13:16 66/38 04/12/16 13:15 87 18 68/38 97 Mechanical Ventilator 30 04/12/16 13:00 88 18 67/36 97 Mechanical Ventilator 30 04/12/16 12:57 86 13 30 04/12/16 12:00 98.5 89 20 88/47 98 Mechanical Ventilator 30 04/12/16 12:00 30 04/12/16 12:00 94 04/12/16 11:00 30 04/12/16 11:00 93 20 103/54 97 Mechanical Ventilator 30 04/12/16 10:40 30 Height (Feet): 5 Height (Inches): 5.00 Weight (Pounds): 125 Respiratory/Chest: lungs clear Cardiovascular: normal rate, regular rhythm, no gallop/murmur Abdomen: soft, non tender Extremities: no edema, other - right arm PICC Microbiology Date/Time Source Procedure Growth Status 04/10/16 14:30 Blood Blood Culture - Preliminary NO GROWTH AFTER 48 HOURS Resulted 04/10/16 13:45 Blood Blood Culture - Preliminary NO GROWTH AFTER 48 HOURS Resulted 04/10/16 16:30 Sputum Gram Stain - Final Complete 04/10/16 16:30 Sputum Culture - Final Shreya Albicans Usual Upper Respiratory Nichole Complete 04/10/16 16:00 Indwelling Cath Urine Culture - Final Shreya Dubliniensis Complete Laboratory Tests Test 04/12/16 11:15 04/12/16 11:50 04/13/16 04:00 Coccidioides Antibody (Comp Fix) Pending Cryptococcus Antigen Pending Legionella pneumophila Group 1 Ab Pending Legionella pneumophilia IgM Group 1 Pending Mycoplasma pneumoniae IgG Antibody Pending Mycoplasma pneumoniae IgM Ab Titer Pending Arterial Blood pH 7.316 (7.350-7.450) Arterial Blood Partial Pressure CO2 70.6 mmHg (35.0-45.0) *H Arterial Blood Partial Pressure O2 81.7 mmHg (75.0-100.0) Arterial Blood HCO3 35.2 mmol/L (22.0-26.0) H Arterial Blood Oxygen Saturation 95.1 % (92.0-98.0) Arterial Blood Base Excess 7.7 Damián Test Positive White Blood Count 30.6 K/UL (4.8-10.8) *H Red Blood Count 2.72 M/UL (4.20-5.40) L Hemoglobin 8.2 G/DL (12.0-16.0) L Hematocrit 27.2 % (37.0-47.0) L Mean Corpuscular Volume 100 FL (80-99) H Mean Corpuscular Hemoglobin 30.2 PG (27.0-31.0) Mean Corpuscular Hemoglobin Concent 30.3 G/DL (32.0-36.0) L Red Cell Distribution Width 13.7 % (11.6-14.8) Platelet Count 278 K/UL (150-450) Mean Platelet Volume 8.1 FL (6.5-10.1) Neutrophils (%) (Auto) % (45.0-75.0) Lymphocytes (%) (Auto) % (20.0-45.0) Monocytes (%) (Auto) % (1.0-10.0) Eosinophils (%) (Auto) % (0.0-3.0) Basophils (%) (Auto) % (0.0-2.0) Differential Total Cells Counted 100 Neutrophils % (Manual) 94 % (45-75) H Lymphocytes % (Manual) 1 % (20-45) L Monocytes % (Manual) 4 % (1-10) Eosinophils % (Manual) 0 % (0-3) Basophils % (Manual) 0 % (0-2) Band Neutrophils 1 % (0-8) Platelet Estimate Adequate Platelet Morphology Normal Hypochromasia 1+ Macrocytosis 1+ Sodium Level 138 mEQ/L (135-145) Potassium Level 3.5 mEQ/L (3.4-4.9) Chloride Level 95 mEQ/L (98-107) L Carbon Dioxide Level 33 mEQ/L (20-30) H Anion Gap 10 (5-15) Blood Urea Nitrogen 60 mg/dL (7-23) H Creatinine 1.3 mg/dL (0.5-0.9) H Estimat Glomerular Filtration Rate 40.7 mL/min (>60) Glucose Level 283 mg/dL (74-106) H Calcium Level 7.1 mg/dL (8.6-10.2) L Total Bilirubin 0.3 mg/dL (0.0-1.2) Aspartate Amino Transf (AST/SGOT) 48 U/L (5-40) H Alanine Aminotransferase (ALT/SGPT) 84 U/L (3-33) H Alkaline Phosphatase 34 U/L (35-104) L Total Protein 4.5 g/dL (6.6-8.7) L Albumin 2.5 g/dL (3.5-5.2) L Globulin 2.0 g/dL Albumin/Globulin Ratio 1.2 (1.0-2.7) Vancomycin Level Trough 16.6 ug/mL (5.0-12.0) H ALEX GALEANA Apr 13, 2016 10:42
--- NOTE | 2016-04-13 13:28 | GI Progress Note ---
Assessment/Plan Problems: (1) Occult blood in stools ICD Codes: R19.5 - Other fecal abnormalities SNOMED: 28710852, 817366372 (2) Anemia ICD Codes: D64.9 - Anemia, unspecified SNOMED: 199167159 (3) Hepatitis B ICD Codes: B19.10 - Unspecified viral hepatitis B without hepatic coma SNOMED: 81447602 (4) LFTs abnormal ICD Codes: R79.89 - Other specified abnormal findings of blood chemistry SNOMED: 942602751 (5) Hypoalbuminemia ICD Codes: E88.09 - Other disorders of plasma-protein metabolism, not elsewhere classified SNOMED: 541772661 (6) COPD exacerbation ICD Codes: J44.1 - Chronic obstructive pulmonary disease with (acute) exacerbation SNOMED: 508611706, 206124181 (7) Hypotension ICD Codes: I95.9 - Hypotension, unspecified SNOMED: 21531908, 312493099 Qualifiers: Qualified Codes: I95.9 - Hypotension, unspecified (8) Acute type 1 respiratory failure ICD Codes: J96.01 - Acute respiratory failure with hypoxia SNOMED: 30460649, 659475842 (9) Dyspnea ICD Codes: R06.00 - Dyspnea, unspecified SNOMED: 123486025 Status: unchanged Status Narrative Discussed with Dr. Roy. Assessment/Plan Assessment Dysphagia Acute respiratory failure, currently with respiratory acidosis Acute COPD exacerbation SIRS (tachycardia, hypoxemia, alteration in mental status) CTA with no pulmonary embolism Hep B/C serologies abnormal History of HTN (+) OB Anemia Recommendations continue OGTFs follow labs elevate HOB possible GI w/u at later date Hep B core total, Igm >> positive - fu Hep B surface, if positive indicates Acute Hep B - fu Hep B DNA monitor LFTs monitor H&H, stable given OB + ppi benzo + fu labs Subjective Subjective limited Objective Last 24 Hour Vital Signs Date Time Temp Pulse Resp B/P Pulse Ox O2 Delivery O2 Flow Rate FiO2 04/13/16 13:15 104 20 104/47 98 Mechanical Ventilator 30 04/13/16 13:00 106 20 111/49 98 Mechanical Ventilator 30 04/13/16 12:59 105 19 30 04/13/16 12:45 104 20 108/53 98 Mechanical Ventilator 30 04/13/16 12:30 105 20 108/53 98 Mechanical Ventilator 30 04/13/16 12:15 103 20 103/50 98 Mechanical Ventilator 30 04/13/16 12:00 109 04/13/16 12:00 99.1 105 18 107/48 97 Mechanical Ventilator 30 04/13/16 12:00 107/48 04/13/16 12:00 30 04/13/16 11:45 106 20 103/53 98 Mechanical Ventilator 30 04/13/16 11:30 107 20 116/55 98 Mechanical Ventilator 30 04/13/16 11:23 108 18 30 04/13/16 11:15 107 20 116/55 98 Mechanical Ventilator 30 04/13/16 11:00 112 20 101/47 98 Mechanical Ventilator 30 04/13/16 11:00 101/47 04/13/16 10:45 119 21 112/48 98 Mechanical Ventilator 30 04/13/16 10:45 112/53 04/13/16 10:30 107 20 116/53 98 Mechanical Ventilator 30 04/13/16 10:20 113/49 04/13/16 10:15 104 21 113/49 98 Mechanical Ventilator 30 04/13/16 10:00 100 28 99/44 98 Mechanical Ventilator 30 04/13/16 09:45 100 20 94/36 98 Mechanical Ventilator 30 04/13/16 09:30 111 19 99/45 99 Mechanical Ventilator 30 04/13/16 09:18 107 27 30 04/13/16 09:16 95 04/13/16 09:15 109 31 100/48 95 Mechanical Ventilator 30 04/13/16 09:00 99/50 04/13/16 09:00 109 28 99/50 94 Mechanical Ventilator 30 04/13/16 08:45 109 28 122/45 95 Mechanical Ventilator 30 04/13/16 08:30 108 22 115/49 96 Mechanical Ventilator 30 04/13/16 08:15 108 24 121/49 95 Mechanical Ventilator 30 04/13/16 08:00 97.4 101 22 112/52 95 Mechanical Ventilator 30 04/13/16 08:00 30 04/13/16 08:00 94 04/13/16 08:00 121/49 04/13/16 07:45 99 14 117/66 97 Mechanical Ventilator 30 04/13/16 07:30 94 14 111/50 98 Mechanical Ventilator 30 04/13/16 07:30 98 30 30 04/13/16 07:30 99 25 Mechanical Ventilator 30 04/13/16 07:15 94 17 93/41 100 Mechanical Ventilator 30 04/13/16 07:00 96 18 97/47 100 Mechanical Ventilator 30 04/13/16 07:00 97/47 04/13/16 06:45 117 18 103/71 100 Mechanical Ventilator 30 04/13/16 06:30 111 18 110/69 100 Mechanical Ventilator 30 04/13/16 06:19 105/53 04/13/16 06:16 119/65 04/13/16 06:15 107 18 105/53 100 Mechanical Ventilator 30 04/13/16 06:00 98.3 112 18 119/65 100 Mechanical Ventilator 30 04/13/16 05:45 113 18 105/61 100 Mechanical Ventilator 30 04/13/16 05:30 111 18 99/67 100 Mechanical Ventilator 30 04/13/16 05:25 110 18 30 04/13/16 05:15 108 18 106/81 100 Mechanical Ventilator 30 04/13/16 05:00 79/64 04/13/16 05:00 119 18 86/60 100 Mechanical Ventilator 30 04/13/16 04:45 117 21 72/50 100 Mechanical Ventilator 30 04/13/16 04:30 119 17 76/49 99 Mechanical Ventilator 30 04/13/16 04:15 116 19 82/48 100 Mechanical Ventilator 30 04/13/16 04:00 30 04/13/16 04:00 115 04/13/16 04:00 85/59 04/13/16 04:00 97.3 119 20 85/59 97 Mechanical Ventilator 30 04/13/16 03:45 118 21 110/46 96 Mechanical Ventilator 30 04/13/16 03:30 111 20 115/54 98 Mechanical Ventilator 30 04/13/16 03:19 111 16 30 04/13/16 03:15 113 20 103/53 96 Mechanical Ventilator 30 04/13/16 03:02 125/46 04/13/16 03:00 110 20 114/53 97 Mechanical Ventilator 30 04/13/16 02:45 115 18 124/46 97 Mechanical Ventilator 30 04/13/16 02:30 113 21 114/56 96 Mechanical Ventilator 30 04/13/16 02:15 117 21 114/52 97 Mechanical Ventilator 30 04/13/16 02:00 113 21 116/57 97 Mechanical Ventilator 30 04/13/16 02:00 124/46 04/13/16 01:45 112 21 109/63 97 Mechanical Ventilator 30 04/13/16 01:30 112 21 81/58 97 Mechanical Ventilator 30 04/13/16 01:15 109 21 97/50 97 Mechanical Ventilator 30 04/13/16 01:13 111 18 30 04/13/16 01:00 108 21 108/55 97 Mechanical Ventilator 30 04/13/16 01:00 115/50 04/13/16 00:45 108 21 105/86 97 Mechanical Ventilator 30 04/13/16 00:30 108 21 115/50 97 Mechanical Ventilator 30 04/13/16 00:15 104 21 109/57 97 Mechanical Ventilator 30 04/13/16 00:14 92/65 04/13/16 00:00 112 04/13/16 00:00 30 04/13/16 00:00 96/65 04/13/16 00:00 112 21 96/65 97 Mechanical Ventilator 30 04/12/16 23:45 97.3 107 21 111/57 97 Mechanical Ventilator 30 04/12/16 23:30 96 21 101/43 97 Mechanical Ventilator 30 04/12/16 23:15 88 21 104/54 97 Mechanical Ventilator 30 04/12/16 23:00 109/52 04/12/16 23:00 86 21 109/52 97 Mechanical Ventilator 30 04/12/16 22:55 94 16 30 04/12/16 22:45 87 21 103/45 97 Mechanical Ventilator 30 04/12/16 22:30 87 22 107/46 98 Mechanical Ventilator 30 04/12/16 22:15 84 26 93/58 98 Mechanical Ventilator 30 04/12/16 22:00 94/40 04/12/16 22:00 79 20 94/40 98 Mechanical Ventilator 30 04/12/16 21:45 80 17 87/48 97 Mechanical Ventilator 30 04/12/16 21:30 90 18 87/48 95 Mechanical Ventilator 30 04/12/16 21:30 86 16 30 04/12/16 21:15 83 18 91/49 95 Mechanical Ventilator 30 04/12/16 21:00 93 16 89/39 99 Mechanical Ventilator 30 04/12/16 21:00 89/39 04/12/16 20:45 89 14 84/46 98 Mechanical Ventilator 30 04/12/16 20:30 95 17 88/42 100 Mechanical Ventilator 30 04/12/16 20:15 90 18 92/44 99 Mechanical Ventilator 30 04/12/16 20:00 99 04/12/16 20:00 99.0 99 21 112/47 95 Mechanical Ventilator 30 04/12/16 20:00 112/47 04/12/16 20:00 30 04/12/16 19:45 96 20 109/45 94 Mechanical Ventilator 30 04/12/16 19:32 98/47 04/12/16 19:30 87 18 93/40 99 Mechanical Ventilator 30 04/12/16 19:17 81 16 30 04/12/16 19:15 82 18 98/47 99 Mechanical Ventilator 30 04/12/16 19:00 89 17 103/49 97 Mechanical Ventilator 30 04/12/16 18:54 103/49 04/12/16 18:45 85 15 83/44 97 Mechanical Ventilator 30 04/12/16 18:30 84 16 91/44 97 Mechanical Ventilator 30 04/12/16 18:15 86 15 91/46 96 Mechanical Ventilator 30 04/12/16 18:00 86 16 98/48 96 Mechanical Ventilator 30 04/12/16 18:00 98/48 04/12/16 17:45 86 15 100/50 96 Mechanical Ventilator 30 04/12/16 17:30 86 14 84/54 97 Mechanical Ventilator 30 04/12/16 17:24 86 14 30 04/12/16 17:15 87 14 89/47 97 Mechanical Ventilator 30 04/12/16 17:01 100/46 04/12/16 17:00 86 16 100/46 97 Mechanical Ventilator 30 04/12/16 16:45 87 16 93/46 97 Mechanical Ventilator 30 04/12/16 16:30 92 14 101/48 95 Mechanical Ventilator 30 04/12/16 16:15 91 15 93/43 96 Mechanical Ventilator 30 04/12/16 16:00 83 04/12/16 16:00 94/43 04/12/16 16:00 30 04/12/16 16:00 98.6 89 20 94/43 96 Mechanical Ventilator 30 04/12/16 15:45 84 12 87/39 96 Mechanical Ventilator 30 04/12/16 15:30 86 14 99/46 98 Mechanical Ventilator 30 04/12/16 15:15 83 16 93/45 96 Mechanical Ventilator 30 04/12/16 15:00 80 14 93/44 96 Mechanical Ventilator 30 04/12/16 15:00 97/45 04/12/16 14:45 84 14 97/42 96 Mechanical Ventilator 30 04/12/16 14:40 88 19 30 04/12/16 14:30 84 15 83/40 98 Mechanical Ventilator 30 04/12/16 14:15 82 15 83/36 98 Mechanical Ventilator 30 04/12/16 14:15 83/36 04/12/16 14:00 86 18 79/39 97 Mechanical Ventilator 30 04/12/16 14:00 82 83/36 04/12/16 13:45 84 15 79/40 97 Mechanical Ventilator 30 04/12/16 13:45 79/40 04/12/16 13:30 71/41 04/12/16 13:30 84 18 71/41 97 Mechanical Ventilator 30 Intake and Output 04/12/16 04/13/16 19:00 07:00 Intake Total 2132.0 ml 2390.75 ml Output Total 720 ml 585 ml Balance 1412.0 ml 1805.75 ml Free Water 100 ml 100 ml IV Total 1377.0 ml 1800.75 ml Tube Feeding 605 ml 440 ml Other 50 ml 50 ml Output Urine Total 720 ml 585 ml # Bowel Movements 2 Laboratory Tests Test 04/13/16 04:00 White Blood Count 30.6 K/UL (4.8-10.8) *H Red Blood Count 2.72 M/UL (4.20-5.40) L Hemoglobin 8.2 G/DL (12.0-16.0) L Hematocrit 27.2 % (37.0-47.0) L Mean Corpuscular Volume 100 FL (80-99) H Mean Corpuscular Hemoglobin 30.2 PG (27.0-31.0) Mean Corpuscular Hemoglobin Concent 30.3 G/DL (32.0-36.0) L Red Cell Distribution Width 13.7 % (11.6-14.8) Platelet Count 278 K/UL (150-450) Mean Platelet Volume 8.1 FL (6.5-10.1) Neutrophils (%) (Auto) % (45.0-75.0) Lymphocytes (%) (Auto) % (20.0-45.0) Monocytes (%) (Auto) % (1.0-10.0) Eosinophils (%) (Auto) % (0.0-3.0) Basophils (%) (Auto) % (0.0-2.0) Differential Total Cells Counted 100 Neutrophils % (Manual) 94 % (45-75) H Lymphocytes % (Manual) 1 % (20-45) L Monocytes % (Manual) 4 % (1-10) Eosinophils % (Manual) 0 % (0-3) Basophils % (Manual) 0 % (0-2) Band Neutrophils 1 % (0-8) Platelet Estimate Adequate Platelet Morphology Normal Hypochromasia 1+ Macrocytosis 1+ Sodium Level 138 mEQ/L (135-145) Potassium Level 3.5 mEQ/L (3.4-4.9) Chloride Level 95 mEQ/L (98-107) L Carbon Dioxide Level 33 mEQ/L (20-30) H Anion Gap 10 (5-15) Blood Urea Nitrogen 60 mg/dL (7-23) H Creatinine 1.3 mg/dL (0.5-0.9) H Estimat Glomerular Filtration Rate 40.7 mL/min (>60) Glucose Level 283 mg/dL (74-106) H Calcium Level 7.1 mg/dL (8.6-10.2) L Total Bilirubin 0.3 mg/dL (0.0-1.2) Aspartate Amino Transf (AST/SGOT) 48 U/L (5-40) H Alanine Aminotransferase (ALT/SGPT) 84 U/L (3-33) H Alkaline Phosphatase 34 U/L (35-104) L Total Protein 4.5 g/dL (6.6-8.7) L Albumin 2.5 g/dL (3.5-5.2) L Globulin 2.0 g/dL Albumin/Globulin Ratio 1.2 (1.0-2.7) Vancomycin Level Trough 16.6 ug/mL (5.0-12.0) H Height (Feet): 5 Height (Inches): 5.00 Weight (Pounds): 125 General Appearance: lethargic Cardiovascular: tachycardia Respiratory/Chest: other - mech vent Abdominal Exam: other - OGT Maeve Graves N.PChelsy Apr 13, 2016 13:28
[2016-04-13] MEDS: Acetaminophen 650mg/20.3ml NG PRN ×2 (16:00→19:55)
[2016-04-13] MEDS: Montelukast 10mg tablet ORAL SCH (16:00)
[2016-04-13 16:41] LABS: ABG ALLEN TEST POSITIVE; ABG BASE EXCESS 1.1; ABG PCO2 66.5 mmHg (35.0-45.0)
[2016-04-13] MEDS ORDERED: Hydromorphone 0.5mg/0.5ml inj IVP PRN (19:00)
[2016-04-13 19:05] LABS: ABG ALLEN TEST POSITIVE; ABG BASE EXCESS 0; ABG PCO2 60.9 mmHg (35.0-45.0)
--- NOTE | 2016-04-13 20:53 | Pulmonolgy Critical Care Note ---
Critical Care - Asmt/Plan Assessment/Plan: ASSESSMENT: acute hypoxemic resp failure--vent changed to ac 18 flow 65L/m to decr I/E (was 1:1.7--NEEDS AT LEAST 1:3), bronchitis-viral vs bact--sput cx,NOW W YST< u cx TOO THO NO UA--SEEN BY ID, doxy and diflucan added (ILAN DUBLINENSIS should be sens) sev copd sev hyperinflation hypotension-back on MAX levophed-prob due to decr venous return from hyperinflation + sepsis sl elev boazeaaw-esdzwk-lhnrpi ischemia-will need non invasive study when better abnl LFTs--abd brooks c/w cirrhosis--hep B core IgM positive!! ?false pos??-- studies pend ANEMIA-dropping H/H--STABLE today h/o HTN\ cirrhosis positive Hep B IGG IGM--?false pos hyperglycemia-due to steroids PICC immune status--flu shot-yes prevnar 13 yes 03/01/15 PLAN sedate as needed recheck cxs-consider minibal. culturelle repeat cxr am f/u hep studies trach early next week case dw lung tx at [facility]-pt would have to be off vent and rehabed before tx can be considered. abg-freq cont curr steroids dc diamox cont tube feeds Vital AF watch h/h--tx if hgb < or =7 gentle ivf renal brooks renal eval f/u cxs FULL CODE 1 hr spent at bedside adjusting vent, discussing w RN RT ID and coordinating care dw RN at bedside dw RT explore poss tx to [place] per mothers request after pt trached if no progress then Critical Care - Objective Last 24 Hour Vital Signs Date Time Temp Pulse Resp B/P Pulse Ox O2 Delivery O2 Flow Rate FiO2 04/13/16 20:00 88 04/13/16 20:00 30 04/13/16 19:32 86/43 04/13/16 19:00 89 21 97/48 98 Mechanical Ventilator 30 04/13/16 18:57 101 23 40 04/13/16 18:45 102 21 78/53 98 Mechanical Ventilator 30 04/13/16 18:30 102 20 79/44 98 Mechanical Ventilator 30 04/13/16 18:15 104 20 72/44 98 Mechanical Ventilator 30 04/13/16 18:00 109 19 73/47 98 Mechanical Ventilator 30 04/13/16 18:00 30 04/13/16 17:45 110 19 80/48 98 Mechanical Ventilator 30 04/13/16 17:30 110 19 82/37 98 Mechanical Ventilator 30 04/13/16 17:22 110 20 40 04/13/16 17:15 108 19 81/37 98 Mechanical Ventilator 30 04/13/16 17:00 109 19 102/60 98 Mechanical Ventilator 30 04/13/16 16:47 99.8 04/13/16 16:45 109 19 102/60 98 Mechanical Ventilator 30 04/13/16 16:30 108 19 106/44 98 Mechanical Ventilator 30 04/13/16 16:15 107 19 92/46 98 Mechanical Ventilator 30 04/13/16 16:00 102.8 109 19 101/52 98 Mechanical Ventilator 30 04/13/16 16:00 30 04/13/16 16:00 106 04/13/16 15:45 109 19 91/35 98 Mechanical Ventilator 30 04/13/16 15:30 108 19 109/46 98 Mechanical Ventilator 30 04/13/16 15:19 111 17 30 04/13/16 15:15 108 19 109/46 98 Mechanical Ventilator 30 04/13/16 15:00 95/47 04/13/16 15:00 113 19 95/47 98 Mechanical Ventilator 30 04/13/16 14:48 94/45 04/13/16 14:45 109 19 106/49 98 Mechanical Ventilator 30 04/13/16 14:30 110 19 94/45 98 Mechanical Ventilator 30 04/13/16 14:15 106 19 109/49 98 Mechanical Ventilator 30 04/13/16 14:00 107 19 113/49 98 Mechanical Ventilator 30 04/13/16 14:00 109/49 04/13/16 13:45 107 19 113/49 98 Mechanical Ventilator 30 04/13/16 13:30 106 20 102/50 98 Mechanical Ventilator 30 04/13/16 13:15 104 20 104/47 98 Mechanical Ventilator 30 04/13/16 13:00 105/97 04/13/16 13:00 106 20 111/49 98 Mechanical Ventilator 30 04/13/16 12:59 105 19 30 04/13/16 12:45 104 20 108/53 98 Mechanical Ventilator 30 04/13/16 12:30 105 20 108/53 98 Mechanical Ventilator 30 04/13/16 12:15 103 20 103/50 98 Mechanical Ventilator 30 04/13/16 12:00 109 04/13/16 12:00 99.1 105 18 107/48 97 Mechanical Ventilator 30 04/13/16 12:00 107/48 04/13/16 12:00 30 04/13/16 11:45 106 20 103/53 98 Mechanical Ventilator 30 04/13/16 11:30 107 20 116/55 98 Mechanical Ventilator 30 04/13/16 11:23 108 18 30 04/13/16 11:15 107 20 116/55 98 Mechanical Ventilator 30 04/13/16 11:00 112 20 101/47 98 Mechanical Ventilator 30 04/13/16 11:00 101/47 04/13/16 10:45 119 21 112/48 98 Mechanical Ventilator 30 04/13/16 10:45 112/53 04/13/16 10:30 107 20 116/53 98 Mechanical Ventilator 30 04/13/16 10:20 113/49 04/13/16 10:15 104 21 113/49 98 Mechanical Ventilator 30 04/13/16 10:00 100 28 99/44 98 Mechanical Ventilator 30 04/13/16 09:45 100 20 94/36 98 Mechanical Ventilator 30 04/13/16 09:30 111 19 99/45 99 Mechanical Ventilator 30 04/13/16 09:18 107 27 30 04/13/16 09:16 95 04/13/16 09:15 109 31 100/48 95 Mechanical Ventilator 30 04/13/16 09:00 99/50 04/13/16 09:00 109 28 99/50 94 Mechanical Ventilator 30 04/13/16 08:45 109 28 122/45 95 Mechanical Ventilator 30 04/13/16 08:30 108 22 115/49 96 Mechanical Ventilator 30 04/13/16 08:15 108 24 121/49 95 Mechanical Ventilator 30 04/13/16 08:00 97.4 101 22 112/52 95 Mechanical Ventilator 30 04/13/16 08:00 30 04/13/16 08:00 94 04/13/16 08:00 121/49 04/13/16 07:45 99 14 117/66 97 Mechanical Ventilator 30 04/13/16 07:30 94 14 111/50 98 Mechanical Ventilator 30 04/13/16 07:30 98 30 30 04/13/16 07:30 99 25 Mechanical Ventilator 30 04/13/16 07:15 94 17 93/41 100 Mechanical Ventilator 30 04/13/16 07:00 96 18 97/47 100 Mechanical Ventilator 30 04/13/16 07:00 97/47 04/13/16 06:45 117 18 103/71 100 Mechanical Ventilator 30 04/13/16 06:30 111 18 110/69 100 Mechanical Ventilator 30 04/13/16 06:19 105/53 04/13/16 06:16 119/65 04/13/16 06:15 107 18 105/53 100 Mechanical Ventilator 30 04/13/16 06:00 98.3 112 18 119/65 100 Mechanical Ventilator 30 04/13/16 05:45 113 18 105/61 100 Mechanical Ventilator 30 04/13/16 05:30 111 18 99/67 100 Mechanical Ventilator 30 04/13/16 05:25 110 18 30 04/13/16 05:15 108 18 106/81 100 Mechanical Ventilator 30 04/13/16 05:00 79/64 04/13/16 05:00 119 18 86/60 100 Mechanical Ventilator 30 04/13/16 04:45 117 21 72/50 100 Mechanical Ventilator 30 04/13/16 04:30 119 17 76/49 99 Mechanical Ventilator 30 04/13/16 04:15 116 19 82/48 100 Mechanical Ventilator 30 04/13/16 04:00 30 04/13/16 04:00 115 04/13/16 04:00 85/59 04/13/16 04:00 97.3 119 20 85/59 97 Mechanical Ventilator 30 04/13/16 03:45 118 21 110/46 96 Mechanical Ventilator 30 04/13/16 03:30 111 20 115/54 98 Mechanical Ventilator 30 04/13/16 03:19 111 16 30 04/13/16 03:15 113 20 103/53 96 Mechanical Ventilator 30 04/13/16 03:02 125/46 04/13/16 03:00 110 20 114/53 97 Mechanical Ventilator 30 04/13/16 02:45 115 18 124/46 97 Mechanical Ventilator 30 04/13/16 02:30 113 21 114/56 96 Mechanical Ventilator 30 04/13/16 02:15 117 21 114/52 97 Mechanical Ventilator 30 04/13/16 02:00 113 21 116/57 97 Mechanical Ventilator 30 04/13/16 02:00 124/46 04/13/16 01:45 112 21 109/63 97 Mechanical Ventilator 30 04/13/16 01:30 112 21 81/58 97 Mechanical Ventilator 30 04/13/16 01:15 109 21 97/50 97 Mechanical Ventilator 30 04/13/16 01:13 111 18 30 04/13/16 01:00 108 21 108/55 97 Mechanical Ventilator 30 04/13/16 01:00 115/50 04/13/16 00:45 108 21 105/86 97 Mechanical Ventilator 30 04/13/16 00:30 108 21 115/50 97 Mechanical Ventilator 30 04/13/16 00:15 104 21 109/57 97 Mechanical Ventilator 30 04/13/16 00:14 92/65 04/13/16 00:00 112 04/13/16 00:00 30 04/13/16 00:00 96/65 04/13/16 00:00 112 21 96/65 97 Mechanical Ventilator 30 04/12/16 23:45 97.3 107 21 111/57 97 Mechanical Ventilator 30 04/12/16 23:30 96 21 101/43 97 Mechanical Ventilator 30 04/12/16 23:15 88 21 104/54 97 Mechanical Ventilator 30 04/12/16 23:00 109/52 04/12/16 23:00 86 21 109/52 97 Mechanical Ventilator 30 04/12/16 22:55 94 16 30 04/12/16 22:45 87 21 103/45 97 Mechanical Ventilator 30 04/12/16 22:30 87 22 107/46 98 Mechanical Ventilator 30 04/12/16 22:15 84 26 93/58 98 Mechanical Ventilator 30 04/12/16 22:00 94/40 04/12/16 22:00 79 20 94/40 98 Mechanical Ventilator 30 04/12/16 21:45 80 17 87/48 97 Mechanical Ventilator 30 04/12/16 21:30 90 18 87/48 95 Mechanical Ventilator 30 04/12/16 21:30 86 16 30 04/12/16 21:15 83 18 91/49 95 Mechanical Ventilator 30 04/12/16 21:00 93 16 89/39 99 Mechanical Ventilator 30 04/12/16 21:00 89/39 04/12/16 20:45 89 14 84/46 98 Mechanical Ventilator 30 Status: sedated Condition: critical, grave Lungs: clear Heart: regular Abdomen: soft, non-tender Extremities: edema Accucheck: 302 Critical Care - Subjective ROS Limited/Unobtainable: Yes FI02: 30 Vent Support Breath Rate: 20 Vent Support Mode: AC Vent Tidal Volume: 500 Sputum Amount: Scant PEEP: 5.0 PIP: 44 Tube Feeding Amount: 55 I&O: Intake and Output 04/12/16 04/13/16 19:00 07:00 Intake Total 2132.0 ml 2390.75 ml Output Total 720 ml 585 ml Balance 1412.0 ml 1805.75 ml Free Water 100 ml 100 ml IV Total 1377.0 ml 1800.75 ml Tube Feeding 605 ml 440 ml Other 50 ml 50 ml Output Urine Total 720 ml 585 ml # Bowel Movements 2 Subjective: pt comfortable, easily awakened, alert. uneventful night remains on levophed weaning attmepted-did not tolerate SIMV/PS or PS 22 by me no breath stacking mother (89yo) at bedside cxr no if-lungs somewhat decompressed c/w yest cxr ET-Tube: 7.5 ET Position: 22 RIZWAN DUDLEY Apr 13, 2016 20:53
[2016-04-13 21:24] LABS: APPEARANCE,URINE SLIGHTLY CLOUDY; KETONES,URINE NEGATIVE (NEGATIVE); LEUKOCYTE ESTERASE ,URINE NEGATIVE (NEGATIVE); NITRITE,URINE NEGATIVE (NEGATIVE); PH,URINE 6 (4.5-8.0); PROTEIN,URINE 1+ (NEGATIVE); UROBILINOGEN,URINE NORMAL MG/DL (0.0-1.0)
[2016-04-13 21:32] LABS: RBC,URINE 0-2 /HPF (0 - 2); WBC,URINE 0-2 /HPF (0 - 2)
[2016-04-13 21:33] LABS: ABG ALLEN TEST POSITIVE; ABG BASE EXCESS 2.8; ABG PCO2 65.1 mmHg (35.0-45.0)
[2016-04-13 21:33] LABS: BACTERIA,URINE FEW /HPF; YEAST,URINE MANY /HPF
[2016-04-13] MEDS: PHENYLEPHRINE IV SCH (22:00)
[2016-04-13] MEDS: D5W IV SCH (22:00)
[2016-04-13] MEDS: NS w/KCl 40mEq 1,000 ML IV SCH (22:15)
[2016-04-14] VITALS (89 sets, daily range): BP systolic 18–137; BP diastolic 28–74
[2016-04-14 05:05] LABS: MEAN CORPUSCULAR HEMOGLOBIN 30.4 PG (27.0-31.0); MEAN CORPUSCULAR VOLUME 98 FL (80-99); PLATELET COUNT 268 K/UL (150-450); RED BLOOD COUNT 2.47 M/UL (4.20-5.40); RED CELL DISTRIBUTION WIDTH 13.2 % (11.6-14.8)
[2016-04-14 05:25] LABS: WHITE BLOOD COUNT 24.2 K/UL (4.8-10.8)
[2016-04-14 05:29] LABS: ALBUMIN/GLOBULIN RATIO 1.4 (1.0-2.7); CALCIUM 6.8 mg/dL (8.6-10.2); CREATININE 1.1 mg/dL (0.5-0.9); GLOMERULAR FILTRATION RATE 49.4 mL/min (>60); TOTAL PROTEIN 4.1 g/dL (6.6-8.7)
[2016-04-14] MEDS: Solu-MEDROL 40mg Inj IVP SCH ×3 (05:47→17:55)
[2016-04-14] MEDS: Vancomycin 750mg/D5W 250ml IVPB SCH ×4 (05:48→17:24)
[2016-04-14] MEDS: NovoLOG Insulin Flexpen SUBQ SCH ×3 (05:54→17:58)
[2016-04-14] MEDS: NS w/KCl 40mEq 1,000 ML IV SCH ×2 (07:37→09:16)
[2016-04-14 08:31] LABS: ABG ALLEN TEST POSITIVE; ABG BASE EXCESS 1.1; ABG PCO2 66.3 mmHg (35.0-45.0)
[2016-04-14] MEDS: Lactobacillus-GG tablet ORAL SCH ×3 (08:59→17:56)
[2016-04-14] MEDS: Aspirin Baby 81mg NG SCH (08:59)
[2016-04-14] MEDS: Fluconazole 100mg tab ORAL SCH (08:59)
[2016-04-14] MEDS: Heparin 5000 units/ml inj SUBQ SCH (09:02)
[2016-04-14 09:19] LABS: MAGNESIUM 1.6 mg/dL (1.7-2.5); PHOSPHORUS 3.4 mg/dL (2.5-4.8)
[2016-04-14 09:21] LABS: BAND NEUTROPHILS % (MANUAL) 0 % (0-8); BASOPHILS % (MANUAL) 0 % (0-2); EOSINOPHILS % (MANUAL) 0 % (0-3); HYPOCHROMASIA 1+; LYMPHOCYTES % (MANUAL) 2 % (20-45); NEUTROPHILS % (MANUAL) 96 % (45-75); PLATELET ESTIMATE ADEQUATE; PLATELET MORPHOLOGY NORMAL; TOTAL CELLS COUNTED 100
[2016-04-14 09:24] LABS: ANISOCYTOSIS 1+
[2016-04-14] MEDS ORDERED: NS IVPB ONE (11:30)
[2016-04-14] MEDS ORDERED: CALCIUM GLUCONATE IVPB ONE (11:30)
--- NOTE | 2016-04-14 11:36 | Diagnostic Imaging Report ---
Indication:Elevated Bun and Creatinine. Technique: Grayscale and duplex Doppler imaging of the kidneys performed. Comparison: None Findings: Renal contour, size and echogenicity are within normal limits with both kidneys measuring slightly under 11 cm in length. There is no hydronephrosis demonstrated. There is a probable cyst in the upper pole the right kidney, somewhat poorly imaged on this examination and having approximate measurement of 1.7 cm x 2.4 cm. The IVC and urinary bladder are unremarkable. A few incidental liver cysts are noted in the right lobe. Impression: No evidence of obstructive nephropathy or other significant renal abnormalities. Probable right renal cyst Liver cysts
--- NOTE | 2016-04-14 13:30 | Infectious Diseases Prog Note ---
Assessment/Plan Assessment/Plan A: Sepsis, Septic shock Pneumonia Hypoxic respiratory failure Emphysema Anemia P: 1. continue vancomycin iv, Zosyn, doxycycline, fluconazole 2. will follow up cultures Subjective ROS Limited/Unobtainable: Yes Constitutional: Reports: fever, other - Jcdc=459.8 last evening Allergies: Coded Allergies: CODEINE (Verified Allergy, Unknown, 04/05/16) ERYTHROMYCIN BASE (Verified Allergy, Unknown, 04/05/16) TETRACYCLINE (Verified Allergy, Unknown, 04/05/16) Objective Vital Signs Last 24 Hour Vital Signs Date Time Temp Pulse Resp B/P Pulse Ox O2 Delivery O2 Flow Rate FiO2 04/14/16 12:46 136/69 04/14/16 11:15 83 18 126/56 97 Mechanical Ventilator 40 04/14/16 11:00 85 18 125/52 100 Mechanical Ventilator 30 04/14/16 11:00 125/56 04/14/16 10:47 84 19 40 04/14/16 10:45 98.5 83 18 118/59 100 Mechanical Ventilator 40 04/14/16 10:30 98.9 88 18 113/50 100 Mechanical Ventilator 40 04/14/16 10:15 83 18 114/52 100 Mechanical Ventilator 40 04/14/16 10:00 86 18 95/56 100 Mechanical Ventilator 40 04/14/16 10:00 95/56 04/14/16 10:00 40 04/14/16 09:45 87 19 117/45 100 Mechanical Ventilator 40 04/14/16 09:30 94 19 117/61 100 Mechanical Ventilator 40 04/14/16 09:15 102/68 04/14/16 09:15 99 19 122/58 100 Mechanical Ventilator 40 04/14/16 09:12 108 19 40 04/14/16 09:00 98 21 102/68 100 Mechanical Ventilator 40 04/14/16 08:45 99 21 102/70 100 Mechanical Ventilator 40 04/14/16 08:30 103 20 121/74 100 Mechanical Ventilator 40 04/14/16 08:15 96 20 104/46 100 Mechanical Ventilator 40 04/14/16 08:00 98.8 98 22 121/67 100 Mechanical Ventilator 40 04/14/16 08:00 89 04/14/16 08:00 121/67 04/14/16 08:00 40 04/14/16 07:45 94 20 108/54 100 Mechanical Ventilator 30 04/14/16 07:30 88 20 119/59 100 Mechanical Ventilator 30 04/14/16 07:15 97 18 120/43 100 Mechanical Ventilator 30 04/14/16 07:14 95 19 40 04/14/16 07:00 87 18 105/53 100 Mechanical Ventilator 30 04/14/16 07:00 119/59 04/14/16 06:52 105/53 04/14/16 06:45 87 18 105/53 100 Mechanical Ventilator 30 04/14/16 06:30 95 18 98/64 100 Mechanical Ventilator 30 04/14/16 06:15 90 18 88/64 100 Mechanical Ventilator 30 04/14/16 06:00 98.7 86 18 105/60 100 Mechanical Ventilator 30 04/14/16 06:00 105/65 04/14/16 05:46 106/60 04/14/16 05:45 86 18 105/65 100 Mechanical Ventilator 30 04/14/16 05:30 87 18 91/66 100 Mechanical Ventilator 30 04/14/16 05:15 83 18 106/60 100 Mechanical Ventilator 30 04/14/16 05:11 95 18 40 04/14/16 05:00 98.8 91 18 101/38 100 Mechanical Ventilator 30 04/14/16 05:00 101/38 04/14/16 04:45 90 18 102/28 100 Mechanical Ventilator 30 04/14/16 04:30 90 18 112/48 100 Mechanical Ventilator 30 04/14/16 04:15 91 18 113/68 100 Mechanical Ventilator 30 04/14/16 04:00 40 04/14/16 04:00 99.8 93 18 108/55 100 Mechanical Ventilator 30 04/14/16 04:00 108/55 04/14/16 04:00 88 04/14/16 03:45 92 18 65/50 100 Mechanical Ventilator 30 04/14/16 03:30 89 18 117/52 100 Mechanical Ventilator 30 04/14/16 03:15 79 18 117/53 100 Mechanical Ventilator 30 04/14/16 03:15 81 18 40 04/14/16 03:05 98/55 04/14/16 03:00 98/55 04/14/16 03:00 88 18 98/55 100 Mechanical Ventilator 30 04/14/16 02:45 92 18 111/40 100 Mechanical Ventilator 30 04/14/16 02:30 87 18 111/40 100 Mechanical Ventilator 30 04/14/16 02:15 87 18 116/59 100 Mechanical Ventilator 30 04/14/16 02:00 87 18 104/39 100 Mechanical Ventilator 30 04/14/16 02:00 104/39 04/14/16 01:45 86 18 110/57 100 Mechanical Ventilator 30 04/14/16 01:33 100.0 04/14/16 01:30 79 18 113/53 100 Mechanical Ventilator 30 04/14/16 01:15 79 18 114/53 100 Mechanical Ventilator 30 04/14/16 01:00 76 18 116/46 100 Mechanical Ventilator 30 04/14/16 01:00 116/46 04/14/16 00:51 77 18 40 04/14/16 00:45 78 18 121/47 100 Mechanical Ventilator 30 04/14/16 00:30 80 18 104/46 100 Mechanical Ventilator 30 04/14/16 00:24 113/29 04/14/16 00:15 80 18 113/63 100 Mechanical Ventilator 30 04/14/16 00:07 109/59 04/14/16 00:00 40 04/14/16 00:00 83 04/14/16 00:00 78 18 113/29 100 Mechanical Ventilator 30 04/13/16 23:45 100.5 78 18 104/46 100 Mechanical Ventilator 30 04/13/16 23:30 100.4 78 18 113/63 100 Mechanical Ventilator 30 04/13/16 23:15 79 18 113/29 100 Mechanical Ventilator 30 04/13/16 23:09 76 18 40 04/13/16 23:00 79 18 87/48 100 Mechanical Ventilator 30 04/13/16 23:00 118/46 04/13/16 22:45 79 18 87/48 100 Mechanical Ventilator 30 04/13/16 22:30 77 18 87/48 100 Mechanical Ventilator 30 04/13/16 22:15 79 18 88/48 100 Mechanical Ventilator 30 04/13/16 22:14 91/48 04/13/16 22:00 77 18 87/48 100 Mechanical Ventilator 30 04/13/16 22:00 87 91/48 04/13/16 21:45 84 18 104/53 100 Mechanical Ventilator 30 04/13/16 21:30 79 21 110/51 98 Mechanical Ventilator 30 04/13/16 21:26 81 18 40 04/13/16 21:15 85 21 98/45 98 Mechanical Ventilator 30 04/13/16 21:00 80 21 101/50 98 Mechanical Ventilator 30 04/13/16 20:53 100.1 04/13/16 20:45 80 21 101/50 98 Mechanical Ventilator 30 04/13/16 20:30 102.1 78 21 92/48 98 Mechanical Ventilator 30 04/13/16 20:30 40 04/13/16 20:15 79 21 92/47 98 Mechanical Ventilator 30 04/13/16 20:00 88 04/13/16 20:00 86 21 81/38 98 Mechanical Ventilator 30 04/13/16 20:00 30 04/13/16 19:45 93 21 82/41 98 Mechanical Ventilator 30 04/13/16 19:32 86/43 04/13/16 19:30 92 21 82/47 98 Mechanical Ventilator 30 04/13/16 19:15 93 21 80/45 98 Mechanical Ventilator 30 04/13/16 19:00 89 21 97/48 98 Mechanical Ventilator 30 04/13/16 18:57 101 23 40 04/13/16 18:45 102 21 78/53 98 Mechanical Ventilator 30 04/13/16 18:30 102 20 79/44 98 Mechanical Ventilator 30 04/13/16 18:15 104 20 72/44 98 Mechanical Ventilator 30 04/13/16 18:00 109 19 73/47 98 Mechanical Ventilator 30 04/13/16 18:00 30 04/13/16 17:45 110 19 80/48 98 Mechanical Ventilator 30 04/13/16 17:30 110 19 82/37 98 Mechanical Ventilator 30 04/13/16 17:22 110 20 40 04/13/16 17:15 108 19 81/37 98 Mechanical Ventilator 30 04/13/16 17:00 109 19 102/60 98 Mechanical Ventilator 30 04/13/16 16:45 109 19 102/60 98 Mechanical Ventilator 30 04/13/16 16:30 108 19 106/44 98 Mechanical Ventilator 30 04/13/16 16:15 107 19 92/46 98 Mechanical Ventilator 30 04/13/16 16:00 102.8 109 19 101/52 98 Mechanical Ventilator 30 04/13/16 16:00 30 04/13/16 16:00 106 04/13/16 15:45 109 19 91/35 98 Mechanical Ventilator 30 04/13/16 15:30 108 19 109/46 98 Mechanical Ventilator 30 04/13/16 15:19 111 17 30 04/13/16 15:15 108 19 109/46 98 Mechanical Ventilator 30 04/13/16 15:00 95/47 04/13/16 15:00 113 19 95/47 98 Mechanical Ventilator 30 04/13/16 14:48 94/45 04/13/16 14:45 109 19 106/49 98 Mechanical Ventilator 30 04/13/16 14:30 110 19 94/45 98 Mechanical Ventilator 30 04/13/16 14:15 106 19 109/49 98 Mechanical Ventilator 30 04/13/16 14:00 107 19 113/49 98 Mechanical Ventilator 30 04/13/16 14:00 109/49 04/13/16 13:45 107 19 113/49 98 Mechanical Ventilator 30 04/13/16 13:30 106 20 102/50 98 Mechanical Ventilator 30 Height (Feet): 5 Height (Inches): 5.00 Weight (Pounds): 125 HEENT: other - orally intubated Respiratory/Chest: decreased breath sounds, other - on ventilator Cardiovascular: normal rate Abdomen: soft, non tender Extremities: other - generalized edema, R arm PICC line Neurologic/Psychiatric: alert, responsive Microbiology Date/Time Source Procedure Growth Status 04/13/16 19:50 Stool Clostridium difficile Toxin Assay - Final Complete Laboratory Tests Test 04/13/16 16:33 04/13/16 19:00 04/13/16 20:05 04/13/16 21:30 Arterial Blood pH 7.256 (7.350-7.450) 7.268 (7.350-7.450) 7.284 (7.350-7.450) Arterial Blood Partial Pressure CO2 66.5 mmHg (35.0-45.0) *H 60.9 mmHg (35.0-45.0) *H 65.1 mmHg (35.0-45.0) *H Arterial Blood Partial Pressure O2 77.3 mmHg (75.0-100.0) 63.1 mmHg (75.0-100.0) L 110.3 mmHg (75.0-100.0) H Arterial Blood HCO3 28.9 mmol/L (22.0-26.0) H 27.2 mmol/L (22.0-26.0) H 30.2 mmol/L (22.0-26.0) H Arterial Blood Oxygen Saturation 93.2 % (92.0-98.0) 89.1 % (92.0-98.0) L 97.5 % (92.0-98.0) Arterial Blood Base Excess 1.1 0 2.8 Damián Test Positive Positive Positive Urine Color Pale yellow Urine Appearance Slightly cloudy Urine pH 6 (4.5-8.0) Urine Specific Dewitt 1.005 (1.005-1.035) Urine Protein 1+ (NEGATIVE) H Urine Glucose (UA) 4+ (NEGATIVE) H Urine Ketones Negative (NEGATIVE) Urine Occult Blood 3+ (NEGATIVE) H Urine Nitrite Negative (NEGATIVE) Urine Bilirubin Negative (NEGATIVE) Urine Urobilinogen Normal MG/DL (0.0-1.0) Urine Leukocyte Esterase Negative (NEGATIVE) Urine RBC 0-2 /HPF (0 - 2) Urine WBC 0-2 /HPF (0 - 2) Urine Squamous Epithelial Cells None /LPF (NONE/OCC) Urine Bacteria Few /HPF (NONE) Urine Yeast Many /HPF (NONE) H Test 04/14/16 04:00 04/14/16 08:17 White Blood Count 24.2 K/UL (4.8-10.8) *H Red Blood Count 2.47 M/UL (4.20-5.40) L Hemoglobin 7.5 G/DL (12.0-16.0) L Hematocrit 24.2 % (37.0-47.0) L Mean Corpuscular Volume 98 FL (80-99) Mean Corpuscular Hemoglobin 30.4 PG (27.0-31.0) Mean Corpuscular Hemoglobin Concent 31.0 G/DL (32.0-36.0) L Red Cell Distribution Width 13.2 % (11.6-14.8) Platelet Count 268 K/UL (150-450) Mean Platelet Volume 8.0 FL (6.5-10.1) Neutrophils (%) (Auto) % (45.0-75.0) Lymphocytes (%) (Auto) % (20.0-45.0) Monocytes (%) (Auto) % (1.0-10.0) Eosinophils (%) (Auto) % (0.0-3.0) Basophils (%) (Auto) % (0.0-2.0) Differential Total Cells Counted 100 Neutrophils % (Manual) 96 % (45-75) H Lymphocytes % (Manual) 2 % (20-45) L Monocytes % (Manual) 2 % (1-10) Eosinophils % (Manual) 0 % (0-3) Basophils % (Manual) 0 % (0-2) Band Neutrophils 0 % (0-8) Platelet Estimate Adequate Platelet Morphology Normal Hypochromasia 1+ Basophilic Stippling Occasional Anisocytosis 1+ Sodium Level 136 mEQ/L (135-145) Potassium Level 3.0 mEQ/L (3.4-4.9) L Chloride Level 96 mEQ/L (98-107) L Carbon Dioxide Level 31 mEQ/L (20-30) H Anion Gap 9 (5-15) Blood Urea Nitrogen 45 mg/dL (7-23) H Creatinine 1.1 mg/dL (0.5-0.9) H Estimat Glomerular Filtration Rate 49.4 mL/min (>60) Glucose Level 187 mg/dL (74-106) H Calcium Level 6.8 mg/dL (8.6-10.2) L Phosphorus Level 3.4 mg/dL (2.5-4.8) Magnesium Level 1.6 mg/dL (1.7-2.5) L Total Bilirubin 0.3 mg/dL (0.0-1.2) Aspartate Amino Transf (AST/SGOT) 48 U/L (5-40) H Alanine Aminotransferase (ALT/SGPT) 82 U/L (3-33) H Alkaline Phosphatase 23 U/L (35-104) L Total Protein 4.1 g/dL (6.6-8.7) L Albumin 2.4 g/dL (3.5-5.2) L Globulin 1.7 g/dL Albumin/Globulin Ratio 1.4 (1.0-2.7) Arterial Blood pH 7.260 (7.350-7.450) Arterial Blood Partial Pressure CO2 66.3 mmHg (35.0-45.0) *H Arterial Blood Partial Pressure O2 128.7 mmHg (75.0-100.0) H Arterial Blood HCO3 28.8 mmol/L (22.0-26.0) H Arterial Blood Oxygen Saturation 98.0 % (92.0-98.0) Arterial Blood Base Excess 1.1 Damián Test Positive Current Medications Medications (Trade) Dose Ordered Sig/Deyanira Route PRN Reason Start Time Stop Time Status Last Admin Dose Admin Acetaminophen (Tylenol) 650 mg EVERY 4 HOURS PRN NG temp of 100 and above 04/13/16 16:00 05/13/16 15:59 04/13/16 19:55 Acetaminophen (Tylenol) 650 mg Q4H PRN ORAL Mild Pain (Pain Scale 1-3) 04/02/16 19:45 05/02/16 19:44 04/14/16 00:34 Aspirin (ASA) 81 mg DAILY NG 04/03/16 09:00 05/03/16 08:59 04/14/16 08:59 Dextrose (Dextrose 50%) STAT PRN IV Hypoglycemia 04/03/16 13:45 05/03/16 13:44 Doxycycline Monohydrate (Vibramycin) 100 mg EVERY 12 HOURS ORAL 04/12/16 11:00 04/19/16 10:59 04/14/16 08:59 Fluconazole (Diflucan) 200 mg DAILY ORAL 04/13/16 09:00 04/20/16 08:59 04/14/16 08:59 Heparin Sodium (Porcine) (Heparin 5000 units/ml) 5,000 units EVERY 12 HOURS SUBQ 04/02/16 21:00 05/02/16 20:59 04/14/16 09:02 Hydromorphone HCl (Dilaudid) 0.5 mg Q2H PRN IVP MOD-SEV PAIN 04/13/16 19:00 04/17/16 15:14 Insulin Aspart (NovoLOG) EVERY 6 HOURS SUBQ 04/04/16 18:00 05/04/16 17:59 04/14/16 05:54 Lactobacillus Acidophilus 1 tab 1 tab THREE TIMES A DAY ORAL 04/14/16 09:00 05/14/16 08:59 04/14/16 08:59 Lorazepam (Ativan 2mg/ml 1ml) 1 mg EVERY 2 HOURS PRN IV For Anxiety 04/10/16 16:00 04/17/16 15:59 Methylprednisolone Sodium Succinate (Solu-MEDROL) 60 mg EVERY 6 HOURS IVP 04/12/16 06:00 05/12/16 05:59 04/14/16 05:47 Montelukast Sodium (Singulair) 10 mg QPM ORAL 04/03/16 16:30 05/03/16 16:29 04/13/16 16:00 Norepinephrine Bitartrate/ Dextrose (Levophed/D5W 250ml) 250 ml @ 0 mls/hr Q24H IV 04/02/16 20:30 05/02/16 20:29 04/14/16 12:46 Ondansetron HCl (Zofran ODT) 4 mg Q6H PRN ORAL Nausea & Vomiting 04/02/16 19:45 05/02/16 19:44 Phenylephrine HCl 50 mg/Dextrose 255 ml @ 0 mls/hr Q24H IV 04/13/16 22:00 05/13/16 21:59 Piperacillin Sod/ Tazobactam Sod 3.375 gm/Dextrose 100 ml @ 25 mls/hr Q8H IVPB 04/11/16 18:00 04/18/16 17:59 04/14/16 09:15 Polyethylene Glycol 17 gm 17 gm DAILYPRN PRN ORAL Constipation 04/02/16 19:45 05/02/16 19:44 Ranitidine HCl (Zantac) 150 mg DAILY ORAL 04/02/16 21:00 05/02/16 20:59 04/14/16 08:59 Sodium Chloride (NS w/KCl 40mEq) 1,000 ml @ 50 mls/hr Q20H IV 04/14/16 22:00 05/14/16 21:59 04/14/16 09:16 Vancomycin HCl 1 ea 1 ea DAILY PRN MISC Per rx protocol 04/11/16 16:15 05/11/16 16:14 Vancomycin HCl/ Dextrose (Vancomycin/D5W 250ml) 250 ml @ 167 mls/hr Q12H IVPB 04/11/16 18:00 04/16/16 17:59 04/14/16 05:48 BRITTNEY MG Apr 14, 2016 13:30
--- NOTE | 2016-04-14 13:53 | General Progress Note ---
Assessment/Plan Problem List: (1) Occult blood in stools ICD Codes: R19.5 - Other fecal abnormalities SNOMED: 61894623, 423546254 (2) Anemia ICD Codes: D64.9 - Anemia, unspecified SNOMED: 809857431 (3) Hepatitis B ICD Codes: B19.10 - Unspecified viral hepatitis B without hepatic coma SNOMED: 15814483 (4) LFTs abnormal ICD Codes: R79.89 - Other specified abnormal findings of blood chemistry SNOMED: 427496966 (5) Acute type 1 respiratory failure ICD Codes: J96.01 - Acute respiratory failure with hypoxia SNOMED: 81157686, 806885346 (6) COPD exacerbation ICD Codes: J44.1 - Chronic obstructive pulmonary disease with (acute) exacerbation SNOMED: 207853266, 862678040 Assessment/Plan black stool per nurses dc heparin and asa ppi bid transfuse repeat cbc in am may need EGD will fu fu hep serology Subjective ROS Limited/Unobtainable: No Allergies: Coded Allergies: CODEINE (Verified Allergy, Unknown, 04/05/16) ERYTHROMYCIN BASE (Verified Allergy, Unknown, 04/05/16) TETRACYCLINE (Verified Allergy, Unknown, 04/05/16) Objective Last 24 Hour Vital Signs Date Time Temp Pulse Resp B/P Pulse Ox O2 Delivery O2 Flow Rate FiO2 04/14/16 13:30 87 19 121/57 99 Mechanical Ventilator 40 04/14/16 13:15 88 20 18/61 100 Mechanical Ventilator 40 04/14/16 13:00 88 20 116/39 100 Mechanical Ventilator 40 04/14/16 13:00 122/65 04/14/16 12:46 138 43 40 04/14/16 12:46 136/69 04/14/16 12:45 86 19 40 04/14/16 12:45 84 20 122/65 100 Mechanical Ventilator 40 04/14/16 12:30 86 18 136/69 100 Mechanical Ventilator 40 04/14/16 12:15 82 18 129/50 100 Mechanical Ventilator 40 04/14/16 12:00 40 04/14/16 12:00 132/65 04/14/16 12:00 98.5 82 19 132/65 100 Mechanical Ventilator 40 04/14/16 11:45 84 19 122/65 100 Mechanical Ventilator 40 04/14/16 11:30 82 20 109/59 100 Mechanical Ventilator 40 04/14/16 11:15 83 18 126/56 97 Mechanical Ventilator 40 04/14/16 11:00 85 18 125/52 100 Mechanical Ventilator 30 04/14/16 11:00 125/56 04/14/16 10:47 84 19 40 04/14/16 10:45 98.5 83 18 118/59 100 Mechanical Ventilator 40 04/14/16 10:30 98.9 88 18 113/50 100 Mechanical Ventilator 40 04/14/16 10:15 83 18 114/52 100 Mechanical Ventilator 40 04/14/16 10:00 86 18 95/56 100 Mechanical Ventilator 40 04/14/16 10:00 95/56 04/14/16 10:00 40 04/14/16 09:45 87 19 117/45 100 Mechanical Ventilator 40 04/14/16 09:30 94 19 117/61 100 Mechanical Ventilator 40 04/14/16 09:15 102/68 04/14/16 09:15 99 19 122/58 100 Mechanical Ventilator 40 04/14/16 09:12 108 19 40 04/14/16 09:00 98 21 102/68 100 Mechanical Ventilator 40 04/14/16 08:45 99 21 102/70 100 Mechanical Ventilator 40 04/14/16 08:30 103 20 121/74 100 Mechanical Ventilator 40 04/14/16 08:15 96 20 104/46 100 Mechanical Ventilator 40 04/14/16 08:00 98.8 98 22 121/67 100 Mechanical Ventilator 40 04/14/16 08:00 89 04/14/16 08:00 121/67 04/14/16 08:00 40 04/14/16 07:45 94 20 108/54 100 Mechanical Ventilator 30 04/14/16 07:30 88 20 119/59 100 Mechanical Ventilator 30 04/14/16 07:15 97 18 120/43 100 Mechanical Ventilator 30 04/14/16 07:14 95 19 40 04/14/16 07:00 87 18 105/53 100 Mechanical Ventilator 30 04/14/16 07:00 119/59 04/14/16 06:52 105/53 04/14/16 06:45 87 18 105/53 100 Mechanical Ventilator 30 04/14/16 06:30 95 18 98/64 100 Mechanical Ventilator 30 04/14/16 06:15 90 18 88/64 100 Mechanical Ventilator 30 04/14/16 06:00 98.7 86 18 105/60 100 Mechanical Ventilator 30 04/14/16 06:00 105/65 04/14/16 05:46 106/60 04/14/16 05:45 86 18 105/65 100 Mechanical Ventilator 30 04/14/16 05:30 87 18 91/66 100 Mechanical Ventilator 30 04/14/16 05:15 83 18 106/60 100 Mechanical Ventilator 30 04/14/16 05:11 95 18 40 04/14/16 05:00 98.8 91 18 101/38 100 Mechanical Ventilator 30 04/14/16 05:00 101/38 04/14/16 04:45 90 18 102/28 100 Mechanical Ventilator 30 04/14/16 04:30 90 18 112/48 100 Mechanical Ventilator 30 04/14/16 04:15 91 18 113/68 100 Mechanical Ventilator 30 04/14/16 04:00 40 04/14/16 04:00 99.8 93 18 108/55 100 Mechanical Ventilator 30 04/14/16 04:00 108/55 04/14/16 04:00 88 04/14/16 03:45 92 18 65/50 100 Mechanical Ventilator 30 04/14/16 03:30 89 18 117/52 100 Mechanical Ventilator 30 04/14/16 03:15 79 18 117/53 100 Mechanical Ventilator 30 04/14/16 03:15 81 18 40 04/14/16 03:05 98/55 04/14/16 03:00 98/55 04/14/16 03:00 88 18 98/55 100 Mechanical Ventilator 30 04/14/16 02:45 92 18 111/40 100 Mechanical Ventilator 30 04/14/16 02:30 87 18 111/40 100 Mechanical Ventilator 30 04/14/16 02:15 87 18 116/59 100 Mechanical Ventilator 30 04/14/16 02:00 87 18 104/39 100 Mechanical Ventilator 30 04/14/16 02:00 104/39 04/14/16 01:45 86 18 110/57 100 Mechanical Ventilator 30 04/14/16 01:33 100.0 04/14/16 01:30 79 18 113/53 100 Mechanical Ventilator 30 04/14/16 01:15 79 18 114/53 100 Mechanical Ventilator 30 04/14/16 01:00 76 18 116/46 100 Mechanical Ventilator 30 04/14/16 01:00 116/46 04/14/16 00:51 77 18 40 04/14/16 00:45 78 18 121/47 100 Mechanical Ventilator 30 04/14/16 00:30 80 18 104/46 100 Mechanical Ventilator 30 04/14/16 00:24 113/29 04/14/16 00:15 80 18 113/63 100 Mechanical Ventilator 30 04/14/16 00:07 109/59 04/14/16 00:00 40 04/14/16 00:00 83 04/14/16 00:00 78 18 113/29 100 Mechanical Ventilator 30 04/13/16 23:45 100.5 78 18 104/46 100 Mechanical Ventilator 30 04/13/16 23:30 100.4 78 18 113/63 100 Mechanical Ventilator 30 04/13/16 23:15 79 18 113/29 100 Mechanical Ventilator 30 04/13/16 23:09 76 18 40 04/13/16 23:00 79 18 87/48 100 Mechanical Ventilator 30 04/13/16 23:00 118/46 04/13/16 22:45 79 18 87/48 100 Mechanical Ventilator 30 04/13/16 22:30 77 18 87/48 100 Mechanical Ventilator 30 04/13/16 22:15 79 18 88/48 100 Mechanical Ventilator 30 04/13/16 22:14 91/48 04/13/16 22:00 77 18 87/48 100 Mechanical Ventilator 30 04/13/16 22:00 87 91/48 04/13/16 21:45 84 18 104/53 100 Mechanical Ventilator 30 04/13/16 21:30 79 21 110/51 98 Mechanical Ventilator 30 04/13/16 21:26 81 18 40 04/13/16 21:15 85 21 98/45 98 Mechanical Ventilator 30 04/13/16 21:00 80 21 101/50 98 Mechanical Ventilator 30 04/13/16 20:53 100.1 04/13/16 20:45 80 21 101/50 98 Mechanical Ventilator 30 04/13/16 20:30 102.1 78 21 92/48 98 Mechanical Ventilator 30 04/13/16 20:30 40 04/13/16 20:15 79 21 92/47 98 Mechanical Ventilator 30 04/13/16 20:00 88 04/13/16 20:00 86 21 81/38 98 Mechanical Ventilator 30 04/13/16 20:00 30 04/13/16 19:45 93 21 82/41 98 Mechanical Ventilator 30 04/13/16 19:32 86/43 04/13/16 19:30 92 21 82/47 98 Mechanical Ventilator 30 04/13/16 19:15 93 21 80/45 98 Mechanical Ventilator 30 04/13/16 19:00 89 21 97/48 98 Mechanical Ventilator 30 04/13/16 18:57 101 23 40 04/13/16 18:45 102 21 78/53 98 Mechanical Ventilator 30 04/13/16 18:30 102 20 79/44 98 Mechanical Ventilator 30 04/13/16 18:15 104 20 72/44 98 Mechanical Ventilator 30 04/13/16 18:00 109 19 73/47 98 Mechanical Ventilator 30 04/13/16 18:00 30 04/13/16 17:45 110 19 80/48 98 Mechanical Ventilator 30 04/13/16 17:30 110 19 82/37 98 Mechanical Ventilator 30 04/13/16 17:22 110 20 40 04/13/16 17:15 108 19 81/37 98 Mechanical Ventilator 30 04/13/16 17:00 109 19 102/60 98 Mechanical Ventilator 30 04/13/16 16:45 109 19 102/60 98 Mechanical Ventilator 30 04/13/16 16:30 108 19 106/44 98 Mechanical Ventilator 30 04/13/16 16:15 107 19 92/46 98 Mechanical Ventilator 30 04/13/16 16:00 102.8 109 19 101/52 98 Mechanical Ventilator 30 04/13/16 16:00 30 04/13/16 16:00 106 04/13/16 15:45 109 19 91/35 98 Mechanical Ventilator 30 04/13/16 15:30 108 19 109/46 98 Mechanical Ventilator 30 04/13/16 15:19 111 17 30 04/13/16 15:15 108 19 109/46 98 Mechanical Ventilator 30 04/13/16 15:00 95/47 04/13/16 15:00 113 19 95/47 98 Mechanical Ventilator 30 04/13/16 14:48 94/45 04/13/16 14:45 109 19 106/49 98 Mechanical Ventilator 30 04/13/16 14:30 110 19 94/45 98 Mechanical Ventilator 30 04/13/16 14:15 106 19 109/49 98 Mechanical Ventilator 30 04/13/16 14:00 107 19 113/49 98 Mechanical Ventilator 30 04/13/16 14:00 109/49 Intake and Output 04/13/16 04/14/16 19:00 07:00 Intake Total 2266.25 ml 3630.0 ml Output Total 855 ml 1180 ml Balance 1411.25 ml 2450.0 ml Free Water 100 ml 100 ml IV Total 1636.25 ml 3140.0 ml Tube Feeding 440 ml 330 ml Other 90 ml 60 ml Output Urine Total 855 ml 1180 ml # Bowel Movements 1 5 Laboratory Tests 04/13/16 16:33: Arterial Blood pH 7.256L, Arterial Blood Partial Pressure CO2 66.5*H, Arterial Blood Partial Pressure O2 77.3, Arterial Blood HCO3 28.9H, Arterial Blood Oxygen Saturation 93.2, Arterial Blood Base Excess 1.1, Damián Test Positive 04/13/16 19:00: Arterial Blood pH 7.268L, Arterial Blood Partial Pressure CO2 60.9*H, Arterial Blood Partial Pressure O2 63.1L, Arterial Blood HCO3 27.2H, Arterial Blood Oxygen Saturation 89.1L, Arterial Blood Base Excess 0, Damián Test Positive 04/13/16 20:05: Urine Color Pale yellow, Urine Appearance Slightly cloudy, Urine pH 6, Urine Specific [place] 1.005, Urine Protein 1+H, Urine Glucose (UA) 4+H, Urine Ketones Negative, Urine Occult Blood 3+H, Urine Nitrite Negative, Urine Bilirubin Negative, Urine Urobilinogen Normal, Urine Leukocyte Esterase Negative , Urine RBC 0-2, Urine WBC 0-2, Urine Squamous Epithelial Cells None, Urine Bacteria Few, Urine Yeast ManyH 04/13/16 21:30: Arterial Blood pH 7.284L, Arterial Blood Partial Pressure CO2 65.1*H, Arterial Blood Partial Pressure O2 110.3H, Arterial Blood HCO3 30.2H, Arterial Blood Oxygen Saturation 97.5, Arterial Blood Base Excess 2.8, Damián Test Positive 04/14/16 04:00: White Blood Count 24.2*H, Red Blood Count 2.47L, Hemoglobin 7.5L, Hematocrit 24.2L, Mean Corpuscular Volume 98, Mean Corpuscular Hemoglobin 30.4, Mean Corpuscular Hemoglobin Concent 31.0L, Red Cell Distribution Width 13.2, Platelet Count 268, Mean Platelet Volume 8.0, Neutrophils (%) (Auto) , Lymphocytes (%) (Auto) , Monocytes (%) (Auto) , Eosinophils (%) (Auto) , Basophils (%) (Auto) , Differential Total Cells Counted 100, Neutrophils % ( Manual) 96H, Lymphocytes % (Manual) 2L, Monocytes % (Manual) 2, Eosinophils % ( Manual) 0, Basophils % (Manual) 0, Band Neutrophils 0, Platelet Estimate Adequate, Platelet Morphology Normal, Hypochromasia 1+, Basophilic Stippling Occasional, Anisocytosis 1+, Sodium Level 136, Potassium Level 3.0L, Chloride Level 96L, Carbon Dioxide Level 31H, Anion Gap 9, Blood Urea Nitrogen 45H, Creatinine 1.1H, Estimat Glomerular Filtration Rate 49.4, Glucose Level 187H, Calcium Level 6.8L, Phosphorus Level 3.4, Magnesium Level 1.6L, Total Bilirubin 0.3, Aspartate Amino Transf (AST/SGOT) 48H, Alanine Aminotransferase (ALT/SGPT) 82H, Alkaline Phosphatase 23L, Total Protein 4.1L, Albumin 2.4L, Globulin 1.7, Albumin/Globulin Ratio 1.4 04/14/16 08:17: Arterial Blood pH 7.260L, Arterial Blood Partial Pressure CO2 66.3*H, Arterial Blood Partial Pressure O2 128.7H, Arterial Blood HCO3 28.8H, Arterial Blood Oxygen Saturation 98.0, Arterial Blood Base Excess 1.1, Damián Test Positive Height (Feet): 5 Height (Inches): 5.00 Weight (Pounds): 125 General Appearance: lethargic EENT: normal ENT inspection Neck: supple Cardiovascular: normal rate Respiratory/Chest: decreased breath sounds Abdomen: normal bowel sounds, non tender, soft Extremities: non-tender REAGAN WALSH Apr 14, 2016 13:53
--- NOTE | 2016-04-14 14:21 | Cardiology Progress Note ---
Assessment/Plan Assessment/Plan (1) COPD exacerbation (2) Hypotension (3) Anemia (4) Hepatitis B (5) LFTs abnormal (6) Acute type 1 respiratory failur 7. hypotension in icu on a vent d/w rn respirtory acidosis remains an issue is till on pressors s/p tx cxr noted taper pressor to [place] adequtae map iv hydration echo no effusion iv abx vent support critically ill at risk of dying cx noted c diff neg Subjective ROS Limited/Unobtainable: Yes Subjective on the vent unalbe to communicated \ Objective Last 24 Hour Vital Signs Date Time Temp Pulse Resp B/P Pulse Ox O2 Delivery O2 Flow Rate FiO2 04/14/16 13:30 87 19 121/57 99 Mechanical Ventilator 40 04/14/16 13:15 88 20 18/61 100 Mechanical Ventilator 40 04/14/16 13:00 88 20 116/39 100 Mechanical Ventilator 40 04/14/16 13:00 122/65 04/14/16 12:46 138 43 40 04/14/16 12:46 136/69 04/14/16 12:45 86 19 40 04/14/16 12:45 84 20 122/65 100 Mechanical Ventilator 40 04/14/16 12:30 86 18 136/69 100 Mechanical Ventilator 40 04/14/16 12:15 82 18 129/50 100 Mechanical Ventilator 40 04/14/16 12:00 40 04/14/16 12:00 132/65 04/14/16 12:00 98.5 82 19 132/65 100 Mechanical Ventilator 40 04/14/16 11:45 84 19 122/65 100 Mechanical Ventilator 40 04/14/16 11:30 82 20 109/59 100 Mechanical Ventilator 40 04/14/16 11:15 83 18 126/56 97 Mechanical Ventilator 40 04/14/16 11:00 85 18 125/52 100 Mechanical Ventilator 30 04/14/16 11:00 125/56 04/14/16 10:47 84 19 40 04/14/16 10:45 98.5 83 18 118/59 100 Mechanical Ventilator 40 04/14/16 10:30 98.9 88 18 113/50 100 Mechanical Ventilator 40 04/14/16 10:15 83 18 114/52 100 Mechanical Ventilator 40 04/14/16 10:00 86 18 95/56 100 Mechanical Ventilator 40 04/14/16 10:00 95/56 04/14/16 10:00 40 04/14/16 09:45 87 19 117/45 100 Mechanical Ventilator 40 04/14/16 09:30 94 19 117/61 100 Mechanical Ventilator 40 04/14/16 09:15 102/68 04/14/16 09:15 99 19 122/58 100 Mechanical Ventilator 40 04/14/16 09:12 108 19 40 04/14/16 09:00 98 21 102/68 100 Mechanical Ventilator 40 04/14/16 08:45 99 21 102/70 100 Mechanical Ventilator 40 04/14/16 08:30 103 20 121/74 100 Mechanical Ventilator 40 04/14/16 08:15 96 20 104/46 100 Mechanical Ventilator 40 04/14/16 08:00 98.8 98 22 121/67 100 Mechanical Ventilator 40 04/14/16 08:00 89 04/14/16 08:00 121/67 04/14/16 08:00 40 04/14/16 07:45 94 20 108/54 100 Mechanical Ventilator 30 04/14/16 07:30 88 20 119/59 100 Mechanical Ventilator 30 04/14/16 07:15 97 18 120/43 100 Mechanical Ventilator 30 04/14/16 07:14 95 19 40 04/14/16 07:00 87 18 105/53 100 Mechanical Ventilator 30 04/14/16 07:00 119/59 04/14/16 06:52 105/53 04/14/16 06:45 87 18 105/53 100 Mechanical Ventilator 30 04/14/16 06:30 95 18 98/64 100 Mechanical Ventilator 30 04/14/16 06:15 90 18 88/64 100 Mechanical Ventilator 30 04/14/16 06:00 98.7 86 18 105/60 100 Mechanical Ventilator 30 04/14/16 06:00 105/65 04/14/16 05:46 106/60 04/14/16 05:45 86 18 105/65 100 Mechanical Ventilator 30 04/14/16 05:30 87 18 91/66 100 Mechanical Ventilator 30 04/14/16 05:15 83 18 106/60 100 Mechanical Ventilator 30 04/14/16 05:11 95 18 40 04/14/16 05:00 98.8 91 18 101/38 100 Mechanical Ventilator 30 04/14/16 05:00 101/38 04/14/16 04:45 90 18 102/28 100 Mechanical Ventilator 30 04/14/16 04:30 90 18 112/48 100 Mechanical Ventilator 30 04/14/16 04:15 91 18 113/68 100 Mechanical Ventilator 30 04/14/16 04:00 40 04/14/16 04:00 99.8 93 18 108/55 100 Mechanical Ventilator 30 04/14/16 04:00 108/55 04/14/16 04:00 88 04/14/16 03:45 92 18 65/50 100 Mechanical Ventilator 30 04/14/16 03:30 89 18 117/52 100 Mechanical Ventilator 30 04/14/16 03:15 79 18 117/53 100 Mechanical Ventilator 30 04/14/16 03:15 81 18 40 04/14/16 03:05 98/55 04/14/16 03:00 98/55 04/14/16 03:00 88 18 98/55 100 Mechanical Ventilator 30 04/14/16 02:45 92 18 111/40 100 Mechanical Ventilator 30 04/14/16 02:30 87 18 111/40 100 Mechanical Ventilator 30 04/14/16 02:15 87 18 116/59 100 Mechanical Ventilator 30 04/14/16 02:00 87 18 104/39 100 Mechanical Ventilator 30 04/14/16 02:00 104/39 04/14/16 01:45 86 18 110/57 100 Mechanical Ventilator 30 04/14/16 01:33 100.0 04/14/16 01:30 79 18 113/53 100 Mechanical Ventilator 30 04/14/16 01:15 79 18 114/53 100 Mechanical Ventilator 30 04/14/16 01:00 76 18 116/46 100 Mechanical Ventilator 30 04/14/16 01:00 116/46 04/14/16 00:51 77 18 40 04/14/16 00:45 78 18 121/47 100 Mechanical Ventilator 30 04/14/16 00:30 80 18 104/46 100 Mechanical Ventilator 30 04/14/16 00:24 113/29 04/14/16 00:15 80 18 113/63 100 Mechanical Ventilator 30 04/14/16 00:07 109/59 04/14/16 00:00 40 04/14/16 00:00 83 04/14/16 00:00 78 18 113/29 100 Mechanical Ventilator 30 04/13/16 23:45 100.5 78 18 104/46 100 Mechanical Ventilator 30 04/13/16 23:30 100.4 78 18 113/63 100 Mechanical Ventilator 30 04/13/16 23:15 79 18 113/29 100 Mechanical Ventilator 30 04/13/16 23:09 76 18 40 04/13/16 23:00 79 18 87/48 100 Mechanical Ventilator 30 04/13/16 23:00 118/46 04/13/16 22:45 79 18 87/48 100 Mechanical Ventilator 30 04/13/16 22:30 77 18 87/48 100 Mechanical Ventilator 30 04/13/16 22:15 79 18 88/48 100 Mechanical Ventilator 30 04/13/16 22:14 91/48 04/13/16 22:00 77 18 87/48 100 Mechanical Ventilator 30 04/13/16 22:00 87 91/48 04/13/16 21:45 84 18 104/53 100 Mechanical Ventilator 30 04/13/16 21:30 79 21 110/51 98 Mechanical Ventilator 30 04/13/16 21:26 81 18 40 04/13/16 21:15 85 21 98/45 98 Mechanical Ventilator 30 04/13/16 21:00 80 21 101/50 98 Mechanical Ventilator 30 04/13/16 20:53 100.1 04/13/16 20:45 80 21 101/50 98 Mechanical Ventilator 30 04/13/16 20:30 102.1 78 21 92/48 98 Mechanical Ventilator 30 04/13/16 20:30 40 04/13/16 20:15 79 21 92/47 98 Mechanical Ventilator 30 04/13/16 20:00 88 04/13/16 20:00 86 21 81/38 98 Mechanical Ventilator 30 04/13/16 20:00 30 04/13/16 19:45 93 21 82/41 98 Mechanical Ventilator 30 04/13/16 19:32 86/43 04/13/16 19:30 92 21 82/47 98 Mechanical Ventilator 30 04/13/16 19:15 93 21 80/45 98 Mechanical Ventilator 30 04/13/16 19:00 89 21 97/48 98 Mechanical Ventilator 30 04/13/16 18:57 101 23 40 04/13/16 18:45 102 21 78/53 98 Mechanical Ventilator 30 04/13/16 18:30 102 20 79/44 98 Mechanical Ventilator 30 04/13/16 18:15 104 20 72/44 98 Mechanical Ventilator 30 04/13/16 18:00 109 19 73/47 98 Mechanical Ventilator 30 04/13/16 18:00 30 04/13/16 17:45 110 19 80/48 98 Mechanical Ventilator 30 04/13/16 17:30 110 19 82/37 98 Mechanical Ventilator 30 04/13/16 17:22 110 20 40 04/13/16 17:15 108 19 81/37 98 Mechanical Ventilator 30 04/13/16 17:00 109 19 102/60 98 Mechanical Ventilator 30 04/13/16 16:45 109 19 102/60 98 Mechanical Ventilator 30 04/13/16 16:30 108 19 106/44 98 Mechanical Ventilator 30 04/13/16 16:15 107 19 92/46 98 Mechanical Ventilator 30 04/13/16 16:00 102.8 109 19 101/52 98 Mechanical Ventilator 30 04/13/16 16:00 30 04/13/16 16:00 106 04/13/16 15:45 109 19 91/35 98 Mechanical Ventilator 30 04/13/16 15:30 108 19 109/46 98 Mechanical Ventilator 30 04/13/16 15:19 111 17 30 04/13/16 15:15 108 19 109/46 98 Mechanical Ventilator 30 04/13/16 15:00 95/47 04/13/16 15:00 113 19 95/47 98 Mechanical Ventilator 30 04/13/16 14:48 94/45 04/13/16 14:45 109 19 106/49 98 Mechanical Ventilator 30 04/13/16 14:30 110 19 94/45 98 Mechanical Ventilator 30 General Appearance: alert, on vent Neck: supple Cardiovascular: normal rate, regular rhythm Respiratory/Chest: decreased breath sounds Abdomen: normal bowel sounds, non tender, soft Extremities: moderate edema Intake and Output 04/13/16 04/14/16 19:00 07:00 Intake Total 2266.25 ml 3630.0 ml Output Total 855 ml 1180 ml Balance 1411.25 ml 2450.0 ml Free Water 100 ml 100 ml IV Total 1636.25 ml 3140.0 ml Tube Feeding 440 ml 330 ml Other 90 ml 60 ml Output Urine Total 855 ml 1180 ml # Bowel Movements 1 5 Laboratory Tests Test 04/13/16 16:33 04/13/16 19:00 04/13/16 20:05 04/13/16 21:30 Arterial Blood pH 7.256 (7.350-7.450) 7.268 (7.350-7.450) 7.284 (7.350-7.450) Arterial Blood Partial Pressure CO2 66.5 mmHg (35.0-45.0) *H 60.9 mmHg (35.0-45.0) *H 65.1 mmHg (35.0-45.0) *H Arterial Blood Partial Pressure O2 77.3 mmHg (75.0-100.0) 63.1 mmHg (75.0-100.0) L 110.3 mmHg (75.0-100.0) H Arterial Blood HCO3 28.9 mmol/L (22.0-26.0) H 27.2 mmol/L (22.0-26.0) H 30.2 mmol/L (22.0-26.0) H Arterial Blood Oxygen Saturation 93.2 % (92.0-98.0) 89.1 % (92.0-98.0) L 97.5 % (92.0-98.0) Arterial Blood Base Excess 1.1 0 2.8 Damián Test Positive Positive Positive Urine Color Pale yellow Urine Appearance Slightly cloudy Urine pH 6 (4.5-8.0) Urine Specific [place] 1.005 (1.005-1.035) Urine Protein 1+ (NEGATIVE) H Urine Glucose (UA) 4+ (NEGATIVE) H Urine Ketones Negative (NEGATIVE) Urine Occult Blood 3+ (NEGATIVE) H Urine Nitrite Negative (NEGATIVE) Urine Bilirubin Negative (NEGATIVE) Urine Urobilinogen Normal MG/DL (0.0-1.0) Urine Leukocyte Esterase Negative (NEGATIVE) Urine RBC 0-2 /HPF (0 - 2) Urine WBC 0-2 /HPF (0 - 2) Urine Squamous Epithelial Cells None /LPF (NONE/OCC) Urine Bacteria Few /HPF (NONE) Urine Yeast Many /HPF (NONE) H Test 04/14/16 04:00 04/14/16 08:17 White Blood Count 24.2 K/UL (4.8-10.8) *H Red Blood Count 2.47 M/UL (4.20-5.40) L Hemoglobin 7.5 G/DL (12.0-16.0) L Hematocrit 24.2 % (37.0-47.0) L Mean Corpuscular Volume 98 FL (80-99) Mean Corpuscular Hemoglobin 30.4 PG (27.0-31.0) Mean Corpuscular Hemoglobin Concent 31.0 G/DL (32.0-36.0) L Red Cell Distribution Width 13.2 % (11.6-14.8) Platelet Count 268 K/UL (150-450) Mean Platelet Volume 8.0 FL (6.5-10.1) Neutrophils (%) (Auto) % (45.0-75.0) Lymphocytes (%) (Auto) % (20.0-45.0) Monocytes (%) (Auto) % (1.0-10.0) Eosinophils (%) (Auto) % (0.0-3.0) Basophils (%) (Auto) % (0.0-2.0) Differential Total Cells Counted 100 Neutrophils % (Manual) 96 % (45-75) H Lymphocytes % (Manual) 2 % (20-45) L Monocytes % (Manual) 2 % (1-10) Eosinophils % (Manual) 0 % (0-3) Basophils % (Manual) 0 % (0-2) Band Neutrophils 0 % (0-8) Platelet Estimate Adequate Platelet Morphology Normal Hypochromasia 1+ Basophilic Stippling Occasional Anisocytosis 1+ Sodium Level 136 mEQ/L (135-145) Potassium Level 3.0 mEQ/L (3.4-4.9) L Chloride Level 96 mEQ/L (98-107) L Carbon Dioxide Level 31 mEQ/L (20-30) H Anion Gap 9 (5-15) Blood Urea Nitrogen 45 mg/dL (7-23) H Creatinine 1.1 mg/dL (0.5-0.9) H Estimat Glomerular Filtration Rate 49.4 mL/min (>60) Glucose Level 187 mg/dL (74-106) H Calcium Level 6.8 mg/dL (8.6-10.2) L Phosphorus Level 3.4 mg/dL (2.5-4.8) Magnesium Level 1.6 mg/dL (1.7-2.5) L Total Bilirubin 0.3 mg/dL (0.0-1.2) Aspartate Amino Transf (AST/SGOT) 48 U/L (5-40) H Alanine Aminotransferase (ALT/SGPT) 82 U/L (3-33) H Alkaline Phosphatase 23 U/L (35-104) L Total Protein 4.1 g/dL (6.6-8.7) L Albumin 2.4 g/dL (3.5-5.2) L Globulin 1.7 g/dL Albumin/Globulin Ratio 1.4 (1.0-2.7) Arterial Blood pH 7.260 (7.350-7.450) Arterial Blood Partial Pressure CO2 66.3 mmHg (35.0-45.0) *H Arterial Blood Partial Pressure O2 128.7 mmHg (75.0-100.0) H Arterial Blood HCO3 28.8 mmol/L (22.0-26.0) H Arterial Blood Oxygen Saturation 98.0 % (92.0-98.0) Arterial Blood Base Excess 1.1 Damián Test Positive Microbiology Date/Time Source Procedure Growth Status 04/13/16 19:50 Stool Clostridium difficile Toxin Assay - Final Complete ANANT PETE Apr 14, 2016 14:21
[2016-04-14 15:10] LABS: ANION GAP 12 (5-15); CALCIUM 6.7 mg/dL (8.6-10.2); CARBON DIOXIDE 29 mEQ/L (20-30); CHLORIDE 88 mEQ/L (98-107); CREATININE 0.9 mg/dL (0.5-0.9); GLOMERULAR FILTRATION RATE > 60 mL/min (>60); HEMOLYSIS 4; POTASSIUM 3.4 mEQ/L (3.4-4.9); SODIUM 129 mEQ/L (135-145)
--- NOTE | 2016-04-14 15:57 | Consultation ---
Consult Note Assessment/Plan Full nephrology consult is dictated # [id number] JANAY WINSTON Apr 14, 2016 15:57
[2016-04-14] MEDS: Montelukast 10mg tablet ORAL SCH (16:22)
[2016-04-14] MEDS ORDERED: Tubing IV Secondary IV ONE (17:52)
[2016-04-14] MEDS ORDERED: NS 275ml ONE (17:52)
[2016-04-14] MEDS ORDERED: D5W 275ml ONE (17:57)
--- NOTE | 2016-04-14 20:22 | Pulmonolgy Critical Care Note ---
Critical Care - Asmt/Plan Assessment/Plan: ASSESSMENT: acute hypoxemic resp failure bronchitis-viral vs bact funguria sev copd sev hyperinflation hypotension-back on MAX levophed-prob due to decr venous return from hyperinflation + sepsis sl elev miyogryg-qgooop-bbtpex ischemia-will need non invasive study when better abnl LFTs--abd brooks c/w cirrhosis--hep B core IgM positive!! ?false pos??-- studies pend ANEMIA-dropping H/H--sp prbc today h/o HTN hyperglycemia-due to steroids PICC immune status--flu shot-yes prevnar 13 yes 03/01/15 PLAN sedate as needed recheck cxs-consider minibal. culturelle repeat cxr am-ordered f/u hep studies trach early next week abg-freq cont curr steroids no wean dc diamox cont tube feeds Vital AF watch h/h--tx if hgb < or =7 gentle ivf renal eval f/u cxs FULL CODE 45 minutes to coordinate care, discuss with RN, agustina pt mother over the phone this evening Critical Care - Objective Last 24 Hour Vital Signs Date Time Temp Pulse Resp B/P Pulse Ox O2 Delivery O2 Flow Rate FiO2 04/14/16 19:00 82 18 114/58 100 Mechanical Ventilator 40 04/14/16 19:00 114/58 04/14/16 18:45 77 13 114/58 100 Mechanical Ventilator 40 04/14/16 18:30 72 16 104/52 100 Mechanical Ventilator 40 04/14/16 18:15 72 18 121/55 100 Mechanical Ventilator 40 04/14/16 18:00 74 19 128/54 100 Mechanical Ventilator 40 04/14/16 17:55 128/54 04/14/16 17:45 73 17 127/58 100 Mechanical Ventilator 40 04/14/16 17:30 70 18 105/58 100 Mechanical Ventilator 40 04/14/16 17:25 106/57 04/14/16 17:21 99.2 04/14/16 17:15 73 17 124/55 100 Mechanical Ventilator 40 04/14/16 17:00 76 13 106/57 100 Mechanical Ventilator 40 04/14/16 17:00 106/57 04/14/16 16:45 70 14 106/54 100 Mechanical Ventilator 40 04/14/16 16:39 71 18 40 04/14/16 16:30 71 18 87/63 100 Mechanical Ventilator 40 04/14/16 16:15 71 16 111/49 100 Mechanical Ventilator 40 04/14/16 16:00 99.2 77 15 108/71 100 Mechanical Ventilator 40 04/14/16 16:00 40 04/14/16 16:00 108/71 04/14/16 16:00 78 04/14/16 15:45 80 14 111/58 100 Mechanical Ventilator 40 04/14/16 15:30 73 20 105/58 99 Mechanical Ventilator 40 04/14/16 15:15 76 20 113/53 99 Mechanical Ventilator 40 04/14/16 15:00 121/60 04/14/16 15:00 76 20 121/60 99 Mechanical Ventilator 40 04/14/16 14:58 73 18 40 04/14/16 14:45 82 20 125/55 99 Mechanical Ventilator 40 04/14/16 14:30 82 20 112/54 99 Mechanical Ventilator 40 04/14/16 14:15 84 20 123/58 99 Mechanical Ventilator 40 04/14/16 14:00 87 18 115/71 99 Mechanical Ventilator 40 04/14/16 14:00 115/71 04/14/16 13:45 85 20 118/50 99 Mechanical Ventilator 40 04/14/16 13:30 87 19 121/57 99 Mechanical Ventilator 40 04/14/16 13:15 88 20 18/61 100 Mechanical Ventilator 40 04/14/16 13:00 88 20 116/39 100 Mechanical Ventilator 40 04/14/16 13:00 122/65 04/14/16 12:46 74 18 40 04/14/16 12:46 136/69 04/14/16 12:45 86 19 40 04/14/16 12:45 84 20 122/65 100 Mechanical Ventilator 40 04/14/16 12:30 86 18 136/69 100 Mechanical Ventilator 40 04/14/16 12:15 82 18 129/50 100 Mechanical Ventilator 40 04/14/16 12:00 40 04/14/16 12:00 132/65 04/14/16 12:00 84 04/14/16 12:00 98.5 82 19 132/65 100 Mechanical Ventilator 40 04/14/16 11:45 84 19 122/65 100 Mechanical Ventilator 40 04/14/16 11:30 82 20 109/59 100 Mechanical Ventilator 40 04/14/16 11:15 83 18 126/56 97 Mechanical Ventilator 40 04/14/16 11:00 85 18 125/52 100 Mechanical Ventilator 30 04/14/16 11:00 125/56 04/14/16 10:47 84 19 40 04/14/16 10:45 98.5 83 18 118/59 100 Mechanical Ventilator 40 04/14/16 10:30 98.9 88 18 113/50 100 Mechanical Ventilator 40 04/14/16 10:15 83 18 114/52 100 Mechanical Ventilator 40 04/14/16 10:00 86 18 95/56 100 Mechanical Ventilator 40 04/14/16 10:00 95/56 04/14/16 10:00 40 04/14/16 09:45 87 19 117/45 100 Mechanical Ventilator 40 04/14/16 09:30 94 19 117/61 100 Mechanical Ventilator 40 04/14/16 09:15 102/68 04/14/16 09:15 99 19 122/58 100 Mechanical Ventilator 40 04/14/16 09:12 108 19 40 04/14/16 09:00 98 21 102/68 100 Mechanical Ventilator 40 04/14/16 08:45 99 21 102/70 100 Mechanical Ventilator 40 04/14/16 08:30 103 20 121/74 100 Mechanical Ventilator 40 04/14/16 08:15 96 20 104/46 100 Mechanical Ventilator 40 04/14/16 08:00 98.8 98 22 121/67 100 Mechanical Ventilator 40 04/14/16 08:00 89 04/14/16 08:00 121/67 04/14/16 08:00 40 04/14/16 07:45 94 20 108/54 100 Mechanical Ventilator 30 04/14/16 07:30 88 20 119/59 100 Mechanical Ventilator 30 04/14/16 07:15 97 18 120/43 100 Mechanical Ventilator 30 04/14/16 07:14 95 19 40 04/14/16 07:00 87 18 105/53 100 Mechanical Ventilator 30 04/14/16 07:00 119/59 04/14/16 06:52 105/53 04/14/16 06:45 87 18 105/53 100 Mechanical Ventilator 30 04/14/16 06:30 95 18 98/64 100 Mechanical Ventilator 30 04/14/16 06:15 90 18 88/64 100 Mechanical Ventilator 30 04/14/16 06:00 98.7 86 18 105/60 100 Mechanical Ventilator 30 04/14/16 06:00 105/65 04/14/16 05:46 106/60 04/14/16 05:45 86 18 105/65 100 Mechanical Ventilator 30 04/14/16 05:30 87 18 91/66 100 Mechanical Ventilator 30 04/14/16 05:15 83 18 106/60 100 Mechanical Ventilator 30 04/14/16 05:11 95 18 40 04/14/16 05:00 98.8 91 18 101/38 100 Mechanical Ventilator 30 04/14/16 05:00 101/38 04/14/16 04:45 90 18 102/28 100 Mechanical Ventilator 30 04/14/16 04:30 90 18 112/48 100 Mechanical Ventilator 30 04/14/16 04:15 91 18 113/68 100 Mechanical Ventilator 30 04/14/16 04:00 40 04/14/16 04:00 99.8 93 18 108/55 100 Mechanical Ventilator 30 04/14/16 04:00 108/55 04/14/16 04:00 88 04/14/16 03:45 92 18 65/50 100 Mechanical Ventilator 30 04/14/16 03:30 89 18 117/52 100 Mechanical Ventilator 30 04/14/16 03:15 79 18 117/53 100 Mechanical Ventilator 30 04/14/16 03:15 81 18 40 04/14/16 03:05 98/55 04/14/16 03:00 98/55 04/14/16 03:00 88 18 98/55 100 Mechanical Ventilator 30 04/14/16 02:45 92 18 111/40 100 Mechanical Ventilator 30 04/14/16 02:30 87 18 111/40 100 Mechanical Ventilator 30 04/14/16 02:15 87 18 116/59 100 Mechanical Ventilator 30 04/14/16 02:00 87 18 104/39 100 Mechanical Ventilator 30 04/14/16 02:00 104/39 04/14/16 01:45 86 18 110/57 100 Mechanical Ventilator 30 04/14/16 01:30 79 18 113/53 100 Mechanical Ventilator 30 04/14/16 01:15 79 18 114/53 100 Mechanical Ventilator 30 04/14/16 01:00 76 18 116/46 100 Mechanical Ventilator 30 04/14/16 01:00 116/46 04/14/16 00:51 77 18 40 04/14/16 00:45 78 18 121/47 100 Mechanical Ventilator 30 04/14/16 00:30 80 18 104/46 100 Mechanical Ventilator 30 04/14/16 00:24 113/29 04/14/16 00:15 80 18 113/63 100 Mechanical Ventilator 30 04/14/16 00:07 109/59 04/14/16 00:00 40 04/14/16 00:00 83 04/14/16 00:00 78 18 113/29 100 Mechanical Ventilator 30 04/13/16 23:45 100.5 78 18 104/46 100 Mechanical Ventilator 30 04/13/16 23:30 100.4 78 18 113/63 100 Mechanical Ventilator 30 04/13/16 23:15 79 18 113/29 100 Mechanical Ventilator 30 04/13/16 23:09 76 18 40 04/13/16 23:00 79 18 87/48 100 Mechanical Ventilator 30 04/13/16 23:00 118/46 04/13/16 22:45 79 18 87/48 100 Mechanical Ventilator 30 04/13/16 22:30 77 18 87/48 100 Mechanical Ventilator 30 04/13/16 22:15 79 18 88/48 100 Mechanical Ventilator 30 04/13/16 22:14 91/48 04/13/16 22:00 77 18 87/48 100 Mechanical Ventilator 30 04/13/16 22:00 87 91/48 04/13/16 21:45 84 18 104/53 100 Mechanical Ventilator 30 04/13/16 21:30 79 21 110/51 98 Mechanical Ventilator 30 04/13/16 21:26 81 18 40 04/13/16 21:15 85 21 98/45 98 Mechanical Ventilator 30 04/13/16 21:00 80 21 101/50 98 Mechanical Ventilator 30 04/13/16 20:53 100.1 04/13/16 20:45 80 21 101/50 98 Mechanical Ventilator 30 04/13/16 20:30 102.1 78 21 92/48 98 Mechanical Ventilator 30 04/13/16 20:30 40 Status: awake Condition: critical Lungs: rhonchi Heart: HR/BP stable Abdomen: soft, non-tender Extremities: edema Decubiti: location Micro: Microbiology Date/Time Source Procedure Growth Status 04/13/16 19:50 Stool Clostridium difficile Toxin Assay - Final Complete Accucheck: 224 Blood Sugars: BS not controlled Critical Care - Subjective ROS Limited/Unobtainable: Yes Condition: critical EKG Rhythm: Sinus Rhythm FI02: 40 Vent Support Breath Rate: 18 Vent Support Mode: AC Vent Tidal Volume: 550 Sputum Amount: Moderate PEEP: 5.0 PIP: 37 Tube Feeding Amount: 55 I&O: Intake and Output 04/13/16 04/14/16 19:00 07:00 Intake Total 2266.25 ml 3630.0 ml Output Total 855 ml 1180 ml Balance 1411.25 ml 2450.0 ml Free Water 100 ml 100 ml IV Total 1636.25 ml 3140.0 ml Tube Feeding 440 ml 330 ml Other 90 ml 60 ml Output Urine Total 855 ml 1180 ml # Bowel Movements 1 5 Subjective: seen and examined awake and less agitate sp prbc today on vent, not tolerating weaning at this time no bleeding off pressors positive uop no fever noted no new cultures available, WBC elevated no fever CXR: no new cxr 04/11 reviewed ET-Tube: 7.5 ET Position: 22 Labs: Current Medications Medications (Trade) Dose Ordered Sig/Deyanira Route PRN Reason Start Time Stop Time Status Last Admin Dose Admin Acetaminophen (Tylenol) 650 mg EVERY 4 HOURS PRN NG temp of 100 and above 04/13/16 16:00 05/13/16 15:59 04/13/16 19:55 Acetaminophen (Tylenol) 650 mg Q4H PRN ORAL Mild Pain (Pain Scale 1-3) 04/02/16 19:45 05/02/16 19:44 04/14/16 16:22 Dextrose (Dextrose 50%) STAT PRN IV Hypoglycemia 04/03/16 13:45 05/03/16 13:44 Doxycycline Monohydrate (Vibramycin) 100 mg EVERY 12 HOURS ORAL 04/12/16 11:00 04/19/16 10:59 04/14/16 08:59 Fluconazole (Diflucan) 200 mg DAILY ORAL 04/13/16 09:00 04/20/16 08:59 04/14/16 08:59 Hydromorphone HCl (Dilaudid) 0.5 mg Q2H PRN IVP MOD-SEV PAIN 04/13/16 19:00 04/17/16 15:14 Insulin Aspart (NovoLOG) EVERY 6 HOURS SUBQ 04/04/16 18:00 05/04/16 17:59 04/14/16 17:58 Lactobacillus Acidophilus 1 tab 1 tab THREE TIMES A DAY ORAL 04/14/16 09:00 05/14/16 08:59 04/14/16 17:56 Lorazepam (Ativan 2mg/ml 1ml) 1 mg EVERY 2 HOURS PRN IV For Anxiety 04/10/16 16:00 04/17/16 15:59 Methylprednisolone Sodium Succinate (Solu-MEDROL) 60 mg EVERY 6 HOURS IVP 04/12/16 06:00 05/12/16 05:59 04/14/16 17:55 Montelukast Sodium (Singulair) 10 mg QPM ORAL 04/03/16 16:30 05/03/16 16:29 04/14/16 16:22 Norepinephrine Bitartrate/ Dextrose (Levophed/D5W 250ml) 250 ml @ 0 mls/hr Q24H IV 04/02/16 20:30 05/02/16 20:29 04/14/16 17:25 Ondansetron HCl (Zofran ODT) 4 mg Q6H PRN ORAL Nausea & Vomiting 04/02/16 19:45 05/02/16 19:44 Pantoprazole (Protonix) 40 mg EVERY 12 HOURS IVP 04/14/16 21:00 05/14/16 20:59 Phenylephrine HCl 50 mg/Dextrose 255 ml @ 0 mls/hr Q24H IV 04/13/16 22:00 05/13/16 21:59 Piperacillin Sod/ Tazobactam Sod 3.375 gm/Dextrose 100 ml @ 25 mls/hr Q8H IVPB 04/11/16 18:00 04/18/16 17:59 04/14/16 17:55 Polyethylene Glycol 17 gm 17 gm DAILYPRN PRN ORAL Constipation 04/02/16 19:45 05/02/16 19:44 Sodium Chloride (NS w/KCl 40mEq) 1,000 ml @ 50 mls/hr Q20H IV 04/14/16 22:00 05/14/16 21:59 04/14/16 09:16 Vancomycin HCl 1 ea 1 ea DAILY PRN MISC Per rx protocol 04/11/16 16:15 05/11/16 16:14 Vancomycin HCl/ Dextrose (Vancomycin/D5W 250ml) 250 ml @ 167 mls/hr Q12H IVPB 04/11/16 18:00 04/16/16 17:59 04/14/16 17:24 Laboratory Tests Test 04/13/16 21:30 04/14/16 04:00 04/14/16 08:17 04/14/16 14:35 Arterial Blood pH 7.284 (7.350-7.450) 7.260 (7.350-7.450) Arterial Blood Partial Pressure CO2 65.1 mmHg (35.0-45.0) *H 66.3 mmHg (35.0-45.0) *H Arterial Blood Partial Pressure O2 110.3 mmHg (75.0-100.0) H 128.7 mmHg (75.0-100.0) H Arterial Blood HCO3 30.2 mmol/L (22.0-26.0) H 28.8 mmol/L (22.0-26.0) H Arterial Blood Oxygen Saturation 97.5 % (92.0-98.0) 98.0 % (92.0-98.0) Arterial Blood Base Excess 2.8 1.1 Damián Test Positive Positive White Blood Count 24.2 K/UL (4.8-10.8) *H Red Blood Count 2.47 M/UL (4.20-5.40) L Hemoglobin 7.5 G/DL (12.0-16.0) L Hematocrit 24.2 % (37.0-47.0) L Mean Corpuscular Volume 98 FL (80-99) Mean Corpuscular Hemoglobin 30.4 PG (27.0-31.0) Mean Corpuscular Hemoglobin Concent 31.0 G/DL (32.0-36.0) L Red Cell Distribution Width 13.2 % (11.6-14.8) Platelet Count 268 K/UL (150-450) Mean Platelet Volume 8.0 FL (6.5-10.1) Neutrophils (%) (Auto) % (45.0-75.0) Lymphocytes (%) (Auto) % (20.0-45.0) Monocytes (%) (Auto) % (1.0-10.0) Eosinophils (%) (Auto) % (0.0-3.0) Basophils (%) (Auto) % (0.0-2.0) Differential Total Cells Counted 100 Neutrophils % (Manual) 96 % (45-75) H Lymphocytes % (Manual) 2 % (20-45) L Monocytes % (Manual) 2 % (1-10) Eosinophils % (Manual) 0 % (0-3) Basophils % (Manual) 0 % (0-2) Band Neutrophils 0 % (0-8) Platelet Estimate Adequate Platelet Morphology Normal Hypochromasia 1+ Basophilic Stippling Occasional Anisocytosis 1+ Sodium Level 136 mEQ/L (135-145) 129 mEQ/L (135-145) L Potassium Level 3.0 mEQ/L (3.4-4.9) L 3.4 mEQ/L (3.4-4.9) Chloride Level 96 mEQ/L (98-107) L 88 mEQ/L (98-107) L Carbon Dioxide Level 31 mEQ/L (20-30) H 29 mEQ/L (20-30) Anion Gap 9 (5-15) 12 (5-15) Blood Urea Nitrogen 45 mg/dL (7-23) H 35 mg/dL (7-23) H Creatinine 1.1 mg/dL (0.5-0.9) H 0.9 mg/dL (0.5-0.9) Estimat Glomerular Filtration Rate 49.4 mL/min (>60) > 60 mL/min (>60) Glucose Level 187 mg/dL (74-106) H 395 mg/dL (74-106) #H Calcium Level 6.8 mg/dL (8.6-10.2) L 6.7 mg/dL (8.6-10.2) L Phosphorus Level 3.4 mg/dL (2.5-4.8) Magnesium Level 1.6 mg/dL (1.7-2.5) L Total Bilirubin 0.3 mg/dL (0.0-1.2) Aspartate Amino Transf (AST/SGOT) 48 U/L (5-40) H Alanine Aminotransferase (ALT/SGPT) 82 U/L (3-33) H Alkaline Phosphatase 23 U/L (35-104) L Total Protein 4.1 g/dL (6.6-8.7) L Albumin 2.4 g/dL (3.5-5.2) L Globulin 1.7 g/dL Albumin/Globulin Ratio 1.4 (1.0-2.7) Test 04/14/16 14:36 04/14/16 18:20 Stool Occult Blood Pending Urine Random Sodium < 10 mmol/L RACHANA BROOKS DO Apr 14, 2016 20:22
[2016-04-14] MEDS: Pantoprazole Inj IVP SCH (20:57)
[2016-04-14] MEDS: D5W IV SCH (22:00)
[2016-04-14] MEDS: PHENYLEPHRINE IV SCH (22:00)
--- NOTE | 2016-04-14 23:48 | Consultation ---
DATE OF CONSULTATION: 04/14/2016 NEPHROLOGY CONSULTATION CONSULTING PHYSICIAN: Bill Marshall M.D. REFERRING PHYSICIAN: Estela Gomez M.D. REASON OF CONSULT: Some degree of acute kidney injury. HISTORY OF PRESENT ILLNESS: This is a very pleasant, 66-year-old white female, patient of Dr. Estela Gomez, who has severe underlying COPD and apparently has been brought to the Emergency Room of [facility]. There is some shortness of breath, cough, and purulent sputum production and went into respiratory distress, had to be intubated and admitted to the intensive care unit. Has been receiving intravenous steroids and nebulizers. Her serum creatinine has gradually gone up to about 1.3 mg/dL from a baseline of 0.9 mg/dL. She has been started her on D5W and it seems the serum creatinine gradually has come down to about 0.9 again now. Blood sugar, however, is 395 and a serum sodium of 129. I have been asked to see her for these abnormal electrolytes. She is intubated on the ventilator. She is not able to give me a very fruitful history, however, she is very alert and seems to be oriented. PAST MEDICAL HISTORY: Significant for severe emphysema, longstanding smoking, hypertension, anxiety disorder, osteoporosis, and status post previous appendectomy in 2013. MEDICATIONS: At this point includes IV fluid from D5W has changed to 0.9.% with 40 mEq of KCl per liter at 50 mL/per hour, Zosyn 3.375 g IV q.8 hours, vancomycin per pharmacy protocol, aspirin 81 mg per NG tube daily, doxycycline 100 mg per NG q.12 hours, fluconazole 200 mg per NG daily, insulin sliding scale, lactobacillus 1 tablet per NG three times a day, Ativan 1 mg IV q.2 hours as needed, anxiety Solu-Medrol 60 mg IV q.6 hours, Singulair 10 mg per NG daily, Protonix 40 mg IV q.12 hours, and ranitidine 150 mg per NG daily. REVIEW OF SYSTEMS: It is impossible, she is intubated on the ventilator. PHYSICAL EXAMINATION: GENERAL: She does not seem to be in much acute distress, intubated in the bed of the intensive care unit. VITAL SIGNS: Blood pressure is 121/57, pulse of 87, respirations 19, and temperature is 98.5. HEENT: Head is atraumatic. Eyes, pupils reactive to light. No evidence of papilledema. Ear canals are clear. Tympanic membranes are intact. She has ET tube in place. NECK: Supple. Jugular venous distention is within normal limits. No cervical adenopathy. No thyromegaly. HEART: Regular rhythm. No gallop. LUNGS: Few rhonchi in both bases. Decreased air excursion bilaterally. ABDOMEN: Supple. Bowel sounds positive. No hepatosplenomegaly. EXTREMITIES: Lower extremity shows 1 to 2+ pedal edema. NEUROLOGIC: Cranial nerves seems to be intact she is moving all 4 extremities and seems to be oriented x3. LABORATORY DATA: Showing sodium of 129, potassium 3.4, CO2 of 88, chloride 88, and carbon dioxide of 29, BUN is 35, and creatinine 0.9. A blood glucose of 395 and phosphorus is 6.7. WBC is 24.2, hemoglobin is 7.5, hematocrit 24.2, and platelets of 268,000. Urinalysis is showing 4+ glucose, 3+ blood, no RBCs or WBCs. IMPRESSION: 1. Acute kidney injury, most likely due to prerenal state. However, with the discrepancy between urine and urine dip and urine microscopy for blood, we need to also consider possibility of rhabdomyolysis. 2. Clinically, she is euvolemic. 3. Hyponatremia, most likely due to hyperglycemia partially. The corrected serum sodium with glucose would be about 134. 4. There is a question of hepatitis B infection in this lady. 5. Severe emphysema with acute exacerbations requiring intubation for respiratory distress and respiratory failure. I agree with changing intravenous fluids to normal saline. I would check the urine lytes on her. We will also check a total CPK level. Again, I would like to thank you, Dr. Gomez, for letting me to be involved in the care of this very nice lady. Please do not hesitate to contact me if you have any questions. Bill Marshall M.D. DR: LYNDON JOB#: [id number] CC:
[2016-04-15] VITALS (23 sets, daily range): BP systolic 84–155; BP diastolic 45–89
[2016-04-15] MEDS: Solu-MEDROL 40mg Inj IVP SCH ×5 (00:30→23:46)
[2016-04-15] MEDS: NovoLOG Insulin Flexpen SUBQ SCH ×5 (00:35→23:49)
[2016-04-15] MEDS: NS w/KCl 40mEq 1,000 ML IV SCH ×2 (01:01→18:25)
[2016-04-15] MEDS: Vancomycin 750mg/D5W 250ml IVPB SCH ×4 (05:47→18:24)
[2016-04-15 07:36] LABS: ABG BASE EXCESS 0.4
[2016-04-15 07:37] LABS: MEAN CORPUSCULAR HEMOGLOBIN 30.8 PG (27.0-31.0); MEAN CORPUSCULAR HGB CONC 32.2 G/DL (32.0-36.0); MEAN CORPUSCULAR VOLUME 96 FL (80-99); MEAN PLATELET VOLUME 8.4 FL (6.5-10.1); PLATELET COUNT 232 K/UL (150-450); RED BLOOD COUNT 2.99 M/UL (4.20-5.40); RED CELL DISTRIBUTION WIDTH 13.5 % (11.6-14.8)
[2016-04-15 07:37] LABS: ABG ALLEN TEST POSITIVE
[2016-04-15 07:46] LABS: WHITE BLOOD COUNT 22.4 K/UL (4.8-10.8)
[2016-04-15 07:47] LABS: ANION GAP 11 (5-15); CARBON DIOXIDE 29 mEQ/L (20-30); CHLORIDE 93 mEQ/L (98-107); CREATININE 0.9 mg/dL (0.5-0.9); GLOMERULAR FILTRATION RATE > 60 mL/min (>60); HEMOLYSIS 4; MAGNESIUM 1.8 mg/dL (1.7-2.5); POTASSIUM 3.4 mEQ/L (3.4-4.9); SODIUM 133 mEQ/L (135-145)
[2016-04-15] MEDS: Acetaminophen 650mg/20.3ml NG PRN (08:23)
[2016-04-15] MEDS: Lactobacillus-GG tablet ORAL SCH ×3 (08:24→18:25)
[2016-04-15] MEDS: Fluconazole 100mg tab ORAL SCH (08:24)
[2016-04-15] MEDS: Pantoprazole Inj IVP SCH ×2 (08:24→21:34)
[2016-04-15 10:01] LABS: BAND NEUTROPHILS % (MANUAL) 1 % (0-8); BASOPHILS % (MANUAL) 0 % (0-2); EOSINOPHILS % (MANUAL) 0 % (0-3); HYPOCHROMASIA 1+; LYMPHOCYTES % (MANUAL) 1 % (20-45); NEUTROPHILS % (MANUAL) 96 % (45-75); PLATELET ESTIMATE ADEQUATE; PLATELET MORPHOLOGY NORMAL; TOTAL CELLS COUNTED 100
--- NOTE | 2016-04-15 10:29 | Diagnostic Imaging Report ---
Indication: Chest Pain. COPD Comparison: 04/11/16 A single view chest radiograph was obtained. Findings: Tubes and lines are stable. Heart size is stable. Lungs are hyperexpanded. Impression: No change from the previous exam. COPD
--- NOTE | 2016-04-15 10:31 | Diagnostic Imaging Report ---
Indication: COPD Technique: One view of the chest Comparison: 04/07/2016 Findings: Endotracheal and nasogastric tubes remain in place. PICC remains in place. Lungs remain hyperinflated, as in COPD. The heart size is normal. No acute infiltrates. No effusions. Findings are unchanged Impression: Unchanged, over one day, findings as above.
--- NOTE | 2016-04-15 10:36 | Infectious Diseases Prog Note ---
Assessment/Plan Assessment/Plan A: Sepsis, Septic shock improving, off pressors Pneumonia Hypoxic respiratory failure Emphysema Anemia P: 1. continue vancomycin iv, Zosyn, doxycycline, fluconazole 2. will follow up cultures Subjective ROS Limited/Unobtainable: Yes Allergies: Coded Allergies: CODEINE (Verified Allergy, Unknown, 04/05/16) ERYTHROMYCIN BASE (Verified Allergy, Unknown, 04/05/16) TETRACYCLINE (Verified Allergy, Unknown, 04/05/16) Objective Vital Signs Last 24 Hour Vital Signs Date Time Temp Pulse Resp B/P Pulse Ox O2 Delivery O2 Flow Rate FiO2 04/15/16 09:59 95 04/15/16 09:00 99.8 04/15/16 08:49 92 18 30 04/15/16 07:41 95 18 30 04/15/16 07:00 93 18 99/55 100 Mechanical Ventilator 40 04/15/16 06:00 95 15 101/59 100 Mechanical Ventilator 40 04/15/16 05:09 98 18 50 04/15/16 05:00 106 22 101/46 100 Mechanical Ventilator 40 04/15/16 04:00 99.8 108 8 109/49 100 Mechanical Ventilator 50 04/15/16 04:00 108 04/15/16 03:30 97 18 50 04/15/16 03:00 88 16 93/46 100 Mechanical Ventilator 50 04/15/16 02:00 101 21 114/67 100 Mechanical Ventilator 50 04/15/16 01:25 93 18 50 04/15/16 01:00 50 04/15/16 01:00 93 18 106/61 100 Mechanical Ventilator 50 04/15/16 00:00 99.0 92 18 107/62 100 Mechanical Ventilator 70 04/15/16 00:00 70 04/15/16 00:00 92 04/14/16 23:30 94 18 40 04/14/16 23:00 86 16 96/44 99 Mechanical Ventilator 40 04/14/16 22:30 89 14 98/46 99 Mechanical Ventilator 40 04/14/16 22:00 99 22 137/62 99 Mechanical Ventilator 40 04/14/16 22:00 93 98/46 04/14/16 22:00 137/62 04/14/16 21:30 95 24 112/62 100 Mechanical Ventilator 40 04/14/16 21:13 92 18 40 04/14/16 21:00 97 19 115/52 100 Mechanical Ventilator 40 04/14/16 21:00 115/52 04/14/16 20:44 97 20 132/59 100 Mechanical Ventilator 40 04/14/16 20:30 95 21 120/71 100 Mechanical Ventilator 40 04/14/16 20:15 98 23 111/67 100 Mechanical Ventilator 40 04/14/16 20:00 40 04/14/16 20:00 98.4 97 19 115/67 100 Mechanical Ventilator 40 04/14/16 20:00 115/67 04/14/16 20:00 94 04/14/16 19:45 99 19 137/61 100 Mechanical Ventilator 40 04/14/16 19:30 91 19 119/55 100 Mechanical Ventilator 40 04/14/16 19:30 93 18 40 04/14/16 19:15 93 18 115/52 100 Mechanical Ventilator 40 04/14/16 19:00 82 18 114/58 100 Mechanical Ventilator 40 04/14/16 19:00 114/58 04/14/16 18:45 77 13 114/58 100 Mechanical Ventilator 40 04/14/16 18:30 72 16 104/52 100 Mechanical Ventilator 40 04/14/16 18:15 72 18 121/55 100 Mechanical Ventilator 40 04/14/16 18:00 74 19 128/54 100 Mechanical Ventilator 40 04/14/16 17:55 128/54 04/14/16 17:45 73 17 127/58 100 Mechanical Ventilator 40 04/14/16 17:30 70 18 105/58 100 Mechanical Ventilator 40 04/14/16 17:25 106/57 04/14/16 17:21 99.2 04/14/16 17:15 73 17 124/55 100 Mechanical Ventilator 40 04/14/16 17:00 76 13 106/57 100 Mechanical Ventilator 40 04/14/16 17:00 106/57 04/14/16 16:45 70 14 106/54 100 Mechanical Ventilator 40 04/14/16 16:39 71 18 40 04/14/16 16:30 71 18 87/63 100 Mechanical Ventilator 40 04/14/16 16:15 71 16 111/49 100 Mechanical Ventilator 40 04/14/16 16:00 99.2 77 15 108/71 100 Mechanical Ventilator 40 04/14/16 16:00 40 04/14/16 16:00 108/71 04/14/16 16:00 78 04/14/16 15:45 80 14 111/58 100 Mechanical Ventilator 40 04/14/16 15:30 73 20 105/58 99 Mechanical Ventilator 40 04/14/16 15:15 76 20 113/53 99 Mechanical Ventilator 40 04/14/16 15:00 121/60 04/14/16 15:00 76 20 121/60 99 Mechanical Ventilator 40 04/14/16 14:58 73 18 40 04/14/16 14:45 82 20 125/55 99 Mechanical Ventilator 40 04/14/16 14:30 82 20 112/54 99 Mechanical Ventilator 40 04/14/16 14:15 84 20 123/58 99 Mechanical Ventilator 40 04/14/16 14:00 87 18 115/71 99 Mechanical Ventilator 40 04/14/16 14:00 115/71 04/14/16 13:45 85 20 118/50 99 Mechanical Ventilator 40 04/14/16 13:30 87 19 121/57 99 Mechanical Ventilator 40 04/14/16 13:15 88 20 18/61 100 Mechanical Ventilator 40 04/14/16 13:00 88 20 116/39 100 Mechanical Ventilator 40 04/14/16 13:00 122/65 04/14/16 12:46 74 18 40 04/14/16 12:46 136/69 04/14/16 12:45 86 19 40 04/14/16 12:45 84 20 122/65 100 Mechanical Ventilator 40 04/14/16 12:30 86 18 136/69 100 Mechanical Ventilator 40 04/14/16 12:15 82 18 129/50 100 Mechanical Ventilator 40 04/14/16 12:00 40 04/14/16 12:00 132/65 04/14/16 12:00 84 04/14/16 12:00 98.5 82 19 132/65 100 Mechanical Ventilator 40 04/14/16 11:45 84 19 122/65 100 Mechanical Ventilator 40 04/14/16 11:30 82 20 109/59 100 Mechanical Ventilator 40 04/14/16 11:15 83 18 126/56 97 Mechanical Ventilator 40 04/14/16 11:00 85 18 125/52 100 Mechanical Ventilator 30 04/14/16 11:00 125/56 04/14/16 10:47 84 19 40 04/14/16 10:45 98.5 83 18 118/59 100 Mechanical Ventilator 40 Height (Feet): 5 Height (Inches): 5.00 Weight (Pounds): 125 General Appearance: no acute distress HEENT: mucous membranes moist, other - orally intubated Respiratory/Chest: decreased breath sounds, other - on ventilator Cardiovascular: normal rate Abdomen: soft, non tender, other - orogastric tube feeding Extremities: other - generalized edema, R arm PICC line Neurologic/Psychiatric: other - sleeping Microbiology Date/Time Source Procedure Growth Status 04/13/16 21:00 Blood Blood Culture - Preliminary NO GROWTH AFTER 24 HOURS Resulted 04/13/16 19:50 Stool Clostridium difficile Toxin Assay - Final Complete Laboratory Tests Test 04/14/16 14:35 04/14/16 14:36 04/14/16 18:20 04/15/16 04:30 Sodium Level 129 mEQ/L (135-145) L 133 mEQ/L (135-145) L Potassium Level 3.4 mEQ/L (3.4-4.9) 3.4 mEQ/L (3.4-4.9) Chloride Level 88 mEQ/L (98-107) L 93 mEQ/L (98-107) L Carbon Dioxide Level 29 mEQ/L (20-30) 29 mEQ/L (20-30) Anion Gap 12 (5-15) 11 (5-15) Blood Urea Nitrogen 35 mg/dL (7-23) H 38 mg/dL (7-23) H Creatinine 0.9 mg/dL (0.5-0.9) 0.9 mg/dL (0.5-0.9) Estimat Glomerular Filtration Rate > 60 mL/min (>60) > 60 mL/min (>60) Glucose Level 395 mg/dL (74-106) #H 218 mg/dL (74-106) #H Calcium Level 6.7 mg/dL (8.6-10.2) L 7.0 mg/dL (8.6-10.2) L Stool Occult Blood Positive (NEGATIVE) Urine Random Sodium < 10 mmol/L White Blood Count 22.4 K/UL (4.8-10.8) *H Red Blood Count 2.99 M/UL (4.20-5.40) L Hemoglobin 9.2 G/DL (12.0-16.0) L Hematocrit 28.5 % (37.0-47.0) L Mean Corpuscular Volume 96 FL (80-99) Mean Corpuscular Hemoglobin 30.8 PG (27.0-31.0) Mean Corpuscular Hemoglobin Concent 32.2 G/DL (32.0-36.0) Red Cell Distribution Width 13.5 % (11.6-14.8) Platelet Count 232 K/UL (150-450) Mean Platelet Volume 8.4 FL (6.5-10.1) Neutrophils (%) (Auto) % (45.0-75.0) Lymphocytes (%) (Auto) % (20.0-45.0) Monocytes (%) (Auto) % (1.0-10.0) Eosinophils (%) (Auto) % (0.0-3.0) Basophils (%) (Auto) % (0.0-2.0) Differential Total Cells Counted 100 Neutrophils % (Manual) 96 % (45-75) H Lymphocytes % (Manual) 1 % (20-45) L Monocytes % (Manual) 2 % (1-10) Eosinophils % (Manual) 0 % (0-3) Basophils % (Manual) 0 % (0-2) Band Neutrophils 1 % (0-8) Platelet Estimate Adequate Platelet Morphology Normal Hypochromasia 1+ Basophilic Stippling Occasional Phosphorus Level 2.7 mg/dL (2.5-4.8) Magnesium Level 1.8 mg/dL (1.7-2.5) Total Creatine Kinase 172 U/L (26-140) H Test 04/15/16 07:34 Arterial Blood pH 7.340 (7.350-7.450) Arterial Blood Partial Pressure CO2 50.0 mmHg (35.0-45.0) H Arterial Blood Partial Pressure O2 141.1 mmHg (75.0-100.0) H Arterial Blood HCO3 26.5 mmol/L (22.0-26.0) H Arterial Blood Oxygen Saturation 98.3 % (92.0-98.0) H Arterial Blood Base Excess 0.4 Damián Test Positive Current Medications Medications (Trade) Dose Ordered Sig/Deyanira Route PRN Reason Start Time Stop Time Status Last Admin Dose Admin Acetaminophen (Tylenol) 650 mg EVERY 4 HOURS PRN NG temp of 100 and above 04/13/16 16:00 05/13/16 15:59 04/15/16 08:23 Acetaminophen (Tylenol) 650 mg Q4H PRN ORAL Mild Pain (Pain Scale 1-3) 04/02/16 19:45 05/02/16 19:44 04/14/16 16:22 Dextrose (Dextrose 50%) STAT PRN IV Hypoglycemia 04/03/16 13:45 05/03/16 13:44 Doxycycline Monohydrate (Vibramycin) 100 mg EVERY 12 HOURS ORAL 04/12/16 11:00 04/19/16 10:59 04/15/16 08:23 Fluconazole (Diflucan) 200 mg DAILY ORAL 04/13/16 09:00 04/20/16 08:59 04/15/16 08:24 Hydromorphone HCl (Dilaudid) 0.5 mg Q2H PRN IVP MOD-SEV PAIN 04/13/16 19:00 04/17/16 15:14 Insulin Aspart (NovoLOG) EVERY 6 HOURS SUBQ 04/04/16 18:00 05/04/16 17:59 04/15/16 05:50 Lactobacillus Acidophilus 1 tab 1 tab THREE TIMES A DAY ORAL 04/14/16 09:00 05/14/16 08:59 04/15/16 08:24 Lorazepam (Ativan 2mg/ml 1ml) 1 mg EVERY 2 HOURS PRN IV For Anxiety 04/10/16 16:00 04/17/16 15:59 04/15/16 08:25 Methylprednisolone Sodium Succinate (Solu-MEDROL) 60 mg EVERY 6 HOURS IVP 04/12/16 06:00 05/12/16 05:59 04/15/16 05:47 Montelukast Sodium (Singulair) 10 mg QPM ORAL 04/03/16 16:30 05/03/16 16:29 04/14/16 16:22 Norepinephrine Bitartrate/ Dextrose (Levophed/D5W 250ml) 250 ml @ 0 mls/hr Q24H IV 04/02/16 20:30 05/02/16 20:29 04/14/16 17:25 Ondansetron HCl (Zofran ODT) 4 mg Q6H PRN ORAL Nausea & Vomiting 04/02/16 19:45 05/02/16 19:44 Pantoprazole (Protonix) 40 mg EVERY 12 HOURS IVP 04/14/16 21:00 05/14/16 20:59 04/15/16 08:24 Phenylephrine HCl 50 mg/Dextrose 255 ml @ 0 mls/hr Q24H IV 04/13/16 22:00 05/13/16 21:59 Piperacillin Sod/ Tazobactam Sod 3.375 gm/Dextrose 100 ml @ 25 mls/hr Q8H IVPB 04/11/16 18:00 04/18/16 17:59 04/15/16 09:52 Polyethylene Glycol 17 gm 17 gm DAILYPRN PRN ORAL Constipation 04/02/16 19:45 05/02/16 19:44 Sodium Chloride (NS w/KCl 40mEq) 1,000 ml @ 50 mls/hr Q20H IV 04/14/16 22:00 05/14/16 21:59 04/15/16 01:01 Vancomycin HCl 1 ea 1 ea DAILY PRN MISC Per rx protocol 04/11/16 16:15 05/11/16 16:14 Vancomycin HCl/ Dextrose (Vancomycin/D5W 250ml) 250 ml @ 167 mls/hr Q12H IVPB 04/11/16 18:00 04/16/16 17:59 04/15/16 05:47 BRITTNEY MG Apr 15, 2016 10:36
--- NOTE | 2016-04-15 12:37 | General Progress Note ---
Assessment/Plan Problem List: (1) Occult blood in stools ICD Codes: R19.5 - Other fecal abnormalities SNOMED: 45604627, 258356265 (2) Anemia ICD Codes: D64.9 - Anemia, unspecified SNOMED: 094474036 (3) Hepatitis B ICD Codes: B19.10 - Unspecified viral hepatitis B without hepatic coma SNOMED: 79849612 (4) LFTs abnormal ICD Codes: R79.89 - Other specified abnormal findings of blood chemistry SNOMED: 253909286 (5) Acute type 1 respiratory failure ICD Codes: J96.01 - Acute respiratory failure with hypoxia SNOMED: 36970653, 643617945 (6) COPD exacerbation ICD Codes: J44.1 - Chronic obstructive pulmonary disease with (acute) exacerbation SNOMED: 368737027, 873207992 Assessment/Plan stool ob positive x2 dc heparin and asa ppi bid s/p blood transfusion repeat cbc in am may need EGD will fu fu hep serology Subjective ROS Limited/Unobtainable: No Allergies: Coded Allergies: CODEINE (Verified Allergy, Unknown, 04/05/16) ERYTHROMYCIN BASE (Verified Allergy, Unknown, 04/05/16) TETRACYCLINE (Verified Allergy, Unknown, 04/05/16) Objective Last 24 Hour Vital Signs Date Time Temp Pulse Resp B/P Pulse Ox O2 Delivery O2 Flow Rate FiO2 04/15/16 12:05 30 04/15/16 12:03 80 04/15/16 12:00 99.4 78 18 97/55 100 Mechanical Ventilator 30 04/15/16 11:28 77 18 30 04/15/16 11:00 79 18 84/45 100 Mechanical Ventilator 30 04/15/16 10:00 79 18 89/53 100 Mechanical Ventilator 30 04/15/16 09:59 95 04/15/16 09:00 89 18 84/52 100 Mechanical Ventilator 30 04/15/16 09:00 99.8 04/15/16 08:49 92 18 30 04/15/16 08:00 30 04/15/16 08:00 97 04/15/16 08:00 100.2 93 18 97/46 100 Mechanical Ventilator 30 04/15/16 07:41 95 18 30 04/15/16 07:00 93 18 99/55 100 Mechanical Ventilator 40 04/15/16 06:00 95 15 101/59 100 Mechanical Ventilator 40 04/15/16 05:09 98 18 50 04/15/16 05:00 106 22 101/46 100 Mechanical Ventilator 40 04/15/16 04:00 99.8 108 8 109/49 100 Mechanical Ventilator 50 04/15/16 04:00 108 04/15/16 03:30 97 18 50 04/15/16 03:00 88 16 93/46 100 Mechanical Ventilator 50 04/15/16 02:00 101 21 114/67 100 Mechanical Ventilator 50 04/15/16 01:25 93 18 50 04/15/16 01:00 50 04/15/16 01:00 93 18 106/61 100 Mechanical Ventilator 50 04/15/16 00:00 99.0 92 18 107/62 100 Mechanical Ventilator 70 04/15/16 00:00 70 04/15/16 00:00 92 04/14/16 23:30 94 18 40 04/14/16 23:00 86 16 96/44 99 Mechanical Ventilator 40 04/14/16 22:30 89 14 98/46 99 Mechanical Ventilator 40 04/14/16 22:00 99 22 137/62 99 Mechanical Ventilator 40 04/14/16 22:00 93 98/46 04/14/16 22:00 137/62 04/14/16 21:30 95 24 112/62 100 Mechanical Ventilator 40 04/14/16 21:13 92 18 40 04/14/16 21:00 97 19 115/52 100 Mechanical Ventilator 40 04/14/16 21:00 115/52 04/14/16 20:44 97 20 132/59 100 Mechanical Ventilator 40 04/14/16 20:30 95 21 120/71 100 Mechanical Ventilator 40 04/14/16 20:15 98 23 111/67 100 Mechanical Ventilator 40 04/14/16 20:00 40 04/14/16 20:00 98.4 97 19 115/67 100 Mechanical Ventilator 40 04/14/16 20:00 115/67 04/14/16 20:00 94 04/14/16 19:45 99 19 137/61 100 Mechanical Ventilator 40 04/14/16 19:30 91 19 119/55 100 Mechanical Ventilator 40 04/14/16 19:30 93 18 40 04/14/16 19:15 93 18 115/52 100 Mechanical Ventilator 40 04/14/16 19:00 82 18 114/58 100 Mechanical Ventilator 40 04/14/16 19:00 114/58 04/14/16 18:45 77 13 114/58 100 Mechanical Ventilator 40 04/14/16 18:30 72 16 104/52 100 Mechanical Ventilator 40 04/14/16 18:15 72 18 121/55 100 Mechanical Ventilator 40 04/14/16 18:00 74 19 128/54 100 Mechanical Ventilator 40 04/14/16 17:55 128/54 04/14/16 17:45 73 17 127/58 100 Mechanical Ventilator 40 04/14/16 17:30 70 18 105/58 100 Mechanical Ventilator 40 04/14/16 17:25 106/57 04/14/16 17:21 99.2 04/14/16 17:15 73 17 124/55 100 Mechanical Ventilator 40 04/14/16 17:00 76 13 106/57 100 Mechanical Ventilator 40 04/14/16 17:00 106/57 04/14/16 16:45 70 14 106/54 100 Mechanical Ventilator 40 04/14/16 16:39 71 18 40 04/14/16 16:30 71 18 87/63 100 Mechanical Ventilator 40 04/14/16 16:15 71 16 111/49 100 Mechanical Ventilator 40 04/14/16 16:00 99.2 77 15 108/71 100 Mechanical Ventilator 40 04/14/16 16:00 40 04/14/16 16:00 108/71 04/14/16 16:00 78 04/14/16 15:45 80 14 111/58 100 Mechanical Ventilator 40 04/14/16 15:30 73 20 105/58 99 Mechanical Ventilator 40 04/14/16 15:15 76 20 113/53 99 Mechanical Ventilator 40 04/14/16 15:00 121/60 04/14/16 15:00 76 20 121/60 99 Mechanical Ventilator 40 04/14/16 14:58 73 18 40 04/14/16 14:45 82 20 125/55 99 Mechanical Ventilator 40 04/14/16 14:30 82 20 112/54 99 Mechanical Ventilator 40 04/14/16 14:15 84 20 123/58 99 Mechanical Ventilator 40 04/14/16 14:00 87 18 115/71 99 Mechanical Ventilator 40 04/14/16 14:00 115/71 04/14/16 13:45 85 20 118/50 99 Mechanical Ventilator 40 04/14/16 13:30 87 19 121/57 99 Mechanical Ventilator 40 04/14/16 13:15 88 20 18/61 100 Mechanical Ventilator 40 04/14/16 13:00 88 20 116/39 100 Mechanical Ventilator 40 04/14/16 13:00 122/65 04/14/16 12:46 74 18 40 04/14/16 12:46 136/69 04/14/16 12:45 86 19 40 04/14/16 12:45 84 20 122/65 100 Mechanical Ventilator 40 Intake and Output 04/14/16 04/15/16 19:00 07:00 Intake Total 3104.5 ml 1881.5 ml Output Total 1250 ml 475 ml Balance 1854.5 ml 1406.5 ml Free Water 100 ml 100 ml IV Total 2184.5 ml 1121.5 ml Tube Feeding 550 ml 660 ml Blood Product 270 ml Output Urine Total 1250 ml 475 ml # Bowel Movements 2 7 Laboratory Tests 04/14/16 14:35: Sodium Level 129L, Potassium Level 3.4, Chloride Level 88L, Carbon Dioxide Level 29, Anion Gap 12, Blood Urea Nitrogen 35H, Creatinine 0.9, Estimat Glomerular Filtration Rate > 60, Glucose Level 395#H, Calcium Level 6.7L 04/14/16 14:36: Stool Occult Blood Positive 04/14/16 18:20: Urine Random Sodium < 10 04/15/16 04:30: Sodium Level 133L, Potassium Level 3.4, Chloride Level 93L, Carbon Dioxide Level 29, Anion Gap 11, Blood Urea Nitrogen 38H, Creatinine 0.9, Estimat Glomerular Filtration Rate > 60, Glucose Level 218#H, Calcium Level 7.0L, White Blood Count 22.4*H, Red Blood Count 2.99L, Hemoglobin 9.2L, Hematocrit 28.5L, Mean Corpuscular Volume 96, Mean Corpuscular Hemoglobin 30.8, Mean Corpuscular Hemoglobin Concent 32.2, Red Cell Distribution Width 13.5, Platelet Count 232, Mean Platelet Volume 8.4, Neutrophils (%) (Auto) , Lymphocytes (%) (Auto) , Monocytes (%) (Auto) , Eosinophils (%) (Auto) , Basophils (%) (Auto) , Differential Total Cells Counted 100, Neutrophils % (Manual) 96H, Lymphocytes % (Manual) 1L, Monocytes % (Manual) 2, Eosinophils % (Manual) 0, Basophils % ( Manual) 0, Band Neutrophils 1, Platelet Estimate Adequate, Platelet Morphology Normal, Hypochromasia 1+, Basophilic Stippling Occasional, Phosphorus Level 2.7 , Magnesium Level 1.8, Total Creatine Kinase 172H 04/15/16 07:34: Arterial Blood pH 7.340L, Arterial Blood Partial Pressure CO2 50.0H, Arterial Blood Partial Pressure O2 141.1H, Arterial Blood HCO3 26.5H, Arterial Blood Oxygen Saturation 98.3H, Arterial Blood Base Excess 0.4, Damián Test Positive Height (Feet): 5 Height (Inches): 5.00 Weight (Pounds): 125 General Appearance: no apparent distress EENT: normal ENT inspection Neck: supple Cardiovascular: normal rate Respiratory/Chest: decreased breath sounds Abdomen: normal bowel sounds, non tender, soft Extremities: non-tender REAGAN WALSH Apr 15, 2016 12:37
--- NOTE | 2016-04-15 15:09 | Cardiology Report ---
APPROVED REPORT EKG Measurement Heart [id number] WI [id number] Sinus tachycardia with short WI with premature supraventricular complexes Pulmonary disease pattern Septal infarct, age undetermined Abnormal ECG
--- NOTE | 2016-04-15 15:20 | Cardiology Progress Note ---
Assessment/Plan Assessment/Plan (1) COPD exacerbation (2) Hypotension (3) Anemia (4) Hepatitis B (5) LFTs abnormal (6) Acute type 1 respiratory failur 7. hypotension in icu on a vent d/w rn respirtory acidosis remains an issue now off pressors s/p tx cxr noted echo no effusion iv abx vent support critically ill at risk of dying cx noted c diff neg Subjective ROS Limited/Unobtainable: Yes Subjective on the vent unalbe to communicated \ Objective Last 24 Hour Vital Signs Date Time Temp Pulse Resp B/P Pulse Ox O2 Delivery O2 Flow Rate FiO2 04/15/16 15:06 99 21 106/63 100 Mechanical Ventilator 30 04/15/16 14:42 101 18 30 04/15/16 14:00 98 24 140/60 100 Mechanical Ventilator 30 04/15/16 13:35 79 18 30 04/15/16 13:00 81 18 109/59 100 Mechanical Ventilator 30 04/15/16 12:05 30 04/15/16 12:03 80 04/15/16 12:00 99.4 78 18 97/55 100 Mechanical Ventilator 30 04/15/16 11:28 77 18 30 04/15/16 11:00 79 18 84/45 100 Mechanical Ventilator 30 04/15/16 10:00 79 18 89/53 100 Mechanical Ventilator 30 04/15/16 09:59 95 04/15/16 09:00 89 18 84/52 100 Mechanical Ventilator 30 04/15/16 09:00 99.8 04/15/16 08:49 92 18 30 04/15/16 08:00 30 04/15/16 08:00 97 04/15/16 08:00 100.2 93 18 97/46 100 Mechanical Ventilator 30 04/15/16 07:41 95 18 30 04/15/16 07:00 93 18 99/55 100 Mechanical Ventilator 40 04/15/16 06:00 95 15 101/59 100 Mechanical Ventilator 40 04/15/16 05:09 98 18 50 04/15/16 05:00 106 22 101/46 100 Mechanical Ventilator 40 04/15/16 04:00 99.8 108 8 109/49 100 Mechanical Ventilator 50 04/15/16 04:00 108 04/15/16 03:30 97 18 50 04/15/16 03:00 88 16 93/46 100 Mechanical Ventilator 50 04/15/16 02:00 101 21 114/67 100 Mechanical Ventilator 50 04/15/16 01:25 93 18 50 04/15/16 01:00 50 04/15/16 01:00 93 18 106/61 100 Mechanical Ventilator 50 04/15/16 00:00 99.0 92 18 107/62 100 Mechanical Ventilator 70 04/15/16 00:00 70 04/15/16 00:00 92 04/14/16 23:30 94 18 40 04/14/16 23:00 86 16 96/44 99 Mechanical Ventilator 40 04/14/16 22:30 89 14 98/46 99 Mechanical Ventilator 40 04/14/16 22:00 99 22 137/62 99 Mechanical Ventilator 40 04/14/16 22:00 93 98/46 04/14/16 22:00 137/62 04/14/16 21:30 95 24 112/62 100 Mechanical Ventilator 40 04/14/16 21:13 92 18 40 04/14/16 21:00 97 19 115/52 100 Mechanical Ventilator 40 04/14/16 21:00 115/52 04/14/16 20:44 97 20 132/59 100 Mechanical Ventilator 40 04/14/16 20:30 95 21 120/71 100 Mechanical Ventilator 40 04/14/16 20:15 98 23 111/67 100 Mechanical Ventilator 40 04/14/16 20:00 40 04/14/16 20:00 98.4 97 19 115/67 100 Mechanical Ventilator 40 04/14/16 20:00 115/67 04/14/16 20:00 94 04/14/16 19:45 99 19 137/61 100 Mechanical Ventilator 40 04/14/16 19:30 91 19 119/55 100 Mechanical Ventilator 40 04/14/16 19:30 93 18 40 04/14/16 19:15 93 18 115/52 100 Mechanical Ventilator 40 04/14/16 19:00 82 18 114/58 100 Mechanical Ventilator 40 04/14/16 19:00 114/58 04/14/16 18:45 77 13 114/58 100 Mechanical Ventilator 40 04/14/16 18:30 72 16 104/52 100 Mechanical Ventilator 40 04/14/16 18:15 72 18 121/55 100 Mechanical Ventilator 40 04/14/16 18:00 74 19 128/54 100 Mechanical Ventilator 40 04/14/16 17:55 128/54 04/14/16 17:45 73 17 127/58 100 Mechanical Ventilator 40 04/14/16 17:30 70 18 105/58 100 Mechanical Ventilator 40 04/14/16 17:25 106/57 04/14/16 17:21 99.2 04/14/16 17:15 73 17 124/55 100 Mechanical Ventilator 40 04/14/16 17:00 76 13 106/57 100 Mechanical Ventilator 40 04/14/16 17:00 106/57 04/14/16 16:45 70 14 106/54 100 Mechanical Ventilator 40 04/14/16 16:39 71 18 40 04/14/16 16:30 71 18 87/63 100 Mechanical Ventilator 40 04/14/16 16:15 71 16 111/49 100 Mechanical Ventilator 40 04/14/16 16:00 99.2 77 15 108/71 100 Mechanical Ventilator 40 04/14/16 16:00 40 04/14/16 16:00 108/71 04/14/16 16:00 78 04/14/16 15:45 80 14 111/58 100 Mechanical Ventilator 40 04/14/16 15:30 73 20 105/58 99 Mechanical Ventilator 40 General Appearance: no apparent distress, alert, on vent, patient on isolation Neck: no JVD Cardiovascular: normal rate, regular rhythm Respiratory/Chest: decreased breath sounds Abdomen: normal bowel sounds, non tender, soft Extremities: moderate edema Intake and Output 04/14/16 04/15/16 19:00 07:00 Intake Total 3104.5 ml 1881.5 ml Output Total 1250 ml 475 ml Balance 1854.5 ml 1406.5 ml Free Water 100 ml 100 ml IV Total 2184.5 ml 1121.5 ml Tube Feeding 550 ml 660 ml Blood Product 270 ml Output Urine Total 1250 ml 475 ml # Bowel Movements 2 7 Laboratory Tests Test 04/14/16 18:20 04/15/16 04:30 04/15/16 07:34 Urine Random Sodium < 10 mmol/L White Blood Count 22.4 K/UL (4.8-10.8) *H Red Blood Count 2.99 M/UL (4.20-5.40) L Hemoglobin 9.2 G/DL (12.0-16.0) L Hematocrit 28.5 % (37.0-47.0) L Mean Corpuscular Volume 96 FL (80-99) Mean Corpuscular Hemoglobin 30.8 PG (27.0-31.0) Mean Corpuscular Hemoglobin Concent 32.2 G/DL (32.0-36.0) Red Cell Distribution Width 13.5 % (11.6-14.8) Platelet Count 232 K/UL (150-450) Mean Platelet Volume 8.4 FL (6.5-10.1) Neutrophils (%) (Auto) % (45.0-75.0) Lymphocytes (%) (Auto) % (20.0-45.0) Monocytes (%) (Auto) % (1.0-10.0) Eosinophils (%) (Auto) % (0.0-3.0) Basophils (%) (Auto) % (0.0-2.0) Differential Total Cells Counted 100 Neutrophils % (Manual) 96 % (45-75) H Lymphocytes % (Manual) 1 % (20-45) L Monocytes % (Manual) 2 % (1-10) Eosinophils % (Manual) 0 % (0-3) Basophils % (Manual) 0 % (0-2) Band Neutrophils 1 % (0-8) Platelet Estimate Adequate Platelet Morphology Normal Hypochromasia 1+ Basophilic Stippling Occasional Sodium Level 133 mEQ/L (135-145) L Potassium Level 3.4 mEQ/L (3.4-4.9) Chloride Level 93 mEQ/L (98-107) L Carbon Dioxide Level 29 mEQ/L (20-30) Anion Gap 11 (5-15) Blood Urea Nitrogen 38 mg/dL (7-23) H Creatinine 0.9 mg/dL (0.5-0.9) Estimat Glomerular Filtration Rate > 60 mL/min (>60) Glucose Level 218 mg/dL (74-106) #H Calcium Level 7.0 mg/dL (8.6-10.2) L Phosphorus Level 2.7 mg/dL (2.5-4.8) Magnesium Level 1.8 mg/dL (1.7-2.5) Total Creatine Kinase 172 U/L (26-140) H Arterial Blood pH 7.340 (7.350-7.450) Arterial Blood Partial Pressure CO2 50.0 mmHg (35.0-45.0) H Arterial Blood Partial Pressure O2 141.1 mmHg (75.0-100.0) H Arterial Blood HCO3 26.5 mmol/L (22.0-26.0) H Arterial Blood Oxygen Saturation 98.3 % (92.0-98.0) H Arterial Blood Base Excess 0.4 Damián Test Positive Microbiology Date/Time Source Procedure Growth Status 04/13/16 21:00 Blood Blood Culture - Preliminary Resulted 04/13/16 19:50 Stool Clostridium difficile Toxin Assay - Final Complete 04/13/16 20:05 Indwelling Cath Urine Culture - Preliminary Yeast Species Resulted ANANT PETE Apr 15, 2016 15:20
--- NOTE | 2016-04-15 15:35 | Nephrology Progress Note ---
Assessment/Plan Assessment 1) JAIR due to prerenal state is recovered 2) Hyponatremisa is better 3) Acute exacerbation of COPD, s/p respiratory failure now on the vent Plan: Continue IV fluid for now Subjective Subjective She is still on the vent, Urine NA was <10, Creat is 0.9, she is alert, serum NA is 133 Objective Objective Last 24 Hour Vital Signs Date Time Temp Pulse Resp B/P Pulse Ox O2 Delivery O2 Flow Rate FiO2 04/15/16 15:06 99 21 106/63 100 Mechanical Ventilator 30 04/15/16 14:42 101 18 30 04/15/16 14:00 98 24 140/60 100 Mechanical Ventilator 30 04/15/16 13:35 79 18 30 04/15/16 13:00 81 18 109/59 100 Mechanical Ventilator 30 04/15/16 12:05 30 04/15/16 12:03 80 04/15/16 12:00 99.4 78 18 97/55 100 Mechanical Ventilator 30 04/15/16 11:28 77 18 30 04/15/16 11:00 79 18 84/45 100 Mechanical Ventilator 30 04/15/16 10:00 79 18 89/53 100 Mechanical Ventilator 30 04/15/16 09:59 95 04/15/16 09:00 89 18 84/52 100 Mechanical Ventilator 30 04/15/16 09:00 99.8 04/15/16 08:49 92 18 30 04/15/16 08:00 30 04/15/16 08:00 97 04/15/16 08:00 100.2 93 18 97/46 100 Mechanical Ventilator 30 04/15/16 07:41 95 18 30 04/15/16 07:00 93 18 99/55 100 Mechanical Ventilator 40 04/15/16 06:00 95 15 101/59 100 Mechanical Ventilator 40 04/15/16 05:09 98 18 50 04/15/16 05:00 106 22 101/46 100 Mechanical Ventilator 40 04/15/16 04:00 99.8 108 8 109/49 100 Mechanical Ventilator 50 04/15/16 04:00 108 04/15/16 03:30 97 18 50 04/15/16 03:00 88 16 93/46 100 Mechanical Ventilator 50 04/15/16 02:00 101 21 114/67 100 Mechanical Ventilator 50 04/15/16 01:25 93 18 50 04/15/16 01:00 50 04/15/16 01:00 93 18 106/61 100 Mechanical Ventilator 50 04/15/16 00:00 99.0 92 18 107/62 100 Mechanical Ventilator 70 04/15/16 00:00 70 04/15/16 00:00 92 04/14/16 23:30 94 18 40 04/14/16 23:00 86 16 96/44 99 Mechanical Ventilator 40 04/14/16 22:30 89 14 98/46 99 Mechanical Ventilator 40 04/14/16 22:00 99 22 137/62 99 Mechanical Ventilator 40 04/14/16 22:00 93 98/46 04/14/16 22:00 137/62 04/14/16 21:30 95 24 112/62 100 Mechanical Ventilator 40 04/14/16 21:13 92 18 40 04/14/16 21:00 97 19 115/52 100 Mechanical Ventilator 40 04/14/16 21:00 115/52 04/14/16 20:44 97 20 132/59 100 Mechanical Ventilator 40 04/14/16 20:30 95 21 120/71 100 Mechanical Ventilator 40 04/14/16 20:15 98 23 111/67 100 Mechanical Ventilator 40 04/14/16 20:00 40 04/14/16 20:00 98.4 97 19 115/67 100 Mechanical Ventilator 40 04/14/16 20:00 115/67 04/14/16 20:00 94 04/14/16 19:45 99 19 137/61 100 Mechanical Ventilator 40 04/14/16 19:30 91 19 119/55 100 Mechanical Ventilator 40 04/14/16 19:30 93 18 40 04/14/16 19:15 93 18 115/52 100 Mechanical Ventilator 40 04/14/16 19:00 82 18 114/58 100 Mechanical Ventilator 40 04/14/16 19:00 114/58 04/14/16 18:45 77 13 114/58 100 Mechanical Ventilator 40 04/14/16 18:30 72 16 104/52 100 Mechanical Ventilator 40 04/14/16 18:15 72 18 121/55 100 Mechanical Ventilator 40 04/14/16 18:00 74 19 128/54 100 Mechanical Ventilator 40 04/14/16 17:55 128/54 04/14/16 17:45 73 17 127/58 100 Mechanical Ventilator 40 04/14/16 17:30 70 18 105/58 100 Mechanical Ventilator 40 04/14/16 17:25 106/57 04/14/16 17:21 99.2 04/14/16 17:15 73 17 124/55 100 Mechanical Ventilator 40 04/14/16 17:00 76 13 106/57 100 Mechanical Ventilator 40 04/14/16 17:00 106/57 04/14/16 16:45 70 14 106/54 100 Mechanical Ventilator 40 04/14/16 16:39 71 18 40 04/14/16 16:30 71 18 87/63 100 Mechanical Ventilator 40 04/14/16 16:15 71 16 111/49 100 Mechanical Ventilator 40 04/14/16 16:00 99.2 77 15 108/71 100 Mechanical Ventilator 40 04/14/16 16:00 40 04/14/16 16:00 108/71 04/14/16 16:00 78 04/14/16 15:45 80 14 111/58 100 Mechanical Ventilator 40 Intake and Output 04/14/16 04/15/16 19:00 07:00 Intake Total 3104.5 ml 1881.5 ml Output Total 1250 ml 475 ml Balance 1854.5 ml 1406.5 ml Free Water 100 ml 100 ml IV Total 2184.5 ml 1121.5 ml Tube Feeding 550 ml 660 ml Blood Product 270 ml Output Urine Total 1250 ml 475 ml # Bowel Movements 2 7 Laboratory Tests 04/14/16 18:20: Urine Random Sodium < 10 04/15/16 04:30: White Blood Count 22.4*H, Red Blood Count 2.99L, Hemoglobin 9.2L, Hematocrit 28.5L, Mean Corpuscular Volume 96, Mean Corpuscular Hemoglobin 30.8, Mean Corpuscular Hemoglobin Concent 32.2, Red Cell Distribution Width 13.5, Platelet Count 232, Mean Platelet Volume 8.4, Neutrophils (%) (Auto) , Lymphocytes (%) ( Auto) , Monocytes (%) (Auto) , Eosinophils (%) (Auto) , Basophils (%) (Auto) , Differential Total Cells Counted 100, Neutrophils % (Manual) 96H, Lymphocytes % (Manual) 1L, Monocytes % (Manual) 2, Eosinophils % (Manual) 0, Basophils % ( Manual) 0, Band Neutrophils 1, Platelet Estimate Adequate, Platelet Morphology Normal, Hypochromasia 1+, Basophilic Stippling Occasional, Sodium Level 133L, Potassium Level 3.4, Chloride Level 93L, Carbon Dioxide Level 29, Anion Gap 11, Blood Urea Nitrogen 38H, Creatinine 0.9, Estimat Glomerular Filtration Rate > 60 , Glucose Level 218#H, Calcium Level 7.0L, Phosphorus Level 2.7, Magnesium Level 1.8, Total Creatine Kinase 172H 04/15/16 07:34: Arterial Blood pH 7.340L, Arterial Blood Partial Pressure CO2 50.0H, Arterial Blood Partial Pressure O2 141.1H, Arterial Blood HCO3 26.5H, Arterial Blood Oxygen Saturation 98.3H, Arterial Blood Base Excess 0.4, Damián Test Positive Height (Feet): 5 Height (Inches): 5.00 Weight (Pounds): 125 General Appearance: WD/WN, no apparent distress EENT: TMs normal Neck: non-tender, normal alignment, supple Cardiovascular: normal rate, no JVD Respiratory/Chest: lungs clear Abdomen: normal bowel sounds, non tender, soft Extremities: normal range of motion 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
[2016-04-15] MEDS: Montelukast 10mg tablet ORAL SCH (16:41)
[2016-04-15] MEDS: D5W IV SCH (22:00)
[2016-04-15] MEDS: PHENYLEPHRINE IV SCH (22:00)
--- NOTE | 2016-04-15 22:36 | Pulmonolgy Critical Care Note ---
Critical Care - Asmt/Plan Assessment/Plan: ASSESSMENT: acute hypoxemic respiratory failure, failed weaning bronchitis-viral vs bacterial funguria severe copd off pressors at thsi time sl elev [id number] ischemia-will need non invasive study when better abnl LFTs--abd brooks c/w cirrhosis--hep B core IgM positive!! ?false pos??-- studies pend ANEMIA-dropping H/H--sp prbc today h/o HTN hyperglycemia-due to steroids PICC PLAN repeat cxr am-ordered f/u hep studies trach early next week abg-am steroids at current dose cont tube feeds Vital AF watch h/h--tx if hgb < or =7 renal recommendations f/u cxs and Iv abx per ID remains critically ill. FULL CODE 45 minutes to coordinate care, discuss with RN, Critical Care - Objective Last 24 Hour Vital Signs Date Time Temp Pulse Resp B/P Pulse Ox O2 Delivery O2 Flow Rate FiO2 04/15/16 22:00 98.4 93 20 104/77 100 Mechanical Ventilator 30 04/15/16 22:00 85 104/77 04/15/16 21:30 98 18 30 04/15/16 21:00 98.8 91 20 155/65 100 Mechanical Ventilator 30 04/15/16 20:30 126/71 04/15/16 20:00 91 04/15/16 20:00 99.2 90 22 126/71 100 Mechanical Ventilator 30 04/15/16 20:00 30 04/15/16 19:09 95 18 30 04/15/16 19:00 92 24 130/69 100 Mechanical Ventilator 30 04/15/16 18:00 93 18 116/89 100 Mechanical Ventilator 30 04/15/16 17:08 92 18 30 04/15/16 16:59 92 18 108/56 94 Mechanical Ventilator 30 04/15/16 16:00 98.6 96 18 114/59 96 Mechanical Ventilator 30 04/15/16 16:00 94 04/15/16 16:00 30 04/15/16 15:06 99 21 106/63 100 Mechanical Ventilator 30 04/15/16 14:42 101 18 30 04/15/16 14:00 98 24 140/60 100 Mechanical Ventilator 30 04/15/16 13:35 79 18 30 04/15/16 13:00 81 18 109/59 100 Mechanical Ventilator 30 04/15/16 12:05 30 04/15/16 12:03 80 04/15/16 12:00 99.4 78 18 97/55 100 Mechanical Ventilator 30 04/15/16 11:28 77 18 30 04/15/16 11:00 79 18 84/45 100 Mechanical Ventilator 30 04/15/16 10:00 79 18 89/53 100 Mechanical Ventilator 30 04/15/16 09:59 95 04/15/16 09:00 89 18 84/52 100 Mechanical Ventilator 30 04/15/16 09:00 99.8 04/15/16 08:49 92 18 30 04/15/16 08:00 30 04/15/16 08:00 97 04/15/16 08:00 100.2 93 18 97/46 100 Mechanical Ventilator 30 04/15/16 07:41 95 18 30 04/15/16 07:00 93 18 99/55 100 Mechanical Ventilator 40 04/15/16 06:00 95 15 101/59 100 Mechanical Ventilator 40 04/15/16 05:09 98 18 50 04/15/16 05:00 106 22 101/46 100 Mechanical Ventilator 40 04/15/16 04:00 99.8 108 8 109/49 100 Mechanical Ventilator 50 04/15/16 04:00 108 04/15/16 03:30 97 18 50 04/15/16 03:00 88 16 93/46 100 Mechanical Ventilator 50 04/15/16 02:00 101 21 114/67 100 Mechanical Ventilator 50 04/15/16 01:25 93 18 50 04/15/16 01:00 50 04/15/16 01:00 93 18 106/61 100 Mechanical Ventilator 50 04/15/16 00:00 99.0 92 18 107/62 100 Mechanical Ventilator 70 04/15/16 00:00 70 04/15/16 00:00 92 04/14/16 23:30 94 18 40 04/14/16 23:00 86 16 96/44 99 Mechanical Ventilator 40 Status: somnolent Condition: critical Lungs: clear - distant Heart: HR/BP stable Abdomen: soft, non-tender Extremities: edema Micro: Microbiology Date/Time Source Procedure Growth Status 04/13/16 21:00 Blood Blood Culture - Preliminary Resulted 04/13/16 19:50 Stool Clostridium difficile Toxin Assay - Final Complete 04/13/16 20:05 Indwelling Cath Urine Culture - Preliminary Yeast Species Resulted Accucheck: 199 Blood Sugars: BS not controlled Critical Care - Subjective ROS Limited/Unobtainable: Yes Condition: critical EKG Rhythm: Sinus Rhythm FI02: 30 Vent Support Breath Rate: 18 Vent Support Mode: AC Vent Tidal Volume: 550 Sputum Amount: Moderate PEEP: 5.0 PIP: 30 Tube Feeding Amount: 55 I&O: Intake and Output 04/14/16 04/15/16 19:00 07:00 Intake Total 3104.5 ml 1881.5 ml Output Total 1250 ml 475 ml Balance 1854.5 ml 1406.5 ml Free Water 100 ml 100 ml IV Total 2184.5 ml 1121.5 ml Tube Feeding 550 ml 660 ml Blood Product 270 ml Output Urine Total 1250 ml 475 ml # Bowel Movements 2 7 Subjective: seen and examined awake and less agitate sp prbc today on vent, not tolerating weaning at this time no bleeding off pressors positive uop no fever noted no new cultures available, WBC elevated no fever ET-Tube: 7.5 ET Position: 22 Labs: Microbiology Date/Time Source Procedure Growth Status 04/13/16 21:00 Blood Blood Culture - Preliminary Resulted 04/13/16 19:50 Stool Clostridium difficile Toxin Assay - Final Complete 04/13/16 20:05 Indwelling Cath Urine Culture - Preliminary Yeast Species Resulted Current Medications Medications (Trade) Dose Ordered Sig/Deyanira Route PRN Reason Start Time Stop Time Status Last Admin Dose Admin Acetaminophen (Tylenol) 650 mg EVERY 4 HOURS PRN NG temp of 100 and above 04/13/16 16:00 05/13/16 15:59 04/15/16 08:23 Acetaminophen (Tylenol) 650 mg Q4H PRN ORAL Mild Pain (Pain Scale 1-3) 04/02/16 19:45 05/02/16 19:44 04/14/16 16:22 Dextrose (Dextrose 50%) STAT PRN IV Hypoglycemia 04/03/16 13:45 05/03/16 13:44 Doxycycline Monohydrate (Vibramycin) 100 mg EVERY 12 HOURS ORAL 04/12/16 11:00 04/19/16 10:59 04/15/16 21:34 Fluconazole (Diflucan) 200 mg DAILY ORAL 04/13/16 09:00 04/20/16 08:59 04/15/16 08:24 Hydromorphone HCl (Dilaudid) 0.5 mg Q2H PRN IVP MOD-SEV PAIN 04/13/16 19:00 04/17/16 15:14 Insulin Aspart (NovoLOG) EVERY 6 HOURS SUBQ 04/04/16 18:00 05/04/16 17:59 04/15/16 18:23 Lactobacillus Acidophilus 1 tab 1 tab THREE TIMES A DAY ORAL 04/14/16 09:00 05/14/16 08:59 04/15/16 18:25 Lorazepam (Ativan 2mg/ml 1ml) 1 mg EVERY 2 HOURS PRN IV For Anxiety 04/10/16 16:00 04/17/16 15:59 04/15/16 08:25 Methylprednisolone Sodium Succinate (Solu-MEDROL) 60 mg EVERY 6 HOURS IVP 04/12/16 06:00 05/12/16 05:59 04/15/16 18:25 Montelukast Sodium (Singulair) 10 mg QPM ORAL 04/03/16 16:30 05/03/16 16:29 04/15/16 16:41 Norepinephrine Bitartrate/ Dextrose (Levophed/D5W 250ml) 250 ml @ 0 mls/hr Q24H IV 04/02/16 20:30 05/02/16 20:29 04/14/16 17:25 Ondansetron HCl (Zofran ODT) 4 mg Q6H PRN ORAL Nausea & Vomiting 04/02/16 19:45 05/02/16 19:44 Pantoprazole (Protonix) 40 mg EVERY 12 HOURS IVP 04/14/16 21:00 05/14/16 20:59 04/15/16 21:34 Phenylephrine HCl 50 mg/Dextrose 255 ml @ 0 mls/hr Q24H IV 04/13/16 22:00 05/13/16 21:59 Piperacillin Sod/ Tazobactam Sod 3.375 gm/Dextrose 100 ml @ 25 mls/hr Q8H IVPB 04/11/16 18:00 04/18/16 17:59 04/15/16 18:24 Polyethylene Glycol 17 gm 17 gm DAILYPRN PRN ORAL Constipation 04/02/16 19:45 05/02/16 19:44 Sodium Chloride (NS w/KCl 40mEq) 1,000 ml @ 50 mls/hr Q20H IV 04/14/16 22:00 05/14/16 21:59 04/15/16 18:25 Vancomycin HCl 1 ea 1 ea DAILY PRN MISC Per rx protocol 04/11/16 16:15 05/11/16 16:14 Vancomycin HCl/ Dextrose (Vancomycin/D5W 250ml) 250 ml @ 167 mls/hr Q12H IVPB 04/11/16 18:00 04/16/16 17:59 04/15/16 18:24 Laboratory Tests Test 04/15/16 04:30 04/15/16 07:34 White Blood Count 22.4 K/UL (4.8-10.8) *H Red Blood Count 2.99 M/UL (4.20-5.40) L Hemoglobin 9.2 G/DL (12.0-16.0) L Hematocrit 28.5 % (37.0-47.0) L Mean Corpuscular Volume 96 FL (80-99) Mean Corpuscular Hemoglobin 30.8 PG (27.0-31.0) Mean Corpuscular Hemoglobin Concent 32.2 G/DL (32.0-36.0) Red Cell Distribution Width 13.5 % (11.6-14.8) Platelet Count 232 K/UL (150-450) Mean Platelet Volume 8.4 FL (6.5-10.1) Neutrophils (%) (Auto) % (45.0-75.0) Lymphocytes (%) (Auto) % (20.0-45.0) Monocytes (%) (Auto) % (1.0-10.0) Eosinophils (%) (Auto) % (0.0-3.0) Basophils (%) (Auto) % (0.0-2.0) Differential Total Cells Counted 100 Neutrophils % (Manual) 96 % (45-75) H Lymphocytes % (Manual) 1 % (20-45) L Monocytes % (Manual) 2 % (1-10) Eosinophils % (Manual) 0 % (0-3) Basophils % (Manual) 0 % (0-2) Band Neutrophils 1 % (0-8) Platelet Estimate Adequate Platelet Morphology Normal Hypochromasia 1+ Basophilic Stippling Occasional Sodium Level 133 mEQ/L (135-145) L Potassium Level 3.4 mEQ/L (3.4-4.9) Chloride Level 93 mEQ/L (98-107) L Carbon Dioxide Level 29 mEQ/L (20-30) Anion Gap 11 (5-15) Blood Urea Nitrogen 38 mg/dL (7-23) H Creatinine 0.9 mg/dL (0.5-0.9) Estimat Glomerular Filtration Rate > 60 mL/min (>60) Glucose Level 218 mg/dL (74-106) #H Calcium Level 7.0 mg/dL (8.6-10.2) L Phosphorus Level 2.7 mg/dL (2.5-4.8) Magnesium Level 1.8 mg/dL (1.7-2.5) Total Creatine Kinase 172 U/L (26-140) H Arterial Blood pH 7.340 (7.350-7.450) Arterial Blood Partial Pressure CO2 50.0 mmHg (35.0-45.0) H Arterial Blood Partial Pressure O2 141.1 mmHg (75.0-100.0) H Arterial Blood HCO3 26.5 mmol/L (22.0-26.0) H Arterial Blood Oxygen Saturation 98.3 % (92.0-98.0) H Arterial Blood Base Excess 0.4 Damián Test Positive RACHANA BROOKS DO Apr 15, 2016 22:36
[2016-04-16] VITALS (25 sets, daily range): BP systolic 94–148; BP diastolic 55–93
[2016-04-16 05:49] LABS: MEAN CORPUSCULAR HEMOGLOBIN 32.5 PG (27.0-31.0); MEAN CORPUSCULAR HGB CONC 33.5 G/DL (32.0-36.0); MEAN CORPUSCULAR VOLUME 97 FL (80-99); MEAN PLATELET VOLUME 7.6 FL (6.5-10.1); PLATELET COUNT 259 K/UL (150-450); RED BLOOD COUNT 2.67 M/UL (4.20-5.40); RED CELL DISTRIBUTION WIDTH 13.3 % (11.6-14.8); WHITE BLOOD COUNT 21.5 K/UL (4.8-10.8)
[2016-04-16] MEDS: Solu-MEDROL 40mg Inj IVP SCH ×3 (06:16→18:15)
[2016-04-16] MEDS: Vancomycin 750mg/D5W 250ml IVPB SCH ×2 (06:16)
[2016-04-16] MEDS: NovoLOG Insulin Flexpen SUBQ SCH ×3 (06:20→18:18)
[2016-04-16 06:38] LABS: ANION GAP 11 (5-15); CALCIUM 6.3 mg/dL (8.6-10.2); CARBON DIOXIDE 26 mEQ/L (20-30); CHLORIDE 100 mEQ/L (98-107); CREATININE 0.9 mg/dL (0.5-0.9); GLOMERULAR FILTRATION RATE > 60 mL/min (>60); HEMOLYSIS 2; POTASSIUM 5.2 mEQ/L (3.4-4.9); SODIUM 137 mEQ/L (135-145)
[2016-04-16 06:59] LABS: ABG ALLEN TEST POSITIVE; ABG BASE EXCESS -0.3; ABG PCO2 48.8 mmHg (35.0-45.0)
[2016-04-16] MEDS: Lactobacillus-GG tablet ORAL SCH ×3 (09:06→18:16)
[2016-04-16] MEDS: Fluconazole 100mg tab ORAL SCH (09:06)
[2016-04-16] MEDS: Pantoprazole Inj IVP SCH ×2 (09:07→20:40)
[2016-04-16 10:15] LABS: ANISOCYTOSIS 1+; BAND NEUTROPHILS % (MANUAL) 1 % (0-8); BASOPHILS % (MANUAL) 0 % (0-2); EOSINOPHILS % (MANUAL) 0 % (0-3); HYPOCHROMASIA 3+; LYMPHOCYTES % (MANUAL) 4 % (20-45); NEUTROPHILS % (MANUAL) 94 % (45-75); PLATELET ESTIMATE ADEQUATE; PLATELET MORPHOLOGY NORMAL; TOTAL CELLS COUNTED 100
[2016-04-16 10:42] LABS: PROTHROMBIN TIME 10.6 SEC (9.30-11.50)
--- NOTE | 2016-04-16 11:03 | GI Progress Note ---
Assessment/Plan Problems: (1) Occult blood in stools ICD Codes: R19.5 - Other fecal abnormalities SNOMED: 88734020, 525338361 (2) Anemia ICD Codes: D64.9 - Anemia, unspecified SNOMED: 466440356 (3) Hepatitis B ICD Codes: B19.10 - Unspecified viral hepatitis B without hepatic coma SNOMED: 28189875 (4) LFTs abnormal ICD Codes: R79.89 - Other specified abnormal findings of blood chemistry SNOMED: 011189030 (5) Hypoalbuminemia ICD Codes: E88.09 - Other disorders of plasma-protein metabolism, not elsewhere classified SNOMED: 161710667 (6) COPD exacerbation ICD Codes: J44.1 - Chronic obstructive pulmonary disease with (acute) exacerbation SNOMED: 720035151, 240199814 (7) Hypotension ICD Codes: I95.9 - Hypotension, unspecified SNOMED: 16385907, 878709681 Qualifiers: Qualified Codes: I95.9 - Hypotension, unspecified (8) Acute type 1 respiratory failure ICD Codes: J96.01 - Acute respiratory failure with hypoxia SNOMED: 11553040, 095592333 (9) Dyspnea ICD Codes: R06.00 - Dyspnea, unspecified SNOMED: 247515430 Status: unchanged Status Narrative Discussed with Dr. Roy. Assessment/Plan Assessment Dysphagia Acute respiratory failure, currently with respiratory acidosis Acute COPD exacerbation SIRS (tachycardia, hypoxemia, alteration in mental status) CTA with no pulmonary embolism Hep B/C serologies abnormal History of HTN (+) OB Anemia Recommendations possible trach tomorrow fu cdiff continue OGTFs follow labs elevate HOB possible GI w/u at later date Hep B core total, Igm >> positive - fu Hep B surface, if positive indicates Acute Hep B - fu Hep B DNA monitor LFTs monitor H&H, stable given OB + x 2 ppi benzo + fu labs Subjective Subjective limited Objective Last 24 Hour Vital Signs Date Time Temp Pulse Resp B/P Pulse Ox O2 Delivery O2 Flow Rate FiO2 04/16/16 10:00 86 21 101/55 99 Mechanical Ventilator 30 04/16/16 09:25 91 18 30 04/16/16 09:20 94 04/16/16 09:00 88 18 123/64 99 Mechanical Ventilator 30 04/16/16 08:00 30 04/16/16 08:00 98.7 97 24 132/93 98 Mechanical Ventilator 30 04/16/16 08:00 88 04/16/16 07:00 96 18 122/71 100 Mechanical Ventilator 30 04/16/16 06:43 100 18 30 04/16/16 06:00 99 24 122/79 100 Mechanical Ventilator 30 04/16/16 05:00 106 24 144/74 100 Mechanical Ventilator 30 04/16/16 04:45 109 18 30 04/16/16 04:00 30 04/16/16 04:00 90 04/16/16 04:00 99.0 101 24 136/70 100 Mechanical Ventilator 30 04/16/16 03:29 93 18 30 04/16/16 03:00 86 24 100/87 100 Mechanical Ventilator 30 04/16/16 02:00 90 24 118/69 100 Mechanical Ventilator 30 04/16/16 01:00 96 24 137/86 100 Mechanical Ventilator 30 04/16/16 00:51 99 18 30 04/16/16 00:00 88 04/16/16 00:00 30 04/16/16 00:00 98.9 95 25 118/60 100 Mechanical Ventilator 30 04/15/16 23:00 91 18 30 04/15/16 22:00 98.4 93 20 104/77 100 Mechanical Ventilator 30 04/15/16 22:00 85 104/77 04/15/16 21:30 98 18 30 04/15/16 21:00 98.8 91 20 155/65 100 Mechanical Ventilator 30 04/15/16 20:30 126/71 04/15/16 20:00 91 04/15/16 20:00 99.2 90 22 126/71 100 Mechanical Ventilator 30 04/15/16 20:00 30 04/15/16 19:09 95 18 30 04/15/16 19:00 92 24 130/69 100 Mechanical Ventilator 30 04/15/16 18:00 93 18 116/89 100 Mechanical Ventilator 30 04/15/16 17:08 92 18 30 04/15/16 16:59 92 18 108/56 94 Mechanical Ventilator 30 04/15/16 16:00 98.6 96 18 114/59 96 Mechanical Ventilator 30 04/15/16 16:00 94 04/15/16 16:00 30 04/15/16 15:06 99 21 106/63 100 Mechanical Ventilator 30 04/15/16 14:42 101 18 30 04/15/16 14:00 98 24 140/60 100 Mechanical Ventilator 30 04/15/16 13:35 79 18 30 04/15/16 13:00 81 18 109/59 100 Mechanical Ventilator 30 04/15/16 12:05 30 04/15/16 12:03 80 04/15/16 12:00 99.4 78 18 97/55 100 Mechanical Ventilator 30 04/15/16 11:28 77 18 30 Intake and Output 04/15/16 04/16/16 19:00 07:00 Intake Total 1708 ml 1819 ml Output Total 615 ml 670 ml Balance 1093 ml 1149 ml Free Water 100 ml IV Total 808 ml 1109 ml Tube Feeding 660 ml 660 ml Other 140 ml 50 ml Output Urine Total 615 ml 670 ml # Bowel Movements 5 3 Laboratory Tests Test 04/16/16 05:00 04/16/16 06:52 04/16/16 09:50 White Blood Count 21.5 K/UL (4.8-10.8) H Red Blood Count 2.67 M/UL (4.20-5.40) L Hemoglobin 8.7 G/DL (12.0-16.0) L Hematocrit 25.9 % (37.0-47.0) L Mean Corpuscular Volume 97 FL (80-99) Mean Corpuscular Hemoglobin 32.5 PG (27.0-31.0) H Mean Corpuscular Hemoglobin Concent 33.5 G/DL (32.0-36.0) Red Cell Distribution Width 13.3 % (11.6-14.8) Platelet Count 259 K/UL (150-450) Mean Platelet Volume 7.6 FL (6.5-10.1) Neutrophils (%) (Auto) % (45.0-75.0) Lymphocytes (%) (Auto) % (20.0-45.0) Monocytes (%) (Auto) % (1.0-10.0) Eosinophils (%) (Auto) % (0.0-3.0) Basophils (%) (Auto) % (0.0-2.0) Differential Total Cells Counted 100 Neutrophils % (Manual) 94 % (45-75) H Lymphocytes % (Manual) 4 % (20-45) L Monocytes % (Manual) 1 % (1-10) Eosinophils % (Manual) 0 % (0-3) Basophils % (Manual) 0 % (0-2) Band Neutrophils 1 % (0-8) Platelet Estimate Adequate Platelet Morphology Normal Hypochromasia 3+ Anisocytosis 1+ Sodium Level 137 mEQ/L (135-145) Potassium Level 5.2 mEQ/L (3.4-4.9) #H Chloride Level 100 mEQ/L (98-107) Carbon Dioxide Level 26 mEQ/L (20-30) Anion Gap 11 (5-15) Blood Urea Nitrogen 38 mg/dL (7-23) H Creatinine 0.9 mg/dL (0.5-0.9) Estimat Glomerular Filtration Rate > 60 mL/min (>60) Glucose Level 192 mg/dL (74-106) H Calcium Level 6.3 mg/dL (8.6-10.2) L Arterial Blood pH 7.340 (7.350-7.450) Arterial Blood Partial Pressure CO2 48.8 mmHg (35.0-45.0) H Arterial Blood Partial Pressure O2 78.6 mmHg (75.0-100.0) Arterial Blood HCO3 25.7 mmol/L (22.0-26.0) Arterial Blood Oxygen Saturation 94.9 % (92.0-98.0) Arterial Blood Base Excess -0.3 Damián Test Positive Prothrombin Time 10.6 SEC (9.30-11.50) Prothromb Time International Ratio 1.0 (0.9-1.1) Height (Feet): 5 Height (Inches): 5.00 Weight (Pounds): 125 General Appearance: alert Cardiovascular: normal rate Respiratory/Chest: other - mech vent Abdominal Exam: soft Maeve Graves N.PChelsy Apr 16, 2016 11:03
--- NOTE | 2016-04-16 11:31 | Infectious Diseases Prog Note ---
Assessment/Plan Assessment/Plan antibiotics : vancomycin iv, zosyn, doxycycline, fluconazole A 1. pneumonia 2. leucocytosis improving likely secondary to steroids 3. respiratory failure 4. COPD 5. fungal UTI 6. shock resolving P 1. continue vancomycin iv, zosyn, doxycycline, fluconazole 2. will follow up cultures 3. d/w Dr Gomez 4. tracheostomy planned Subjective ROS Limited/Unobtainable: Yes Allergies: Coded Allergies: CODEINE (Verified Allergy, Unknown, 04/05/16) ERYTHROMYCIN BASE (Verified Allergy, Unknown, 04/05/16) TETRACYCLINE (Verified Allergy, Unknown, 04/05/16) Objective Vital Signs Last 24 Hour Vital Signs Date Time Temp Pulse Resp B/P Pulse Ox O2 Delivery O2 Flow Rate FiO2 04/16/16 11:00 90 18 30 04/16/16 11:00 90 20 141/75 99 Mechanical Ventilator 30 04/16/16 10:00 86 21 101/55 99 Mechanical Ventilator 30 04/16/16 09:25 91 18 30 04/16/16 09:20 94 04/16/16 09:00 88 18 123/64 99 Mechanical Ventilator 30 04/16/16 08:00 30 04/16/16 08:00 98.7 97 24 132/93 98 Mechanical Ventilator 30 04/16/16 08:00 88 04/16/16 07:00 96 18 122/71 100 Mechanical Ventilator 30 04/16/16 06:43 100 18 30 04/16/16 06:00 99 24 122/79 100 Mechanical Ventilator 30 04/16/16 05:00 106 24 144/74 100 Mechanical Ventilator 30 04/16/16 04:45 109 18 30 04/16/16 04:00 30 04/16/16 04:00 90 04/16/16 04:00 99.0 101 24 136/70 100 Mechanical Ventilator 30 04/16/16 03:29 93 18 30 04/16/16 03:00 86 24 100/87 100 Mechanical Ventilator 30 04/16/16 02:00 90 24 118/69 100 Mechanical Ventilator 30 04/16/16 01:00 96 24 137/86 100 Mechanical Ventilator 30 04/16/16 00:51 99 18 30 04/16/16 00:00 88 04/16/16 00:00 30 04/16/16 00:00 98.9 95 25 118/60 100 Mechanical Ventilator 30 04/15/16 23:00 91 18 30 04/15/16 22:00 98.4 93 20 104/77 100 Mechanical Ventilator 30 04/15/16 22:00 85 104/77 04/15/16 21:30 98 18 30 04/15/16 21:00 98.8 91 20 155/65 100 Mechanical Ventilator 30 04/15/16 20:30 126/71 04/15/16 20:00 91 04/15/16 20:00 99.2 90 22 126/71 100 Mechanical Ventilator 30 04/15/16 20:00 30 04/15/16 19:09 95 18 30 04/15/16 19:00 92 24 130/69 100 Mechanical Ventilator 30 04/15/16 18:00 93 18 116/89 100 Mechanical Ventilator 30 04/15/16 17:08 92 18 30 04/15/16 16:59 92 18 108/56 94 Mechanical Ventilator 30 04/15/16 16:00 98.6 96 18 114/59 96 Mechanical Ventilator 30 04/15/16 16:00 94 04/15/16 16:00 30 04/15/16 15:06 99 21 106/63 100 Mechanical Ventilator 30 04/15/16 14:42 101 18 30 04/15/16 14:00 98 24 140/60 100 Mechanical Ventilator 30 04/15/16 13:35 79 18 30 04/15/16 13:00 81 18 109/59 100 Mechanical Ventilator 30 04/15/16 12:05 30 04/15/16 12:03 80 04/15/16 12:00 99.4 78 18 97/55 100 Mechanical Ventilator 30 Height (Feet): 5 Height (Inches): 5.00 Weight (Pounds): 125 HEENT: other - intubated Respiratory/Chest: lungs clear Cardiovascular: normal rate, regular rhythm, no gallop/murmur Abdomen: soft, non tender Extremities: other - + edema bilaterally, right arm PICC Microbiology Date/Time Source Procedure Growth Status 04/13/16 21:00 Blood Blood Culture - Preliminary Resulted 04/13/16 19:50 Stool Clostridium difficile Toxin Assay - Final Complete 04/13/16 20:05 Indwelling Cath Urine Culture - Final Yeast Species Complete Laboratory Tests Test 04/16/16 05:00 04/16/16 06:52 04/16/16 09:50 White Blood Count 21.5 K/UL (4.8-10.8) H Red Blood Count 2.67 M/UL (4.20-5.40) L Hemoglobin 8.7 G/DL (12.0-16.0) L Hematocrit 25.9 % (37.0-47.0) L Mean Corpuscular Volume 97 FL (80-99) Mean Corpuscular Hemoglobin 32.5 PG (27.0-31.0) H Mean Corpuscular Hemoglobin Concent 33.5 G/DL (32.0-36.0) Red Cell Distribution Width 13.3 % (11.6-14.8) Platelet Count 259 K/UL (150-450) Mean Platelet Volume 7.6 FL (6.5-10.1) Neutrophils (%) (Auto) % (45.0-75.0) Lymphocytes (%) (Auto) % (20.0-45.0) Monocytes (%) (Auto) % (1.0-10.0) Eosinophils (%) (Auto) % (0.0-3.0) Basophils (%) (Auto) % (0.0-2.0) Differential Total Cells Counted 100 Neutrophils % (Manual) 94 % (45-75) H Lymphocytes % (Manual) 4 % (20-45) L Monocytes % (Manual) 1 % (1-10) Eosinophils % (Manual) 0 % (0-3) Basophils % (Manual) 0 % (0-2) Band Neutrophils 1 % (0-8) Platelet Estimate Adequate Platelet Morphology Normal Hypochromasia 3+ Anisocytosis 1+ Sodium Level 137 mEQ/L (135-145) Potassium Level 5.2 mEQ/L (3.4-4.9) #H Chloride Level 100 mEQ/L (98-107) Carbon Dioxide Level 26 mEQ/L (20-30) Anion Gap 11 (5-15) Blood Urea Nitrogen 38 mg/dL (7-23) H Creatinine 0.9 mg/dL (0.5-0.9) Estimat Glomerular Filtration Rate > 60 mL/min (>60) Glucose Level 192 mg/dL (74-106) H Calcium Level 6.3 mg/dL (8.6-10.2) L Arterial Blood pH 7.340 (7.350-7.450) Arterial Blood Partial Pressure CO2 48.8 mmHg (35.0-45.0) H Arterial Blood Partial Pressure O2 78.6 mmHg (75.0-100.0) Arterial Blood HCO3 25.7 mmol/L (22.0-26.0) Arterial Blood Oxygen Saturation 94.9 % (92.0-98.0) Arterial Blood Base Excess -0.3 Damián Test Positive Prothrombin Time 10.6 SEC (9.30-11.50) Prothromb Time International Ratio 1.0 (0.9-1.1) ALEX GALEANA Apr 16, 2016 11:31
--- NOTE | 2016-04-16 11:55 | Pulmonolgy Critical Care Note ---
Critical Care - Asmt/Plan Assessment/Plan: ASSESSMENT: acute hypoxemic/hypercapneic resp failure--vent dep--ABG better today. pco2 donw to 48 w adequate ph bronchitis-vyst UTI-yst sepsis-better sev copd sev hyperinflation hypotension due to sepsis-resolved JAIR-stable w neg BROOKS sl elev [id number] ischemia-will need non invasive study when better abnl LFTs--abd brooks c/w cirrhosis--hep B core IgM positive!! ?false pos??-- studies pend ANEMIA-dropping H/H again w H pos stool h/o HTN cirrhosis--unclear etiol-no ho etoh per pt in past and mothers report positive Hep B IGG IGM--?false pos hyperglycemia-due to steroids-controlled PICC immune status--flu shot-yes prevnar 13 yes 03/01/15 PLAN wean as [place] change IVF to 1/2 NS without K trach in am by Dr Mariely Giron eval abg am may need eventual EGD--watch h/h closely f/u hep studies case dw lung tx at [facility]-pt would have to be off vent and rehabbed before tx can be considered. cont curr steroids-consider decr soon cont tube feeds Vital AF watch h/h--tx if hgb < or =7 f/u cxs FULL CODE 45 min spent at bedside adjusting vent, discussing w RN RT ID on unit, mother via phone and coordinating care Critical Care - Objective Last 24 Hour Vital Signs Date Time Temp Pulse Resp B/P Pulse Ox O2 Delivery O2 Flow Rate FiO2 04/16/16 11:00 90 18 30 04/16/16 11:00 90 20 141/75 99 Mechanical Ventilator 30 04/16/16 10:00 86 21 101/55 99 Mechanical Ventilator 30 04/16/16 09:25 91 18 30 04/16/16 09:20 94 04/16/16 09:00 88 18 123/64 99 Mechanical Ventilator 30 04/16/16 08:00 30 04/16/16 08:00 98.7 97 24 132/93 98 Mechanical Ventilator 30 04/16/16 08:00 88 04/16/16 07:00 96 18 122/71 100 Mechanical Ventilator 30 04/16/16 06:43 100 18 30 04/16/16 06:00 99 24 122/79 100 Mechanical Ventilator 30 04/16/16 05:00 106 24 144/74 100 Mechanical Ventilator 30 04/16/16 04:45 109 18 30 04/16/16 04:00 30 04/16/16 04:00 90 04/16/16 04:00 99.0 101 24 136/70 100 Mechanical Ventilator 30 04/16/16 03:29 93 18 30 04/16/16 03:00 86 24 100/87 100 Mechanical Ventilator 30 04/16/16 02:00 90 24 118/69 100 Mechanical Ventilator 30 04/16/16 01:00 96 24 137/86 100 Mechanical Ventilator 30 04/16/16 00:51 99 18 30 04/16/16 00:00 88 04/16/16 00:00 30 04/16/16 00:00 98.9 95 25 118/60 100 Mechanical Ventilator 30 04/15/16 23:00 91 18 30 04/15/16 22:00 98.4 93 20 104/77 100 Mechanical Ventilator 30 04/15/16 22:00 85 104/77 04/15/16 21:30 98 18 30 04/15/16 21:00 98.8 91 20 155/65 100 Mechanical Ventilator 30 04/15/16 20:30 126/71 04/15/16 20:00 91 04/15/16 20:00 99.2 90 22 126/71 100 Mechanical Ventilator 30 04/15/16 20:00 30 04/15/16 19:09 95 18 30 04/15/16 19:00 92 24 130/69 100 Mechanical Ventilator 30 04/15/16 18:00 93 18 116/89 100 Mechanical Ventilator 30 04/15/16 17:08 92 18 30 04/15/16 16:59 92 18 108/56 94 Mechanical Ventilator 30 04/15/16 16:00 98.6 96 18 114/59 96 Mechanical Ventilator 30 04/15/16 16:00 94 04/15/16 16:00 30 04/15/16 15:06 99 21 106/63 100 Mechanical Ventilator 30 04/15/16 14:42 101 18 30 04/15/16 14:00 98 24 140/60 100 Mechanical Ventilator 30 04/15/16 13:35 79 18 30 04/15/16 13:00 81 18 109/59 100 Mechanical Ventilator 30 04/15/16 12:05 30 04/15/16 12:03 80 04/15/16 12:00 99.4 78 18 97/55 100 Mechanical Ventilator 30 Status: awake Condition: improving Lungs: clear - prro bs bilat Heart: regular Abdomen: soft Extremities: edema - 1-2+ edema Micro: Microbiology Date/Time Source Procedure Growth Status 04/13/16 21:00 Blood Blood Culture - Preliminary Resulted 04/13/16 19:50 Stool Clostridium difficile Toxin Assay - Final Complete 04/13/16 20:05 Indwelling Cath Urine Culture - Final Yeast Species Complete Accucheck: 184 Critical Care - Subjective ROS Limited/Unobtainable: Yes - awake and alert but difficult to understand her. on ac 18, tv 500 30%. unable to wean on cpap ps 18 this am. off pressors. a feb since yest am early. Condition: improving - awake FI02: 30 Vent Support Breath Rate: 18 Vent Support Mode: AC Vent Tidal Volume: 550 Sputum Amount: Small PEEP: 5.0 PIP: 32 Tube Feeding Amount: 55 I&O: Intake and Output 04/15/16 04/16/16 19:00 07:00 Intake Total 1708 ml 1819 ml Output Total 615 ml 670 ml Balance 1093 ml 1149 ml Free Water 100 ml IV Total 808 ml 1109 ml Tube Feeding 660 ml 660 ml Other 140 ml 50 ml Output Urine Total 615 ml 670 ml # Bowel Movements 5 3 Subjective: pt comfortable, easily awakened, alert. uneventful night remains on levophed weaning attmepted-did not tolerate SIMV/PS or PS 22 by me no breath stacking mother (89yo) at bedside cxr no if-lungs somewhat decompressed c/w yest cxr ET-Tube: 7.5 ET Position: 22 RIZWAN DUDLEY Apr 16, 2016 11:55
[2016-04-16] MEDS ORDERED: Tubing Blood Filter IV ONE (15:54)
[2016-04-16] MEDS ORDERED: Tubing IV Secondary IV ONE ×3 (15:54→15:57)
--- NOTE | 2016-04-16 16:35 | Pre-Procedure Note/Attestation ---
Pre-Procedure Note/Attestation Complete Prior to Procedure Planned Procedure: not applicable Procedure Narrative: Tracheostomy Indications for Procedure Pre-Operative Diagnosis: Prolonged intubation for resp. failure on ventilator greater than 10 days. Attestation I attest that I discussed the nature of the procedure; its benefits; risks and complications; and alternatives (and the risks and benefits of such alternatives ), prior to the procedure, with the patient (or the patient's legal manufacturers representative). I attest that, if there was a reasonable possibility of needing a blood transfusion, the patient (or the patient's legal manufacturers representative) was given the [facility] standardized written summary, pursuant to the Johnny Saurav Blood Safety Act ([place] Health and Safety Code # 1645, as amended). I attest that I re-evaluated the patient just prior to the surgery and that there has been no change in the patient's H&P. ALFREDA ELENA Apr 16, 2016 16:35
--- NOTE | 2016-04-16 16:37 | General Progress Note ---
Progress Note Progress Note Head and Neck Surgery INR today 1.[address] Gomez note read and appreciated. ALFREDA ELENA Apr 16, 2016 16:37
[2016-04-16] MEDS: Montelukast 10mg tablet ORAL SCH (16:50)
[2016-04-16] MEDS: Vancomycin 750 MG in D5W 250 ML IVPB SCH (18:13)
[2016-04-16 19:10] LABS: L.PNEUMOPHILIA IGM SERO-1 < 1:16 (< 1:16); L.PNEUMOPHILIA SERO-1 <0.91 OD ratio (0.00-0.90); MYCOPLASMA PNEUMONIAE AB IGG <100 U/mL (0-99); MYCOPLASMA PNEUMONIAE AB IGM <770 U/mL (0-769)
--- NOTE | 2016-04-16 19:13 | Cardiology Progress Note ---
Assessment/Plan Problem List: (1) COPD exacerbation (2) Hypotension (3) Anemia (4) Hepatitis B (5) LFTs abnormal (6) Acute type 1 respiratory failure Status: stable, unchanged Status Narrative Mrs. Gallardo remains intubated, unable to be weaned from vent. Remains w/ resp acidosis. WBC persistently elevated , however, she is no longer hypotensive No arrhythmias noted on telemetry Assessment/Plan Continue supportive care. Plan for trach for tomorrow noted. Cardiac status stable for procedure. Subjective ROS Limited/Unobtainable: Yes Subjective Intubated ,awake Objective Last 24 Hour Vital Signs Date Time Temp Pulse Resp B/P Pulse Ox O2 Delivery O2 Flow Rate FiO2 04/16/16 18:00 84 18 107/58 100 Mechanical Ventilator 30 04/16/16 17:06 91 18 30 04/16/16 17:00 96 22 122/65 100 Mechanical Ventilator 30 04/16/16 16:00 89 04/16/16 16:00 30 04/16/16 16:00 98.5 89 18 94/58 100 Mechanical Ventilator 30 04/16/16 15:00 102 19 30 04/16/16 15:00 99 21 128/67 100 Mechanical Ventilator 30 04/16/16 14:00 102 19 141/65 99 Mechanical Ventilator 30 04/16/16 13:18 93 18 30 04/16/16 13:00 90 22 140/62 99 Mechanical Ventilator 30 04/16/16 12:00 100 04/16/16 12:00 98.1 105 24 148/72 99 Mechanical Ventilator 30 04/16/16 12:00 30 04/16/16 11:00 90 18 30 04/16/16 11:00 90 20 141/75 99 Mechanical Ventilator 30 04/16/16 10:00 86 21 101/55 99 Mechanical Ventilator 30 04/16/16 09:25 91 18 30 04/16/16 09:20 94 04/16/16 09:00 88 18 123/64 99 Mechanical Ventilator 30 04/16/16 08:00 30 04/16/16 08:00 98.7 97 24 132/93 98 Mechanical Ventilator 30 04/16/16 08:00 88 04/16/16 07:00 96 18 122/71 100 Mechanical Ventilator 30 04/16/16 06:43 100 18 30 04/16/16 06:00 99 24 122/79 100 Mechanical Ventilator 30 04/16/16 05:00 106 24 144/74 100 Mechanical Ventilator 30 04/16/16 04:45 109 18 30 04/16/16 04:00 30 04/16/16 04:00 90 04/16/16 04:00 99.0 101 24 136/70 100 Mechanical Ventilator 30 04/16/16 03:29 93 18 30 04/16/16 03:00 86 24 100/87 100 Mechanical Ventilator 30 04/16/16 02:00 90 24 118/69 100 Mechanical Ventilator 30 04/16/16 01:00 96 24 137/86 100 Mechanical Ventilator 30 04/16/16 00:51 99 18 30 04/16/16 00:00 88 04/16/16 00:00 30 04/16/16 00:00 98.9 95 25 118/60 100 Mechanical Ventilator 30 04/15/16 23:00 91 18 30 04/15/16 22:00 98.4 93 20 104/77 100 Mechanical Ventilator 30 04/15/16 22:00 85 104/77 04/15/16 21:30 98 18 30 04/15/16 21:00 98.8 91 20 155/65 100 Mechanical Ventilator 30 04/15/16 20:30 126/71 04/15/16 20:00 91 04/15/16 20:00 99.2 90 22 126/71 100 Mechanical Ventilator 30 04/15/16 20:00 30 04/15/16 19:09 95 18 30 General Appearance: no apparent distress, alert, on vent EENT: other - ET, OG tubes in place Neck: no JVD Rhythm: NSR Cardiovascular: normal rate, regular rhythm, no gallop/murmur Respiratory/Chest: other - dec BS bilat Abdomen: non tender, soft, no mass Extremities: other - 2+ pitting edema of hands/feet bilat Intake and Output 04/15/16 04/16/16 19:00 07:00 Intake Total 1708 ml 1819 ml Output Total 615 ml 670 ml Balance 1093 ml 1149 ml Free Water 100 ml IV Total 808 ml 1109 ml Tube Feeding 660 ml 660 ml Other 140 ml 50 ml Output Urine Total 615 ml 670 ml # Bowel Movements 5 3 Laboratory Tests Test 04/16/16 05:00 04/16/16 06:52 04/16/16 09:50 White Blood Count 21.5 K/UL (4.8-10.8) H Red Blood Count 2.67 M/UL (4.20-5.40) L Hemoglobin 8.7 G/DL (12.0-16.0) L Hematocrit 25.9 % (37.0-47.0) L Mean Corpuscular Volume 97 FL (80-99) Mean Corpuscular Hemoglobin 32.5 PG (27.0-31.0) H Mean Corpuscular Hemoglobin Concent 33.5 G/DL (32.0-36.0) Red Cell Distribution Width 13.3 % (11.6-14.8) Platelet Count 259 K/UL (150-450) Mean Platelet Volume 7.6 FL (6.5-10.1) Neutrophils (%) (Auto) % (45.0-75.0) Lymphocytes (%) (Auto) % (20.0-45.0) Monocytes (%) (Auto) % (1.0-10.0) Eosinophils (%) (Auto) % (0.0-3.0) Basophils (%) (Auto) % (0.0-2.0) Differential Total Cells Counted 100 Neutrophils % (Manual) 94 % (45-75) H Lymphocytes % (Manual) 4 % (20-45) L Monocytes % (Manual) 1 % (1-10) Eosinophils % (Manual) 0 % (0-3) Basophils % (Manual) 0 % (0-2) Band Neutrophils 1 % (0-8) Platelet Estimate Adequate Platelet Morphology Normal Hypochromasia 3+ Anisocytosis 1+ Sodium Level 137 mEQ/L (135-145) Potassium Level 5.2 mEQ/L (3.4-4.9) #H Chloride Level 100 mEQ/L (98-107) Carbon Dioxide Level 26 mEQ/L (20-30) Anion Gap 11 (5-15) Blood Urea Nitrogen 38 mg/dL (7-23) H Creatinine 0.9 mg/dL (0.5-0.9) Estimat Glomerular Filtration Rate > 60 mL/min (>60) Glucose Level 192 mg/dL (74-106) H Calcium Level 6.3 mg/dL (8.6-10.2) L Arterial Blood pH 7.340 (7.350-7.450) Arterial Blood Partial Pressure CO2 48.8 mmHg (35.0-45.0) H Arterial Blood Partial Pressure O2 78.6 mmHg (75.0-100.0) Arterial Blood HCO3 25.7 mmol/L (22.0-26.0) Arterial Blood Oxygen Saturation 94.9 % (92.0-98.0) Arterial Blood Base Excess -0.3 Damián Test Positive Prothrombin Time 10.6 SEC (9.30-11.50) Prothromb Time International Ratio 1.0 (0.9-1.1) Microbiology Date/Time Source Procedure Growth Status 04/13/16 21:00 Blood Blood Culture - Preliminary Resulted 04/13/16 19:50 Stool Clostridium difficile Toxin Assay - Final Complete 04/13/16 20:05 Indwelling Cath Urine Culture - Final Yeast Species Complete ACRITO POTTS Apr 16, 2016 19:13
--- NOTE | 2016-04-16 21:37 | Consultation ---
DATE OF CONSULTATION: 04/16/2016 HEAD AND NECK SURGERY/ENT CONSULTATION CONSULTING PHYSICIAN: Reginaldo Schuster M.D. REQUESTING PHYSICIAN: Estela Gomez M.D. REASON FOR CONSULTATION: The patient is in respiratory failure, chronic obstructive pulmonary disease, who has end-stage chronic obstructive pulmonary disease. She has been intubated since 04/02/2016 without prognosis of being extubated soon. She is a candidate for a lung transplant, but has opted so far not to pursue that avenue according to the note by Dr. Gomez on 04/02/2016. PAST MEDICAL HISTORY: Severe emphysema, history of smoking, hypertension, anxiety, osteoporosis. She had an appendectomy in 2013. On admission, she had hypotension and dyspnea. MEDICATIONS: Her medications at the moment include phenylephrine, Dilaudid, Tylenol, Diflucan, Vibramycin, Solu-Medrol, piperacillin and tazobactam, vancomycin, lorazepam, insulin, Singulair, Zofran, Tylenol, and MiraLAX. ALLERGIES: To codeine, erythromycin, and tetracycline. PHYSICAL EXAMINATION: GENERAL: This is a 66-year-old female, lying in bed, intubated, appears to respond. She is 165.1 cm. Weight 56.699 kilograms. BMI 20.8. Normal landmarks. HEENT: Mouth, unable to eval. endotracheal tube taped into place. Positive light reflex. Normal canal. Nose, she has feeding tube in it. LABORATORY DATA: Her INR is 1.1. Her white count is in the low 20s and has remained so. ASSESSMENT: 1. Respiratory failure. Candidate for tracheostomy. She has been intubated over 10 days. 2. Exacerbation of chronic obstructive pulmonary disease. 3. Dyspnea and hypotension in the recent past during this hospitalization. PLAN: Tracheostomy tomorrow. I have spoken with the patient's mother, Chelsi. Thank you very much for asking my opinion in the care and treatment of this patient. Reginaldo Schuster M.D. DR: NICOLASA JOB#: [id number] CC: BETY
[2016-04-16] MEDS: PHENYLEPHRINE IV SCH (22:00)
[2016-04-16] MEDS: D5W IV SCH (22:00)
[2016-04-17] VITALS (23 sets, daily range): BP systolic 86–141; BP diastolic 49–92
[2016-04-17] MEDS: Solu-MEDROL 40mg Inj IVP SCH ×3 (00:14→12:03)
[2016-04-17] MEDS: NovoLOG Insulin Flexpen SUBQ SCH ×4 (00:20→17:46)
[2016-04-17] MEDS: Vancomycin 750 MG in D5W 250 ML IVPB SCH ×2 (05:30→17:45)
[2016-04-17 06:03] LABS: MEAN CORPUSCULAR HEMOGLOBIN 30.6 PG (27.0-31.0); MEAN CORPUSCULAR HGB CONC 31.6 G/DL (32.0-36.0); MEAN CORPUSCULAR VOLUME 97 FL (80-99); MEAN PLATELET VOLUME 7.2 FL (6.5-10.1); PLATELET COUNT 251 K/UL (150-450); RED BLOOD COUNT 2.82 M/UL (4.20-5.40); RED CELL DISTRIBUTION WIDTH 13.5 % (11.6-14.8); WHITE BLOOD COUNT 15.5 K/UL (4.8-10.8)
[2016-04-17 07:02] LABS: ALANINE AMINOTRANSFERASE 259 U/L (3-33); ALBUMIN/GLOBULIN RATIO 1.3 (1.0-2.7); ANION GAP 12 (5-15); ASPARTATE AMINO TRANSFERASE 194 U/L (5-40); CALCIUM 6.6 mg/dL (8.6-10.2); CARBON DIOXIDE 28 mEQ/L (20-30); CHLORIDE 96 mEQ/L (98-107); CREATININE 0.8 mg/dL (0.5-0.9); GLOMERULAR FILTRATION RATE > 60 mL/min (>60); HEMOLYSIS 5; POTASSIUM 3.9 mEQ/L (3.4-4.9); SODIUM 136 mEQ/L (135-145); TOTAL PROTEIN 4.5 g/dL (6.6-8.7)
[2016-04-17 07:09] LABS: FREE T3 0.7 pg/mL (2.3-4.2); THYROID STIMULATING HORMONE 0.054 uIU/mL (0.300-4.500)
[2016-04-17 07:31] LABS: ABG ALLEN TEST POSITIVE; ABG BASE EXCESS -1.1
[2016-04-17] MEDS: Fluconazole 100mg tab ORAL SCH (08:24)
[2016-04-17] MEDS: Lactobacillus-GG tablet ORAL SCH ×3 (08:24→17:46)
[2016-04-17] MEDS: Pantoprazole Inj IVP SCH ×2 (08:24→21:30)
[2016-04-17 08:29] LABS: LYMPHOCYTES % (MANUAL) 4 % (20-45); NEUTROPHILS % (MANUAL) 94 % (45-75); TOTAL CELLS COUNTED 100
[2016-04-17 08:30] LABS: BAND NEUTROPHILS % (MANUAL) 0 % (0-8); BASOPHILS % (MANUAL) 0 % (0-2); EOSINOPHILS % (MANUAL) 0 % (0-3); HYPOCHROMASIA 1+; PLATELET ESTIMATE ADEQUATE; PLATELET MORPHOLOGY NORMAL
[2016-04-17] MEDS ORDERED: Lidocaine 1% 10mg/ml/Epi 0.005mg/ml 30ml vial INJ ONE (08:45)
--- NOTE | 2016-04-17 09:49 | Brief Operative Note ---
Immediate Post Operative Note Operative Note Pre-op Diagnosis: Prolonged intubation for resp. failure on ventilator greater than 10 days. Procedure: Tracheostomy Post-op Diagnosis: same as pre-op Surgeon: Alfreda Elena Storm Window Installer: none Additional Surgeons: none Anesthesiologist: Cheko Anesthesia: general Specimen: none Complications: none Condition: stable Estimated Blood Loss: volume - 10 Drains: none Packing: [email or web address] Implant(s) used?: No ALFREDA ELENA Apr 17, 2016 09:49
--- NOTE | 2016-04-17 10:03 | Immediate Post-Op Evaluation ---
Immediate Post-Op Evalulation Immediate Post-Op Evalulation Procedure: Trach Date of Evaluation: Apr 17, 2016 Time of Evaluation: 09:52 IV Fluids: 10 Blood Products: 0 Estimated Blood Loss: 5 Urinary Output: 0 Blood Pressure Systolic: 120 Blood Pressure Diastolic: 80 Pulse Rate: 87 Respiratory Rate: 20 O2 Sat by Pulse Oximetry: 99 Temperature (Fahrenheit): 98 Pain Score (1-10): 1 Nausea: No Vomiting: No Complications na Patient Status: awake Hydration Status: adequate Given Within 1 Hr of Incision: ELVIRA Hoffman M.D. Apr 17, 2016 10:03
--- NOTE | 2016-04-17 10:05 | Anethesia Preoperative Eval ---
Anesthesia Pre-op PMH/ROS General Date of Evaluation: Apr 17, 2016 Time of Evaluation: 08:50 Anesthesiologist: Arvind ASA Score: ASA 4 Mallampati Score Class I : Soft palate, uvula, fauces, pillars visible Class II: Soft palate, uvula, fauces visible Class III: Soft palate, base of uvula visible Class IV: Only hard plate visible Mallampati Classification: Class II Surgeon: Mariely Diagnosis: Resp Failure Surgical Procedure: Trach Anesthesia History: none Family History: no anesthesia problems Allergies: Coded Allergies: CODEINE (Verified Allergy, Unknown, 04/05/16) ERYTHROMYCIN BASE (Verified Allergy, Unknown, 04/05/16) TETRACYCLINE (Verified Allergy, Unknown, 04/05/16) Medications: see eMAR Past Medical History Cardiovascular: Reports: HTN Pulmonary: Reports: COPD Gastrointestinal/Genitourinary: Denies: CRI, ESRD, GERD, other Neurologic/Psychiatric: Denies: CVA, TIA, dementia, depression/anxiety, other Endocrine: Denies: DM, hypothyroidism, other, steroids Hematology/Immune: Denies: DVT, anemia, bleeding disorder, other Musculoskeletal/Integumentary: Reports: DJD Anesthesia Pre-op Phys. Exam Physician Exam Last Vital Signs Date Time Temp Pulse Resp B/P Pulse Ox O2 Delivery O2 Flow Rate FiO2 04/17/16 08:00 98.0 86 20 116/69 100 Mechanical Ventilator 30 Constitutional: NAD Neurologic: CN 2-12 intact Airway Exam Mallampati Score: Class I Anesthesia Pre-op A/P Labs Hematology Test 04/17/16 04:00 White Blood Count 15.5 K/UL (4.8-10.8) H Red Blood Count 2.82 M/UL (4.20-5.40) L Hemoglobin 8.6 G/DL (12.0-16.0) L Hematocrit 27.3 % (37.0-47.0) L Mean Corpuscular Volume 97 FL (80-99) Mean Corpuscular Hemoglobin 30.6 PG (27.0-31.0) Mean Corpuscular Hemoglobin Concent 31.6 G/DL (32.0-36.0) L Red Cell Distribution Width 13.5 % (11.6-14.8) Platelet Count 251 K/UL (150-450) Mean Platelet Volume 7.2 FL (6.5-10.1) Neutrophils (%) (Auto) % (45.0-75.0) Lymphocytes (%) (Auto) % (20.0-45.0) Monocytes (%) (Auto) % (1.0-10.0) Eosinophils (%) (Auto) % (0.0-3.0) Basophils (%) (Auto) % (0.0-2.0) Differential Total Cells Counted 100 Neutrophils % (Manual) 94 % (45-75) H Lymphocytes % (Manual) 4 % (20-45) L Monocytes % (Manual) 2 % (1-10) Eosinophils % (Manual) 0 % (0-3) Basophils % (Manual) 0 % (0-2) Band Neutrophils 0 % (0-8) Platelet Estimate Adequate Platelet Morphology Normal Hypochromasia 1+ Chemistry Test 04/17/16 04:00 Sodium Level 136 mEQ/L (135-145) Potassium Level 3.9 mEQ/L (3.4-4.9) Chloride Level 96 mEQ/L (98-107) L Carbon Dioxide Level 28 mEQ/L (20-30) Anion Gap 12 (5-15) Blood Urea Nitrogen 38 mg/dL (7-23) H Creatinine 0.8 mg/dL (0.5-0.9) Estimat Glomerular Filtration Rate > 60 mL/min (>60) Glucose Level 160 mg/dL (74-106) H Calcium Level 6.6 mg/dL (8.6-10.2) L Total Bilirubin 0.4 mg/dL (0.0-1.2) Aspartate Amino Transf (AST/SGOT) 194 U/L (5-40) H Alanine Aminotransferase (ALT/SGPT) 259 U/L (3-33) H Alkaline Phosphatase 31 U/L (35-104) L Total Protein 4.5 g/dL (6.6-8.7) L Albumin 2.6 g/dL (3.5-5.2) L Globulin 1.9 g/dL Albumin/Globulin Ratio 1.3 (1.0-2.7) Thyroid Stimulating Hormone (TSH) 0.054 uIU/mL (0.300-4.500) Free Thyroxine 0.65 ng/dL (0.86-1.85) L Free Triiodothyronine 0.7 pg/mL (2.3-4.2) ELVIRA BARNARD M.D. Apr 17, 2016 10:05
--- NOTE | 2016-04-17 10:28 | Infectious Diseases Prog Note ---
Assessment/Plan Assessment/Plan antibiotics : vancomycin iv, zosyn, doxycycline, fluconazole A 1. pneumonia 2. leucocytosis improving likely secondary to steroids 3. respiratory failure s/p tracheostomy 4. COPD 5. fungal UTI 6. shock resolving P 1. continue vancomycin iv, zosyn, fluconazole 2. d/c doxycycline 3. will follow up cultures Subjective ROS Limited/Unobtainable: Yes Allergies: Coded Allergies: CODEINE (Verified Allergy, Unknown, 04/05/16) ERYTHROMYCIN BASE (Verified Allergy, Unknown, 04/05/16) TETRACYCLINE (Verified Allergy, Unknown, 04/05/16) Objective Vital Signs Last 24 Hour Vital Signs Date Time Temp Pulse Resp B/P Pulse Ox O2 Delivery O2 Flow Rate FiO2 04/17/16 10:03 87 20 99 04/17/16 08:00 98.0 86 20 116/69 100 Mechanical Ventilator 30 04/17/16 08:00 30 04/17/16 08:00 82 04/17/16 07:00 92 20 141/72 100 Mechanical Ventilator 30 04/17/16 06:38 90 18 30 04/17/16 06:00 76 22 98/71 100 Mechanical Ventilator 30 04/17/16 05:00 76 22 97/59 100 Mechanical Ventilator 30 04/17/16 04:47 89 18 30 04/17/16 04:00 84 04/17/16 04:00 97.8 83 22 120/89 100 Mechanical Ventilator 30 04/17/16 04:00 30 04/17/16 03:23 91 18 30 04/17/16 03:00 81 22 112/74 100 Mechanical Ventilator 30 04/17/16 02:00 93 22 129/79 100 Mechanical Ventilator 30 04/17/16 00:59 78 18 30 04/17/16 00:57 87 22 90/54 100 Mechanical Ventilator 30 04/17/16 00:00 86 04/17/16 00:00 30 04/17/16 00:00 98.4 85 22 99/60 100 Mechanical Ventilator 30 04/16/16 23:10 97 18 30 04/16/16 23:00 97 22 122/69 100 Mechanical Ventilator 30 04/16/16 22:00 97 25 133/76 99 Mechanical Ventilator 30 04/16/16 22:00 97 133/76 04/16/16 21:00 96 22 128/72 100 Mechanical Ventilator 30 04/16/16 20:56 96 18 30 04/16/16 20:30 128/72 04/16/16 20:00 99.6 102 27 128/72 100 Mechanical Ventilator 30 04/16/16 20:00 102 04/16/16 20:00 30 04/16/16 19:12 94 18 30 04/16/16 19:00 97 22 122/69 100 Mechanical Ventilator 30 04/16/16 18:00 84 18 107/58 100 Mechanical Ventilator 30 04/16/16 17:06 91 18 30 04/16/16 17:00 96 22 122/65 100 Mechanical Ventilator 30 04/16/16 16:00 89 04/16/16 16:00 30 04/16/16 16:00 98.5 89 18 94/58 100 Mechanical Ventilator 30 04/16/16 15:00 102 19 30 04/16/16 15:00 99 21 128/67 100 Mechanical Ventilator 30 04/16/16 14:00 102 19 141/65 99 Mechanical Ventilator 30 04/16/16 13:18 93 18 30 04/16/16 13:00 90 22 140/62 99 Mechanical Ventilator 30 04/16/16 12:00 100 04/16/16 12:00 98.1 105 24 148/72 99 Mechanical Ventilator 30 04/16/16 12:00 30 04/16/16 11:00 90 18 30 04/16/16 11:00 90 20 141/75 99 Mechanical Ventilator 30 Height (Feet): 5 Height (Inches): 4.00 Weight (Pounds): 124 HEENT: status post trach Respiratory/Chest: lungs clear Cardiovascular: normal rate, regular rhythm, no gallop/murmur Abdomen: soft, non tender Extremities: other - + edema, right arm PICC Laboratory Tests Test 04/17/16 04:00 04/17/16 07:16 White Blood Count 15.5 K/UL (4.8-10.8) H Red Blood Count 2.82 M/UL (4.20-5.40) L Hemoglobin 8.6 G/DL (12.0-16.0) L Hematocrit 27.3 % (37.0-47.0) L Mean Corpuscular Volume 97 FL (80-99) Mean Corpuscular Hemoglobin 30.6 PG (27.0-31.0) Mean Corpuscular Hemoglobin Concent 31.6 G/DL (32.0-36.0) L Red Cell Distribution Width 13.5 % (11.6-14.8) Platelet Count 251 K/UL (150-450) Mean Platelet Volume 7.2 FL (6.5-10.1) Neutrophils (%) (Auto) % (45.0-75.0) Lymphocytes (%) (Auto) % (20.0-45.0) Monocytes (%) (Auto) % (1.0-10.0) Eosinophils (%) (Auto) % (0.0-3.0) Basophils (%) (Auto) % (0.0-2.0) Differential Total Cells Counted 100 Neutrophils % (Manual) 94 % (45-75) H Lymphocytes % (Manual) 4 % (20-45) L Monocytes % (Manual) 2 % (1-10) Eosinophils % (Manual) 0 % (0-3) Basophils % (Manual) 0 % (0-2) Band Neutrophils 0 % (0-8) Platelet Estimate Adequate Platelet Morphology Normal Hypochromasia 1+ Sodium Level 136 mEQ/L (135-145) Potassium Level 3.9 mEQ/L (3.4-4.9) Chloride Level 96 mEQ/L (98-107) L Carbon Dioxide Level 28 mEQ/L (20-30) Anion Gap 12 (5-15) Blood Urea Nitrogen 38 mg/dL (7-23) H Creatinine 0.8 mg/dL (0.5-0.9) Estimat Glomerular Filtration Rate > 60 mL/min (>60) Glucose Level 160 mg/dL (74-106) H Calcium Level 6.6 mg/dL (8.6-10.2) L Total Bilirubin 0.4 mg/dL (0.0-1.2) Aspartate Amino Transf (AST/SGOT) 194 U/L (5-40) H Alanine Aminotransferase (ALT/SGPT) 259 U/L (3-33) H Alkaline Phosphatase 31 U/L (35-104) L Total Protein 4.5 g/dL (6.6-8.7) L Albumin 2.6 g/dL (3.5-5.2) L Globulin 1.9 g/dL Albumin/Globulin Ratio 1.3 (1.0-2.7) Thyroid Stimulating Hormone (TSH) 0.054 uIU/mL (0.300-4.500) Free Thyroxine 0.65 ng/dL (0.86-1.85) L Free Triiodothyronine 0.7 pg/mL (2.3-4.2) L Arterial Blood pH 7.310 (7.350-7.450) Arterial Blood Partial Pressure CO2 52.0 mmHg (35.0-45.0) H Arterial Blood Partial Pressure O2 98.0 mmHg (75.0-100.0) Arterial Blood HCO3 25.5 mmol/L (22.0-26.0) Arterial Blood Oxygen Saturation 97.0 % (92.0-98.0) Arterial Blood Base Excess -1.1 Damián Test Positive ALEX GALEANA Apr 17, 2016 10:28
[2016-04-17 12:28] LABS: OTHERS PATHOLOGIST COMMENT
--- NOTE | 2016-04-17 13:17 | Operative Note - Dictated ---
DATE OF OPERATION: 04/17/2016 SURGEON: Reginaldo Schuster M.D. GLOBAL LOGISTICS ANALYST: None. ANESTHESIOLOGIST: Gabe Samuels M.D. Anesthesia: Oral endotracheal anesthesia and 10 mL of 1% lidocaine with 1:100,000 epinephrine. INDICATION FOR SURGERY: The patient who has been intubated for more than 10 days without anticipation of extubation within the next week. PREOPERATIVE DIAGNOSES: 1. The patient who has been intubated for more than 10 days without anticipation of extubation within the next week. 2. Respiratory failure. 3. Ventilator dependent. POSTOPERATIVE DIAGNOSES: 1. The patient who has been intubated for more than 10 days without anticipation of extubation within the next week. 2. Respiratory failure. 3. Ventilator dependent. FINDINGS: Normal anatomy in the neck suitable for tracheostomy. PROCEDURE: Tracheostomy. Technique: The patient was prepped and draped in the usual manner. A time-out was confirmed with all in the room. The proper equipment was available. I then injected 10 mL 1% lidocaine with 1:100,000 epinephrine between the sternal notch into fingerbreadths above down to the trachea. Two fingerbreadths above the sternal notch 0.5 cm incision with a 15 blade. I then cauterized down through the subcutaneous flap in the setting of 12 to 14. once I reached the midline muscles, I then in place and dissected the superior to inferior direction the strap muscles. I then identified the thyroid. This was divided down the middle with electrocautery pushed either side with a 4 x 4. I then put a tracheal hook in the cricoid pulling it superiorly. Incision was made between the second and third cartilaginous rings with a small cut on either side inferiorly to create a inferiorly based flap, which was sewn with 3-0 silk to the epithelial margin of the original incision to create a path. Working with the anesthesiologist, the endotracheal tube was pulled to just above the new stoma and a #8 Shiley nonfenestrated with cuff was placed without difficulty. This was tied with a trach strap, left side of the neck two fingerbreadths loose with a knot. Additionally four 3-0 sutures at 157 and 11 to hold the trach flange in place. The incision itself was packed with iodoform gauze, which will be removed in three days. The Telfa trach protector was placed between the flange of the trach and skin. Sponge and needle count was correct. ESTIMATED BLOOD LOSS: 10 cubic centimeters. COUNTS: None. DRAINS: One Shiley #8 nonfenestrated with cuff. Reginaldo Schuster M.D. DR: ASTER JOB#: [id number] CC:
[2016-04-17] MEDS ORDERED: Calcium Gluconate 1gm/10ml vial IVP ONE (14:00)
--- NOTE | 2016-04-17 14:10 | Pulmonolgy Critical Care Note ---
Critical Care - Asmt/Plan Assessment/Plan: ASSESSMENT: acute hypoxemic/hypercapneic resp failure--vent dep--improving s/p trach today 04/17/16 bronchitis-yst UTI-yst sepsis-much improved, wbc decr today. doxy stopped. myc, leg neg sev copd sev hyperinflation JAIR-stable w neg BROOKS sl elev iborxoab-mdexkg-fhvieu ischemia-will need non invasive study when better abnl LFTs--abd brooks c/w cirrhosis--hep B core IgM positive!! Hep B Sag neg ? false pos??--studies pend ANEMIA-stable H/H today w H pos stool h/o HTN cirrhosis--unclear etiol-no ho etoh per pt in past and mothers report hyperglycemia-due to steroids-controlled PICC immune status--flu shot-yes prevnar 13 yes 03/01/15 PLAN wean as [place]--rest first today restarrt TF EGD/PEG tomorrow change IVF to 1/2 NS+ K Giron eval abg am f/u hep studies case dw lung tx at [facility]-pt would have to be off vent and rehabbed before tx can be considered. cont curr steroids-consider decr tomorrow cont tube feeds Vital AF watch h/h--tx if hgb < or =7 f/u cxs FULL CODE 45 min spent at bedside adjusting vent, discussing w pet sitter - Objective Last 24 Hour Vital Signs Date Time Temp Pulse Resp B/P Pulse Ox O2 Delivery O2 Flow Rate FiO2 04/17/16 13:00 102 20 108/92 100 Mechanical Ventilator 30 04/17/16 12:52 99 18 30 04/17/16 12:00 97.2 97 19 97/73 97 Mechanical Ventilator 30 04/17/16 12:00 30 04/17/16 12:00 97 04/17/16 11:09 83 18 30 04/17/16 11:00 82 20 94/67 100 Mechanical Ventilator 30 04/17/16 10:03 87 20 99 04/17/16 10:00 90 20 110/70 100 Mechanical Ventilator 30 04/17/16 09:45 92 18 30 04/17/16 09:30 30 04/17/16 08:00 98.0 86 20 116/69 100 Mechanical Ventilator 30 04/17/16 08:00 30 04/17/16 08:00 82 04/17/16 07:00 92 20 141/72 100 Mechanical Ventilator 30 04/17/16 06:38 90 18 30 04/17/16 06:00 76 22 98/71 100 Mechanical Ventilator 30 04/17/16 05:00 76 22 97/59 100 Mechanical Ventilator 30 04/17/16 04:47 89 18 30 04/17/16 04:00 84 04/17/16 04:00 97.8 83 22 120/89 100 Mechanical Ventilator 30 04/17/16 04:00 30 04/17/16 03:23 91 18 30 04/17/16 03:00 81 22 112/74 100 Mechanical Ventilator 30 04/17/16 02:00 93 22 129/79 100 Mechanical Ventilator 30 04/17/16 00:59 78 18 30 04/17/16 00:57 87 22 90/54 100 Mechanical Ventilator 30 04/17/16 00:00 86 04/17/16 00:00 30 04/17/16 00:00 98.4 85 22 99/60 100 Mechanical Ventilator 30 04/16/16 23:10 97 18 30 04/16/16 23:00 97 22 122/69 100 Mechanical Ventilator 30 04/16/16 22:00 97 25 133/76 99 Mechanical Ventilator 30 04/16/16 22:00 97 133/76 04/16/16 21:00 96 22 128/72 100 Mechanical Ventilator 30 04/16/16 20:56 96 18 30 04/16/16 20:30 128/72 04/16/16 20:00 99.6 102 27 128/72 100 Mechanical Ventilator 30 04/16/16 20:00 102 04/16/16 20:00 30 04/16/16 19:12 94 18 30 04/16/16 19:00 97 22 122/69 100 Mechanical Ventilator 30 04/16/16 18:00 84 18 107/58 100 Mechanical Ventilator 30 04/16/16 17:06 91 18 30 04/16/16 17:00 96 22 122/65 100 Mechanical Ventilator 30 04/16/16 16:00 89 04/16/16 16:00 30 04/16/16 16:00 98.5 89 18 94/58 100 Mechanical Ventilator 30 04/16/16 15:00 102 19 30 04/16/16 15:00 99 21 128/67 100 Mechanical Ventilator 30 Status: awake Neck: trach - somewhat bloody gauze Lungs: clear, other - decr air movt Heart: regular Abdomen: soft, non-tender Extremities: other - mi edema. PCS in place Accucheck: 171 Critical Care - Subjective ROS Limited/Unobtainable: No Condition: improving IV Access: PICC - s/p trach this am -uneventful. pt awake and alert. co being hungry. denies pain. able to mouth phrases to communicate FI02: 30 Vent Support Breath Rate: 18 Vent Support Mode: AC Vent Tidal Volume: 550 Sputum Amount: Small PEEP: 5.0 PIP: 41 Tube Feeding Amount: 0 I&O: Intake and Output 04/16/16 04/17/16 19:00 07:00 Intake Total 1598.75 ml 1296.25 ml Output Total 1020 ml 790 ml Balance 578.75 ml 506.25 ml Free Water 50 ml IV Total 843.75 ml 1131.25 ml Tube Feeding 605 ml 165 ml Other 100 ml Output Urine Total 1020 ml 790 ml # Bowel Movements 2 4 Subjective: pt comfortable, easily awakened, alert. uneventful night remains on levophed weaning attmepted-did not tolerate SIMV/PS or PS 22 by me no breath stacking mother (89yo) at bedside cxr no if-lungs somewhat decompressed c/w yest cxr ET-Tube: 7.5 ET Position: 22 RIZWAN DUDLEY Apr 17, 2016 14:10
--- NOTE | 2016-04-17 14:12 | GI Progress Note ---
Assessment/Plan Problems: (1) Occult blood in stools ICD Codes: R19.5 - Other fecal abnormalities SNOMED: 94473388, 230536453 (2) Anemia ICD Codes: D64.9 - Anemia, unspecified SNOMED: 096576264 (3) Hepatitis B ICD Codes: B19.10 - Unspecified viral hepatitis B without hepatic coma SNOMED: 36952623 (4) LFTs abnormal ICD Codes: R79.89 - Other specified abnormal findings of blood chemistry SNOMED: 451688958 (5) Hypoalbuminemia ICD Codes: E88.09 - Other disorders of plasma-protein metabolism, not elsewhere classified SNOMED: 167140112 (6) COPD exacerbation ICD Codes: J44.1 - Chronic obstructive pulmonary disease with (acute) exacerbation SNOMED: 774561952, 730461450 (7) Hypotension ICD Codes: I95.9 - Hypotension, unspecified SNOMED: 31020703, 697791782 Qualifiers: Qualified Codes: I95.9 - Hypotension, unspecified (8) Acute type 1 respiratory failure ICD Codes: J96.01 - Acute respiratory failure with hypoxia SNOMED: 10025664, 432517487 (9) Dyspnea ICD Codes: R06.00 - Dyspnea, unspecified SNOMED: 513481641 Status: unchanged Status Narrative Discussed with Dr. Roy. Assessment/Plan Assessment Dysphagia Acute respiratory failure, currently with respiratory acidosis Acute COPD exacerbation SIRS (tachycardia, hypoxemia, alteration in mental status) CTA with no pulmonary embolism Hep B/C serologies abnormal History of HTN (+) OB Anemia Recommendations pt scheduled for EGD/PEG - NPO @ [facility] pt trached today fu cdiff continue OGTFs follow labs elevate HOB possible GI w/u at later date Hep B core total, Igm >> positive - fu Hep B surface, if positive indicates Acute Hep B - fu Hep B DNA monitor LFTs monitor H&H, stable given OB + x 2 ppi benzo + fu labs Subjective Subjective limited Objective Last 24 Hour Vital Signs Date Time Temp Pulse Resp B/P Pulse Ox O2 Delivery O2 Flow Rate FiO2 04/17/16 13:00 102 20 108/92 100 Mechanical Ventilator 30 04/17/16 12:52 99 18 30 04/17/16 12:00 97.2 97 19 97/73 97 Mechanical Ventilator 30 04/17/16 12:00 30 04/17/16 12:00 97 04/17/16 11:09 83 18 30 04/17/16 11:00 82 20 94/67 100 Mechanical Ventilator 30 04/17/16 10:03 87 20 99 04/17/16 10:00 90 20 110/70 100 Mechanical Ventilator 30 04/17/16 09:45 92 18 30 04/17/16 09:30 30 04/17/16 08:00 98.0 86 20 116/69 100 Mechanical Ventilator 30 04/17/16 08:00 30 04/17/16 08:00 82 04/17/16 07:00 92 20 141/72 100 Mechanical Ventilator 30 04/17/16 06:38 90 18 30 04/17/16 06:00 76 22 98/71 100 Mechanical Ventilator 30 04/17/16 05:00 76 22 97/59 100 Mechanical Ventilator 30 04/17/16 04:47 89 18 30 04/17/16 04:00 84 04/17/16 04:00 97.8 83 22 120/89 100 Mechanical Ventilator 30 04/17/16 04:00 30 04/17/16 03:23 91 18 30 04/17/16 03:00 81 22 112/74 100 Mechanical Ventilator 30 04/17/16 02:00 93 22 129/79 100 Mechanical Ventilator 30 04/17/16 00:59 78 18 30 04/17/16 00:57 87 22 90/54 100 Mechanical Ventilator 30 04/17/16 00:00 86 04/17/16 00:00 30 04/17/16 00:00 98.4 85 22 99/60 100 Mechanical Ventilator 30 04/16/16 23:10 97 18 30 04/16/16 23:00 97 22 122/69 100 Mechanical Ventilator 30 04/16/16 22:00 97 25 133/76 99 Mechanical Ventilator 30 04/16/16 22:00 97 133/76 04/16/16 21:00 96 22 128/72 100 Mechanical Ventilator 30 04/16/16 20:56 96 18 30 04/16/16 20:30 128/72 04/16/16 20:00 99.6 102 27 128/72 100 Mechanical Ventilator 30 04/16/16 20:00 102 04/16/16 20:00 30 04/16/16 19:12 94 18 30 04/16/16 19:00 97 22 122/69 100 Mechanical Ventilator 30 04/16/16 18:00 84 18 107/58 100 Mechanical Ventilator 30 04/16/16 17:06 91 18 30 04/16/16 17:00 96 22 122/65 100 Mechanical Ventilator 30 04/16/16 16:00 89 04/16/16 16:00 30 04/16/16 16:00 98.5 89 18 94/58 100 Mechanical Ventilator 30 04/16/16 15:00 102 19 30 04/16/16 15:00 99 21 128/67 100 Mechanical Ventilator 30 Intake and Output 04/16/16 04/17/16 19:00 07:00 Intake Total 1598.75 ml 1296.25 ml Output Total 1020 ml 790 ml Balance 578.75 ml 506.25 ml Free Water 50 ml IV Total 843.75 ml 1131.25 ml Tube Feeding 605 ml 165 ml Other 100 ml Output Urine Total 1020 ml 790 ml # Bowel Movements 2 4 Laboratory Tests Test 04/17/16 04:00 04/17/16 07:16 White Blood Count 15.5 K/UL (4.8-10.8) H Red Blood Count 2.82 M/UL (4.20-5.40) L Hemoglobin 8.6 G/DL (12.0-16.0) L Hematocrit 27.3 % (37.0-47.0) L Mean Corpuscular Volume 97 FL (80-99) Mean Corpuscular Hemoglobin 30.6 PG (27.0-31.0) Mean Corpuscular Hemoglobin Concent 31.6 G/DL (32.0-36.0) L Red Cell Distribution Width 13.5 % (11.6-14.8) Platelet Count 251 K/UL (150-450) Mean Platelet Volume 7.2 FL (6.5-10.1) Neutrophils (%) (Auto) % (45.0-75.0) Lymphocytes (%) (Auto) % (20.0-45.0) Monocytes (%) (Auto) % (1.0-10.0) Eosinophils (%) (Auto) % (0.0-3.0) Basophils (%) (Auto) % (0.0-2.0) Differential Total Cells Counted 100 Neutrophils % (Manual) 94 % (45-75) H Lymphocytes % (Manual) 4 % (20-45) L Monocytes % (Manual) 2 % (1-10) Eosinophils % (Manual) 0 % (0-3) Basophils % (Manual) 0 % (0-2) Band Neutrophils 0 % (0-8) Platelet Estimate Adequate Platelet Morphology Normal Hypochromasia 1+ Sodium Level 136 mEQ/L (135-145) Potassium Level 3.9 mEQ/L (3.4-4.9) Chloride Level 96 mEQ/L (98-107) L Carbon Dioxide Level 28 mEQ/L (20-30) Anion Gap 12 (5-15) Blood Urea Nitrogen 38 mg/dL (7-23) H Creatinine 0.8 mg/dL (0.5-0.9) Estimat Glomerular Filtration Rate > 60 mL/min (>60) Glucose Level 160 mg/dL (74-106) H Calcium Level 6.6 mg/dL (8.6-10.2) L Total Bilirubin 0.4 mg/dL (0.0-1.2) Aspartate Amino Transf (AST/SGOT) 194 U/L (5-40) H Alanine Aminotransferase (ALT/SGPT) 259 U/L (3-33) H Alkaline Phosphatase 31 U/L (35-104) L Total Protein 4.5 g/dL (6.6-8.7) L Albumin 2.6 g/dL (3.5-5.2) L Globulin 1.9 g/dL Albumin/Globulin Ratio 1.3 (1.0-2.7) Thyroid Stimulating Hormone (TSH) 0.054 uIU/mL (0.300-4.500) Free Thyroxine 0.65 ng/dL (0.86-1.85) L Free Triiodothyronine 0.7 pg/mL (2.3-4.2) L Arterial Blood pH 7.310 (7.350-7.450) Arterial Blood Partial Pressure CO2 52.0 mmHg (35.0-45.0) H Arterial Blood Partial Pressure O2 98.0 mmHg (75.0-100.0) Arterial Blood HCO3 25.5 mmol/L (22.0-26.0) Arterial Blood Oxygen Saturation 97.0 % (92.0-98.0) Arterial Blood Base Excess -1.1 Damián Test Positive Height (Feet): 5 Height (Inches): 4.00 Weight (Pounds): 124 General Appearance: no apparent distress, alert Cardiovascular: normal rate Respiratory/Chest: normal breath sounds, no respiratory distress, other - trach to vent Abdominal Exam: normal bowel sounds, non tender, soft Maeve Graves N.P. Apr 17, 2016 14:12
--- NOTE | 2016-04-17 14:51 | Nephrology Progress Note ---
Assessment/Plan Assessment 1) JAIR due to prerenal state is recovered 2) Hyponatremia is better 3) Acute exacerbation of COPD, s/p respiratory failure now on the vent 4) Hypocalcemia possibly due to Vitamin D deficiency Plan: Agree with calcium IV Check vitamin D level Subjective Subjective She is still on the vent, she s/p tracheostomy, no c/p, still sob, Calcium is 6.6, Albumin is 2.6, good U/O Objective Objective Last 24 Hour Vital Signs Date Time Temp Pulse Resp B/P Pulse Ox O2 Delivery O2 Flow Rate FiO2 04/17/16 14:00 93 20 123/77 100 Mechanical Ventilator 30 04/17/16 13:00 102 20 108/92 100 Mechanical Ventilator 30 04/17/16 12:52 99 18 30 04/17/16 12:00 97.2 97 19 97/73 97 Mechanical Ventilator 30 04/17/16 12:00 30 04/17/16 12:00 97 04/17/16 11:09 83 18 30 04/17/16 11:00 82 20 94/67 100 Mechanical Ventilator 30 04/17/16 10:03 87 20 99 04/17/16 10:00 90 20 110/70 100 Mechanical Ventilator 30 04/17/16 09:45 92 18 30 04/17/16 09:30 30 04/17/16 08:00 98.0 86 20 116/69 100 Mechanical Ventilator 30 04/17/16 08:00 30 04/17/16 08:00 82 04/17/16 07:00 92 20 141/72 100 Mechanical Ventilator 30 04/17/16 06:38 90 18 30 04/17/16 06:00 76 22 98/71 100 Mechanical Ventilator 30 04/17/16 05:00 76 22 97/59 100 Mechanical Ventilator 30 04/17/16 04:47 89 18 30 04/17/16 04:00 84 04/17/16 04:00 97.8 83 22 120/89 100 Mechanical Ventilator 30 04/17/16 04:00 30 04/17/16 03:23 91 18 30 04/17/16 03:00 81 22 112/74 100 Mechanical Ventilator 30 04/17/16 02:00 93 22 129/79 100 Mechanical Ventilator 30 04/17/16 00:59 78 18 30 04/17/16 00:57 87 22 90/54 100 Mechanical Ventilator 30 04/17/16 00:00 86 04/17/16 00:00 30 04/17/16 00:00 98.4 85 22 99/60 100 Mechanical Ventilator 30 04/16/16 23:10 97 18 30 04/16/16 23:00 97 22 122/69 100 Mechanical Ventilator 30 04/16/16 22:00 97 25 133/76 99 Mechanical Ventilator 30 04/16/16 22:00 97 133/76 04/16/16 21:00 96 22 128/72 100 Mechanical Ventilator 30 04/16/16 20:56 96 18 30 04/16/16 20:30 128/72 04/16/16 20:00 99.6 102 27 128/72 100 Mechanical Ventilator 30 04/16/16 20:00 102 04/16/16 20:00 30 04/16/16 19:12 94 18 30 04/16/16 19:00 97 22 122/69 100 Mechanical Ventilator 30 04/16/16 18:00 84 18 107/58 100 Mechanical Ventilator 30 04/16/16 17:06 91 18 30 04/16/16 17:00 96 22 122/65 100 Mechanical Ventilator 30 04/16/16 16:00 89 04/16/16 16:00 30 04/16/16 16:00 98.5 89 18 94/58 100 Mechanical Ventilator 30 04/16/16 15:00 102 19 30 04/16/16 15:00 99 21 128/67 100 Mechanical Ventilator 30 Intake and Output 04/16/16 04/17/16 19:00 07:00 Intake Total 1598.75 ml 1296.25 ml Output Total 1020 ml 790 ml Balance 578.75 ml 506.25 ml Free Water 50 ml IV Total 843.75 ml 1131.25 ml Tube Feeding 605 ml 165 ml Other 100 ml Output Urine Total 1020 ml 790 ml # Bowel Movements 2 4 Laboratory Tests 04/17/16 04:00: White Blood Count 15.5H, Red Blood Count 2.82L, Hemoglobin 8.6L, Hematocrit 27.3L, Mean Corpuscular Volume 97, Mean Corpuscular Hemoglobin 30.6, Mean Corpuscular Hemoglobin Concent 31.6L, Red Cell Distribution Width 13.5, Platelet Count 251, Mean Platelet Volume 7.2, Neutrophils (%) (Auto) , Lymphocytes (%) (Auto) , Monocytes (%) (Auto) , Eosinophils (%) (Auto) , Basophils (%) (Auto) , Differential Total Cells Counted 100, Neutrophils % ( Manual) 94H, Lymphocytes % (Manual) 4L, Monocytes % (Manual) 2, Eosinophils % ( Manual) 0, Basophils % (Manual) 0, Band Neutrophils 0, Platelet Estimate Adequate, Platelet Morphology Normal, Hypochromasia 1+, Sodium Level 136, Potassium Level 3.9, Chloride Level 96L, Carbon Dioxide Level 28, Anion Gap 12, Blood Urea Nitrogen 38H, Creatinine 0.8, Estimat Glomerular Filtration Rate > 60 , Glucose Level 160H, Calcium Level 6.6L, Total Bilirubin 0.4, Aspartate Amino Transf (AST/SGOT) 194H, Alanine Aminotransferase (ALT/SGPT) 259H, Alkaline Phosphatase 31L, Total Protein 4.5L, Albumin 2.6L, Globulin 1.9, Albumin/ Globulin Ratio 1.3, Thyroid Stimulating Hormone (TSH) 0.054L, Free Thyroxine 0.65L, Free Triiodothyronine 0.7L 04/17/16 07:16: Arterial Blood pH 7.310L, Arterial Blood Partial Pressure CO2 52.0H, Arterial Blood Partial Pressure O2 98.0, Arterial Blood HCO3 25.5, Arterial Blood Oxygen Saturation 97.0, Arterial Blood Base Excess -1.1, Damián Test Positive Height (Feet): 5 Height (Inches): 4.00 Weight (Pounds): 124 General Appearance: WD/WN, no apparent distress EENT: PERRL/EOMI, normal ENT inspection Neck: non-tender Cardiovascular: normal rate, regular rhythm, no JVD Respiratory/Chest: lungs clear Abdomen: normal bowel sounds, non tender Extremities: normal range of motion 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
[2016-04-17] MEDS ORDERED: CALCIUM GLUCONATE IVP ONE (16:00)
[2016-04-17] MEDS ORDERED: NS IVP ONE (16:00)
[2016-04-17] MEDS: 1/2NS w/KCl 20mEq 1000ml 1,000 ML IV SCH (16:05)
[2016-04-17] MEDS: Montelukast 10mg tablet ORAL SCH (16:23)
[2016-04-17] MEDS: D5W IV SCH (21:10)
[2016-04-17] MEDS: PHENYLEPHRINE IV SCH (21:10)
[2016-04-17] MEDS: Solu-MEDROL 125mg Inj IVP SCH (21:31)
[2016-04-18] VITALS (25 sets, daily range): BP systolic 82–131; BP diastolic 46–77
[2016-04-18] MEDS: NovoLOG Insulin Flexpen SUBQ SCH ×4 (00:18→17:07)
[2016-04-18 06:07] LABS: MEAN CORPUSCULAR HEMOGLOBIN 31.3 PG (27.0-31.0); MEAN CORPUSCULAR HGB CONC 31.4 G/DL (32.0-36.0); MEAN CORPUSCULAR VOLUME 100 FL (80-99); MEAN PLATELET VOLUME 8.3 FL (6.5-10.1); PLATELET COUNT 231 K/UL (150-450); RED BLOOD COUNT 2.65 M/UL (4.20-5.40); RED CELL DISTRIBUTION WIDTH 15.7 % (11.6-14.8)
[2016-04-18 06:19] LABS: PROTHROMBIN TIME 10.6 SEC (9.30-11.50)
[2016-04-18 06:32] LABS: ALANINE AMINOTRANSFERASE 301 U/L (3-33); ALBUMIN/GLOBULIN RATIO 1.1 (1.0-2.7); ANION GAP 9 (5-15); ASPARTATE AMINO TRANSFERASE 144 U/L (5-40); CALCIUM 6.4 mg/dL (8.6-10.2); CARBON DIOXIDE 29 mEQ/L (20-30); CHLORIDE 96 mEQ/L (98-107); CREATININE 0.8 mg/dL (0.5-0.9); GLOMERULAR FILTRATION RATE > 60 mL/min (>60); HEMOLYSIS 1; POTASSIUM 4.3 mEQ/L (3.4-4.9); SODIUM 134 mEQ/L (135-145); TOTAL PROTEIN 4.1 g/dL (6.6-8.7)
[2016-04-18] MEDS: Solu-MEDROL 125mg Inj IVP SCH ×3 (07:16→21:39)
[2016-04-18] MEDS: 1/2NS w/KCl 20mEq 1000ml 1,000 ML IV SCH ×2 (07:17→19:26)
[2016-04-18] MEDS: Vancomycin 750 MG in D5W 250 ML IVPB SCH (07:17)
--- NOTE | 2016-04-18 07:24 | 48 Hour Post Anesthesia Eval ---
Post Anesthesia Evaluation Procedure: Trach Date of Evaluation: Apr 18, 2016 Time of Evaluation: 07:04 Blood Pressure Systolic: 105 0: 58 Pulse Rate: 89 Respiratory Rate: 17 Temperature (Fahrenheit): 98.2 O2 Sat by Pulse Oximetry: 99 Airway: patent Nausea: No Vomiting: No Pain Intensity: 0 Hydration Status: adequate Cardiopulmonary Status: Stable Mental Status/LOC: patient returned to baseline Follow-up Care/Observations: 0 Post-Anesthesia Complications: 0 Follow-up care needed: N/A Jasbir Franz MD Apr 18, 2016 07:24
[2016-04-18 08:57] LABS: ANISOCYTOSIS 1+; BAND NEUTROPHILS % (MANUAL) 2 % (0-8); BASOPHILS % (MANUAL) 0 % (0-2); EOSINOPHILS % (MANUAL) 0 % (0-3); LYMPHOCYTES % (MANUAL) 2 % (20-45); NEUTROPHILS % (MANUAL) 96 % (45-75); PLATELET ESTIMATE ADEQUATE; PLATELET MORPHOLOGY NORMAL; TOTAL CELLS COUNTED 100
[2016-04-18 08:58] LABS: HYPOCHROMASIA 1+; MACROCYTES 1+
[2016-04-18] MEDS: Fluconazole 100mg tab ORAL SCH (09:06)
[2016-04-18] MEDS: Lactobacillus-GG tablet ORAL SCH ×3 (09:06→17:06)
[2016-04-18] MEDS: Pantoprazole Inj IVP SCH ×2 (09:07→21:14)
--- NOTE | 2016-04-18 11:39 | Pre-Procedure Note/Attestation ---
Pre-Procedure Note/Attestation Complete Prior to Procedure Planned Procedure: not applicable Procedure Narrative: egd/peg Indications for Procedure Pre-Operative Diagnosis: dysphagia Attestation I attest that I discussed the nature of the procedure; its benefits; risks and complications; and alternatives (and the risks and benefits of such alternatives ), prior to the procedure, with the patient (or the patient's legal counter sales representative). I attest that, if there was a reasonable possibility of needing a blood transfusion, the patient (or the patient's legal counter sales representative) was given the [facility] standardized written summary, pursuant to the Johnny Saurav Blood Safety Act ([place] Health and Safety Code # 1645, as amended). I attest that I re-evaluated the patient just prior to the surgery and that there has been no change in the patient's H&P, except as documented below: REAGAN WALSH Apr 18, 2016 11:39
--- NOTE | 2016-04-18 11:46 | Diagnostic Imaging Report ---
Indication: COPD and dyspnea Comparison: 04/16/16 A single view chest radiograph was obtained. Findings: There is no change other than tracheostomy is now present. There is no pneumothorax. Lungs are hyperexpanded. PICC line and nasogastric tube are again noted. Heart size is stable. Impression: Status post tracheostomy. No change otherwise
[2016-04-18 11:47] LABS: ABG ALLEN TEST POSITIVE; ABG BASE EXCESS 1.5
--- NOTE | 2016-04-18 12:36 | Anethesia Preoperative Eval ---
Anesthesia Pre-op PMH/ROS General Date of Evaluation: Apr 18, 2016 Time of Evaluation: 12:00 Anesthesiologist: tyrone ASA Score: ASA 4 Mallampati Score Class I : Soft palate, uvula, fauces, pillars visible Class II: Soft palate, uvula, fauces visible Class III: Soft palate, base of uvula visible Class IV: Only hard plate visible Mallampati Classification: Class II Surgeon: hollis Diagnosis: failure to thrive Surgical Procedure: peg placement Anesthesia History: none Social History: smoking Family History: no anesthesia problems Allergies: Coded Allergies: CODEINE (Verified Allergy, Unknown, 04/05/16) ERYTHROMYCIN BASE (Verified Allergy, Unknown, 04/05/16) TETRACYCLINE (Verified Allergy, Unknown, 04/05/16) Medications: see eMAR Past Medical History Cardiovascular: Reports: HTN, other - hypotension Pulmonary: Reports: COPD, other - resp failure/ s/p trached Neurologic/Psychiatric: Denies: CVA, TIA, dementia, depression/anxiety, other Endocrine: Denies: DM, hypothyroidism, other, steroids HEENT: Denies: [place] (L), [place] (R), cataract (L), cataract (R), glaucoma, other Hematology/Immune: Reports: anemia Musculoskeletal/Integumentary: Reports: edema PMH Narrative: see h &p PSxH Narrative: unknown Anesthesia Pre-op Phys. Exam Physician Exam Last Vital Signs Date Time Temp Pulse Resp B/P Pulse Ox O2 Delivery O2 Flow Rate FiO2 04/18/16 12:00 30 04/18/16 12:00 87 04/18/16 11:00 18 96/63 100 Mechanical Ventilator 04/18/16 08:00 97.1 Constitutional: other - resp failure pt Neurologic: CN 2-12 intact Cardiovascular: RRR Respiratory: CTA Gastrointestinal: S/NT/ND Airway Exam Mallampati Classification 3 Mallampati Score: Class I MO: limited ROM: limited Dentures: no lower, no upper Anesthesia Pre-op A/P Labs Hematology Test 04/18/16 04:45 White Blood Count 12.0 K/UL (4.8-10.8) H Red Blood Count 2.65 M/UL (4.20-5.40) L Hemoglobin 8.3 G/DL (12.0-16.0) L Hematocrit 26.4 % (37.0-47.0) L Mean Corpuscular Volume 100 FL (80-99) H Mean Corpuscular Hemoglobin 31.3 PG (27.0-31.0) H Mean Corpuscular Hemoglobin Concent 31.4 G/DL (32.0-36.0) L Red Cell Distribution Width 15.7 % (11.6-14.8) H Platelet Count 231 K/UL (150-450) Mean Platelet Volume 8.3 FL (6.5-10.1) Neutrophils (%) (Auto) % (45.0-75.0) Lymphocytes (%) (Auto) % (20.0-45.0) Monocytes (%) (Auto) % (1.0-10.0) Eosinophils (%) (Auto) % (0.0-3.0) Basophils (%) (Auto) % (0.0-2.0) Differential Total Cells Counted 100 Neutrophils % (Manual) 96 % (45-75) H Lymphocytes % (Manual) 2 % (20-45) L Monocytes % (Manual) 0 % (1-10) L Eosinophils % (Manual) 0 % (0-3) Basophils % (Manual) 0 % (0-2) Band Neutrophils 2 % (0-8) Platelet Estimate Adequate Platelet Morphology Normal Hypochromasia 1+ Anisocytosis 1+ Macrocytosis 1+ Coagulation Test 04/18/16 04:45 Prothrombin Time 10.6 SEC (9.30-11.50) Prothromb Time International Ratio 1.0 (0.9-1.1) Activated Partial Thromboplast Time 23 SEC (23-33) Chemistry Test 04/18/16 04:45 Sodium Level 134 mEQ/L (135-145) L Potassium Level 4.3 mEQ/L (3.4-4.9) Chloride Level 96 mEQ/L (98-107) L Carbon Dioxide Level 29 mEQ/L (20-30) Anion Gap 9 (5-15) Blood Urea Nitrogen 32 mg/dL (7-23) H Creatinine 0.8 mg/dL (0.5-0.9) Estimat Glomerular Filtration Rate > 60 mL/min (>60) Glucose Level 145 mg/dL (74-106) H Calcium Level 6.4 mg/dL (8.6-10.2) L Phosphorus Level 2.4 mg/dL (2.5-4.8) L Total Bilirubin 0.4 mg/dL (0.0-1.2) Aspartate Amino Transf (AST/SGOT) 144 U/L (5-40) H Alanine Aminotransferase (ALT/SGPT) 301 U/L (3-33) H Alkaline Phosphatase 30 U/L (35-104) L Total Protein 4.1 g/dL (6.6-8.7) L Albumin 2.2 g/dL (3.5-5.2) L Globulin 1.9 g/dL Albumin/Globulin Ratio 1.1 (1.0-2.7) Vitamin D 25-Hydroxy Pending 25-Hydroxy Vitamin D2 Pending 25-Hydroxy Vitamin D3 Pending Studies Pre-op Studies: EKG - sr Risk Assessment & Plan Assessment: trached pt, end stage of resp failure Plan: mac Status Change Before Surgery: No Pre-Antibiotics Drug: vanc/zosyn Given Within 1 Hr of Incision: Yes Time Given: 09:00 MARIA DE JESUS CHANDLER CRNA Apr 18, 2016 12:36
--- NOTE | 2016-04-18 12:44 | Immediate Post-Op Evaluation ---
Immediate Post-Op Evalulation Immediate Post-Op Evalulation Procedure: Peg placement Date of Evaluation: Apr 18, 2016 Time of Evaluation: 12:28 IV Fluids: 500 Blood Products: 0 Blood Pressure Systolic: 89 Blood Pressure Diastolic: 50 Pulse Rate: 90 Respiratory Rate: 16 O2 Sat by Pulse Oximetry: 97 Nausea: No Vomiting: No Complications none Patient Status: awake, reacts, ventilated Hydration Status: adequate Drug: see chart Given Within 1 Hr of Incision: Yes MARIA DE JESUS CHANDLER CRNA Apr 18, 2016 12:44
--- NOTE | 2016-04-18 12:45 | 48 Hour Post Anesthesia Eval ---
Post Anesthesia Evaluation Procedure: Peg placement Date of Evaluation: Apr 18, 2016 Time of Evaluation: 12:44 Blood Pressure Systolic: 89 0: 50 Pulse Rate: 90 O2 Sat by Pulse Oximetry: 97 Airway: other - trached and ventilated. AC 30% 16 550 3 Hydration Status: adequate - sbp 90s Mental Status/LOC: patient returned to baseline Post-Anesthesia Complications: none MARIA DE JESUS CHANDLER CRNA Apr 18, 2016 12:45
--- NOTE | 2016-04-18 13:32 | Endoscopy Procedure Note ---
Endoscopy Procedure Note Indication for Procedure: dysphagia Procedures Performed: EGD, PEG Operative Findings/Diagnosis: esophagitis Specimen: none Pt Tolerated Procedure Well: Yes Estimated Blood Loss: none Anesthesiologist: lb Anesthesia: MAC Implant(s) used?: No 50 yrs or older w/o bx or poly: Not Applicable 10yrs. F/U not recommended: Not Applicable REAGAN WALSH Apr 18, 2016 13:32
[2016-04-18] MEDS ORDERED: Sodium Phosphate 30 MM in NS 250 ML IVPB ONE (14:00)
--- NOTE | 2016-04-18 14:13 | Infectious Diseases Prog Note ---
Assessment/Plan Assessment/Plan A: Sepsis improving, Pneumonia Hypoxic respiratory failure Emphysema Anemia Positive blood culture/contamination P: 1. Discontinue vancomycin iv, 2. continue Zosyn, & Fluconazole Subjective ROS Limited/Unobtainable: Yes Constitutional: Reports: no symptoms Gastrointestinal/Abdominal: Reports: other - upper abdominal pain Allergies: Coded Allergies: CODEINE (Verified Allergy, Unknown, 04/05/16) ERYTHROMYCIN BASE (Verified Allergy, Unknown, 04/05/16) TETRACYCLINE (Verified Allergy, Unknown, 04/05/16) Objective Vital Signs Last 24 Hour Vital Signs Date Time Temp Pulse Resp B/P Pulse Ox O2 Delivery O2 Flow Rate FiO2 04/18/16 14:00 97 17 111/77 95 Mechanical Ventilator 30 04/18/16 13:27 30 04/18/16 13:19 85 17 30 04/18/16 13:18 30 04/18/16 13:00 84 18 90/54 100 Mechanical Ventilator 30 04/18/16 12:55 84 16 30 04/18/16 12:45 90 97 04/18/16 12:44 90 16 97 04/18/16 12:28 97.0 79 18 113/73 100 Mechanical Ventilator 30 04/18/16 12:00 30 04/18/16 12:00 97.0 79 18 113/73 100 Mechanical Ventilator 30 04/18/16 12:00 87 04/18/16 11:00 79 18 96/63 100 Mechanical Ventilator 30 04/18/16 10:57 79 16 30 04/18/16 10:00 78 11 102/58 100 Mechanical Ventilator 30 04/18/16 09:25 78 16 30 04/18/16 09:00 82 16 102/59 100 Mechanical Ventilator 30 04/18/16 08:00 102 04/18/16 08:00 30 04/18/16 08:00 97.1 93 21 111/73 99 Mechanical Ventilator 30 04/18/16 07:47 93 16 30 04/18/16 07:47 93 16 Mechanical Ventilator 30 04/18/16 07:24 89 17 99 04/18/16 07:00 99 17 113/58 99 Mechanical Ventilator 30 04/18/16 06:00 89 17 105/58 99 Mechanical Ventilator 30 04/18/16 05:15 81 16 30 04/18/16 05:00 88 17 102/58 99 Mechanical Ventilator 30 04/18/16 04:00 98.2 84 16 100/55 99 Mechanical Ventilator 30 04/18/16 04:00 30 04/18/16 04:00 108 04/18/16 03:30 81 16 30 04/18/16 03:00 84 16 84/57 99 Mechanical Ventilator 30 04/18/16 02:00 98 16 82/48 99 Mechanical Ventilator 30 04/18/16 01:30 99 16 30 04/18/16 01:00 99 21 125/74 100 Mechanical Ventilator 30 04/18/16 00:00 98.0 89 20 96/56 100 Mechanical Ventilator 30 04/18/16 00:00 92 04/18/16 00:00 30 04/17/16 23:30 82 16 30 04/17/16 23:00 78 20 86/59 100 Mechanical Ventilator 40 04/17/16 22:00 81 19 90/53 100 Mechanical Ventilator 40 04/17/16 21:30 78 16 40 04/17/16 21:00 94 19 98/60 100 Mechanical Ventilator 40 04/17/16 20:06 99 04/17/16 20:00 98.2 90 20 105/56 100 Mechanical Ventilator 40 04/17/16 20:00 40 04/17/16 19:30 101 16 40 04/17/16 19:00 86 19 100/52 100 Mechanical Ventilator 40 04/17/16 18:00 75 19 119/64 100 Mechanical Ventilator 40 04/17/16 17:00 80 19 140/49 100 Mechanical Ventilator 30 04/17/16 16:45 72 16 40 04/17/16 16:00 40 04/17/16 16:00 97.9 76 19 106/54 100 Mechanical Ventilator 40 04/17/16 16:00 75 04/17/16 15:00 83 20 95/64 100 Mechanical Ventilator 30 04/17/16 14:42 88 18 30 Height (Feet): 5 Height (Inches): 3.00 Weight (Pounds): 125 General Appearance: no acute distress HEENT: status post trach Respiratory/Chest: decreased breath sounds, other - on ventilator Cardiovascular: normal rate Abdomen: soft, non tender, other - GT in place Extremities: other - edema, R arm PICC line Laboratory Tests Test 04/18/16 04:45 04/18/16 11:33 White Blood Count 12.0 K/UL (4.8-10.8) H Red Blood Count 2.65 M/UL (4.20-5.40) L Hemoglobin 8.3 G/DL (12.0-16.0) L Hematocrit 26.4 % (37.0-47.0) L Mean Corpuscular Volume 100 FL (80-99) H Mean Corpuscular Hemoglobin 31.3 PG (27.0-31.0) H Mean Corpuscular Hemoglobin Concent 31.4 G/DL (32.0-36.0) L Red Cell Distribution Width 15.7 % (11.6-14.8) H Platelet Count 231 K/UL (150-450) Mean Platelet Volume 8.3 FL (6.5-10.1) Neutrophils (%) (Auto) % (45.0-75.0) Lymphocytes (%) (Auto) % (20.0-45.0) Monocytes (%) (Auto) % (1.0-10.0) Eosinophils (%) (Auto) % (0.0-3.0) Basophils (%) (Auto) % (0.0-2.0) Differential Total Cells Counted 100 Neutrophils % (Manual) 96 % (45-75) H Lymphocytes % (Manual) 2 % (20-45) L Monocytes % (Manual) 0 % (1-10) L Eosinophils % (Manual) 0 % (0-3) Basophils % (Manual) 0 % (0-2) Band Neutrophils 2 % (0-8) Platelet Estimate Adequate Platelet Morphology Normal Hypochromasia 1+ Anisocytosis 1+ Macrocytosis 1+ Prothrombin Time 10.6 SEC (9.30-11.50) Prothromb Time International Ratio 1.0 (0.9-1.1) Activated Partial Thromboplast Time 23 SEC (23-33) Sodium Level 134 mEQ/L (135-145) L Potassium Level 4.3 mEQ/L (3.4-4.9) Chloride Level 96 mEQ/L (98-107) L Carbon Dioxide Level 29 mEQ/L (20-30) Anion Gap 9 (5-15) Blood Urea Nitrogen 32 mg/dL (7-23) H Creatinine 0.8 mg/dL (0.5-0.9) Estimat Glomerular Filtration Rate > 60 mL/min (>60) Glucose Level 145 mg/dL (74-106) H Calcium Level 6.4 mg/dL (8.6-10.2) L Phosphorus Level 2.4 mg/dL (2.5-4.8) L Total Bilirubin 0.4 mg/dL (0.0-1.2) Aspartate Amino Transf (AST/SGOT) 144 U/L (5-40) H Alanine Aminotransferase (ALT/SGPT) 301 U/L (3-33) H Alkaline Phosphatase 30 U/L (35-104) L Total Protein 4.1 g/dL (6.6-8.7) L Albumin 2.2 g/dL (3.5-5.2) L Globulin 1.9 g/dL Albumin/Globulin Ratio 1.1 (1.0-2.7) Vitamin D 25-Hydroxy Pending 25-Hydroxy Vitamin D2 Pending 25-Hydroxy Vitamin D3 Pending Arterial Blood pH 7.414 (7.350-7.450) Arterial Blood Partial Pressure CO2 42.0 mmHg (35.0-45.0) Arterial Blood Partial Pressure O2 103.5 mmHg (75.0-100.0) H Arterial Blood HCO3 26.3 mmol/L (22.0-26.0) H Arterial Blood Oxygen Saturation 97.3 % (92.0-98.0) Arterial Blood Base Excess 1.5 Damián Test Positive Current Medications Medications (Trade) Dose Ordered Sig/Deyanira Route PRN Reason Start Time Stop Time Status Last Admin Dose Admin Acetaminophen (Tylenol) 650 mg EVERY 4 HOURS PRN NG temp of 100 and above 04/13/16 16:00 05/13/16 15:59 04/15/16 08:23 Acetaminophen (Tylenol) 650 mg Q4H PRN ORAL Mild Pain (Pain Scale 1-3) 04/02/16 19:45 05/02/16 19:44 04/14/16 16:22 Dextrose (Dextrose 50%) STAT PRN IV Hypoglycemia 04/03/16 13:45 05/03/16 13:44 Fluconazole (Diflucan) 200 mg DAILY ORAL 04/13/16 09:00 04/20/16 08:59 04/18/16 09:06 Insulin Aspart (NovoLOG) EVERY 6 HOURS SUBQ 04/04/16 18:00 05/04/16 17:59 04/18/16 12:43 Lactobacillus Acidophilus 1 tab 1 tab THREE TIMES A DAY ORAL 04/14/16 09:00 05/14/16 08:59 04/18/16 09:06 Loperamide HCl (Imodium) 2 mg Q6H PRN NG Diarrhea 04/18/16 12:00 05/18/16 11:59 Methylprednisolone Sodium Succinate 60 mg 60 mg EVERY 8 HOURS IVP 04/17/16 22:00 05/17/16 21:59 04/18/16 07:16 Montelukast Sodium (Singulair) 10 mg QPM ORAL 04/03/16 16:30 05/03/16 16:29 04/17/16 16:23 Norepinephrine Bitartrate/ Dextrose (Levophed/D5W 250ml) 250 ml @ 0 mls/hr Q24H IV 04/02/16 20:30 05/02/16 20:29 04/14/16 17:25 Ondansetron HCl (Zofran ODT) 4 mg Q6H PRN ORAL Nausea & Vomiting 04/02/16 19:45 05/02/16 19:44 Pantoprazole 40 mg 40 mg EVERY 12 HOURS IVP 04/14/16 21:00 05/14/16 20:59 04/18/16 09:07 Phenylephrine HCl/ Dextrose (Phenylephrine/ D5W 250ml) 255 ml @ 0 mls/hr Q24H IV 04/13/16 22:00 05/13/16 21:59 Piperacillin Sod/ Tazobactam Sod 3.375 gm/Dextrose 100 ml @ 25 mls/hr Q8H IVPB 04/16/16 18:00 04/23/16 17:59 04/18/16 09:06 Polyethylene Glycol 17 gm 17 gm DAILYPRN PRN ORAL Constipation 04/02/16 19:45 05/02/16 19:44 Sodium 1,000 ml @ 75 mls/hr [id number] IV 04/17/16 16:00 05/17/16 15:59 04/18/16 07:17 Sodium Phosphate/ Sodium Chloride (NaPO4/Sodium Chloride 250ml bag) 260 ml @ 43 mls/hr ONCE ONCE IVPB 04/18/16 14:00 04/18/16 20:02 Vancomycin HCl (Vanco rx to dose) 1 ea DAILY PRN MISC Per rx protocol 04/11/16 16:15 05/11/16 16:14 Vancomycin HCl/ Dextrose (Vancomycin/D5W 250ml) 250 ml @ 167 mls/hr Q12H IVPB 04/16/16 18:00 04/21/16 17:59 04/18/16 07:17 BRITTNEY MG Apr 18, 2016 14:13
[2016-04-18] MEDS: Montelukast 10mg tablet ORAL SCH (15:58)
[2016-04-18] MEDS: Acetaminophen 650mg/20.3ml NG PRN (15:58)
[2016-04-18] MEDS ORDERED: NS 275ml ONE (18:42)
[2016-04-18] MEDS ORDERED: 1/2 NS 1000ml IV ONE (18:42)
[2016-04-18] MEDS ORDERED: D5NS 1000ml IV ONE (18:42)
--- NOTE | 2016-04-18 19:15 | Cardiology Progress Note ---
Assessment/Plan Problem List: (1) COPD exacerbation (2) Hypotension (3) Anemia (4) Hepatitis B (5) LFTs abnormal (6) Acute type 1 respiratory failure Status: stable, progressing Status Narrative Mrs. Gallardo is improving. She is s/p trach and PEG. WBC is decreasing and she is afebrile. Cardiac status is stable Assessment/Plan Continue supportive care. Complete iv abx course for pneumonia Diarrhea - ? due to TF. Immodium started. C diff negative Analgesics prn. No new cardiac recs. Heart rates are improving, off meds. Subjective ROS Limited/Unobtainable: Yes Subjective Pt awake, on vent. s/p trach, PEG Objective Last 24 Hour Vital Signs Date Time Temp Pulse Resp B/P Pulse Ox O2 Delivery O2 Flow Rate FiO2 04/18/16 18:00 86 20 94/49 100 Mechanical Ventilator 30 04/18/16 17:19 90 16 30 04/18/16 17:00 90 17 106/54 95 Mechanical Ventilator 30 04/18/16 16:06 97.0 79 18 113/73 100 Mechanical Ventilator 30 04/18/16 16:00 96 04/18/16 15:24 86 16 30 04/18/16 15:00 97 17 112/63 99 Mechanical Ventilator 30 04/18/16 14:00 97 17 111/77 95 Mechanical Ventilator 30 04/18/16 13:27 30 04/18/16 13:19 85 17 30 04/18/16 13:18 30 04/18/16 13:00 84 18 90/54 100 Mechanical Ventilator 30 04/18/16 12:55 84 16 30 04/18/16 12:45 90 97 04/18/16 12:44 90 16 97 04/18/16 12:28 97.0 79 18 113/73 100 Mechanical Ventilator 30 04/18/16 12:00 30 04/18/16 12:00 97.0 79 18 113/73 100 Mechanical Ventilator 30 04/18/16 12:00 87 04/18/16 11:00 79 18 96/63 100 Mechanical Ventilator 30 04/18/16 10:57 79 16 30 04/18/16 10:00 78 11 102/58 100 Mechanical Ventilator 30 04/18/16 09:25 78 16 30 04/18/16 09:00 82 16 102/59 100 Mechanical Ventilator 30 04/18/16 08:00 102 04/18/16 08:00 30 04/18/16 08:00 97.1 93 21 111/73 99 Mechanical Ventilator 30 04/18/16 07:47 93 16 30 04/18/16 07:47 93 16 Mechanical Ventilator 30 04/18/16 07:24 89 17 99 04/18/16 07:00 99 17 113/58 99 Mechanical Ventilator 30 04/18/16 06:00 89 17 105/58 99 Mechanical Ventilator 30 04/18/16 05:15 81 16 30 04/18/16 05:00 88 17 102/58 99 Mechanical Ventilator 30 04/18/16 04:00 98.2 84 16 100/55 99 Mechanical Ventilator 30 04/18/16 04:00 30 04/18/16 04:00 108 04/18/16 03:30 81 16 30 04/18/16 03:00 84 16 84/57 99 Mechanical Ventilator 30 04/18/16 02:00 98 16 82/48 99 Mechanical Ventilator 30 04/18/16 01:30 99 16 30 04/18/16 01:00 99 21 125/74 100 Mechanical Ventilator 30 04/18/16 00:00 98.0 89 20 96/56 100 Mechanical Ventilator 30 04/18/16 00:00 92 04/18/16 00:00 30 04/17/16 23:30 82 16 30 04/17/16 23:00 78 20 86/59 100 Mechanical Ventilator 40 04/17/16 22:00 81 19 90/53 100 Mechanical Ventilator 40 04/17/16 21:30 78 16 40 04/17/16 21:00 94 19 98/60 100 Mechanical Ventilator 40 04/17/16 20:06 99 04/17/16 20:00 98.2 90 20 105/56 100 Mechanical Ventilator 40 04/17/16 20:00 40 04/17/16 19:30 101 16 40 General Appearance: WD/WN, alert, on vent Neck: other - trach site clean Rhythm: NSR Cardiovascular: normal rate, regular rhythm, no gallop/murmur Respiratory/Chest: lungs clear - clear anteriorly Abdomen: non tender, soft Extremities: moderate edema - 2+ pitting edema of hands bilat Intake and Output 04/17/16 04/18/16 19:00 07:00 Intake Total 1604 ml 1195 ml Output Total 720 ml 950 ml Balance 884 ml 245 ml IV Total 1234 ml 975 ml Tube Feeding 220 ml 220 ml Other 150 ml Output Urine Total 720 ml 950 ml # Bowel Movements 3 6 Laboratory Tests Test 04/18/16 04:45 04/18/16 11:33 White Blood Count 12.0 K/UL (4.8-10.8) H Red Blood Count 2.65 M/UL (4.20-5.40) L Hemoglobin 8.3 G/DL (12.0-16.0) L Hematocrit 26.4 % (37.0-47.0) L Mean Corpuscular Volume 100 FL (80-99) H Mean Corpuscular Hemoglobin 31.3 PG (27.0-31.0) H Mean Corpuscular Hemoglobin Concent 31.4 G/DL (32.0-36.0) L Red Cell Distribution Width 15.7 % (11.6-14.8) H Platelet Count 231 K/UL (150-450) Mean Platelet Volume 8.3 FL (6.5-10.1) Neutrophils (%) (Auto) % (45.0-75.0) Lymphocytes (%) (Auto) % (20.0-45.0) Monocytes (%) (Auto) % (1.0-10.0) Eosinophils (%) (Auto) % (0.0-3.0) Basophils (%) (Auto) % (0.0-2.0) Differential Total Cells Counted 100 Neutrophils % (Manual) 96 % (45-75) H Lymphocytes % (Manual) 2 % (20-45) L Monocytes % (Manual) 0 % (1-10) L Eosinophils % (Manual) 0 % (0-3) Basophils % (Manual) 0 % (0-2) Band Neutrophils 2 % (0-8) Platelet Estimate Adequate Platelet Morphology Normal Hypochromasia 1+ Anisocytosis 1+ Macrocytosis 1+ Prothrombin Time 10.6 SEC (9.30-11.50) Prothromb Time International Ratio 1.0 (0.9-1.1) Activated Partial Thromboplast Time 23 SEC (23-33) Sodium Level 134 mEQ/L (135-145) L Potassium Level 4.3 mEQ/L (3.4-4.9) Chloride Level 96 mEQ/L (98-107) L Carbon Dioxide Level 29 mEQ/L (20-30) Anion Gap 9 (5-15) Blood Urea Nitrogen 32 mg/dL (7-23) H Creatinine 0.8 mg/dL (0.5-0.9) Estimat Glomerular Filtration Rate > 60 mL/min (>60) Glucose Level 145 mg/dL (74-106) H Calcium Level 6.4 mg/dL (8.6-10.2) L Phosphorus Level 2.4 mg/dL (2.5-4.8) L Total Bilirubin 0.4 mg/dL (0.0-1.2) Aspartate Amino Transf (AST/SGOT) 144 U/L (5-40) H Alanine Aminotransferase (ALT/SGPT) 301 U/L (3-33) H Alkaline Phosphatase 30 U/L (35-104) L Total Protein 4.1 g/dL (6.6-8.7) L Albumin 2.2 g/dL (3.5-5.2) L Globulin 1.9 g/dL Albumin/Globulin Ratio 1.1 (1.0-2.7) Vitamin D 25-Hydroxy Pending 25-Hydroxy Vitamin D2 Pending 25-Hydroxy Vitamin D3 Pending Arterial Blood pH 7.414 (7.350-7.450) Arterial Blood Partial Pressure CO2 42.0 mmHg (35.0-45.0) Arterial Blood Partial Pressure O2 103.5 mmHg (75.0-100.0) H Arterial Blood HCO3 26.3 mmol/L (22.0-26.0) H Arterial Blood Oxygen Saturation 97.3 % (92.0-98.0) Arterial Blood Base Excess 1.5 Damián Test Positive CARITO POTTS Apr 18, 2016 19:15
[2016-04-18] MEDS: Hydromorphone 0.5mg/0.5ml inj IVP PRN (19:42)
[2016-04-18] MEDS: PHENYLEPHRINE IV SCH (21:37)
[2016-04-18] MEDS: D5W IV SCH (21:37)
--- NOTE | 2016-04-18 22:27 | Pulmonolgy Critical Care Note ---
Critical Care - Asmt/Plan Assessment/Plan: ASSESSMENT: acute hypoxemic/hypercapneic resp failure--vent dep-GOOD ABG TODAY. not weaning much s/p trach 04/17/16 bronchitis-yst pos bc-prob contam UTI-yst sepsis-much improved, wbc decr today again. off vanco now sev copd--cxr no IF sev hyperinflation JAIR-stable w neg BROOKS sl elev npibayws-uxdnkf-euueak ischemia-will need non invasive study when better abnl LFTs--abd brooks c/w cirrhosis--hep B core IgM positive!! Hep B Sag neg ? false pos??--[facility]studies pend ANEMIA-sl lower H/H today w H pos stool--may need tx soon h/o HTN cirrhosis--unclear etiol-no ho etoh per pt in past and mothers report hyperglycemia-due to steroids-controlled PICC immune status--flu shot-yes prevnar 13 yes 03/01/15 PLAN wean as [place]- in am restarrt TF per GI [facility] eval--prob tx there soon when stable f/u hep studies not candidate for lung tx until off vent and functional decr steroids slowly watch h/h--tx if hgb < or =7 FULL CODE tx to [facility] if bed needed Respiratory: weaning trial Time Spent (Minutes): 30 Notes Reviewed: cardio, ID, GI Critical Care - Objective Last 24 Hour Vital Signs Date Time Temp Pulse Resp B/P Pulse Ox O2 Delivery O2 Flow Rate FiO2 04/18/16 21:37 79 110/64 04/18/16 21:09 78 15 30 04/18/16 21:00 95 19 110/64 96 Mechanical Ventilator 30 04/18/16 20:14 104/60 04/18/16 20:00 97.2 95 15 110/56 96 Mechanical Ventilator 30 04/18/16 19:30 77 14 30 04/18/16 19:00 94 22 108/56 95 Mechanical Ventilator 30 04/18/16 18:00 86 20 94/49 100 Mechanical Ventilator 30 04/18/16 17:19 90 16 30 04/18/16 17:00 90 17 106/54 95 Mechanical Ventilator 30 04/18/16 16:06 97.0 79 18 113/73 100 Mechanical Ventilator 30 04/18/16 16:00 96 04/18/16 15:24 86 16 30 04/18/16 15:00 97 17 112/63 99 Mechanical Ventilator 30 04/18/16 14:00 97 17 111/77 95 Mechanical Ventilator 30 04/18/16 13:27 30 04/18/16 13:19 85 17 30 04/18/16 13:18 30 04/18/16 13:00 84 18 90/54 100 Mechanical Ventilator 30 04/18/16 12:55 84 16 30 04/18/16 12:45 90 97 04/18/16 12:44 90 16 97 04/18/16 12:28 97.0 79 18 113/73 100 Mechanical Ventilator 30 04/18/16 12:00 30 04/18/16 12:00 97.0 79 18 113/73 100 Mechanical Ventilator 30 04/18/16 12:00 87 04/18/16 11:00 79 18 96/63 100 Mechanical Ventilator 30 04/18/16 10:57 79 16 30 04/18/16 10:00 78 11 102/58 100 Mechanical Ventilator 30 04/18/16 09:25 78 16 30 04/18/16 09:00 82 16 102/59 100 Mechanical Ventilator 30 04/18/16 08:00 102 04/18/16 08:00 30 04/18/16 08:00 97.1 93 21 111/73 99 Mechanical Ventilator 30 04/18/16 07:47 93 16 30 04/18/16 07:47 93 16 Mechanical Ventilator 30 04/18/16 07:24 89 17 99 04/18/16 07:00 99 17 113/58 99 Mechanical Ventilator 30 04/18/16 06:00 89 17 105/58 99 Mechanical Ventilator 30 04/18/16 05:15 81 16 30 04/18/16 05:00 88 17 102/58 99 Mechanical Ventilator 30 04/18/16 04:00 98.2 84 16 100/55 99 Mechanical Ventilator 30 04/18/16 04:00 30 04/18/16 04:00 108 04/18/16 03:30 81 16 30 04/18/16 03:00 84 16 84/57 99 Mechanical Ventilator 30 04/18/16 02:00 98 16 82/48 99 Mechanical Ventilator 30 04/18/16 01:30 99 16 30 04/18/16 01:00 99 21 125/74 100 Mechanical Ventilator 30 04/18/16 00:00 98.0 89 20 96/56 100 Mechanical Ventilator 30 04/18/16 00:00 92 04/18/16 00:00 30 04/17/16 23:30 82 16 30 04/17/16 23:00 78 20 86/59 100 Mechanical Ventilator 40 Lungs: clear Heart: regular Abdomen: soft - tender at gt site L abd Extremities: edema - 2-3+ pedal Accucheck: 134 Critical Care - Subjective ROS Limited/Unobtainable: Yes Condition: stable IV Access: PICC - pt opens eyes to name but not interactive-had EGD and PEG today-esophjagitis noted FI02: 30 Vent Support Breath Rate: 14 Vent Support Mode: AC Vent Tidal Volume: 500 Sputum Amount: Small PEEP: 0.0 PIP: 30 Tube Feeding Amount: 0 I&O: Intake and Output 04/17/16 04/18/16 19:00 07:00 Intake Total 1604 ml 1195 ml Output Total 720 ml 950 ml Balance 884 ml 245 ml IV Total 1234 ml 975 ml Tube Feeding 220 ml 220 ml Other 150 ml Output Urine Total 720 ml 950 ml # Bowel Movements 3 6 Subjective: pt comfortable, easily awakened, alert. uneventful night remains on levophed weaning attmepted-did not tolerate SIMV/PS or PS 22 by me no breath stacking mother (96yo) at bedside cxr no if-lungs somewhat decompressed c/w yest cxr ET-Tube: 7.5 ET Position: 22 RIZWAN DUDLEY Apr 18, 2016 22:27
[2016-04-18] MEDS ORDERED: NS IVPB ONE (23:00)
[2016-04-18] MEDS ORDERED: 1/2NS w/KCl 20mEq 1000ml 1,000 ML IV SCH (23:00)
[2016-04-18] MEDS ORDERED: CALCIUM GLUCONATE IVPB ONE (23:00)
[2016-04-19] VITALS (13 sets, daily range): BP systolic 95–142; BP diastolic 55–75
[2016-04-19] MEDS: NovoLOG Insulin Flexpen SUBQ SCH ×4 (00:18→18:27)
[2016-04-19] MEDS ORDERED: Calcium Gluconate 1gm/10ml vial ONE ×2 (00:31→00:37)
[2016-04-19] MEDS: Hydromorphone 0.5mg/0.5ml inj IVP PRN (03:08)
[2016-04-19] MEDS ORDERED: Solu-MEDROL 125mg Inj IVP SCH (06:00)
[2016-04-19 06:16] LABS: MEAN CORPUSCULAR HEMOGLOBIN 30.6 PG (27.0-31.0); MEAN CORPUSCULAR HGB CONC 31.9 G/DL (32.0-36.0); MEAN CORPUSCULAR VOLUME 96 FL (80-99); MEAN PLATELET VOLUME 7.6 FL (6.5-10.1); PLATELET COUNT 213 K/UL (150-450); RED BLOOD COUNT 2.59 M/UL (4.20-5.40); RED CELL DISTRIBUTION WIDTH 14.5 % (11.6-14.8)
[2016-04-19 06:32] LABS: ALANINE AMINOTRANSFERASE 231 U/L (3-33); ALBUMIN/GLOBULIN RATIO 1.1 (1.0-2.7); ANION GAP 11 (5-15); ASPARTATE AMINO TRANSFERASE 78 U/L (5-40); CALCIUM 6.3 mg/dL (8.6-10.2); CARBON DIOXIDE 28 mEQ/L (20-30); CHLORIDE 94 mEQ/L (98-107); CREATININE 0.7 mg/dL (0.5-0.9); GLOMERULAR FILTRATION RATE > 60 mL/min (>60); HEMOLYSIS 2; PHOSPHORUS 3.6 mg/dL (2.5-4.8); POTASSIUM 4.3 mEQ/L (3.4-4.9); SODIUM 133 mEQ/L (135-145)
[2016-04-19 08:10] LABS: BAND NEUTROPHILS % (MANUAL) 2 % (0-8); LYMPHOCYTES % (MANUAL) 1 % (20-45); NEUTROPHILS % (MANUAL) 95 % (45-75); TOTAL CELLS COUNTED 100
[2016-04-19 08:11] LABS: BASOPHILS % (MANUAL) 0 % (0-2); EOSINOPHILS % (MANUAL) 0 % (0-3); PLATELET ESTIMATE ADEQUATE; PLATELET MORPHOLOGY NORMAL
[2016-04-19 08:12] LABS: HYPOCHROMASIA 1+
[2016-04-19 08:13] LABS: MACROCYTES 1+
[2016-04-19] MEDS: Lactobacillus-GG tablet ORAL SCH ×3 (09:00→18:25)
[2016-04-19] MEDS: Fluconazole 100mg tab ORAL SCH (09:00)
[2016-04-19] MEDS: Pantoprazole Inj IVP SCH ×2 (09:00→20:59)
--- NOTE | 2016-04-19 10:12 | Infectious Diseases Prog Note ---
Assessment/Plan Assessment/Plan A: Sepsis improving, Pneumonia Hypoxic respiratory failure Emphysema Anemia Positive blood culture/contamination P: 1. continue Zosyn, & Fluconazole Subjective ROS Limited/Unobtainable: Yes Constitutional: Reports: other - dosen't feel good Gastrointestinal/Abdominal: Reports: other - epigastric pain Allergies: Coded Allergies: CODEINE (Verified Allergy, Unknown, 04/05/16) ERYTHROMYCIN BASE (Verified Allergy, Unknown, 04/05/16) TETRACYCLINE (Verified Allergy, Unknown, 04/05/16) Objective Vital Signs Last 24 Hour Vital Signs Date Time Temp Pulse Resp B/P Pulse Ox O2 Delivery O2 Flow Rate FiO2 04/19/16 08:50 102 14 30 04/19/16 08:10 110 04/19/16 08:00 30 04/19/16 07:50 99.8 108 24 119/69 96 Mechanical Ventilator 30 04/19/16 06:45 105 14 30 04/19/16 06:00 80 23 106/57 94 Mechanical Ventilator 30 04/19/16 05:30 82 14 30 04/19/16 05:00 79 24 100/57 94 Mechanical Ventilator 30 04/19/16 04:00 97.0 80 24 95/57 94 Mechanical Ventilator 30 04/19/16 04:00 75 04/19/16 04:00 30 04/19/16 03:30 74 14 30 04/19/16 03:00 81 24 97/57 94 Mechanical Ventilator 30 04/19/16 02:00 103 24 124/67 94 Mechanical Ventilator 30 04/19/16 01:30 104 15 30 04/19/16 01:00 103 24 126/70 94 Mechanical Ventilator 30 04/19/16 00:00 30 04/19/16 00:00 97.0 103 22 127/63 94 Mechanical Ventilator 30 04/19/16 00:00 103 04/18/16 23:00 88 15 131/71 94 Mechanical Ventilator 30 04/18/16 22:42 74 14 30 04/18/16 22:00 75 15 105/46 99 Mechanical Ventilator 30 04/18/16 21:37 79 110/64 04/18/16 21:09 78 15 30 04/18/16 21:00 95 19 110/64 96 Mechanical Ventilator 30 04/18/16 20:14 104/60 04/18/16 20:00 97.2 95 15 110/56 96 Mechanical Ventilator 30 04/18/16 20:00 90 04/18/16 20:00 30 04/18/16 19:30 77 14 30 04/18/16 19:00 94 22 108/56 95 Mechanical Ventilator 30 04/18/16 18:00 86 20 94/49 100 Mechanical Ventilator 30 04/18/16 17:19 90 16 30 04/18/16 17:00 90 17 106/54 95 Mechanical Ventilator 30 04/18/16 16:06 97.0 79 18 113/73 100 Mechanical Ventilator 30 04/18/16 16:00 96 04/18/16 15:24 86 16 30 04/18/16 15:00 97 17 112/63 99 Mechanical Ventilator 30 04/18/16 14:00 97 17 111/77 95 Mechanical Ventilator 30 04/18/16 13:27 30 04/18/16 13:19 85 17 30 04/18/16 13:18 30 04/18/16 13:00 84 18 90/54 100 Mechanical Ventilator 30 04/18/16 12:55 84 16 30 04/18/16 12:45 90 97 04/18/16 12:44 90 16 97 04/18/16 12:28 97.0 79 18 113/73 100 Mechanical Ventilator 30 04/18/16 12:00 30 04/18/16 12:00 97.0 79 18 113/73 100 Mechanical Ventilator 30 04/18/16 12:00 87 04/18/16 11:00 79 18 96/63 100 Mechanical Ventilator 30 04/18/16 10:57 79 16 30 Height (Feet): 5 Height (Inches): 3.00 Weight (Pounds): 125 HEENT: status post trach Respiratory/Chest: respiratory distress, decreased breath sounds, other - on ventilator Cardiovascular: tachycardia Abdomen: soft, non tender, other Extremities: other - R arm PICC line Neurologic/Psychiatric: alert, responsive Laboratory Tests Test 04/18/16 11:33 04/19/16 04:48 Arterial Blood pH 7.414 (7.350-7.450) Arterial Blood Partial Pressure CO2 42.0 mmHg (35.0-45.0) Arterial Blood Partial Pressure O2 103.5 mmHg (75.0-100.0) H Arterial Blood HCO3 26.3 mmol/L (22.0-26.0) H Arterial Blood Oxygen Saturation 97.3 % (92.0-98.0) Arterial Blood Base Excess 1.5 Damián Test Positive White Blood Count 11.0 K/UL (4.8-10.8) H Red Blood Count 2.59 M/UL (4.20-5.40) L Hemoglobin 7.9 G/DL (12.0-16.0) L Hematocrit 24.8 % (37.0-47.0) L Mean Corpuscular Volume 96 FL (80-99) Mean Corpuscular Hemoglobin 30.6 PG (27.0-31.0) Mean Corpuscular Hemoglobin Concent 31.9 G/DL (32.0-36.0) L Red Cell Distribution Width 14.5 % (11.6-14.8) Platelet Count 213 K/UL (150-450) Mean Platelet Volume 7.6 FL (6.5-10.1) Neutrophils (%) (Auto) % (45.0-75.0) Lymphocytes (%) (Auto) % (20.0-45.0) Monocytes (%) (Auto) % (1.0-10.0) Eosinophils (%) (Auto) % (0.0-3.0) Basophils (%) (Auto) % (0.0-2.0) Differential Total Cells Counted 100 Neutrophils % (Manual) 95 % (45-75) H Lymphocytes % (Manual) 1 % (20-45) L Monocytes % (Manual) 2 % (1-10) Eosinophils % (Manual) 0 % (0-3) Basophils % (Manual) 0 % (0-2) Band Neutrophils 2 % (0-8) Platelet Estimate Adequate Platelet Morphology Normal Hypochromasia 1+ Basophilic Stippling Occasional Macrocytosis 1+ Sodium Level 133 mEQ/L (135-145) L Potassium Level 4.3 mEQ/L (3.4-4.9) Chloride Level 94 mEQ/L (98-107) L Carbon Dioxide Level 28 mEQ/L (20-30) Anion Gap 11 (5-15) Blood Urea Nitrogen 26 mg/dL (7-23) H Creatinine 0.7 mg/dL (0.5-0.9) Estimat Glomerular Filtration Rate > 60 mL/min (>60) Glucose Level 268 mg/dL (74-106) #H Calcium Level 6.3 mg/dL (8.6-10.2) L Phosphorus Level 3.6 mg/dL (2.5-4.8) Total Bilirubin 0.3 mg/dL (0.0-1.2) Aspartate Amino Transf (AST/SGOT) 78 U/L (5-40) H Alanine Aminotransferase (ALT/SGPT) 231 U/L (3-33) H Alkaline Phosphatase 35 U/L (35-104) Total Protein 4.0 g/dL (6.6-8.7) L Albumin 2.1 g/dL (3.5-5.2) L Globulin 1.9 g/dL Albumin/Globulin Ratio 1.1 (1.0-2.7) Current Medications Medications (Trade) Dose Ordered Sig/Deyanira Route PRN Reason Start Time Stop Time Status Last Admin Dose Admin Acetaminophen (Tylenol) 650 mg EVERY 4 HOURS PRN NG temp of 100 and above 04/19/16 13:00 05/19/16 12:59 UNV Acetaminophen (Tylenol) 650 mg Q4H PRN ORAL Mild Pain (Pain Scale 1-3) 04/19/16 11:45 05/19/16 11:44 UNV Dextrose (Dextrose 50%) STAT PRN IV Hypoglycemia 04/19/16 13:45 05/19/16 13:44 UNV Fluconazole (Diflucan) 200 mg DAILY ORAL 04/20/16 09:00 04/27/16 08:59 UNV Hydromorphone HCl (Dilaudid) 0.5 mg EVERY 6 HOURS PRN IVP Severe Pain (Pain Scale 7-10) 04/19/16 12:00 04/26/16 11:59 UNV Insulin Aspart (NovoLOG) EVERY 6 HOURS SUBQ 04/19/16 12:00 05/19/16 11:59 UNV Lactobacillus Acidophilus (Culturelle) 1 tab THREE TIMES A DAY ORAL 04/19/16 13:00 05/19/16 12:59 UNV Loperamide HCl (Imodium) 2 mg Q6H PRN NG Diarrhea 04/19/16 12:00 05/19/16 11:59 UNV Methylprednisolone Sodium Succinate (Solu-MEDROL) 40 mg EVERY 8 HOURS IVP 04/19/16 14:00 05/19/16 13:59 UNV Montelukast Sodium (Singulair) 10 mg QPM ORAL 04/19/16 16:30 05/19/16 16:29 UNV Norepinephrine Bitartrate 4 mg/ Dextrose 250 ml @ 0 mls/hr Q24H IV 04/19/16 20:30 05/19/16 20:29 UNV Ondansetron HCl (Zofran ODT) 4 mg Q6H PRN ORAL Nausea & Vomiting 04/19/16 13:45 05/19/16 13:44 UNV Pantoprazole (Protonix) 40 mg EVERY 12 HOURS IVP 04/19/16 21:00 05/19/16 20:59 UNV Phenylephrine HCl 50 mg/Dextrose 255 ml @ 0 mls/hr Q24H IV 04/19/16 22:00 05/19/16 21:59 UNV Piperacillin Sod/ Tazobactam Sod/ Dextrose (Zosyn/D5W 100ml) 100 ml @ 25 mls/hr Q8H IVPB 04/19/16 10:00 04/26/16 09:59 UNV Polyethylene Glycol (Miralax) 17 gm DAILYPRN PRN ORAL Constipation 04/19/16 19:45 05/19/16 19:44 UNV Sodium 1,000 ml @ 50 mls/hr Q20H IV 04/19/16 09:30 05/19/16 09:29 UNV BRITTNEY MG Apr 19, 2016 10:12
[2016-04-19] MEDS ORDERED: Hydromorphone 0.5mg/0.5ml inj IVP PRN (11:30)
[2016-04-19] MEDS ORDERED: Miralax 17gm pkt ORAL PRN (11:30)
[2016-04-19] MEDS: 1/2NS w/KCl 20mEq 1000ml 1,000 ML IV SCH (11:38)
--- NOTE | 2016-04-19 12:00 | Pulmonolgy Critical Care Note ---
Critical Care - Asmt/Plan Assessment/Plan: ASSESSMENT: acute hypoxemic/hypercapneic resp failure--vent dep- not weaning much s/p trach 04/17/16 bronchitis-yst pos bc-prob contam-coag neg staph s/p UTI-yst sepsis-much improved, wbc decr today again sev copd--cxr no IF has sev hyperinflation JAIR-stable, improved w neg BROOKS s/p sl elev gfsjqyxr-kjsdij-nqsgxj ischemia-will need non invasive study when better abnl LFTs--abd brooks c/w cirrhosis--hep B core IgM positive!! Hep B Sag neg ? false pos??--hep S Ab neg [facility], hep B dna. STILL pend ANEMIA-sl lower H/H today w H pos stool--will tx given dropping h/h and mult med probs h/o HTN cirrhosis--unclear etiol-no ho etoh per pt in past and mothers report hyperglycemia-due to steroids PICC immune status--flu shot-yes prevnar 13 yes 03/01/15 PLAN wean as [place]- try at least bid oob to cardiac chair if available TF per GI-on osmolite [facility] eval--prob tx there soon if still accepted f/u hep B DNA--have discussed w [employer]. LFTs downtrending not candidate for lung tx until off vent and functional decr steroids slowly watch h/h--tx if hgb < or =7 lower ddose dilaudid due to bp drop FULL CODE Critical Care - Objective Last 24 Hour Vital Signs Date Time Temp Pulse Resp B/P Pulse Ox O2 Delivery O2 Flow Rate FiO2 04/19/16 11:30 98 14 30 04/19/16 08:50 102 14 30 04/19/16 08:10 110 04/19/16 08:00 30 04/19/16 07:50 99.8 108 24 119/69 96 Mechanical Ventilator 30 04/19/16 06:45 105 14 30 04/19/16 06:00 80 23 106/57 94 Mechanical Ventilator 30 04/19/16 05:30 82 14 30 04/19/16 05:00 79 24 100/57 94 Mechanical Ventilator 30 04/19/16 04:00 97.0 80 24 95/57 94 Mechanical Ventilator 30 04/19/16 04:00 75 04/19/16 04:00 30 04/19/16 03:30 74 14 30 04/19/16 03:00 81 24 97/57 94 Mechanical Ventilator 30 04/19/16 02:00 103 24 124/67 94 Mechanical Ventilator 30 04/19/16 01:30 104 15 30 04/19/16 01:00 103 24 126/70 94 Mechanical Ventilator 30 04/19/16 00:00 30 04/19/16 00:00 97.0 103 22 127/63 94 Mechanical Ventilator 30 04/19/16 00:00 103 04/18/16 23:00 88 15 131/71 94 Mechanical Ventilator 30 04/18/16 22:42 74 14 30 04/18/16 22:00 75 15 105/46 99 Mechanical Ventilator 30 04/18/16 21:37 79 110/64 04/18/16 21:09 78 15 30 04/18/16 21:00 95 19 110/64 96 Mechanical Ventilator 30 04/18/16 20:14 104/60 04/18/16 20:00 97.2 95 15 110/56 96 Mechanical Ventilator 30 04/18/16 20:00 90 04/18/16 20:00 30 04/18/16 19:30 77 14 30 04/18/16 19:00 94 22 108/56 95 Mechanical Ventilator 30 04/18/16 18:00 86 20 94/49 100 Mechanical Ventilator 30 04/18/16 17:19 90 16 30 04/18/16 17:00 90 17 106/54 95 Mechanical Ventilator 30 04/18/16 16:06 97.0 79 18 113/73 100 Mechanical Ventilator 30 04/18/16 16:00 96 04/18/16 15:24 86 16 30 04/18/16 15:00 97 17 112/63 99 Mechanical Ventilator 30 04/18/16 14:00 97 17 111/77 95 Mechanical Ventilator 30 04/18/16 13:27 30 04/18/16 13:19 85 17 30 04/18/16 13:18 30 04/18/16 13:00 84 18 90/54 100 Mechanical Ventilator 30 04/18/16 12:55 84 16 30 04/18/16 12:45 90 97 04/18/16 12:44 90 16 97 04/18/16 12:28 97.0 79 18 113/73 100 Mechanical Ventilator 30 04/18/16 12:00 30 04/18/16 12:00 97.0 79 18 113/73 100 Mechanical Ventilator 30 04/18/16 12:00 87 Status: awake Condition: improving HEENT: other - mouth dry--moistened w sponge by RN Lungs: clear Heart: regular - tachycardic Abdomen: soft, non-tender Extremities: edema - mi edema Accucheck: 284 Critical Care - Subjective ROS Limited/Unobtainable: No - awake, mouthing responses. co feeling she needs to urinate-goley in place. mi abd discomfort. feels shes not getting enough air. dilaudid 0.5 causes bp to drop FI02: 30 Vent Support Breath Rate: 14 Vent Support Mode: AC Vent Tidal Volume: 500 Sputum Amount: Small PEEP: 0.0 PIP: 31 Tube Feeding Amount: 55 I&O: Intake and Output 04/18/16 04/19/16 19:00 07:00 Intake Total 1465 ml 1553 ml Output Total 830 ml 720 ml Balance 635 ml 833 ml Free Water 200 ml IV Total 1365 ml 843 ml Tube Feeding 510 ml Other 100 ml Output Urine Total 830 ml 720 ml # Bowel Movements 5 6 Subjective: pt comfortable, easily awakened, alert. uneventful night remains on levophed weaning attmepted-did not tolerate SIMV/PS or PS 22 by me no breath stacking mother (89yo) at bedside cxr no if-lungs somewhat decompressed c/w yest cxr ET-Tube: 7.5 ET Position: 22 RIZWAN DUDLEY Apr 19, 2016 12:00
[2016-04-19] MEDS ORDERED: Acetaminophen 650mg/20.3ml NG PRN (13:00)
[2016-04-19] MEDS: Solu-MEDROL 125mg Inj IVP SCH ×2 (13:14→21:00)
--- NOTE | 2016-04-19 13:47 | GI Progress Note ---
Assessment/Plan Problems: (1) Occult blood in stools ICD Codes: R19.5 - Other fecal abnormalities SNOMED: 88063064, 382419981 (2) Anemia ICD Codes: D64.9 - Anemia, unspecified SNOMED: 856614374 (3) Hepatitis B ICD Codes: B19.10 - Unspecified viral hepatitis B without hepatic coma SNOMED: 59360886 (4) LFTs abnormal ICD Codes: R79.89 - Other specified abnormal findings of blood chemistry SNOMED: 805298536 (5) Hypoalbuminemia ICD Codes: E88.09 - Other disorders of plasma-protein metabolism, not elsewhere classified SNOMED: 028634185 (6) COPD exacerbation ICD Codes: J44.1 - Chronic obstructive pulmonary disease with (acute) exacerbation SNOMED: 618077055, 095091601 (7) Hypotension ICD Codes: I95.9 - Hypotension, unspecified SNOMED: 97758482, 647772726 Qualifiers: Qualified Codes: I95.9 - Hypotension, unspecified (8) Acute type 1 respiratory failure ICD Codes: J96.01 - Acute respiratory failure with hypoxia SNOMED: 22955578, 918912450 (9) Dyspnea ICD Codes: R06.00 - Dyspnea, unspecified SNOMED: 752647559 Status: progressing Status Narrative Discussed with Dr. Roy. Assessment/Plan Assessment Dysphagia Acute respiratory failure, currently with respiratory acidosis Acute COPD exacerbation SIRS (tachycardia, hypoxemia, alteration in mental status) CTA with no pulmonary embolism Hep B/C serologies abnormal History of HTN (+) OB Anemia Recommendations s/p PEG GTFs per dietary, tolerating fu cdiff elevate HOB Hep B core total, Igm >> positive - fu Hep B surface, positive indicates Acute Hep B - fu Hep B DNA monitor H&H, stable given OB positive x 2 ppi fu labs possible GI w/u at later date Subjective Subjective limited Objective Last 24 Hour Vital Signs Date Time Temp Pulse Resp B/P Pulse Ox O2 Delivery O2 Flow Rate FiO2 04/19/16 12:00 98.1 101 24 120/55 96 Mechanical Ventilator 30 04/19/16 12:00 30 04/19/16 11:30 98 14 30 04/19/16 09:00 97.2 102 14 127/68 98 Mechanical Ventilator 30 04/19/16 09:00 30 04/19/16 08:50 102 14 30 04/19/16 08:10 110 04/19/16 08:00 30 04/19/16 07:50 99.8 108 24 119/69 96 Mechanical Ventilator 30 04/19/16 06:45 105 14 30 04/19/16 06:00 80 23 106/57 94 Mechanical Ventilator 30 04/19/16 05:30 82 14 30 04/19/16 05:00 79 24 100/57 94 Mechanical Ventilator 30 04/19/16 04:00 97.0 80 24 95/57 94 Mechanical Ventilator 30 04/19/16 04:00 75 04/19/16 04:00 30 04/19/16 03:30 74 14 30 04/19/16 03:00 81 24 97/57 94 Mechanical Ventilator 30 04/19/16 02:00 103 24 124/67 94 Mechanical Ventilator 30 04/19/16 01:30 104 15 30 04/19/16 01:00 103 24 126/70 94 Mechanical Ventilator 30 04/19/16 00:00 30 04/19/16 00:00 97.0 103 22 127/63 94 Mechanical Ventilator 30 04/19/16 00:00 103 04/18/16 23:00 88 15 131/71 94 Mechanical Ventilator 30 04/18/16 22:42 74 14 30 04/18/16 22:00 75 15 105/46 99 Mechanical Ventilator 30 04/18/16 21:37 79 110/64 04/18/16 21:09 78 15 30 04/18/16 21:00 95 19 110/64 96 Mechanical Ventilator 30 04/18/16 20:14 104/60 04/18/16 20:00 97.2 95 15 110/56 96 Mechanical Ventilator 30 04/18/16 20:00 90 04/18/16 20:00 30 04/18/16 19:30 77 14 30 04/18/16 19:00 94 22 108/56 95 Mechanical Ventilator 30 04/18/16 18:00 86 20 94/49 100 Mechanical Ventilator 30 04/18/16 17:19 90 16 30 04/18/16 17:00 90 17 106/54 95 Mechanical Ventilator 30 04/18/16 16:06 97.0 79 18 113/73 100 Mechanical Ventilator 30 04/18/16 16:00 96 04/18/16 15:24 86 16 30 04/18/16 15:00 97 17 112/63 99 Mechanical Ventilator 30 04/18/16 14:00 97 17 111/77 95 Mechanical Ventilator 30 Intake and Output 04/18/16 04/19/16 19:00 07:00 Intake Total 1465 ml 1553 ml Output Total 830 ml 720 ml Balance 635 ml 833 ml Free Water 200 ml IV Total 1365 ml 843 ml Tube Feeding 510 ml Other 100 ml Output Urine Total 830 ml 720 ml # Bowel Movements 5 6 Laboratory Tests Test 04/19/16 04:48 White Blood Count 11.0 K/UL (4.8-10.8) H Red Blood Count 2.59 M/UL (4.20-5.40) L Hemoglobin 7.9 G/DL (12.0-16.0) L Hematocrit 24.8 % (37.0-47.0) L Mean Corpuscular Volume 96 FL (80-99) Mean Corpuscular Hemoglobin 30.6 PG (27.0-31.0) Mean Corpuscular Hemoglobin Concent 31.9 G/DL (32.0-36.0) L Red Cell Distribution Width 14.5 % (11.6-14.8) Platelet Count 213 K/UL (150-450) Mean Platelet Volume 7.6 FL (6.5-10.1) Neutrophils (%) (Auto) % (45.0-75.0) Lymphocytes (%) (Auto) % (20.0-45.0) Monocytes (%) (Auto) % (1.0-10.0) Eosinophils (%) (Auto) % (0.0-3.0) Basophils (%) (Auto) % (0.0-2.0) Differential Total Cells Counted 100 Neutrophils % (Manual) 95 % (45-75) H Lymphocytes % (Manual) 1 % (20-45) L Monocytes % (Manual) 2 % (1-10) Eosinophils % (Manual) 0 % (0-3) Basophils % (Manual) 0 % (0-2) Band Neutrophils 2 % (0-8) Platelet Estimate Adequate Platelet Morphology Normal Hypochromasia 1+ Basophilic Stippling Occasional Macrocytosis 1+ Sodium Level 133 mEQ/L (135-145) L Potassium Level 4.3 mEQ/L (3.4-4.9) Chloride Level 94 mEQ/L (98-107) L Carbon Dioxide Level 28 mEQ/L (20-30) Anion Gap 11 (5-15) Blood Urea Nitrogen 26 mg/dL (7-23) H Creatinine 0.7 mg/dL (0.5-0.9) Estimat Glomerular Filtration Rate > 60 mL/min (>60) Glucose Level 268 mg/dL (74-106) #H Calcium Level 6.3 mg/dL (8.6-10.2) L Phosphorus Level 3.6 mg/dL (2.5-4.8) Total Bilirubin 0.3 mg/dL (0.0-1.2) Aspartate Amino Transf (AST/SGOT) 78 U/L (5-40) H Alanine Aminotransferase (ALT/SGPT) 231 U/L (3-33) H Alkaline Phosphatase 35 U/L (35-104) Total Protein 4.0 g/dL (6.6-8.7) L Albumin 2.1 g/dL (3.5-5.2) L Globulin 1.9 g/dL Albumin/Globulin Ratio 1.1 (1.0-2.7) Height (Feet): 5 Height (Inches): 3.00 Weight (Pounds): 125 General Appearance: alert Cardiovascular: normal rate, tachycardia Respiratory/Chest: other - trach to vent Abdominal Exam: GT site - c/d/i Maeve Graves N.P. Apr 19, 2016 13:47
[2016-04-19] MEDS: Montelukast 10mg tablet ORAL SCH (16:32)
--- NOTE | 2016-04-19 18:16 | Cardiology Progress Note ---
Assessment/Plan Problem List: (1) COPD exacerbation (2) Hypotension (3) Anemia (4) Hepatitis B (5) LFTs abnormal (6) Acute type 1 respiratory failure Status: stable, progressing Status Narrative Mrs. Gallardo is improving. She is s/p trach and PEG. WBC is decreasing and she is afebrile. Cardiac status is stable She is receiving PRBC transfusion for hg 7.9 Assessment/Plan Continue supportive care. Complete iv abx course for pneumonia Plan for transfer to [facility] noted. Outpt cardiac w/u will depend on degree of pulm recovery Subjective ROS Limited/Unobtainable: Yes Subjective Pt awake, on vent. s/p trach .Events noted Objective Last 24 Hour Vital Signs Date Time Temp Pulse Resp B/P Pulse Ox O2 Delivery O2 Flow Rate FiO2 04/19/16 16:45 90 15 30 04/19/16 16:00 97 04/19/16 16:00 30 04/19/16 16:00 97.7 94 20 108/73 94 Mechanical Ventilator 30.0 04/19/16 15:10 95 18 30 04/19/16 13:25 94 04/19/16 13:25 93 18 30 04/19/16 12:00 98.1 101 24 120/55 96 Mechanical Ventilator 30 04/19/16 12:00 30 04/19/16 12:00 97 04/19/16 11:30 98 14 30 04/19/16 09:00 97.2 102 14 127/68 98 Mechanical Ventilator 30 04/19/16 09:00 30 04/19/16 08:50 102 14 30 04/19/16 08:10 110 04/19/16 08:00 30 04/19/16 07:50 99.8 108 24 119/69 96 Mechanical Ventilator 30 04/19/16 06:45 105 14 30 04/19/16 06:00 80 23 106/57 94 Mechanical Ventilator 30 04/19/16 05:30 82 14 30 04/19/16 05:00 79 24 100/57 94 Mechanical Ventilator 30 04/19/16 04:00 97.0 80 24 95/57 94 Mechanical Ventilator 30 04/19/16 04:00 75 04/19/16 04:00 30 04/19/16 03:30 74 14 30 04/19/16 03:00 81 24 97/57 94 Mechanical Ventilator 30 04/19/16 02:00 103 24 124/67 94 Mechanical Ventilator 30 04/19/16 01:30 104 15 30 04/19/16 01:00 103 24 126/70 94 Mechanical Ventilator 30 04/19/16 00:00 30 04/19/16 00:00 97.0 103 22 127/63 94 Mechanical Ventilator 30 04/19/16 00:00 103 04/18/16 23:00 88 15 131/71 94 Mechanical Ventilator 30 04/18/16 22:42 74 14 30 04/18/16 22:00 75 15 105/46 99 Mechanical Ventilator 30 04/18/16 21:37 79 110/64 04/18/16 21:09 78 15 30 04/18/16 21:00 95 19 110/64 96 Mechanical Ventilator 30 04/18/16 20:14 104/60 04/18/16 20:00 97.2 95 15 110/56 96 Mechanical Ventilator 30 04/18/16 20:00 90 04/18/16 20:00 30 04/18/16 19:30 77 14 30 04/18/16 19:00 94 22 108/56 95 Mechanical Ventilator 30 General Appearance: WD/WN, alert, on vent EENT: PERRL/EOMI Neck: no JVD, other - trach Rhythm: NSR Cardiovascular: normal rate, regular rhythm, no gallop/murmur Respiratory/Chest: rhonchi - bilaterally - bilat rhonchi anteriorly Abdomen: non tender, soft, other - + g tube Extremities: moderate edema - 2+ pitting edema of hands/1+ feet. Bilat scds Intake and Output 04/18/16 04/19/16 19:00 07:00 Intake Total 1465 ml 1553 ml Output Total 830 ml 720 ml Balance 635 ml 833 ml Free Water 200 ml IV Total 1365 ml 843 ml Tube Feeding 510 ml Other 100 ml Output Urine Total 830 ml 720 ml # Bowel Movements 5 6 Laboratory Tests Test 04/19/16 04:48 White Blood Count 11.0 K/UL (4.8-10.8) H Red Blood Count 2.59 M/UL (4.20-5.40) L Hemoglobin 7.9 G/DL (12.0-16.0) L Hematocrit 24.8 % (37.0-47.0) L Mean Corpuscular Volume 96 FL (80-99) Mean Corpuscular Hemoglobin 30.6 PG (27.0-31.0) Mean Corpuscular Hemoglobin Concent 31.9 G/DL (32.0-36.0) L Red Cell Distribution Width 14.5 % (11.6-14.8) Platelet Count 213 K/UL (150-450) Mean Platelet Volume 7.6 FL (6.5-10.1) Neutrophils (%) (Auto) % (45.0-75.0) Lymphocytes (%) (Auto) % (20.0-45.0) Monocytes (%) (Auto) % (1.0-10.0) Eosinophils (%) (Auto) % (0.0-3.0) Basophils (%) (Auto) % (0.0-2.0) Differential Total Cells Counted 100 Neutrophils % (Manual) 95 % (45-75) H Lymphocytes % (Manual) 1 % (20-45) L Monocytes % (Manual) 2 % (1-10) Eosinophils % (Manual) 0 % (0-3) Basophils % (Manual) 0 % (0-2) Band Neutrophils 2 % (0-8) Platelet Estimate Adequate Platelet Morphology Normal Hypochromasia 1+ Basophilic Stippling Occasional Macrocytosis 1+ Sodium Level 133 mEQ/L (135-145) L Potassium Level 4.3 mEQ/L (3.4-4.9) Chloride Level 94 mEQ/L (98-107) L Carbon Dioxide Level 28 mEQ/L (20-30) Anion Gap 11 (5-15) Blood Urea Nitrogen 26 mg/dL (7-23) H Creatinine 0.7 mg/dL (0.5-0.9) Estimat Glomerular Filtration Rate > 60 mL/min (>60) Glucose Level 268 mg/dL (74-106) #H Calcium Level 6.3 mg/dL (8.6-10.2) L Phosphorus Level 3.6 mg/dL (2.5-4.8) Total Bilirubin 0.3 mg/dL (0.0-1.2) Aspartate Amino Transf (AST/SGOT) 78 U/L (5-40) H Alanine Aminotransferase (ALT/SGPT) 231 U/L (3-33) H Alkaline Phosphatase 35 U/L (35-104) Total Protein 4.0 g/dL (6.6-8.7) L Albumin 2.1 g/dL (3.5-5.2) L Globulin 1.9 g/dL Albumin/Globulin Ratio 1.1 (1.0-2.7) CARITO POTTS Apr 19, 2016 18:16
[2016-04-19] MEDS ORDERED: PHENYLEPHRINE IV SCH (22:00)
[2016-04-19] MEDS ORDERED: D5W IV SCH (22:00)
[2016-04-20] MEDS: NovoLOG Insulin Flexpen SUBQ SCH ×4 (00:25→17:51)
[2016-04-20 04:00] VITALS: BP 124/74
[2016-04-20] MEDS: Solu-MEDROL 125mg Inj IVP SCH ×3 (05:36→21:00)
[2016-04-20 06:27] LABS: MEAN CORPUSCULAR HEMOGLOBIN 30.8 PG (27.0-31.0); MEAN CORPUSCULAR HGB CONC 32.5 G/DL (32.0-36.0); MEAN CORPUSCULAR VOLUME 95 FL (80-99); MEAN PLATELET VOLUME 7.1 FL (6.5-10.1); PLATELET COUNT 195 K/UL (150-450); RED BLOOD COUNT 3.41 M/UL (4.20-5.40); RED CELL DISTRIBUTION WIDTH 13.8 % (11.6-14.8); WHITE BLOOD COUNT 9.2 K/UL (4.8-10.8)
[2016-04-20 06:36] LABS: ALANINE AMINOTRANSFERASE 169 U/L (3-33); ALBUMIN/GLOBULIN RATIO 1.1 (1.0-2.7); ANION GAP 8 (5-15); ASPARTATE AMINO TRANSFERASE 49 U/L (5-40); CALCIUM 6.1 mg/dL (8.6-10.2); CARBON DIOXIDE 31 mEQ/L (20-30); CHLORIDE 99 mEQ/L (98-107); CREATININE 0.6 mg/dL (0.5-0.9); GLOMERULAR FILTRATION RATE > 60 mL/min (>60); HEMOLYSIS 5; POTASSIUM 4.6 mEQ/L (3.4-4.9); SODIUM 138 mEQ/L (135-145); TOTAL PROTEIN 4.2 g/dL (6.6-8.7)
[2016-04-20 07:48] LABS: ANISOCYTOSIS 1+; BAND NEUTROPHILS % (MANUAL) 1 % (0-8); BASOPHILS % (MANUAL) 0 % (0-2); EOSINOPHILS % (MANUAL) 0 % (0-3); HYPOCHROMASIA 1+; LYMPHOCYTES % (MANUAL) 1 % (20-45); NEUTROPHILS % (MANUAL) 96 % (45-75); PLATELET ESTIMATE DECREASED; PLATELET MORPHOLOGY NORMAL; TOTAL CELLS COUNTED 100
[2016-04-20 08:16] VITALS: BP 130/62
[2016-04-20] MEDS: Pantoprazole Inj IVP SCH ×2 (08:47→21:00)
[2016-04-20] MEDS: Fluconazole 100mg tab ORAL SCH (08:47)
[2016-04-20] MEDS: Lactobacillus-GG tablet ORAL SCH ×3 (08:48→17:48)
[2016-04-20 09:10] LABS: ABG BASE EXCESS 4.1
[2016-04-20 09:11] LABS: ABG ALLEN TEST POSITIVE
[2016-04-20] MEDS: 1/2NS w/KCl 20mEq 1000ml 1,000 ML IV SCH (09:23)
--- NOTE | 2016-04-20 11:09 | Infectious Diseases Prog Note ---
Assessment/Plan Assessment/Plan antibiotics : zosyn, fluconazole A 1. pneumonia 2. leucocytosis improving likely secondary to steroids 3. respiratory failure s/p tracheostomy 4. COPD 5. fungal UTI 6. coag neg staph sepsis P 1. continue fluconazole until tomorrow 2. d/c zosyn 3. start iv vancomycin 4. will follow up cultures Subjective ROS Limited/Unobtainable: Yes Allergies: Coded Allergies: CODEINE (Verified Allergy, Unknown, 04/05/16) ERYTHROMYCIN BASE (Verified Allergy, Unknown, 04/05/16) TETRACYCLINE (Verified Allergy, Unknown, 04/05/16) Objective Vital Signs Last 24 Hour Vital Signs Date Time Temp Pulse Resp B/P Pulse Ox O2 Delivery O2 Flow Rate FiO2 04/20/16 10:38 98 14 30 04/20/16 09:06 95 14 30 04/20/16 08:18 30 04/20/16 08:16 97.3 87 14 130/62 97 Mechanical Ventilator 30.0 30 04/20/16 08:00 80 04/20/16 07:05 93 14 30 04/20/16 05:28 87 14 30 04/20/16 04:12 30 04/20/16 04:11 97 04/20/16 04:00 96.6 90 18 124/74 96 Mechanical Ventilator 30 04/20/16 03:06 103 14 30 04/20/16 01:10 92 14 30 04/20/16 00:34 92 04/20/16 00:00 30 04/19/16 23:55 97.5 92 20 120/57 96 Mechanical Ventilator 30 04/19/16 23:05 96 15 30 04/19/16 21:24 101 15 30 04/19/16 20:00 30 04/19/16 20:00 97.9 95 19 142/75 98 Mechanical Ventilator 30 04/19/16 20:00 97 04/19/16 18:40 95 16 30 04/19/16 16:45 90 15 30 04/19/16 16:00 97 04/19/16 16:00 30 04/19/16 16:00 97.7 94 20 108/73 94 Mechanical Ventilator 30.0 04/19/16 15:10 95 18 30 04/19/16 13:25 94 04/19/16 13:25 93 18 30 04/19/16 12:00 98.1 101 24 120/55 96 Mechanical Ventilator 30 04/19/16 12:00 30 04/19/16 12:00 97 04/19/16 11:30 98 14 30 Height (Feet): 5 Height (Inches): 3.00 Weight (Pounds): 125 HEENT: status post trach Respiratory/Chest: lungs clear Cardiovascular: normal rate, regular rhythm, no gallop/murmur Abdomen: soft, non tender, other - GT Extremities: other - + edema, right arm PICC Laboratory Tests Test 04/20/16 05:30 04/20/16 08:50 White Blood Count 9.2 K/UL (4.8-10.8) Red Blood Count 3.41 M/UL (4.20-5.40) L Hemoglobin 10.5 G/DL (12.0-16.0) #L Hematocrit 32.3 % (37.0-47.0) #L Mean Corpuscular Volume 95 FL (80-99) Mean Corpuscular Hemoglobin 30.8 PG (27.0-31.0) Mean Corpuscular Hemoglobin Concent 32.5 G/DL (32.0-36.0) Red Cell Distribution Width 13.8 % (11.6-14.8) Platelet Count 195 K/UL (150-450) Mean Platelet Volume 7.1 FL (6.5-10.1) Neutrophils (%) (Auto) % (45.0-75.0) Lymphocytes (%) (Auto) % (20.0-45.0) Monocytes (%) (Auto) % (1.0-10.0) Eosinophils (%) (Auto) % (0.0-3.0) Basophils (%) (Auto) % (0.0-2.0) Differential Total Cells Counted 100 Neutrophils % (Manual) 96 % (45-75) H Lymphocytes % (Manual) 1 % (20-45) L Monocytes % (Manual) 2 % (1-10) Eosinophils % (Manual) 0 % (0-3) Basophils % (Manual) 0 % (0-2) Band Neutrophils 1 % (0-8) Platelet Estimate Decreased L Platelet Morphology Normal Hypochromasia 1+ Anisocytosis 1+ Sodium Level 138 mEQ/L (135-145) Potassium Level 4.6 mEQ/L (3.4-4.9) Chloride Level 99 mEQ/L (98-107) Carbon Dioxide Level 31 mEQ/L (20-30) H Anion Gap 8 (5-15) Blood Urea Nitrogen 24 mg/dL (7-23) H Creatinine 0.6 mg/dL (0.5-0.9) Estimat Glomerular Filtration Rate > 60 mL/min (>60) Glucose Level 204 mg/dL (74-106) H Calcium Level 6.1 mg/dL (8.6-10.2) L Total Bilirubin 0.3 mg/dL (0.0-1.2) Aspartate Amino Transf (AST/SGOT) 49 U/L (5-40) H Alanine Aminotransferase (ALT/SGPT) 169 U/L (3-33) H Alkaline Phosphatase 32 U/L (35-104) L Total Protein 4.2 g/dL (6.6-8.7) L Albumin 2.2 g/dL (3.5-5.2) L Globulin 2.0 g/dL Albumin/Globulin Ratio 1.1 (1.0-2.7) Arterial Blood pH 7.300 (7.350-7.450) Arterial Blood Partial Pressure CO2 65.0 mmHg (35.0-45.0) *H Arterial Blood Partial Pressure O2 84.5 mmHg (75.0-100.0) Arterial Blood HCO3 31.8 mmol/L (22.0-26.0) H Arterial Blood Oxygen Saturation 95.8 % (92.0-98.0) Arterial Blood Base Excess 4.1 Damián Test Positive ALEX GALEANA Apr 20, 2016 11:09
--- NOTE | 2016-04-20 11:44 | GI Progress Note ---
Assessment/Plan Problems: (1) Occult blood in stools ICD Codes: R19.5 - Other fecal abnormalities SNOMED: 76292892, 576227723 (2) Anemia ICD Codes: D64.9 - Anemia, unspecified SNOMED: 703650593 (3) Hepatitis B ICD Codes: B19.10 - Unspecified viral hepatitis B without hepatic coma SNOMED: 13132978 (4) LFTs abnormal ICD Codes: R79.89 - Other specified abnormal findings of blood chemistry SNOMED: 657930886 (5) Hypoalbuminemia ICD Codes: E88.09 - Other disorders of plasma-protein metabolism, not elsewhere classified SNOMED: 315923624 (6) COPD exacerbation ICD Codes: J44.1 - Chronic obstructive pulmonary disease with (acute) exacerbation SNOMED: 882094345, 333155333 (7) Hypotension ICD Codes: I95.9 - Hypotension, unspecified SNOMED: 72851382, 297289571 Qualifiers: Qualified Codes: I95.9 - Hypotension, unspecified (8) Acute type 1 respiratory failure ICD Codes: J96.01 - Acute respiratory failure with hypoxia SNOMED: 77780798, 560012906 (9) Dyspnea ICD Codes: R06.00 - Dyspnea, unspecified SNOMED: 438737267 Status: progressing Status Narrative Discussed with Dr. Roy. Assessment/Plan Assessment Dysphagia Acute respiratory failure, currently with respiratory acidosis Acute COPD exacerbation SIRS (tachycardia, hypoxemia, alteration in mental status) CTA with no pulmonary embolism Hep B/C serologies abnormal History of HTN (+) OB Anemia Recommendations s/p PEG GTFs per dietary, tolerating fu cdiff elevate HOB Hep B core total, Igm >> positive - fu Hep B surface, positive indicates Acute Hep B - fu Hep B DNA monitor H&H, stable given OB positive x 2 ppi fu labs possible GI w/u at later date Subjective Subjective limited Objective Last 24 Hour Vital Signs Date Time Temp Pulse Resp B/P Pulse Ox O2 Delivery O2 Flow Rate FiO2 04/20/16 10:38 98 14 30 04/20/16 09:06 95 14 30 04/20/16 08:18 30 04/20/16 08:16 97.3 87 14 130/62 97 Mechanical Ventilator 30.0 30 04/20/16 08:00 80 04/20/16 07:05 93 14 30 04/20/16 05:28 87 14 30 04/20/16 04:12 30 04/20/16 04:11 97 04/20/16 04:00 96.6 90 18 124/74 96 Mechanical Ventilator 30 04/20/16 03:06 103 14 30 04/20/16 01:10 92 14 30 04/20/16 00:34 92 04/20/16 00:00 30 04/19/16 23:55 97.5 92 20 120/57 96 Mechanical Ventilator 30 04/19/16 23:05 96 15 30 04/19/16 21:24 101 15 30 04/19/16 20:00 30 04/19/16 20:00 97.9 95 19 142/75 98 Mechanical Ventilator 30 04/19/16 20:00 97 04/19/16 18:40 95 16 30 04/19/16 16:45 90 15 30 04/19/16 16:00 97 04/19/16 16:00 30 04/19/16 16:00 97.7 94 20 108/73 94 Mechanical Ventilator 30.0 04/19/16 15:10 95 18 30 04/19/16 13:25 94 04/19/16 13:25 93 18 30 04/19/16 12:00 98.1 101 24 120/55 96 Mechanical Ventilator 30 04/19/16 12:00 30 04/19/16 12:00 97 Intake and Output 04/19/16 04/20/16 19:00 07:00 Intake Total 1045 ml 1565 ml Output Total 550 ml 950 ml Balance 495 ml 615 ml Free Water 30 ml 100 ml IV Total 650 ml 775 ml Tube Feeding 275 ml 660 ml Other 90 ml 30 ml Output Urine Total 550 ml 950 ml # Bowel Movements 3 Laboratory Tests Test 04/20/16 05:30 04/20/16 08:50 White Blood Count 9.2 K/UL (4.8-10.8) Red Blood Count 3.41 M/UL (4.20-5.40) L Hemoglobin 10.5 G/DL (12.0-16.0) #L Hematocrit 32.3 % (37.0-47.0) #L Mean Corpuscular Volume 95 FL (80-99) Mean Corpuscular Hemoglobin 30.8 PG (27.0-31.0) Mean Corpuscular Hemoglobin Concent 32.5 G/DL (32.0-36.0) Red Cell Distribution Width 13.8 % (11.6-14.8) Platelet Count 195 K/UL (150-450) Mean Platelet Volume 7.1 FL (6.5-10.1) Neutrophils (%) (Auto) % (45.0-75.0) Lymphocytes (%) (Auto) % (20.0-45.0) Monocytes (%) (Auto) % (1.0-10.0) Eosinophils (%) (Auto) % (0.0-3.0) Basophils (%) (Auto) % (0.0-2.0) Differential Total Cells Counted 100 Neutrophils % (Manual) 96 % (45-75) H Lymphocytes % (Manual) 1 % (20-45) L Monocytes % (Manual) 2 % (1-10) Eosinophils % (Manual) 0 % (0-3) Basophils % (Manual) 0 % (0-2) Band Neutrophils 1 % (0-8) Platelet Estimate Decreased L Platelet Morphology Normal Hypochromasia 1+ Anisocytosis 1+ Sodium Level 138 mEQ/L (135-145) Potassium Level 4.6 mEQ/L (3.4-4.9) Chloride Level 99 mEQ/L (98-107) Carbon Dioxide Level 31 mEQ/L (20-30) H Anion Gap 8 (5-15) Blood Urea Nitrogen 24 mg/dL (7-23) H Creatinine 0.6 mg/dL (0.5-0.9) Estimat Glomerular Filtration Rate > 60 mL/min (>60) Glucose Level 204 mg/dL (74-106) H Calcium Level 6.1 mg/dL (8.6-10.2) L Total Bilirubin 0.3 mg/dL (0.0-1.2) Aspartate Amino Transf (AST/SGOT) 49 U/L (5-40) H Alanine Aminotransferase (ALT/SGPT) 169 U/L (3-33) H Alkaline Phosphatase 32 U/L (35-104) L Total Protein 4.2 g/dL (6.6-8.7) L Albumin 2.2 g/dL (3.5-5.2) L Globulin 2.0 g/dL Albumin/Globulin Ratio 1.1 (1.0-2.7) Arterial Blood pH 7.300 (7.350-7.450) Arterial Blood Partial Pressure CO2 65.0 mmHg (35.0-45.0) *H Arterial Blood Partial Pressure O2 84.5 mmHg (75.0-100.0) Arterial Blood HCO3 31.8 mmol/L (22.0-26.0) H Arterial Blood Oxygen Saturation 95.8 % (92.0-98.0) Arterial Blood Base Excess 4.1 Damián Test Positive Height (Feet): 5 Height (Inches): 3.00 Weight (Pounds): 125 General Appearance: no apparent distress, alert Cardiovascular: normal rate Respiratory/Chest: other - [facility] vent Abdominal Exam: site - c/d/i Maeve Graves N.P. Apr 20, 2016 11:44
[2016-04-20 12:00] VITALS: BP 132/62
[2016-04-20] MEDS: Vancomycin 750mg/D5W 250ml IVPB SCH ×2 (14:11)
--- NOTE | 2016-04-20 15:12 | Pulmonology Progress Note ---
Assessment/Plan Problems: (1) Dyspnea (2) Hypotension (3) COPD exacerbation (4) Occult blood in stools (5) Anemia (6) Hypoalbuminemia (7) Hepatitis B (8) LFTs abnormal (9) Acute type 1 respiratory failure Assessment/Plan Assessment/Plan: ASSESSMENT: acute hypoxemic/hypercapneic resp failure--vent dep- not weaning much s/p trach 04/17/16 bronchitis-yst pos bc-prob contam-coag neg staph s/p UTI-yst sepsis sev copd--cxr no IF has sev hyperinflation JAIR-stable, improved w neg BROOKS s/p sl elev bfgsiffy-mhvfxy-lawjfx ischemia-will need non invasive study when better abnl LFTs--abd brooks c/w cirrhosis--hep B core IgM positive!! Hep B Sag neg ? false pos??--hep S Ab neg at [facility], hep B dna. STILL pend ANEMIA-sl lower H/H today w H pos stool- transfuse PRN h/o HTN cirrhosis--unclear etiol-no ho etoh per pt in past and mothers report hyperglycemia-due to steroids PICC immune status--flu shot-yes prevnar 13 yes 03/01/15 PLAN Continue ventilatory support: Inc RR to 20, continue AC 500 Attempt weaning Titrate down FiO2 to keep SaO2 > 90% RTC and PRN HHN's Continue Singulair Decrease SM to 40 IV BID and taper slowly OOB, PT/OT TFs as tolerated Awaiting bed at [facility] F/U Hep B DNA Monitor H/H, transfuse PRN DVT Px: SCD's FULL CODE Subjective Allergies: Coded Allergies: CODEINE (Verified Allergy, Unknown, 04/05/16) ERYTHROMYCIN BASE (Verified Allergy, Unknown, 04/05/16) TETRACYCLINE (Verified Allergy, Unknown, 04/05/16) Subjective AFVSS 2.5/1.5 (+1L) A/C 14, 500 30% --> 7.3/65/84/31/5 Awake, no sig secretions, CXR reviewed Objective Last 24 Hour Vital Signs Date Time Temp Pulse Resp B/P Pulse Ox O2 Delivery O2 Flow Rate FiO2 04/20/16 12:48 88 15 30 04/20/16 12:00 77 04/20/16 12:00 96.6 87 14 132/62 97 Mechanical Ventilator 30 04/20/16 12:00 30 04/20/16 10:38 98 14 30 04/20/16 09:06 95 14 30 04/20/16 08:18 30 04/20/16 08:16 97.3 87 14 130/62 97 Mechanical Ventilator 30.0 30 04/20/16 08:00 80 04/20/16 07:05 93 14 30 04/20/16 05:28 87 14 30 04/20/16 04:12 30 04/20/16 04:11 97 04/20/16 04:00 96.6 90 18 124/74 96 Mechanical Ventilator 30 04/20/16 03:06 103 14 30 04/20/16 01:10 92 14 30 04/20/16 00:34 92 04/20/16 00:00 30 04/19/16 23:55 97.5 92 20 120/57 96 Mechanical Ventilator 30 04/19/16 23:05 96 15 30 04/19/16 21:24 101 15 30 04/19/16 20:00 30 04/19/16 20:00 97.9 95 19 142/75 98 Mechanical Ventilator 30 04/19/16 20:00 97 04/19/16 18:40 95 16 30 04/19/16 16:45 90 15 30 04/19/16 16:00 97 04/19/16 16:00 30 04/19/16 16:00 97.7 94 20 108/73 94 Mechanical Ventilator 30.0 04/19/16 15:10 95 18 30 Intake and Output 04/19/16 04/20/16 18:59 06:59 Intake Total 1040 ml 1515 ml Output Total 550 ml 950 ml Balance 490 ml 565 ml Free Water 30 ml 100 ml IV Total 700 ml 725 ml Tube Feeding 220 ml 660 ml Other 90 ml 30 ml Output Urine Total 550 ml 950 ml # Bowel Movements 3 General Appearance: cachetic, other - trach/vent HEENT: normocephalic, atraumatic, status post trach Respiratory/Chest: crackles/rales, rhonchi Cardiovascular: normal peripheral pulses, normal rate, regular rhythm Abdomen: normal bowel sounds, soft, non tender, no organomegaly, non distended , other - T Extremities: no cyanosis, no clubbing, other - trace Laboratory Tests 04/20/16 05:30: White Blood Count 9.2, Red Blood Count 3.41L, Hemoglobin 10.5#L, Hematocrit 32.3 #L, Mean Corpuscular Volume 95, Mean Corpuscular Hemoglobin 30.8, Mean Corpuscular Hemoglobin Concent 32.5, Red Cell Distribution Width 13.8, Platelet Count 195, Mean Platelet Volume 7.1, Neutrophils (%) (Auto) , Lymphocytes (%) ( Auto) , Monocytes (%) (Auto) , Eosinophils (%) (Auto) , Basophils (%) (Auto) , Differential Total Cells Counted 100, Neutrophils % (Manual) 96H, Lymphocytes % (Manual) 1L, Monocytes % (Manual) 2, Eosinophils % (Manual) 0, Basophils % ( Manual) 0, Band Neutrophils 1, Platelet Estimate DecreasedL, Platelet Morphology Normal, Hypochromasia 1+, Anisocytosis 1+, Sodium Level 138, Potassium Level 4.6, Chloride Level 99, Carbon Dioxide Level 31H, Anion Gap 8, Blood Urea Nitrogen 24H, Creatinine 0.6, Estimat Glomerular Filtration Rate > 60 , Glucose Level 204H, Calcium Level 6.1L, Total Bilirubin 0.3, Aspartate Amino Transf (AST/SGOT) 49H, Alanine Aminotransferase (ALT/SGPT) 169H, Alkaline Phosphatase 32L, Total Protein 4.2L, Albumin 2.2L, Globulin 2.0, Albumin/ Globulin Ratio 1.1 04/20/16 08:50: Arterial Blood pH 7.300L, Arterial Blood Partial Pressure CO2 65.0*H, Arterial Blood Partial Pressure O2 84.5, Arterial Blood HCO3 31.8H, Arterial Blood Oxygen Saturation 95.8, Arterial Blood Base Excess 4.1, Damián Test Positive Current Medications Medications (Trade) Dose Ordered Sig/Deyanira Route PRN Reason Start Time Stop Time Status Last Admin Dose Admin Acetaminophen (Tylenol) 650 mg Q4H PRN NG temp of 100 and above 04/19/16 13:00 05/19/16 12:59 Acetaminophen (Tylenol) 650 mg Q4H PRN ORAL Mild Pain (Pain Scale 1-3) 04/19/16 11:30 05/19/16 11:29 Dextrose (Dextrose 50%) STAT PRN IV Hypoglycemia 04/19/16 11:30 05/19/16 11:29 Fluconazole (Diflucan) 200 mg DAILY ORAL 04/20/16 09:00 04/21/16 23:59 1/13/17 08:47 Hydromorphone HCl (Dilaudid) 0.3 mg Q2H PRN IVP Severe Pain (Pain Scale 7-10) 04/19/16 12:30 04/26/16 12:29 Insulin Aspart (NovoLOG) EVERY 6 HOURS SUBQ 04/19/16 12:00 05/19/16 11:59 04/20/16 11:33 Lactobacillus Acidophilus (Culturelle) 1 tab THREE TIMES A DAY ORAL 04/19/16 13:00 05/19/16 12:59 04/20/16 11:34 Loperamide HCl (Imodium) 2 mg Q6H PRN NG Diarrhea 04/19/16 11:30 05/19/16 11:29 Methylprednisolone Sodium Succinate (Solu-MEDROL) 40 mg EVERY 8 HOURS IVP 04/19/16 14:00 05/19/16 13:59 04/20/16 13:16 Montelukast Sodium (Singulair) 10 mg QPM ORAL 04/19/16 16:30 05/19/16 16:29 04/19/16 16:32 Ondansetron HCl (Zofran ODT) 4 mg Q6H PRN ORAL Nausea & Vomiting 04/19/16 11:30 05/19/16 11:29 Pantoprazole (Protonix) 40 mg EVERY 12 HOURS IVP 04/19/16 21:00 05/19/16 20:59 04/20/16 08:47 Polyethylene Glycol (Miralax) 17 gm DAILYPRN PRN ORAL Constipation 04/19/16 11:30 05/19/16 11:29 Sodium (0.45%NS w/KCl 20mEq 1000ml) 1,000 ml @ 50 mls/hr Q20H IV 04/19/16 11:30 05/19/16 11:29 04/20/16 09:23 Vancomycin HCl 1 ea 1 ea DAILY PRN MISC Per rx protocol 04/20/16 11:15 05/20/16 11:14 Vancomycin HCl/ Dextrose (Vancomycin/D5W 250ml) 250 ml @ 167 mls/hr Q12H IVPB 04/20/16 14:00 04/25/16 13:59 04/20/16 14:11 RODOLFO CULVER M.D. Apr 20, 2016 15:12
[2016-04-20] MEDS ORDERED: DuoNeb 0.5-3(2.5)mg/3ml neb HHN PRN (15:15)
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
[2016-04-20 16:00] VITALS: BP 105/69
[2016-04-20] MEDS: Montelukast 10mg tablet ORAL SCH (17:48)
[2016-04-20] MEDS ORDERED: D5NS 1000ml IV ONE (18:37)
--- NOTE | 2016-04-20 19:17 | Procedure Note ---
DATE OF PROCEDURE: 04/18/2016 SURGEON: Izaiah Roy M.D. PROCEDURE: Upper endoscopy with PEG placement. ANESTHESIA: Per Tasia Miles CRNA. INSTRUMENT: Olympus adult flexible upper endoscope. INDICATION: Anemia and dysphagia. REASON FOR PROCEDURE: The procedure, risks, benefits, and possible consequences, including hemorrhage, aspiration, perforation and infection, and alternative treatments, were explained to the patient/legal guardian by Dr. Izaiah Roy and the patient/legal guardian understood and accepted these risks. DESCRIPTION OF PROCEDURE: After informed consent was obtained and the patient was adequately sedated, Olympus upper endoscope was advanced from mouth into the second portion of the duodenum and retroflexion was performed in the stomach. The patient has evidence of mild distal esophagitis most probably the source of the stool OB positivity. In the stomach, there was diffuse gastritis. The patient also has evidence of hiatal hernia. Then under endoscopic guidance and under sterile condition, a 20-[place] pull type of G-tube was successfully placed in the epigastric area. The distance from the tip of the tube to skin was about 2-1/2 cm in size. The patient tolerated the procedure without any complication. SUMMARY OF FINDINGS: 1. Distal esophagitis. 2. Hiatal hernia. 3. Status post successful PEG placement. RECOMMENDATIONS: 1. Abdominal binder. 2. Elevate the head of the bed at all times. 3. G-tube flush. 4. G-tube care. 5. Start tube feeding later today. The patient received a dose of antibiotics prior to this procedure. Izaiah Roy M.D. DR: Haydee JOB#: [id number] CC:
[2016-04-20] MEDS: DuoNeb 0.5-3(2.5)mg/3ml neb HHN SCH (19:31)
[2016-04-20 20:00] VITALS: BP 147/60
[2016-04-20] MEDS: Hydromorphone 0.5mg/0.5ml inj IVP PRN (21:58)
[2016-04-21 00:03] VITALS: BP 140/70
[2016-04-21] MEDS: DuoNeb 0.5-3(2.5)mg/3ml neb HHN SCH ×4 (01:31→19:01)
[2016-04-21] MEDS: Vancomycin 750mg/D5W 250ml IVPB SCH ×4 (01:56→13:04)
[2016-04-21] MEDS: 1/2NS w/KCl 20mEq 1000ml 1,000 ML IV SCH ×2 (03:32→23:30)
[2016-04-21 04:00] VITALS: BP 127/66
[2016-04-21 04:28] LABS: MEAN CORPUSCULAR HEMOGLOBIN 31.4 PG (27.0-31.0); MEAN CORPUSCULAR HGB CONC 33.6 G/DL (32.0-36.0); MEAN CORPUSCULAR VOLUME 93 FL (80-99); MEAN PLATELET VOLUME 7.3 FL (6.5-10.1); PLATELET COUNT 164 K/UL (150-450); RED BLOOD COUNT 3.21 M/UL (4.20-5.40); RED CELL DISTRIBUTION WIDTH 14.1 % (11.6-14.8); WHITE BLOOD COUNT 5.3 K/UL (4.8-10.8)
[2016-04-21 04:40] LABS: ALANINE AMINOTRANSFERASE 117 U/L (3-33); ALBUMIN/GLOBULIN RATIO 0.9 (1.0-2.7); ANION GAP 9 (5-15); ASPARTATE AMINO TRANSFERASE 38 U/L (5-40); CARBON DIOXIDE 31 mEQ/L (20-30); CHLORIDE 97 mEQ/L (98-107); CREATININE 0.6 mg/dL (0.5-0.9); GLOMERULAR FILTRATION RATE > 60 mL/min (>60); HEMOLYSIS 18; POTASSIUM 4.4 mEQ/L (3.4-4.9); SODIUM 137 mEQ/L (135-145); TOTAL PROTEIN 3.9 g/dL (6.6-8.7)
[2016-04-21] MEDS: NovoLOG Insulin Flexpen SUBQ SCH ×4 (06:00→17:39)
[2016-04-21 08:00] VITALS: BP 139/75
[2016-04-21 09:14] LABS: VITAMIN D 25-OH TOTAL 27 ng/mL (.)
[2016-04-21] MEDS: Pantoprazole Inj IVP SCH ×2 (09:46→20:45)
[2016-04-21] MEDS: Fluconazole 100mg tab ORAL SCH (09:47)
[2016-04-21] MEDS: Lactobacillus-GG tablet ORAL SCH ×3 (09:47→17:35)
[2016-04-21] MEDS: Solu-MEDROL 125mg Inj IVP SCH ×2 (09:47→17:37)
[2016-04-21 12:00] VITALS: BP 131/72
--- NOTE | 2016-04-21 12:02 | Infectious Diseases Prog Note ---
Assessment/Plan Assessment/Plan antibiotics : vancomycin iv, fluconazole A 1. pneumonia 2. leucocytosis improving likely secondary to steroids 3. respiratory failure s/p tracheostomy 4. COPD 5. fungal UTI 6. coag neg staph sepsis P 1. d/c fluconazole 2. continue iv vancomycin 3. will follow up cultures Subjective ROS Limited/Unobtainable: Yes Allergies: Coded Allergies: CODEINE (Verified Allergy, Unknown, 04/05/16) ERYTHROMYCIN BASE (Verified Allergy, Unknown, 04/05/16) TETRACYCLINE (Verified Allergy, Unknown, 04/05/16) Objective Vital Signs Last 24 Hour Vital Signs Date Time Temp Pulse Resp B/P Pulse Ox O2 Delivery O2 Flow Rate FiO2 04/21/16 10:35 98 20 30 04/21/16 08:55 106 20 98 Mechanical Ventilator 30 04/21/16 08:44 105 20 95 Mechanical Ventilator 30 04/21/16 08:44 96 20 30 04/21/16 08:00 120 04/21/16 08:00 30 04/21/16 08:00 98.1 110 20 139/75 95 Mechanical Ventilator 30 04/21/16 06:45 100 20 30 04/21/16 05:20 97 20 30 04/21/16 04:00 90 21 127/66 98 Mechanical Ventilator 30 04/21/16 04:00 104 04/21/16 04:00 30 04/21/16 03:16 86 20 30 04/21/16 01:38 89 20 99 Mechanical Ventilator 30 04/21/16 01:29 30 04/21/16 01:29 88 20 97 Mechanical Ventilator 30 04/21/16 01:27 88 20 30 04/21/16 00:03 97.2 90 19 140/70 97 Mechanical Ventilator 30 04/21/16 00:00 30 04/21/16 00:00 91 04/21/16 00:00 90 04/20/16 23:18 97.2 04/20/16 23:06 98 20 30 04/20/16 21:20 111 20 30 04/20/16 20:00 82 04/20/16 20:00 30 04/20/16 20:00 97.7 91 18 147/60 97 Mechanical Ventilator 30 04/20/16 19:40 90 20 98 Mechanical Ventilator 30 04/20/16 19:31 30 04/20/16 19:31 90 20 30 04/20/16 19:31 90 20 98 Mechanical Ventilator 30 04/20/16 16:40 84 19 30 04/20/16 16:00 97.3 89 18 105/69 98 Mechanical Ventilator 30 04/20/16 16:00 30 04/20/16 16:00 89 04/20/16 15:27 80 2 30 04/20/16 12:48 88 15 30 Height (Feet): 5 Height (Inches): 3.00 Weight (Pounds): 125 HEENT: status post trach Respiratory/Chest: lungs clear Cardiovascular: normal rate, regular rhythm, no gallop/murmur Abdomen: soft, non tender, other - GT Extremities: other - + edema, right arm PICC Laboratory Tests Test 04/21/16 04:00 White Blood Count 5.3 K/UL (4.8-10.8) Red Blood Count 3.21 M/UL (4.20-5.40) L Hemoglobin 10.1 G/DL (12.0-16.0) L Hematocrit 30.0 % (37.0-47.0) L Mean Corpuscular Volume 93 FL (80-99) Mean Corpuscular Hemoglobin 31.4 PG (27.0-31.0) H Mean Corpuscular Hemoglobin Concent 33.6 G/DL (32.0-36.0) Red Cell Distribution Width 14.1 % (11.6-14.8) Platelet Count 164 K/UL (150-450) Mean Platelet Volume 7.3 FL (6.5-10.1) Neutrophils (%) (Auto) % (45.0-75.0) Lymphocytes (%) (Auto) % (20.0-45.0) Monocytes (%) (Auto) % (1.0-10.0) Eosinophils (%) (Auto) % (0.0-3.0) Basophils (%) (Auto) % (0.0-2.0) Sodium Level 137 mEQ/L (135-145) Potassium Level 4.4 mEQ/L (3.4-4.9) Chloride Level 97 mEQ/L (98-107) L Carbon Dioxide Level 31 mEQ/L (20-30) H Anion Gap 9 (5-15) Blood Urea Nitrogen 24 mg/dL (7-23) H Creatinine 0.6 mg/dL (0.5-0.9) Estimat Glomerular Filtration Rate > 60 mL/min (>60) Glucose Level 207 mg/dL (74-106) H Calcium Level 6.0 mg/dL (8.6-10.2) L Total Bilirubin 0.3 mg/dL (0.0-1.2) Aspartate Amino Transf (AST/SGOT) 38 U/L (5-40) Alanine Aminotransferase (ALT/SGPT) 117 U/L (3-33) H Alkaline Phosphatase 32 U/L (35-104) L Total Protein 3.9 g/dL (6.6-8.7) L Albumin 1.9 g/dL (3.5-5.2) L Globulin 2.0 g/dL Albumin/Globulin Ratio 0.9 (1.0-2.7) L ALEX GALEANA Apr 21, 2016 12:02
[2016-04-21 16:00] VITALS: BP 116/67
--- NOTE | 2016-04-21 16:41 | Pulmonolgy Critical Care Note ---
Critical Care - Asmt/Plan Assessment/Plan: ASSESSMENT: acute hypoxemic/hypercapneic resp failure--vent dep- not weaning much s/p trach 04/17/16 bronchitis-yst pos bc-prob contam-coag neg staph s/p UTI-yst sepsis sev copd--cxr no IF has sev hyperinflation JAIR-stable, improved w neg BROOKS s/p sl elev odcswbwy-mohwdj-mdttxn ischemia-will need non invasive study when better abnl LFTs--abd brooks c/w cirrhosis--hep B core IgM positive!! Hep B Sag neg ? false pos??--hep S Ab neg at [facility], hep B dna. STILL pend ANEMIA-sl lower H/H today w H pos stool- transfuse PRN h/o HTN cirrhosis--unclear etiol-no ho etoh per pt in past and mothers report hyperglycemia-due to steroids PICC immune status--flu shot-yes prevnar 13 yes 03/01/15 PLAN Continue ventilatory support: Inc RR to 20, continue AC 500 Attempt weaning Titrate down FiO2 to keep SaO2 > 90% RTC and PRN HHN's Continue Singulair Decrease SM to 40 IV BID and taper slowly starting saturday OOB, PT/OT TFs as tolerated Awaiting bed at [place] F/U Hep B DNA Monitor H/H, transfuse PRN DVT Px: SCD's 45 minutes to coordinate care, discuss with RN, Respiratory: CXR Cardiac: continue to monitor HR/BP Renal: keep IV fluid Infectious Disease: check cultures, continue antibiotics Prophylaxis: Protonix, Heparin Time Spent (Minutes): 40 Critical Care - Objective Last 24 Hour Vital Signs Date Time Temp Pulse Resp B/P Pulse Ox O2 Delivery O2 Flow Rate FiO2 04/21/16 14:45 102 20 30 04/21/16 13:27 108 20 99 Mechanical Ventilator 30 04/21/16 13:17 108 20 30 04/21/16 13:17 108 20 99 Mechanical Ventilator 30 04/21/16 12:00 30 04/21/16 12:00 97.7 101 19 131/72 96 Mechanical Ventilator 30 04/21/16 12:00 104 04/21/16 10:35 98 20 30 04/21/16 08:55 106 20 98 Mechanical Ventilator 30 04/21/16 08:44 105 20 95 Mechanical Ventilator 30 04/21/16 08:44 96 20 30 04/21/16 08:00 120 04/21/16 08:00 30 04/21/16 08:00 98.1 110 20 139/75 95 Mechanical Ventilator 30 04/21/16 06:45 100 20 30 04/21/16 05:20 97 20 30 04/21/16 04:00 90 21 127/66 98 Mechanical Ventilator 30 04/21/16 04:00 104 04/21/16 04:00 30 04/21/16 03:16 86 20 30 04/21/16 01:38 89 20 99 Mechanical Ventilator 30 04/21/16 01:29 30 04/21/16 01:29 88 20 97 Mechanical Ventilator 30 04/21/16 01:27 88 20 30 04/21/16 00:03 97.2 90 19 140/70 97 Mechanical Ventilator 30 04/21/16 00:00 30 04/21/16 00:00 91 04/21/16 00:00 90 04/20/16 23:18 97.2 04/20/16 23:06 98 20 30 04/20/16 21:20 111 20 30 04/20/16 20:00 82 04/20/16 20:00 30 04/20/16 20:00 97.7 91 18 147/60 97 Mechanical Ventilator 30 04/20/16 19:40 90 20 98 Mechanical Ventilator 30 04/20/16 19:31 30 04/20/16 19:31 90 20 30 04/20/16 19:31 90 20 98 Mechanical Ventilator 30 04/20/16 16:40 84 19 30 Status: awake Condition: improving Lungs: rhonchi Heart: HR/BP stable Abdomen: soft, non-tender Extremities: edema Decubiti: location Accucheck: 125 Blood Sugars: BS not controlled Critical Care - Subjective ROS Limited/Unobtainable: Yes Condition: improving FI02: 30 Vent Support Breath Rate: 20 Vent Support Mode: AC Vent Tidal Volume: 500 Sputum Amount: Small PEEP: 0.0 PIP: 36 Tube Feeding Amount: 55 I&O: Intake and Output 04/20/16 04/21/16 19:00 07:00 Intake Total 1530 ml 1560 ml Output Total 900 ml 1240 ml Balance 630 ml 320 ml Free Water 100 ml 100 ml IV Total 825 ml 800 ml Tube Feeding 605 ml 660 ml Output Urine Total 900 ml 1000 ml Stool Total 240 ml # Bowel Movements 1 Subjective: seen and examined awake and less agitated on vent, not tolerating weaning at this time no bleeding trach stable off pressors positive uop no fever noted no new cultures available, WBC elevated no fever CXR: cxr 04/18 reviewed ET-Tube: 7.5 ET Position: 22 Labs: Laboratory Tests Test 04/21/16 04:00 White Blood Count 5.3 K/UL (4.8-10.8) Red Blood Count 3.21 M/UL (4.20-5.40) L Hemoglobin 10.1 G/DL (12.0-16.0) L Hematocrit 30.0 % (37.0-47.0) L Mean Corpuscular Volume 93 FL (80-99) Mean Corpuscular Hemoglobin 31.4 PG (27.0-31.0) H Mean Corpuscular Hemoglobin Concent 33.6 G/DL (32.0-36.0) Red Cell Distribution Width 14.1 % (11.6-14.8) Platelet Count 164 K/UL (150-450) Mean Platelet Volume 7.3 FL (6.5-10.1) Neutrophils (%) (Auto) % (45.0-75.0) Lymphocytes (%) (Auto) % (20.0-45.0) Monocytes (%) (Auto) % (1.0-10.0) Eosinophils (%) (Auto) % (0.0-3.0) Basophils (%) (Auto) % (0.0-2.0) Sodium Level 137 mEQ/L (135-145) Potassium Level 4.4 mEQ/L (3.4-4.9) Chloride Level 97 mEQ/L (98-107) L Carbon Dioxide Level 31 mEQ/L (20-30) H Anion Gap 9 (5-15) Blood Urea Nitrogen 24 mg/dL (7-23) H Creatinine 0.6 mg/dL (0.5-0.9) Estimat Glomerular Filtration Rate > 60 mL/min (>60) Glucose Level 207 mg/dL (74-106) H Calcium Level 6.0 mg/dL (8.6-10.2) L Total Bilirubin 0.3 mg/dL (0.0-1.2) Aspartate Amino Transf (AST/SGOT) 38 U/L (5-40) Alanine Aminotransferase (ALT/SGPT) 117 U/L (3-33) H Alkaline Phosphatase 32 U/L (35-104) L Total Protein 3.9 g/dL (6.6-8.7) L Albumin 1.9 g/dL (3.5-5.2) L Globulin 2.0 g/dL Albumin/Globulin Ratio 0.9 (1.0-2.7) L RACHANA BROOKS DO Apr 21, 2016 16:41
[2016-04-21] MEDS: Montelukast 10mg tablet ORAL SCH (16:45)
[2016-04-21 20:00] VITALS: BP 154/80
[2016-04-21] MEDS: Hydromorphone 0.5mg/0.5ml inj IVP PRN (21:09)
[2016-04-22] MEDS: NovoLOG Insulin Flexpen SUBQ SCH
[2016-04-22] MEDS ORDERED: NS 275ml ONE (00:44)
[2016-04-22] MEDS ORDERED: Tubing IV Secondary IV ONE (00:44)
--- NOTE | 2016-04-23 10:12 | Endoscopy Procedure Note ---
Endoscopy Procedure Note Indication for Procedure: dysphagia Procedures Performed: EGD, PEG Operative Findings/Diagnosis: same Specimen: none Pt Tolerated Procedure Well: Yes Estimated Blood Loss: none Anesthesiologist: lexi Anesthesia: MAC Implant(s) used?: No 50 yrs or older w/o bx or poly: Not Applicable 10yrs. F/U not recommended: Not Applicable REAGAN WALSH Apr 23, 2016 10:12
--- NOTE | 2016-04-23 13:01 | Discharge Summary ---
Discharge Summary Hospital Course Date of Admission Apr 02, 2016 at 17:07 Date of Discharge Apr 22, 2016 at 00:45 Admitting Diagnosis resp failure HPI Cande Gallardo is a 66 year old female who was admitted on Apr 02, 2016 at 17: 07 for Respiratory Failure Hospital Course dc summary dictated # [id number]] Discharge Condition Upon Discharge: stable Discharge Disposition Patient was discharged to Discharge Diagnoses: Pal (Ravin)Carmen NP Apr 23, 2016 13:01
--- NOTE | 2016-04-24 03:47 | Discharge Summary 2 SIG ---
DATE OF ADMISSION: 04/02/2016 DATE OF DISCHARGE: 04/22/2016 DISPOSITION: The patient was transferred to [facility] for further care. REASON FOR HOSPITALIZATION: 66-year-old female had respiratory difficulties for three days. The patient has underlying history of severe COPD. She had been using breathing treatment and oxygen at home. Finally ambulance was called. Her initial saturation was 79% and it came up to 84. She was getting breathing treatment while en route by the paramedics. The paramedics noted decreased responsiveness. Upon arrival to the emergency room, the patient was noted to be hypotensive and vomited. She required intubation and transferred to ICU for pressors. Septic workup was initiated in the emergency room. A central line was placed in the emergency department along with intubation and the patient was transferred to ICU for further management. INITIAL DIAGNOSES: Include: 1. Acute hypoxemic hypercapnic respiratory failure, requiring intubation. 2. Septic shock. 3. Severe chronic obstructive pulmonary disease exacerbation. HOSPITAL COURSE: The patient was admitted in ICU. The patient was on pressors and on IV fluids, eventually were able to taper pressors and stopped. The patient was placed on weaning protocol as tolerated, however the patient was unable to be weaned. Subsequently, ENT consult was requested, and the patient undergone tracheostomy on 04/17/2016. No signs of respiratory distress on current settings. Keep settings as is and titrate as needed. Pulmonary toilet provided vigorously. The patient was on steroids which gradually tapered and discontinued. Urine culture was positive for yeast, status post treatment. Blood culture / Staph Coag-negative likely contamination. Chest x-ray revealed severe hyperinflation of lungs but no evidence of acute cardiopulmonary disease, no evidence of interstitial fibrosis. Afebrile, no leucocytosis. Patient initially presented with mild elevation in troponin. Cardiology consult requested. Per cardiology, mild elevation secondary to demand ischemia. Recommended noninvasive studies, when medically stable. The patient with a history of hypertension. Echo revealed ejection fracture of 60% to 65%, right ventricular systolic pressure of 40, consistent with mild pulmonary hypertension. CTA revealed no pulmonary emboli. Venous Duplex of bilateral lower extremities was negative for acute DVT. The patient initially came with acute kidney injury, which resolved subsequently with IV hydration. Renal ultrasound was negative. Acute kidney injury likely 2 to dehydration. Noted abnormal LFT. Abdominal ultrasound revealed cirrhosis. No history of alcohol abuse. Hepatitis panel revealed positive IgM hepatitis B core. Hepatitis B DNA is still pending. LFT trending down, no abdominal pain, no nausea, vomiting. The patient was anemic, status post blood transfusion. Hemoglobin and hematocrit were closely monitored . Strict aspiration precautions maintained. Status post EGD and PEG on 04/02/2016, able to tolerate tube feeding. Leukocytosis resolved, afebrile; status post treatment with antibiotics . Cardiopulmonary status stable. Renal parameters down to normal. LFTs trending down. Tolerated tube feeding. FINAL DIAGNOSIS: acute hypoxemic hypercapnic respiratory failure, requiring intubation failure to wean s/p tracheostomy 04/17/16 sepsis UTI/ s/p Rx bronchitis elevated troponin 2 to demand ischemia acute kidney injury, improved abnormal LFT anemia, s/p blood transfusion dysphagia, s/p EGD and PEG hx of HTN mild pulmonary HTN DISCHARGE MEDICATIONS: see medications reconciliation list DISCHARGE INSTRUCTIONS: patient transferred to [facility] for pulmonary rehab, fup with MD and combatant diver qualified at the hospital Estela Gomez M.D. I have been assigned to dictate discharge summary on this account and I was not involved in the patient's management. Carmen Juarezabran N.PChelsy DR: uJdi JOB#: [id number] CC: [email or web address]
--- NOTE | 2016-04-24 11:57 | Diagnostic Imaging Report ---
Indication: Chest Pain Comparison: 04/14/16 A single view chest radiograph was obtained. Findings: Tubes and lines are stable. Lungs are hyperexpanded unchanged. Heart size is stable. Impression: No change from the day prior
--- NOTE | 2016-04-24 12:00 | Diagnostic Imaging Report ---
Indication: Dyspnea Comparison: 04/15/16 A single view chest radiograph was obtained. Findings: No interval change appreciated. Cardio mediastinal silhouette is stable. Hyperinflated lungs again noted. Tubes and lines stable. Impression: No change.
== END 2016-04-22 00:45 | DRG 4 ==
LOC: EDBD 16:35 → EDBEDREQ 16:55 → EMR 16:59 → ICU 17:07 → EDBEDREQ 18:13 → 2W 04-19 08:58
PROC: 3E043XZ Introduction of Vasopressor into Central Vein, Percutaneous Approach (ICD-10-PCS; principal; 2016-04-02)
PROC: 5A1955Z Respiratory Ventilation, Greater than 96 Consecutive Hours (ICD-10-PCS; principal; 2016-04-02)
PROC: 0BH17EZ Insertion of Endotracheal Airway into Trachea, Via Natural or Artificial Opening (ICD-10-PCS; principal; 2016-04-02)
PROC: 06HM33Z Insertion of Infusion Device into Right Femoral Vein, Percutaneous Approach (ICD-10-PCS; principal; 2016-04-02)
PROC: B548ZZA Ultrasonography of Superior Vena Cava, Guidance (ICD-10-PCS; 2016-04-04)
PROC: 02HV33Z Insertion of Infusion Device into Superior Vena Cava, Percutaneous Approach (ICD-10-PCS; 2016-04-04)
PROC: 30233N1 Transfusion of Nonautologous Red Blood Cells into Peripheral Vein, Percutaneous Approach (ICD-10-PCS; 2016-04-14)
PROC: 0B110F4 Bypass Trachea to Cutaneous with Tracheostomy Device, Open Approach (ICD-10-PCS; 2016-04-17)
PROC: 0DH63UZ Insertion of Feeding Device into Stomach, Percutaneous Approach (ICD-10-PCS; 2016-04-18)
DX: J96.02 Acute respiratory failure with hypercapnia (principal); R65.21 Severe sepsis with septic shock; A41.9 Sepsis, unspecified organism; N17.9 Acute kidney failure, unspecified; J18.9 Pneumonia, unspecified organism; I95.9 Hypotension, unspecified; E87.2 Acidosis; B19.10 Unspecified viral hepatitis B without hepatic coma; J44.1 Chronic obstructive pulmonary disease with (acute) exacerbation; E87.1 Hypo-osmolality and hyponatremia; B37.49 Other urogenital candidiasis; Z99.11 Dependence on respirator [ventilator] status; R13.10 Dysphagia, unspecified; J96.01 Acute respiratory failure with hypoxia; I27.2 Other secondary pulmonary hypertension; M81.0 Age-related osteoporosis without current pathological fracture; Z87.891 Personal history of nicotine dependence; I10 Essential (primary) hypertension; E86.0 Dehydration; D64.9 Anemia, unspecified; K20.8 Other esophagitis; K44.9 Diaphragmatic hernia without obstruction or gangrene; K29.70 Gastritis, unspecified, without bleeding; R73.9 Hyperglycemia, unspecified; E88.09 Other disorders of plasma-protein metabolism, not elsewhere classified; K74.60 Unspecified cirrhosis of liver; E55.9 Vitamin D deficiency, unspecified
CPT/HCPCS: 36415; 36569; 36600; 71010; 71275; 76700; 76775; 76937; 80048; 80053; 80061; 80202; 80300; 81003; 82103; 82270; 82306; 82550; 82803; 82962; 83540; 83550; 83605; 83735; 83880; 84100; 84300; 84439; 84443; 84481; 84484; 85007; 85025; 85610; 85730; 86635; 86704; 86705; 86706; 86709; 86710; 86713; 86738; 86803; 86850; 86900; 86901; 86920; 87040; 87070; 87081; 87086; 87181; 87205; 87340; 87449; 87493; 87516; 93005; 93306; 93970; 94002; 94003; 94150; 94640; 94664; J1815; J2250; J2370; J7620